=== PATIENT | male | born 1960 | race Two or more races ===

== ENCOUNTER 2021-09-20 07:10 | Outpatient (REF) | payer MEDICAID, SELFPAY ==
[2021-09-20 08:46] LABS: Anion Gap 13 (12-20); Blood Urea Nitrogen 21 mg/dL (9-16); Calcium 9.3 mg/dL (8.4-10.2); Carbon Dioxide 31 mmol/L (22-29); Chloride 101 mmol/L (96-108); Estimated Glomerular Filt Rate > 60; Glucose Random 104 mg/dL (60-115); Potassium 4.2 mmol/L (3.3-5.1); Sodium 141 mmol/L (135-145)
== END 2021-09-20 07:11 | disposition home or self-care (01) ==
LOC: HO.LAB 07:10
PROVIDERS: PCP Nurse Practitioner Family; Visit Provider Internal Medicine Cardiovascular Disease
DX: R60.0 Localized edema (principal)
CPT/HCPCS: 36415; 80048

== ENCOUNTER 2021-11-29 14:34 | Outpatient (REF) | payer MEDICAID, SELFPAY ==
[2021-11-29 15:52] LABS: B Type Natriuretic Peptide 239 pg/mL (<100)
== END 2021-11-29 14:35 | disposition home or self-care (01) ==
LOC: HO.LAB 14:34
PROVIDERS: Visit Provider Internal Medicine Cardiovascular Disease
DX: R60.0 Localized edema (principal)
CPT/HCPCS: 36415; 83880

== ENCOUNTER 2021-12-11 09:11 | Emergency (ER) | payer MEDICAID, SELFPAY ==
--- NOTE | ~2021-12-11 | XR_ITS ---
EXAMINATION: XR CHEST CLINICAL INFORMATION: Chest pain COMPARISON: CXR from 08/01/[address] from 08/01/2011 TECHNIQUE: Frontal view of the chest was obtained. FINDINGS: Cardiac silhouette is chronically mildly enlarged. Again noted is the aneurysmal appearance of the thoracic aorta. The finding of peribronchial cuffing is suspicious for edema of the axial interstitium. No focal consolidation. No overt pleural effusion or pneumothorax. Linear opacities of mild atelectasis at the level of the lingula. Sternotomy wires are intact. No acute skeletal findings. XR/XR chest 1V IMPRESSION: * Mild cardiomegaly and peribronchial cuffing, which is suspicious for mild interstitial edema. * Again noted is the aneurysmal appearance of the thoracic aorta.
--- NOTE | 2021-12-11 09:20 | ECG_ITS ---
Test Reason : chest pain Blood Pressure : / mmHG Vent. Rate : 059 BPM Atrial Rate : 059 BPM P-R Int : 184 ms QRS Dur : 118 ms QT Int : 470 ms P-R-T Axes : -10 -45 074 degrees QTc Int : 465 ms Sinus bradycardia Left anterior fascicular block Left ventricular hypertrophy with QRS widening ( R in aVL , Mathieu product ) Inferior infarct , age undetermined Abnormal ECG When compared to the previous EKG of No significant changes seen Referred By: Leighton Lamb Electronically Signed By:Wilber Nugent
[2021-12-11 09:21] VITALS: BP 151/85; BP 186/90; PULSE 62; PULSE 68; RESP 18; TEMP 37; O2SAT 94; O2SAT 96; BMI 35.5
--- NOTE | 2021-12-11 09:21 | ED.GENADULT ---
HPI - General Adult General Chief complaint: General Medical Stated complaint: Hypertension Time Seen by Provider: 12/11/21 09:19 Source: EMS Mode of arrival: EMS History of Present Illness HPI narrative: This is 61 years old male from a alf with history of hypertension, hyperlipidemia, TBI, OCD, sent here for evaluation by the alf because the elevated blood pressure. Patient denies any chest pain shortness of breath Onset (ago): hour(s) (6) Radiation: non-radiation Severity: mild Exacerbating factors: none Related Data Allergies Allergy/AdvReac Type Severity Reaction Status Date / Time No Known Allergies Allergy Unknown Unverified 02/19/20 16:34 Review of Systems Review of Systems: Yes all other systems are reviewed and are negative Cardiovascular: Cardiovascular: Reports no additional cardiovascular complaints and Denies chest pain Respiratory: Respiratory: Reports no additional respiratory complaints Gastrointestinal: Gastrointestinal: Denies abdominal pain [facility] Past Medical History [facility] Narrative: Hypertension, hyperlipidemia, TBI, BPH, OCD, aortic valve replacement Social History Social History Advance Directives: Yes Advance Directives Information Provided: No Advance Directives on File: No Physical Exam ED Vital Signs: Vital Signs - 24 hr 12/11/21 09:21 12/11/21 11:03 12/11/21 11:04 Temperature 98.6 F Pulse Rate 62 59 59 Respiratory Rate 18 16 20 Blood Pressure 151/85 H 144/82 H 149/82 H Pulse Oximetry 94 94 96 Oxygen Delivery Method Nasal Cannula Nasal Cannula Nasal Cannula Oxygen Flow Rate 2 2 BMI result Body Mass Index 35.5 Const General: cooperative and no acute distress Nutritional Appearance: average body habitus Orientation/consciousness: patient oriented x3 HENMT Head: Yes normal to inspection General nose exam: Normal external nose present Face and sinus: Yes normal facial exam Mouth: Normal oral and palatal mucosa present Throat: Yes posterior oropharynx normal Neck Neck: Yes normal visual inspection and Yes full ROM Chest Chest palpation & inspection: normal inspection of the chest Resp Effort & Inspection: normal respiratory effort Auscultation: clear to auscultation bilaterally Cardio Jugular venous distension: no JVD Rate: regular rate Rhythm: regular rhythm GI Inspection: Yes normal to inspection Palpation (GI): Soft to palpation, not firm, nontender and no guarding General: Yes no CVA tenderness Back/Spine/Pelvis Back: no CVA tenderness Skin General skin exam: no rashes or lesions noted Rashes: no rashes Neuro General: patient oriented x3 Course Reevaluation(s) Reevaluation #1: The patient remained asymptomatic since arrival, BP is controlled, last BP is 149/82 without any intervention by us. The patient can be discharged back to the alf. Medical Decision Making Lab Data Lab results reviewed: Yes I reviewed the patient's lab results. Result diagrams: 12/11/21 09:51 12/11/21 09:51 Labs: Lab Results 12/11/21 12/11/21 12/11/21 Range/Units 09:51 09:51 09:51 WBC 5.1 (4.8-10.8) X10*3/uL RBC 4.23 L (4.60-5.80) X10*6/uL Hgb 12.8 L (14.0-18.0) g/dl Hct 40.6 L (42.0-52.0) % MCV 96.0 (80.0-98.0) fL MCH 30.3 (27.0-33.0) pg MCHC 31.5 (31.0-36.0) g/dl RDW 12.2 (11.0-16.0) % Plt Count 167 (160-400) X10*3/uL MPV 10.5 (9.4-12.4) fL Immature Gran % (Auto) 0.2 (0.0-0.4) % Neut % (Auto) 75.3 H (45-73) % Lymph % (Auto) 11.0 L (20-40) % Randolph % (Auto) 6.1 (2-11) % Eos % (Auto) 7.2 H (0-4) % Baso % (Auto) 0.2 (0-2) % Lymph # (Auto) 0.6 L (1.2-4.9) X10*3/uL Randolph # (Auto) 0.3 (0.1-1.2) X10*3/uL Eos # (Auto) 0.4 (0.0-0.4) X10*3/uL Baso # (Auto) 0.0 (0.0-0.2) X10*3/uL Abs Immat Gran (auto) 0.01 (0.00-0.03) X10*3/uL Absolute Neuts (auto) 3.9 (2.0-8.3) x10*3/uL Absolute Nucleated RBC 0.000 (0.0-0.012) X10*3/uL Nucleated RBC % (auto) 0.0 (0.0-0.2) /100WBC PT 15.1 H (10.0-13.1) SEC INR 1.3 H (0.9-1.1) Sodium 143 (135-145) mmol/L Potassium 3.7 (3.3-5.1) mmol/L Chloride 97 (96-108) mmol/L Carbon Dioxide 41 H* D (22-29) mmol/L Anion Gap 9 L (12-20) BUN 16 (9-16) mg/dL Creatinine 0.87 (0.5-1.4) mg/dL Estim Creat Clear Calc 99.8 Estimated GFR > 60 Random Glucose 115 (60-115) mg/dL Calcium 9.0 (8.4-10.2) mg/dL Total Bilirubin 0.8 (0.0-1.0) mg/dL AST 16 (5-37) U/L ALT 16 (0-40) U/L Alkaline Phosphatase 93 (39-117) U/L Troponin I High Sens (<3.5-35.0) ng/L Total Protein 6.8 (6.5-8.0) g/dL Albumin 3.8 (3.5-5.0) g/dL 12/11/21 Range/Units 09:51 WBC (4.8-10.8) X10*3/uL RBC (4.60-5.80) X10*6/uL Hgb (14.0-18.0) g/dl Hct (42.0-52.0) % MCV (80.0-98.0) fL MCH (27.0-33.0) pg MCHC (31.0-36.0) g/dl RDW (11.0-16.0) % Plt Count (160-400) X10*3/uL MPV (9.4-12.4) fL Immature Gran % (Auto) (0.0-0.4) % Neut % (Auto) (45-73) % Lymph % (Auto) (20-40) % Randolph % (Auto) (2-11) % Eos % (Auto) (0-4) % Baso % (Auto) (0-2) % Lymph # (Auto) (1.2-4.9) X10*3/uL Randolph # (Auto) (0.1-1.2) X10*3/uL Eos # (Auto) (0.0-0.4) X10*3/uL Baso # (Auto) (0.0-0.2) X10*3/uL Abs Immat Gran (auto) (0.00-0.03) X10*3/uL Absolute Neuts (auto) (2.0-8.3) x10*3/uL Absolute Nucleated RBC (0.0-0.012) X10*3/uL Nucleated RBC % (auto) (0.0-0.2) /100WBC PT (10.0-13.1) SEC INR (0.9-1.1) Sodium (135-145) mmol/L Potassium (3.3-5.1) mmol/L Chloride (96-108) mmol/L Carbon Dioxide (22-29) mmol/L Anion Gap (12-20) BUN (9-16) mg/dL Creatinine (0.5-1.4) mg/dL Estim Creat Clear Calc Estimated GFR Random Glucose (60-115) mg/dL Calcium (8.4-10.2) mg/dL Total Bilirubin (0.0-1.0) mg/dL AST (5-37) U/L ALT (0-40) U/L Alkaline Phosphatase (39-117) U/L Troponin I High Sens 10.2 (<3.5-35.0) ng/L Total Protein (6.5-8.0) g/dL Albumin (3.5-5.0) g/dL ECG Data Attestation: I personally reviewed and interpreted this ECG as follows: Prior ECG tracings: available for review Pacemaker model: Normal sinus rhythm rate [address]-T changes Discharge Plan Discharge Clinical Impression: Hypertension Patient Disposition: Home, Self-Care Instructions: Hypertension in the Older Adult (ED) Additional Instructions: Follow-up with your primary care physician, return if you worse , chest pain ,short of breath Referrals: Maddison Vazquez NP [Primary Care Provider] - 2 days
[2021-12-11 09:56] LABS: MANUAL DIFF FLAG NO
[2021-12-11 10:19] LABS: Basophils Percent Auto 0.2 % (0-2); Eosinophils Absolute Auto 0.4 X10*3/uL (0.0-0.4); Eosinophils Percent Auto 7.2 % (0-4); Hematocrit 40.6 % (42.0-52.0); Hemoglobin 12.8 g/dl (14.0-18.0); Imm Gran Abs Auto 0.01 X10*3/uL (0.00-0.03); Imm Gran Pct Auto 0.2 % (0.0-0.4); Lymphocytes Absolute Auto 0.6 X10*3/uL (1.2-4.9); Mean Corpuscular HGB Conc 31.5 g/dl (31.0-36.0); Mean Corpuscular Hemoglobin 30.3 pg (27.0-33.0); Mean Platelet Volume 10.5 fL (9.4-12.4); Monocytes Absolute Auto 0.3 X10*3/uL (0.1-1.2); Monocytes Percent Auto 6.1 % (2-11); Neutrophils Absolute Auto 3.9 x10*3/uL (2.0-8.3); Neutrophils Percent Auto 75.3 % (45-73); Platelet Count 167 X10*3/uL (160-400); Red Blood Count 4.23 X10*6/uL (4.60-5.80); Red Cell Distribution Width 12.2 % (11.0-16.0); White Blood Count 5.1 X10*3/uL (4.8-10.8)
[2021-12-11 10:25] LABS: INTERNATIONAL NORM RATIO 1.3 (0.9-1.1); Prothrombin Time 15.1 SEC (10.0-13.1)
[2021-12-11 10:44] LABS: Troponin-I High Sensitivity 10.2 ng/L (<3.5-35.0)
[2021-12-11 10:49] LABS: Alanine Aminotransferase 16 U/L (0-40); Albumin Level 3.8 g/dL (3.5-5.0); Alkaline Phosphatase 93 U/L (39-117); Anion Gap 9 (12-20); Aspartate Amino Transferase 16 U/L (5-37); Bilirubin Total 0.8 mg/dL (0.0-1.0); Blood Urea Nitrogen 16 mg/dL (9-16); Carbon Dioxide 41 mmol/L (22-29); Chloride 97 mmol/L (96-108); Creatinine Clr Calc Pharmacy 99.8; Estimated Glomerular Filt Rate > 60; Glucose Random 115 mg/dL (60-115); Potassium 3.7 mmol/L (3.3-5.1); Sodium 143 mmol/L (135-145); Total Protein 6.8 g/dL (6.5-8.0)
[2021-12-11 11:03] VITALS: BP 144/82; PULSE 59; RESP 16; O2SAT 94
[2021-12-11 11:04] VITALS: BP 149/82; PULSE 59; RESP 20; O2SAT 96
[2021-12-11 13:25] VITALS: BP 152/79; PULSE 58; RESP 16; O2SAT 97
== END 2021-12-11 13:59 | disposition home or self-care (01) ==
PROVIDERS: Emergency Provider Emergency Medicine; PCP Nurse Practitioner Family
DX: I10 Essential (primary) hypertension (principal); E78.5 Hyperlipidemia, unspecified; Z87.820 Personal history of traumatic brain injury; Z95.2 Presence of prosthetic heart valve
CPT/HCPCS: 36415; 71045; 80053; 84484; 85025; 85610; 93005; 99283; 99284

== ENCOUNTER 2022-07-10 08:31 | Inpatient (IN) | payer MEDICAID, SELFPAY ==
[2022-07-10] VITALS (16 sets, daily range): BP systolic 117–154; BP diastolic 57–90; PULSE 64–87; RESP 10–22; TEMP 36.7–37.2; O2SAT 88–99; BMI 35.4; BMI 34.7
--- NOTE | ~2022-07-10 | XR_ITS ---
EXAMINATION: XR CHEST CLINICAL INFORMATION: Shortness of breath. Hypoxia. COMPARISON: December 11, 2021. TECHNIQUE: Portable AP view of the chest was obtained. XR/XR chest 1V FINDINGS/IMPRESSION: The study is limited by portable technique, low lung volumes, rotation, and overlying leads. No gross focal infiltrate, effusion, pneumothorax is seen. The cardiac silhouette is suboptimally evaluated. Dilated, uncoiled aorta was better appreciated on prior CT scan, associated with known aortic dissection. The patient is status post median sternotomy.
--- NOTE | ~2022-07-10 | XR_ITS ---
EXAMINATION: XR CHEST CLINICAL INFORMATION: Cough COMPARISON: 07/10/2022 TECHNIQUE: Frontal view of the chest was obtained. FINDINGS: Median sternotomy wires appear intact. Cardiac leads overlie the chest. The lungs are well expanded. Diffuse bronchial wall thickening. No consolidation, edema, or effusion. No pneumothorax. The cardiomediastinal silhouette is enlarged, unchanged. XR/XR chest 1V IMPRESSION: No consolidation. Bronchial wall thickening can be seen with a small airways process such as asthma or atypical/viral infection.
--- NOTE | ~2022-07-10 | US_ITS ---
EXAMINATION: US VENOUS ULTRASOUND WITH DOPPLER LOWER EXTREMITY, BILATERAL CLINICAL INFORMATION: Leg swelling, worse on the left. COMPARISON: None TECHNIQUE: Ultrasound of the deep veins is performed from the hip to the calf with compression sonography and color and pulse Doppler assessment. Spectral analysis with color-flow imaging is performed. FINDINGS: RIGHT: The right profunda femoral vein is suboptimally evaluated. There is normal venous compression and respiratory variation and augmented flow. The visualized common femoral vein, superficial femoral vein, popliteal vein, and the trifurcation region shows no evidence of deep venous thrombosis. There is no significant popliteal fossa cyst. LEFT: There is normal venous compression and respiratory variation and augmented flow. The visualized common femoral vein, superficial femoral vein, profunda femoral vein, popliteal vein, and the trifurcation region shows no evidence of deep venous thrombosis. There is no significant popliteal fossa cyst. US/US venous duplex LE BI IMPRESSION: Limited evaluation of the right profunda femoral vein. Cannot confirm or exclude right profunda femoral venous thrombosis. Otherwise, no DVT demonstrated in the lower extremities, bilaterally.
--- NOTE | 2022-07-10 09:13 | ECG_ITS ---
Test Reason : sob Blood Pressure : / mmHG Vent. Rate : 081 BPM Atrial Rate : 081 BPM P-R Int : 184 ms QRS Dur : 108 ms QT Int : 380 ms P-R-T Axes : 034 -42 100 degrees QTc Int : 441 ms Normal sinus rhythm Left axis deviation ST & T wave abnormality, consider lateral ischemia Abnormal ECG When compared with ECG of 11-DEC-2021 09:39, No significant change was found Referred By: Loretta Marlow Electronically Signed By:EL GRAMAJO MD
[2022-07-10] MEDS: Furosemide 40 MG/4 ML VIAL IVPUSH (09:47)
--- NOTE | 2022-07-10 09:50 | PC.NURSE ---
Addendum entered by Mireya López 07/10/22 09:56: [id number] on arrival 69 Original Note: Pt is alert/oriented. States SOB x 1 week, B/L LE edema noted, worse on left. Breathing effort normal. Skin pwd. Placed on Bipap settings 15/5/35%, goal to keep 02 sat 88-92%. 02 dependent at fpc on 1 lpm. 18g placed to left ac. Medicated as charted with lasix. NSR on monitor. LS dim
[2022-07-10 09:51] LABS: Venous Blood Gas Refer to POC result
[2022-07-10 09:54] LABS: VBG Base Excess 14.5 mmol/L; VBG HCO3 44 mmol/L (22-26); VBG pCO2 83 mmHg; VBG pH 7.33 (7.32-7.43); VBG pO2 74 mmHg
[2022-07-10 09:56] LABS: Basophils Percent Auto 0.2 % (0-2); Eosinophils Percent Auto 0.5 % (0-4); Hematocrit 36.2 % (42.0-52.0); Imm Gran Abs Auto 0.01 X10*3/uL (0.00-0.03); Imm Gran Pct Auto 0.2 % (0.0-0.4); Lymphocytes Absolute Auto 0.5 X10*3/uL (1.2-4.9); Lymphocytes Percent Auto 7.9 % (20-40); MANUAL DIFF FLAG NO; Mean Corpuscular HGB Conc 30.4 g/dl (31.0-36.0); Mean Corpuscular Hemoglobin 28.9 pg (27.0-33.0); Mean Corpuscular Volume 95.3 fL (80.0-98.0); Mean Platelet Volume 10.4 fL (9.4-12.4); Monocytes Absolute Auto 0.4 X10*3/uL (0.1-1.2); Monocytes Percent Auto 7.1 % (2-11); Neutrophils Percent Auto 84.1 % (45-73); Platelet Count 161 X10*3/uL (160-400); Red Cell Distribution Width 12.8 % (11.0-16.0)
[2022-07-10 10:05] LABS: INTERNATIONAL NORM RATIO 1.4 (0.9-1.1); Prothrombin Time 15.8 SEC (10.0-13.1)
[2022-07-10 10:15] LABS: Alanine Aminotransferase 17 U/L (0-40); Albumin Level 3.4 g/dL (3.5-5.0); Alkaline Phosphatase 119 U/L (39-117); Anion Gap 11 (12-20); Bilirubin Total 0.6 mg/dL (0.0-1.0); Blood Urea Nitrogen 22 mg/dL (9-16); C Reactive Protein 3.37 mg/dL (< or = 0.50); Calcium 8.8 mg/dL (8.4-10.2); Carbon Dioxide 37 mmol/L (22-29); Chloride 103 mmol/L (96-108); Glucose Random 112 mg/dL (60-115); Magnesium 2.3 mg/dL (1.6-2.6); Potassium 3.6 mmol/L (3.3-5.1); Sodium 147 mmol/L (135-145); Total Protein 6.2 g/dL (6.5-8.0)
[2022-07-10 10:16] LABS: B Type Natriuretic Peptide 989 pg/mL (<100)
[2022-07-10 10:24] LABS: Ammonia 43 umol/L (13-55)
[2022-07-10 10:29] LABS: Aspartate Amino Transferase 15 U/L (5-37); Creatinine Clr Calc Pharmacy 54.9; Estimated Glomerular Filt Rate 45
[2022-07-10 10:35] LABS: Troponin-I High Sensitivity 19.2 ng/L (<3.5-35.0)
[2022-07-10 10:46] LABS: Lactic Acid 0.6 mmol/L (0.5-2.0)
--- NOTE | 2022-07-10 10:52 | ED.SOB ---
HPI - SOB/Dyspnea General Chief Complaint: Dyspnea Stated Complaint: diff breathing Time Seen by Provider: 07/10/22 09:12 Source: patient, EMS and RN notes reviewed Mode of arrival: EMS Limitations: no limitations History of Present Illness HPI Narrative: 62yoM c PMHx of HTN, HLD, CHF with an EF of 45% on Lasix 20 mg daily, TBI, CESAR on CPAP at night and chronic hypoxemia on 1L NC oxygen chronically who is currently residing at [facility] presenting with increasing shortness of breath with hypoxia in the 70's that they notice this morning. Apparently the patient has not been wearing his CPAP at night we are unsure how many days. He also reports that he has had a cough with sputum production yellow color sputum for over a week. Reports increasing leg swelling worse on the left than the right for over a week as well. He reports over the past week he has had some intermittent nausea vomiting and diarrhea. He denies any fevers, chills, headaches, neck pain/stiffness, chest pain, chest tightness, black or bloody emesis, abdominal pain, back pain, flank pain, dysuria, hematuria, abnormal penile discharge, rashes, recent falls or trauma, recent travel or sick contacts that he is aware of, calf tenderness, black or bloody stools, constipation or any other symptoms complaints or concerns at this time. MD elicited complaint: shortness of breath and cough Pertinent past history: congestive heart failure and other (CESAR on CPAP at bedtime and chronically on 1L NC oxygen ) Onset (ago): week(s) (1) Timing: constant and progressively worsening Severity: severe Known history of: congestive heart failure (and CESAR) Associated symptoms: cough, sputum production, nausea/vomiting and chest congestion Treatment prior to arrival: oxygen Related Data Home oxygen amount: 1 liter Allergies Allergy/AdvReac Type Severity Reaction Status Date / Time No Known Allergies Allergy Unknown Verified 07/10/22 09:14 Review of Systems Review of Systems: Constitutional : No Weight loss, No Fever, No Chills, No Night Sweats, No Fatigue, No Malaise ENT/Mouth : No Hearing loss, No Ear Pain, No Nasal Congestion, No Sinus Pain, No Hoarseness, No sore throat, No Rhinorrhea, No Swallowing Difficulty Eyes: No Eye Pain, No Swelling, No Redness, No Foreign Body, No Discharge, No Vision Changes Cardiovascular : No Chest Pain, + SOB, + Dyspnea on Exertion, + Orthopnea, No Edema, No Palpitations Respiratory : + Cough, + Sputum, No Wheezing, No Smoke Exposure, + Dyspnea Gastrointestinal : + Nausea, + Vomiting, + Diarrhea, No Constipation, No abdominal Pain, No Hematochezia, No Melena Genitourinary : no irregular bleeding, No Dysuria, No Urinary Frequency, No Hematuria, No Urinary Incontinence, No Urgency, No Flank Pain, No Urinary Flow Changes, No Hesitancy Musculoskeletal : No joint pain, No Myalgias, No Joint Swelling Skin : No Skin Lesions, No rash Neuro : No Weakness, No Numbness, No Paresthesias, No Loss of Consciousness, No Dizziness, No Headache Psych : No Anxiety/Panic, No Depression, No SI/HI/AH/VH, No Social Issues, Heme/Lymph: No Bruising, No Bleeding,No Lymphadenopathy Endocrine : No Polyuria, No Polydipsia, No Temperature Intolerance Yes all other systems are reviewed and are negative [facility]LY [facility] Past Medical History Attestation statement: The following information was validated with the patient. Source: old records reviewed and nursing notes reviewed Social History Social History Smoked in Last 30 Days: No Use of substances other than those prescribed or required for medical reasons: No Advance Directives: No Advance Directives Information Provided: Yes Physical Exam Vital Signs: Vital Signs: Last Vital Signs Temp 99.0 F 07/10/22 09:09 Pulse 75 07/10/22 13:38 Resp 16 07/10/22 13:49 BP 139/84 07/10/22 13:38 Pulse Ox 89 L 07/10/22 13:38 O2 Del Method 07/10/22 13:38 O2 Flow Rate 2 07/10/22 13:38 FiO2 35 07/10/22 11:17 Oxygen Flow Rate 6 07/10/22 09:09 BMI result Body Mass Index 35.4 vital signs have been reviewed as normal and appeared to be correct. Blood pressure normal. Heart rate normal. Respiration rate normal. Temperature normal. Oxygen saturation hypoxic at 88% on RA. Appearance: Alert. Oriented X3. In acute respiratory distress otherwise no other distress. Head: Normal external exam. Normocephalic. Atraumatic. Eyes: PERRLA. EOMI. Conjunctiva and sclera normal. Eyelids normal. ENT: EAC normal. TM's Normal. Pharynx normal. Uvula midline. Moist mucous membranes. No lesions/ulcerations or masses noted on the tongue. Normal voice. No trismus noted. No drooling noted. No muffled voice noted. Neck: Normal inspection. Neck supple. FROM. No adenopathy. Thyroid Normal. No tracheal deviation noted. No crepitus is noted. No meningeal signs. No neck mass noted. No signs of trauma noted. CVS: Normal heart rate and rhythm. Heart sound normal. Pulses normal throughout. No murmurs/rales/gallops. Respiratory: In acute respiratory distress with decreased breath sounds questioning rales. No wheezes/rhonchi noted. Chest is nontender. No crepitus is noted. Patient noted to have accessory muscle usage noted and tracheal tugging and abdominal retractions. Abdomen: Soft and nontender. Nondistended. No guarding. No rigidity. Bowel sounds normal in all 4 quadrants. No distention noted. No organomegaly noted. No visible injury noted. No rebound tenderness. Negative Rovsing sign. Negative obturator's sign. Negative psoas sign. Negative Maharaj sign. Back: No CVA tenderness. Full range of motion noted. Nontender. No signs of trauma. Patient neuro intact bilaterally and distally on all 4 extremities. Patient's reflexes intact bilaterally and distally on all 4 extremities. No rashes/lesion/induration/fluctuance or signs of infection noted. Skin: Skin warm and dry. Normal skin color. Normal skin turgor. No rashes/lesions/lacerations noted. Extremities: +2 lower extremity edema. No calf tenderness is noted. Extremities exhibit normal range of motion and nontender. Neuro: Oriented X 3. No motor deficit. No sensory deficit. Reflexes normal. Normal steady gait. No focal neuro deficits noted. CN's II-XII intact bilaterally? Vascular: + radial pulses/+ 2 distal pedal pulses/+2 dorsalis pedis b/l. Normal cap refill. No cyanosis noted to upper extremity nails and lower extremity toes nails. Course Course Course Narrative: 915am - 62yoM c PMHx of HTN, HLD, CHF with an EF of 45% on Lasix 20 mg daily, TBI, CESAR on CPAP at night and chronic hypoxemia on 1L NC oxygen chronically who is currently residing at [facility] presenting with increasing shortness of breath with hypoxia in the 70's that they notice this morning. Apparently the patient has not been wearing his CPAP at night we are unsure how many days. He also reports that he has had a cough with sputum production yellow color sputum for over a week. Reports increasing leg swelling worse on the left than the right for over a week as well. He reports over the past week he has had some intermittent nausea vomiting and diarrhea. On exam patient presented hypoxic at 88% on room air therefore he was quickly placed on a BiPAP with FiO2 at 35%. Otherwise all other vitals are within normal limits. He had decreased lung sounds with rales noted diffusely. With tracheal tugging abdominal retractions. No obvious wheezes or rhonchi noted. CV RRR. Abdomen is soft and nontender. There is +2 lower extremity pitting edema. No calf tenderness is noted. This patient presents with dyspnea, most likely secondary to CHF exacerbation and obstructive sleep apnea not using his CPAP. Differential diagnosis includes viral syndrome such as influenza or COVID versus pneumonia although less likely due to afebrile. Presentation not consistent with acute cardiac etiologies to include ACS, pericardial effusion / tamponade . Presentation not consistent with acute respiratory etiologies to include acute PE , pneumothorax , asthma, COPD exacerbation, allergic etiologies, or infectious etiologies. Presentation also not consistent with non-cardiopulmonary causes to include toxidromes, metabolic etiologies such as acidemia or electrolyte derangements, sepsis, neurologic causes (i.e. demyelinating diseases). Plan: Will obtain labs, BC, lactic acid, VBG, COVID/RSV/flu swab, chest x-ray, venous duplex ultrasound of bilateral lower extremity. Patient was started on BiPAP. Will also give 40 mg of Lasix and re-evaluate. Reevaluation(s) Reevaluation #1: Labs reviewed - mild anemia with an H&H of 11.0/36.6 which is similar compared to prior. - esr 37 - VBG PH 4.33, HC03 at 44 otherwise the rest of the VBG is normal - sodium 147 - carbon dioxide 37 - anion gap 11 - BUN 11 - Cr 1.56 - alkaline phosphate 119 - CRP 3.37 - BNP 989 - total protein 6.2 - albumin 3.4 - troponin 19.2 will repeat in 3 hours Otherwise all other labs are within normal limits Imaging CXR FINDINGS/IMPRESSION: ? The study is limited by portable technique, low lung volumes, rotation, and overlying leads. ? No gross focal infiltrate, effusion, pneumothorax is seen. ? The cardiac silhouette is suboptimally evaluated. Dilated, uncoiled aorta was better appreciated on prior CT scan, associated with known aortic dissection. The patient is status post median sternotomy. Venous duplex ultrasound of bilateral lower extremity FINDINGS: RIGHT: The right profunda femoral vein is suboptimally evaluated. There is normal venous compression and respiratory variation and augmented flow. The visualized common femoral vein, superficial femoral vein, popliteal vein, and the trifurcation region shows no evidence of deep venous thrombosis. ? There is no significant popliteal fossa cyst. LEFT: There is normal venous compression and respiratory variation and augmented flow. The visualized common femoral vein, superficial femoral vein, profunda femoral vein, popliteal vein, and the trifurcation region shows no evidence of deep venous thrombosis. ? There is no significant popliteal fossa cyst. US/US venous duplex LE BI IMPRESSION: ? Limited evaluation of the right profunda femoral vein. Cannot confirm or exclude right profunda femoral venous thrombosis. ? Otherwise, no DVT demonstrated in the lower extremities, bilaterally. Plan: Therefore at this time I attempted to remove the patient off the BiPAP and he still appears very sleepy and his oxygen will drop to 88% and CO2 60 on his 1L NC oxygen. Will repeat an ABG. From the patient's imaging there is no source of infection this is not sepsis or septic shock. No antibiotics indicated at this time. This is CHF exacerbation with hypoxia. Will re-evaluate. Time: 11:00 Reevaluation #2: Patient's ABG pH is 7.33. PCO2 86. PO2 64. HC 0345. Patient is in metabolic alkalosis with respiratory acidosis. Plan: Therefore at this time I discussed this case with Dr. Tello to admit the patient because the patient is requiring BiPAP he will be placed back on the BiPAP at this time. Patient understands agrees with this plan. Time: 13:30 Reevaluation #3: Patient will be admitted to the ICU Dr. Tello he recommended starting Lasix drip 5/Hr and give 60 mEq of IV potassium over a few hours therefore order placed along with Govea catheter. He will be admitted to the ICU at this time. Time: 14:42 Medications Administered Discontinued Medications Generic Name Dose Route Start Last Admin Trade Name Alexander PRN Reason Stop Dose Admin Furosemide 40 mg 07/10/22 09:26 07/10/22 09:47 Furosemide 40 Mg/4 Ml Vial IVPUSH 07/10/22 09:27 40 mg STAT STA Administration Protocol Furosemide 20 mg 07/10/22 13:28 07/10/22 13:37 Furosemide 20 Mg/2 Ml Vial IVPUSH 07/10/22 13:29 20 mg ONCE ONE Administration Protocol Medical Decision Making Lab Data [facility] Lab Attestation statement: I reviewed the patient's lab results. 07/10/22 09:44 07/10/22 09:45 Labs: Lab Results 07/10/22 07/10/22 07/10/22 Range/Units 09:44 09:44 09:44 WBC 6.0 (4.8-10.8) X10*3/uL RBC 3.80 L (4.60-5.80) X10*6/uL Hgb 11.0 L (14.0-18.0) g/dl Hct 36.2 L (42.0-52.0) % MCV 95.3 (80.0-98.0) fL MCH 28.9 (27.0-33.0) pg MCHC 30.4 L (31.0-36.0) g/dl RDW 12.8 (11.0-16.0) % Plt Count 161 (160-400) X10*3/uL MPV 10.4 (9.4-12.4) fL Immature Gran % (Auto) 0.2 (0.0-0.4) % Neut % (Auto) 84.1 H (45-73) % Lymph % (Auto) 7.9 L (20-40) % Hamblen % (Auto) 7.1 (2-11) % Eos % (Auto) 0.5 (0-4) % Baso % (Auto) 0.2 (0-2) % Lymph # (Auto) 0.5 L (1.2-4.9) X10*3/uL Hamblen # (Auto) 0.4 (0.1-1.2) X10*3/uL Eos # (Auto) 0.0 (0.0-0.4) X10*3/uL Baso # (Auto) 0.0 (0.0-0.2) X10*3/uL Abs Immat Gran (auto) 0.01 (0.00-0.03) X10*3/uL Absolute Neuts (auto) 5.0 (2.0-8.3) x10*3/uL Absolute Nucleated RBC 0.000 (0.0-0.012) X10*3/uL Nucleated RBC % (auto) 0.0 (0.0-0.2) /100WBC ESR 37 H (0-15) MM/HR PT (10.0-13.1) SEC INR (0.9-1.1) O2 Saturation % ABG pH at Pt Temp (7.35-7.45) ABG pCO2 at Pt Temp (32-45) mmHg ABG pO2 at Pt Temp (83-108) mmHg ABG HCO3 (22-26) mmol/L ABG Base Excess (Actual) mmol/L VBG pH (7.32-7.43) VBG pCO2 mmHg VBG pO2 mmHg VBG HCO3 (22-26) mmol/L VBG O2 Saturation % VBG Base Excess mmol/L Sodium (135-145) mmol/L Potassium (3.3-5.1) mmol/L Chloride (96-108) mmol/L Carbon Dioxide (22-29) mmol/L Anion Gap (12-20) BUN (9-16) mg/dL Creatinine (0.5-1.4) mg/dL Estim Creat Clear Calc Estimated GFR Random Glucose (60-115) mg/dL Lactic Acid (0.5-2.0) mmol/L Calcium (8.4-10.2) mg/dL Magnesium (1.6-2.6) mg/dL Total Bilirubin (0.0-1.0) mg/dL AST (5-37) U/L ALT (0-40) U/L Alkaline Phosphatase (39-117) U/L Ammonia (13-55) umol/L Troponin I High Sens (<3.5-35.0) ng/L C-Reactive Protein (< or = 0.50) mg/dL B-Natriuretic Peptide 989 H (<100) pg/mL Total Protein (6.5-8.0) g/dL Albumin (3.5-5.0) g/dL Influenza Type A (PCR) (Negative) Influenza Type B (PCR) (Negative) RSV RNA Qual (PCR) (Negative) SARS-CoV-2 RNA (RT-PCR) (Negative) 07/10/22 07/10/22 07/10/22 Range/Units 09:45 09:45 09:47 WBC (4.8-10.8) X10*3/uL RBC (4.60-5.80) X10*6/uL Hgb (14.0-18.0) g/dl Hct (42.0-52.0) % MCV (80.0-98.0) fL MCH (27.0-33.0) pg MCHC (31.0-36.0) g/dl RDW (11.0-16.0) % Plt Count (160-400) X10*3/uL MPV (9.4-12.4) fL Immature Gran % (Auto) (0.0-0.4) % Neut % (Auto) (45-73) % Lymph % (Auto) (20-40) % Hamblen % (Auto) (2-11) % Eos % (Auto) (0-4) % Baso % (Auto) (0-2) % Lymph # (Auto) (1.2-4.9) X10*3/uL Hamblen # (Auto) (0.1-1.2) X10*3/uL Eos # (Auto) (0.0-0.4) X10*3/uL Baso # (Auto) (0.0-0.2) X10*3/uL Abs Immat Gran (auto) (0.00-0.03) X10*3/uL Absolute Neuts (auto) (2.0-8.3) x10*3/uL Absolute Nucleated RBC (0.0-0.012) X10*3/uL Nucleated RBC % (auto) (0.0-0.2) /100WBC ESR (0-15) MM/HR PT 15.8 H (10.0-13.1) SEC INR 1.4 H (0.9-1.1) O2 Saturation % ABG pH at Pt Temp (7.35-7.45) ABG pCO2 at Pt Temp (32-45) mmHg ABG pO2 at Pt Temp (83-108) mmHg ABG HCO3 (22-26) mmol/L ABG Base Excess (Actual) mmol/L VBG pH 7.33 (7.32-7.43) VBG pCO2 83 mmHg VBG pO2 74 mmHg VBG HCO3 44 H (22-26) mmol/L VBG O2 Saturation 93.0 % VBG Base Excess 14.5 mmol/L Sodium 147 H (135-145) mmol/L Potassium 3.6 (3.3-5.1) mmol/L Chloride 103 (96-108) mmol/L Carbon Dioxide 37 H (22-29) mmol/L Anion Gap 11 L (12-20) BUN 22 H (9-16) mg/dL Creatinine 1.56 H (0.5-1.4) mg/dL Estim Creat Clear Calc 54.9 Estimated GFR 45 Random Glucose 112 (60-115) mg/dL Lactic Acid (0.5-2.0) mmol/L Calcium 8.8 (8.4-10.2) mg/dL Magnesium 2.3 (1.6-2.6) mg/dL Total Bilirubin 0.6 (0.0-1.0) mg/dL AST 15 (5-37) U/L ALT 17 (0-40) U/L Alkaline Phosphatase 119 H (39-117) U/L Ammonia (13-55) umol/L Troponin I High Sens (<3.5-35.0) ng/L C-Reactive Protein 3.37 H (< or = 0.50) mg/dL B-Natriuretic Peptide (<100) pg/mL Total Protein 6.2 L (6.5-8.0) g/dL Albumin 3.4 L (3.5-5.0) g/dL Influenza Type A (PCR) (Negative) Influenza Type B (PCR) (Negative) RSV RNA Qual (PCR) (Negative) SARS-CoV-2 RNA (RT-PCR) (Negative) 07/10/22 07/10/22 07/10/22 Range/Units 09:57 09:57 09:57 WBC (4.8-10.8) X10*3/uL RBC (4.60-5.80) X10*6/uL Hgb (14.0-18.0) g/dl Hct (42.0-52.0) % MCV (80.0-98.0) fL MCH (27.0-33.0) pg MCHC (31.0-36.0) g/dl RDW (11.0-16.0) % Plt Count (160-400) X10*3/uL MPV (9.4-12.4) fL Immature Gran % (Auto) (0.0-0.4) % Neut % (Auto) (45-73) % Lymph % (Auto) (20-40) % Hamblen % (Auto) (2-11) % Eos % (Auto) (0-4) % Baso % (Auto) (0-2) % Lymph # (Auto) (1.2-4.9) X10*3/uL Hamblen # (Auto) (0.1-1.2) X10*3/uL Eos # (Auto) (0.0-0.4) X10*3/uL Baso # (Auto) (0.0-0.2) X10*3/uL Abs Immat Gran (auto) (0.00-0.03) X10*3/uL Absolute Neuts (auto) (2.0-8.3) x10*3/uL Absolute Nucleated RBC (0.0-0.012) X10*3/uL Nucleated RBC % (auto) (0.0-0.2) /100WBC ESR (0-15) MM/HR PT (10.0-13.1) SEC INR (0.9-1.1) O2 Saturation % ABG pH at Pt Temp (7.35-7.45) ABG pCO2 at Pt Temp (32-45) mmHg ABG pO2 at Pt Temp (83-108) mmHg ABG HCO3 (22-26) mmol/L ABG Base Excess (Actual) mmol/L VBG pH (7.32-7.43) VBG pCO2 mmHg VBG pO2 mmHg VBG HCO3 (22-26) mmol/L VBG O2 Saturation % VBG Base Excess mmol/L Sodium (135-145) mmol/L Potassium (3.3-5.1) mmol/L Chloride (96-108) mmol/L Carbon Dioxide (22-29) mmol/L Anion Gap (12-20) BUN (9-16) mg/dL Creatinine (0.5-1.4) mg/dL Estim Creat Clear Calc Estimated GFR Random Glucose (60-115) mg/dL Lactic Acid 0.6 (0.5-2.0) mmol/L Calcium (8.4-10.2) mg/dL Magnesium (1.6-2.6) mg/dL Total Bilirubin (0.0-1.0) mg/dL AST (5-37) U/L ALT (0-40) U/L Alkaline Phosphatase (39-117) U/L Ammonia (13-55) umol/L Troponin I High Sens 19.2 (<3.5-35.0) ng/L C-Reactive Protein (< or = 0.50) mg/dL B-Natriuretic Peptide (<100) pg/mL Total Protein (6.5-8.0) g/dL Albumin (3.5-5.0) g/dL Influenza Type A (PCR) NEGATIVE (Negative) Influenza Type B (PCR) NEGATIVE (Negative) RSV RNA Qual (PCR) NEGATIVE (Negative) SARS-CoV-2 RNA (RT-PCR) NEGATIVE (Negative) 07/10/22 07/10/22 07/10/22 Range/Units 10:01 13:03 13:10 WBC (4.8-10.8) X10*3/uL RBC (4.60-5.80) X10*6/uL Hgb (14.0-18.0) g/dl Hct (42.0-52.0) % MCV (80.0-98.0) fL MCH (27.0-33.0) pg MCHC (31.0-36.0) g/dl RDW (11.0-16.0) % Plt Count (160-400) X10*3/uL MPV (9.4-12.4) fL Immature Gran % (Auto) (0.0-0.4) % Neut % (Auto) (45-73) % Lymph % (Auto) (20-40) % Hamblen % (Auto) (2-11) % Eos % (Auto) (0-4) % Baso % (Auto) (0-2) % Lymph # (Auto) (1.2-4.9) X10*3/uL Hamblen # (Auto) (0.1-1.2) X10*3/uL Eos # (Auto) (0.0-0.4) X10*3/uL Baso # (Auto) (0.0-0.2) X10*3/uL Abs Immat Gran (auto) (0.00-0.03) X10*3/uL Absolute Neuts (auto) (2.0-8.3) x10*3/uL Absolute Nucleated RBC (0.0-0.012) X10*3/uL Nucleated RBC % (auto) (0.0-0.2) /100WBC ESR (0-15) MM/HR PT (10.0-13.1) SEC INR (0.9-1.1) O2 Saturation 88.0 % ABG pH at Pt Temp 7.33 L (7.35-7.45) ABG pCO2 at Pt Temp 86 H* (32-45) mmHg ABG pO2 at Pt Temp 64 L (83-108) mmHg ABG HCO3 45 H (22-26) mmol/L ABG Base Excess (Actual) 16.1 mmol/L VBG pH (7.32-7.43) VBG pCO2 mmHg VBG pO2 mmHg VBG HCO3 (22-26) mmol/L VBG O2 Saturation % VBG Base Excess mmol/L Sodium (135-145) mmol/L Potassium (3.3-5.1) mmol/L Chloride (96-108) mmol/L Carbon Dioxide (22-29) mmol/L Anion Gap (12-20) BUN (9-16) mg/dL Creatinine (0.5-1.4) mg/dL Estim Creat Clear Calc Estimated GFR Random Glucose (60-115) mg/dL Lactic Acid (0.5-2.0) mmol/L Calcium (8.4-10.2) mg/dL Magnesium (1.6-2.6) mg/dL Total Bilirubin (0.0-1.0) mg/dL AST (5-37) U/L ALT (0-40) U/L Alkaline Phosphatase (39-117) U/L Ammonia 43 (13-55) umol/L Troponin I High Sens 21.0 (<3.5-35.0) ng/L C-Reactive Protein (< or = 0.50) mg/dL B-Natriuretic Peptide (<100) pg/mL Total Protein (6.5-8.0) g/dL Albumin (3.5-5.0) g/dL Influenza Type A (PCR) (Negative) Influenza Type B (PCR) (Negative) RSV RNA Qual (PCR) (Negative) SARS-CoV-2 RNA (RT-PCR) (Negative) Independent Interpretation I performed an independent interpretation of an: EKG, Plain X-Ray and Ultrasound Interpretation: EXAMINATION: XR CHEST CLINICAL INFORMATION: Shortness of breath. Hypoxia. COMPARISON: December 11, 2021. TECHNIQUE: Portable AP view of the chest was obtained. XR/XR chest 1V FINDINGS/IMPRESSION: ? The study is limited by portable technique, low lung volumes, rotation, and overlying leads. ? No gross focal infiltrate, effusion, pneumothorax is seen. ? The cardiac silhouette is suboptimally evaluated. Dilated, uncoiled aorta was better appreciated on prior CT scan, associated with known aortic dissection. The patient is status post median sternotomy. FINDINGS: RIGHT: The right profunda femoral vein is suboptimally evaluated. There is normal venous compression and respiratory variation and augmented flow. The visualized common femoral vein, superficial femoral vein, popliteal vein, and the trifurcation region shows no evidence of deep venous thrombosis. ? There is no significant popliteal fossa cyst. LEFT: There is normal venous compression and respiratory variation and augmented flow. The visualized common femoral vein, superficial femoral vein, profunda femoral vein, popliteal vein, and the trifurcation region shows no evidence of deep venous thrombosis. ? There is no significant popliteal fossa cyst. US/US venous duplex LE BI IMPRESSION: ? Limited evaluation of the right profunda femoral vein. Cannot confirm or exclude right profunda femoral venous thrombosis. ? Otherwise, no DVT demonstrated in the lower extremities, bilaterally. Radiology Impression Discussion of test interpretation with radiology: I have reviewed the radiologist's reading. External Record Review External record reviewed: Inpatient record, Office record, Outpatient record, Prior outpatient labs, Prior outpatient radiology, Primary care record and Outside ED record Chronic Conditions Patient?s care impacted by: Other (See HPI) Critical Care Time Critical Care Time Critical Care Time: Yes Total Critical Care Time: 60 Attestation: I personally attest to this time spent taking care of the patient Discharge Plan Discharge Clinical Impression: Acute exacerbation of CHF (congestive heart failure), Hypoxia, CICI (acute kidney injury), Metabolic alkalosis with respiratory acidosis Patient Disposition: Admitted As Inpatient
[2022-07-10 10:53] LABS: Erythrocyte Sedimentation Rate 37 MM/HR (0-15)
[2022-07-10 11:04] LABS: Influenza A PCR NEGATIVE (Negative); Influenza B PCR NEGATIVE (Negative); Resp Syncy Virus RNA Qual PCR NEGATIVE (Negative); SARS COV2 PCR INHOUSE NEGATIVE (Negative)
--- NOTE | 2022-07-10 11:19 | PC.NURSE ---
Bedside LE u/trasound at this time. Pt remains on Bipap, awakes to verbal stiumli.
[2022-07-10 13:21] LABS: ABG Base Excess 16.1 mmol/L; ABG HCO3 45 mmol/L (22-26); ABG pCO2 86 mmHg (32-45); ABG pH 7.33 (7.35-7.45); ABG pO2 64 mmHg (83-108)
[2022-07-10 13:22] LABS: ABG Refer to POC result
[2022-07-10] MEDS: Furosemide 20 MG/2 ML VIAL IVPUSH (13:37)
--- NOTE | 2022-07-10 13:44 | PC.NURSE ---
Addendum entered by Mireya López 07/10/22 14:14: Bipap removed by Loretta GARG, pt remains sleepy, repeat vbgs worse. BiPap placed back on pt Original Note: Pt remains sleepy, awakes to verbal stimuli. ETc02 60s. dditional IV Lasix given as charted in AUG. 700ml emptied, however bed change earlier for urine incontinence.
--- NOTE | 2022-07-10 15:02 | PM.CCHP ---
History of Present Illness Date of Service: 07/10/22 Chief Complaint: Shortness of breath 62-year-old gentleman with underlying history of systolic congestive heart failure with prior ejection fraction of 45%, CESAR on CPAP, chronic hypoxic respiratory failure on 1 L of supplemental oxygen, TBI, skilled nursing resident admitted on 07/10/2022 with progressive dyspnea and hypoxia. Of note, per skilled nursing report patient has not been using his CPAP recently. On ER evaluation patient in exacerbation of underlying congestive heart failure with acute hypoxic hypercapnia requiring BiPAP support. Started on diuresis and admitted to the intensive care unit. Review of Systems Constitutional: Constitutional: Reports daytime sleepiness, Denies excessive sweating, Reports fatigue, Denies fever(s), Reports lethargy, Reports malaise, Denies night sweats, Denies snoring and Denies weight loss Eyes: Eyes: Denies blurry vision and Denies itchy eyes ENT: Denies nasal congestion, Denies post nasal drip, Denies sinus pain, Denies sinus pressure and Denies other ( Thrush) Cardiovascular: Cardiovascular: Denies chest pain, Reports pedal edema, Reports dyspnea, Reports orthopnea and Denies paroxysmal nocturnal dyspnea Respiratory: Respiratory: Denies cough, Denies hemoptysis, Denies excessive phlegm production, Reports dyspnea, Denies snoring and Denies wheezing Gastrointestinal: Gastrointestinal: Denies abdominal pain and Denies heartburn Musculoskeletal: Musculoskeletal: Denies myalgias, Denies arthralgias and Denies joint swelling Integumentary/Breasts: Skin/Breast: Denies rash Neurologic: Denies seizure-like activity Psychiatric: Psychiatric: Reports abnormal sleep pattern Endocrine: Endocrine: Denies excessive sweating, Reports fatigue and Denies heat intolerance Hematologic/Lymphatic: Hematologic/Lymphatic: Denies easy bruising Allergic/Immunologic: Allergic/Immunologic: Denies itchy eyes, Denies seasonal rhinorrhea and Denies wheezing PMFSH Social History Social History Smoked in Last 30 Days: No Use of substances other than those prescribed or required for medical reasons: No Advance Directives: No Advance Directives Information Provided: Yes Meds Allergies Allergy/AdvReac Type Severity Reaction Status Date / Time No Known Allergies Allergy Unknown Verified 07/10/22 09:14 Active Medications: Current Medications Acetazolamide (Acetazolamide Sodium 500 Mg Vial) 375 mg IVPUSH BID LIV Stop: 07/12/22 21:01 Heparin Sodium (Porcine) (Heparin Sodium,Porcine 5,000 Unit/Ml Vial) 5,000 unit SUBCUT Q8H LIV Furosemide 200 mg/ Sodium (Chloride) 100 mls @ 2.5 mls/hr IVCONT .Q24H LIV Potassium Chloride (Potassium Chloride/H20) 10 meq in 100 mls @ 100 mls/hr IV Q1H LIV Stop: 07/10/22 17:59 Potassium Chloride (Potassium Chloride/H20) 10 meq in 100 mls @ 100 mls/hr IV Q1H LIV Stop: 07/10/22 15:59 Pharmacy Consult (Consult Rx Perform Med Rec) 1 each MISCELLANE ONCE PRN PRN Reason: Consult order Physical Exam Vital Signs: Vital Signs: Last Vital Signs Temp 99.0 F 07/10/22 09:09 Pulse 75 07/10/22 13:38 Resp 16 07/10/22 13:49 BP 139/84 07/10/22 13:38 Pulse Ox 89 L 07/10/22 13:38 O2 Del Method 07/10/22 13:38 O2 Flow Rate 2 07/10/22 13:38 FiO2 35 07/10/22 11:17 Oxygen Flow Rate 6 07/10/22 09:09 BMI result Body Mass Index 35.4 Const: General: no acute distress and alert Nutritional Appearance: obese and Edematous HEENT: Head: Yes atraumatic Mouth: no other ( thrush) Throat: No postnasal drainage Eyes: General: appearance normal, both eyes and all related structures Sclerae: sclerae normal EOM: EOMs intact bilaterally Neck: Neck: Yes supple Lymphatic: no lymphadenopathy noted Resp: Effort & Inspection: normal respiratory effort and no use of accessory muscles Auscultation: crackles (Diffuse bilateral) Cardio: Rate: regular rate Rhythm: regular rhythm Heart sounds: no gallops, no murmurs and no rubs GI: Palpation (GI): Soft to palpation and Other GI palpation findings present ( nontender) Skin: General skin exam: other ( warm) Rashes: no rashes Extrem: General: No clubbing, No cyanosis and Yes edema (2+ bilateral) Results Labs 07/10/22 09:44 07/10/22 09:45 Labs: Laboratory Results - last 24 hr 07/10/22 07/10/22 07/10/22 09:44 09:44 09:44 MCV 95.3 MCH 28.9 MCHC 30.4 L RDW 12.8 Plt Count 161 MPV 10.4 Immature Gran % (Auto) 0.2 Neut % (Auto) 84.1 H Lymph % (Auto) 7.9 L [place] % (Auto) 7.1 Eos % (Auto) 0.5 Baso % (Auto) 0.2 Lymph # (Auto) 0.5 L [place] # (Auto) 0.4 Eos # (Auto) 0.0 Baso # (Auto) 0.0 Abs Immat Gran (auto) 0.01 Absolute Neuts (auto) 5.0 Absolute Nucleated RBC 0.000 Nucleated RBC % (auto) 0.0 ESR 37 H PT INR O2 Saturation ABG pH at Pt Temp ABG pCO2 at Pt Temp ABG pO2 at Pt Temp ABG HCO3 ABG Base Excess (Actual) VBG pH VBG pCO2 VBG pO2 VBG HCO3 VBG O2 Saturation VBG Base Excess Anion Gap Estim Creat Clear Calc Estimated GFR Random Glucose Lactic Acid Calcium Magnesium Total Bilirubin AST ALT Alkaline Phosphatase Ammonia Troponin I High Sens C-Reactive Protein B-Natriuretic Peptide 989 H Total Protein Albumin Influenza Type A (PCR) Influenza Type B (PCR) RSV RNA Qual (PCR) SARS-CoV-2 RNA (RT-PCR) 07/10/22 07/10/22 07/10/22 09:45 09:45 09:47 MCV MCH MCHC RDW Plt Count MPV Immature Gran % (Auto) Neut % (Auto) Lymph % (Auto) [place] % (Auto) Eos % (Auto) Baso % (Auto) Lymph # (Auto) [place] # (Auto) Eos # (Auto) Baso # (Auto) Abs Immat Gran (auto) Absolute Neuts (auto) Absolute Nucleated RBC Nucleated RBC % (auto) ESR PT 15.8 H INR 1.4 H O2 Saturation ABG pH at Pt Temp ABG pCO2 at Pt Temp ABG pO2 at Pt Temp ABG HCO3 ABG Base Excess (Actual) VBG pH 7.33 VBG pCO2 83 VBG pO2 74 VBG HCO3 44 H VBG O2 Saturation 93.0 VBG Base Excess 14.5 Anion Gap 11 L Estim Creat Clear Calc 54.9 Estimated GFR 45 Random Glucose 112 Lactic Acid Calcium 8.8 Magnesium 2.3 Total Bilirubin 0.6 AST 15 ALT 17 Alkaline Phosphatase 119 H Ammonia Troponin I High Sens C-Reactive Protein 3.37 H B-Natriuretic Peptide Total Protein 6.2 L Albumin 3.4 L Influenza Type A (PCR) Influenza Type B (PCR) RSV RNA Qual (PCR) SARS-CoV-2 RNA (RT-PCR) 07/10/22 07/10/22 07/10/22 09:57 09:57 09:57 MCV MCH MCHC RDW Plt Count MPV Immature Gran % (Auto) Neut % (Auto) Lymph % (Auto) [place] % (Auto) Eos % (Auto) Baso % (Auto) Lymph # (Auto) [place] # (Auto) Eos # (Auto) Baso # (Auto) Abs Immat Gran (auto) Absolute Neuts (auto) Absolute Nucleated RBC Nucleated RBC % (auto) ESR PT INR O2 Saturation ABG pH at Pt Temp ABG pCO2 at Pt Temp ABG pO2 at Pt Temp ABG HCO3 ABG Base Excess (Actual) VBG pH VBG pCO2 VBG pO2 VBG HCO3 VBG O2 Saturation VBG Base Excess Anion Gap Estim Creat Clear Calc Estimated GFR Random Glucose Lactic Acid 0.6 Calcium Magnesium Total Bilirubin AST ALT Alkaline Phosphatase Ammonia Troponin I High Sens 19.2 C-Reactive Protein B-Natriuretic Peptide Total Protein Albumin Influenza Type A (PCR) NEGATIVE Influenza Type B (PCR) NEGATIVE RSV RNA Qual (PCR) NEGATIVE SARS-CoV-2 RNA (RT-PCR) NEGATIVE 07/10/22 07/10/22 07/10/22 10:01 13:03 13:10 MCV MCH MCHC RDW Plt Count MPV Immature Gran % (Auto) Neut % (Auto) Lymph % (Auto) [place] % (Auto) Eos % (Auto) Baso % (Auto) Lymph # (Auto) [place] # (Auto) Eos # (Auto) Baso # (Auto) Abs Immat Gran (auto) Absolute Neuts (auto) Absolute Nucleated RBC Nucleated RBC % (auto) ESR PT INR O2 Saturation 88.0 ABG pH at Pt Temp 7.33 L ABG pCO2 at Pt Temp 86 H* ABG pO2 at Pt Temp 64 L ABG HCO3 45 H ABG Base Excess (Actual) 16.1 VBG pH VBG pCO2 VBG pO2 VBG HCO3 VBG O2 Saturation VBG Base Excess Anion Gap Estim Creat Clear Calc Estimated GFR Random Glucose Lactic Acid Calcium Magnesium Total Bilirubin AST ALT Alkaline Phosphatase Ammonia 43 Troponin I High Sens 21.0 C-Reactive Protein B-Natriuretic Peptide Total Protein Albumin Influenza Type A (PCR) Influenza Type B (PCR) RSV RNA Qual (PCR) SARS-CoV-2 RNA (RT-PCR) Imaging Radiologist's Impressions: Impressions Chest X-Ray 07/10/22 10:20 FINDINGS/IMPRESSION: The study is limited by portable technique, low lung volumes, rotation, and overlying leads. No gross focal infiltrate, effusion, pneumothorax is seen. The cardiac silhouette is suboptimally evaluated. Dilated, uncoiled aorta was better appreciated on prior CT scan, associated with known aortic dissection. The patient is status post median sternotomy. Venous Duplex 07/10/22 11:39 IMPRESSION: Limited evaluation of the right profunda femoral vein. Cannot confirm or exclude right profunda femoral venous thrombosis. Otherwise, no DVT demonstrated in the lower extremities, bilaterally. Assessment and Plan (1) Acute exacerbation of CHF (congestive heart failure): Status: Acute (2) Hypoxia: Status: Acute (3) CICI (acute kidney injury): Status: Acute (4) CESAR (obstructive sleep apnea): Status: Acute Plan Assessment: 62-year-old gentleman with underlying chronic systolic congestive heart failure admitted with acute exacerbation underlying chronic heart failure resulting in acute hypoxic and hypercapnic respiratory failure requiring BiPAP support. Plan: Neuro: No acute issues. Cardiac: Acute exacerbation of underlying chronic systolic congestive heart failure. 2D echo is pending. Continue with diuresis. Pulmonary: Acute hypoxic and hypercapnic respiratory failure secondary to exacerbation of underlying congestive heart failure. Underlying chronic hypoxic respiratory failure supplemental oxygen 1 L dependent. Underlying CESAR. Continue to titrate off BiPAP support as tolerated. Renal: Acute kidney injury secondary to exacerbation of underlying congestive heart failure. Non oliguric. Continue with diuresis. Continue to monitor renal indices and urine output. Endo: No acute issues. GI: No acute issues. ID: No acute issues Heme/Onc: No acute issues. Psych: No acute issues. Miscellaneous: No acute issues. Prophylaxis: Heparin Diet: Nothing by mouth Critical care time spent: 45 minutes Time Spent With Patient Time: Total time managing care of this patient today ____ minutes.
--- NOTE | 2022-07-10 15:05 | PC.NURSE ---
RN-RN report called into ICU.
--- NOTE | 2022-07-10 15:05 | PC.NURSE ---
assumed care of pt at 1500, 16F temp sensing shore placed - pt tolerated well, 20G IV placed right AC.
[2022-07-10] MEDS: Furosemide 200 MG in 0.9 % Sodium Chloride 80 ML IVCONT (15:12)
[2022-07-10] MEDS: Potassium Chloride/H20 10 MEQ/100 ML PIGGYBACK 100 MEQ IV ×6 (15:16→20:25)
[2022-07-10] MEDS: acetaZOLAMIDE sodium 500 MG VIAL 375 MG IVPUSH ×2 (15:25→20:25)
[2022-07-10] MEDS: Heparin Sodium,Porcine 5,000 UNIT/ML VIAL 5000 UNIT SUBCUT (16:06)
--- NOTE | 2022-07-10 16:12 | PHA.MEDREC ---
MED REC COMPLETE, NO ISSUES Pharmacy Consult ? Medication Reconciliation Pharmacy has completed the medication reconciliation.
[2022-07-10 16:34] LABS: Appearance Urine Clear; Color Urine Yellow; Glucose Urine UA Negative (Negative); Leukocyte Esterase Urine Negative (Negative); Nitrite Urine Negative (Negative); PH 5.5 (5.0-9.0); UMIC TRIGGER UACC YES; Urine Blood Trace (Negative); Urine Ketones Negative (Negative); Urine Protein 300 (3+) mg/dL (Neg-Trace)
[2022-07-10 16:36] LABS: Bacteria Urine None Seen (None Seen); Hyaline Casts Urine 0-2 /LPF (0-2); RBC Urine 0-2 /HPF (0-2); Squamous Epithelial Cell Urine 0-2 /HPF (0-2); WBC Urine 0-5 /HPF (0-5)
--- NOTE | 2022-07-10 17:02 | PC.NURSE ---
SPOKE WITH [facility]P NURSE MERCEDES [phone] (PERSONAL CELL) AND STATES THAT PATIENT: USES A WALKER IS INDEPENDENT WITH ADLS TAKES PILLS WHOLE NO SPECIAL DIET/RESTRICTIONS/OR CONSISTENCY FOR FOOD OCCASIONALLY CONFUSED (HX OF DEMENTIA AND TBI) IS NON-COMPLIANT WITH 1L NC DURING THE DAY AND CPAP 1L AT NIGHT PATIENT ARRIVED VIA STRETCHER ON BIPAP RATE 12 15/5 ON 35%, VERY LETHARGIC AND UNABLE TO ANSWER QUESTIONS
[2022-07-10 18:30] LABS: Anion Gap 12 (12-20); Blood Urea Nitrogen 21 mg/dL (9-16); Calcium 7.8 mg/dL (8.4-10.2); Carbon Dioxide 34 mmol/L (22-29); Chloride 103 mmol/L (96-108); Creatinine Clr Calc Pharmacy 56.1; Estimated Glomerular Filt Rate 47; Glucose Random 97 mg/dL (60-115); Potassium 3.7 mmol/L (3.3-5.1); Sodium 145 mmol/L (135-145)
[2022-07-11] VITALS (21 sets, daily range): BP systolic 131–171; BP diastolic 55–92; PULSE 62–89; RESP 13–22; TEMP 36.9–37.4; O2SAT 88–95; BMI 33.8
[2022-07-11] MEDS: Heparin Sodium,Porcine 5,000 UNIT/ML VIAL 5000 UNIT SUBCUT ×4 (00:04→23:44)
[2022-07-11 05:26] LABS: VBG HCO3 43 mmol/L (22-26); VBG pCO2 73 mmHg; VBG pH 7.37 (7.32-7.43); VBG pO2 67 mmHg
[2022-07-11 05:31] LABS: MANUAL DIFF FLAG NO
[2022-07-11 05:36] LABS: Basophils Percent Auto 0.3 % (0-2); Eosinophils Absolute Auto 0.2 X10*3/uL (0.0-0.4); Eosinophils Percent Auto 2.7 % (0-4); Hematocrit 37.8 % (42.0-52.0); Hemoglobin 11.4 g/dl (14.0-18.0); Imm Gran Abs Auto 0.02 X10*3/uL (0.00-0.03); Imm Gran Pct Auto 0.3 % (0.0-0.4); Lymphocytes Absolute Auto 0.5 X10*3/uL (1.2-4.9); Mean Corpuscular HGB Conc 30.2 g/dl (31.0-36.0); Mean Corpuscular Volume 96.2 fL (80.0-98.0); Mean Platelet Volume 10.6 fL (9.4-12.4); Monocytes Absolute Auto 0.5 X10*3/uL (0.1-1.2); Monocytes Percent Auto 8.7 % (2-11); Neutrophils Absolute Auto 4.7 x10*3/uL (2.0-8.3); Platelet Count 160 X10*3/uL (160-400); Red Blood Count 3.93 X10*6/uL (4.60-5.80); Red Cell Distribution Width 12.7 % (11.0-16.0); White Blood Count 5.8 X10*3/uL (4.8-10.8)
[2022-07-11 06:06] LABS: Albumin Level 3.4 g/dL (3.5-5.0); Anion Gap 17 (12-20); Blood Urea Nitrogen 22 mg/dL (9-16); Carbon Dioxide 33 mmol/L (22-29); Chloride 101 mmol/L (96-108); Creatinine Clr Calc Pharmacy 51.6; Estimated Glomerular Filt Rate 44; Glucose Random 101 mg/dL (60-115); Magnesium 2.1 mg/dL (1.6-2.6); Phosphorus 3.8 mg/dL (2.7-4.5); Potassium 3.2 mmol/L (3.3-5.1); Sodium 148 mmol/L (135-145)
--- NOTE | 2022-07-11 07:00 | CA_ITS ---
Transthoracic Echocardiogram Patient (Last, First, Middle): Bladimir Moody R Gender: Male Date of : 1960 Age: 62 Procedure Date: 07/11/2022 Procedure Type: Transthoracic Echocardiogram Location: ICU Height: 167.64 cm Weight: 99.34 kg BSA: 2.08 m2 Heart Rate: bpm BP: 149 / 82 mmHg Blunger Machine Operator: Referring MD: Paul Tello MD Electrotype Servicer: Chavo Roland MD Symptoms: CHF Study Quality: Good ECG Rhythm: Sinus Conclusions: - 1. Normal LV systolic function with moderate LVH with grade 2 diastolic dysfunction 2. Severely dilated left atrium 3. Mild aortic and mitral regurgitation 4. Moderately elevated right ventricular systolic pressure mildly elevated right atrial pressures 5. No gross pericardial effusion Findings Left Ventricle Normal left ventricular size and systolic function. There is moderately increased left ventricular wall thickness. The visually estimated ejection fraction is between 60-65%. Spectral Doppler is indicative of a pseudonormal filling pattern. E/E prime ratio is >15, consistent with elevated filling pressures. Evidence suggests grade II (moderate) diastolic dysfunction. Wall Motion Rest Echo Findings The basal inferior segment is hypokinetic. All other scored wall segments showed normal motion. Right Ventricle Normal right ventricular cavity size and systolic function. Atria The left atrium is severely dilated. There is no evidence of interatrial shunt. The right atrium is likely dilated. Aortic Valve There is mild thickening of the aortic valve. There is no aortic valve stenosis. There is mild aortic valve regurgitation. Mitral Valve There is mild anterior and posterior mitral leaflet thickening. There is mild mitral valve regurgitation. There is no mitral valve stenosis. Pulmonic Valve The pulmonic valve was not well visualized. Tricuspid Valve Likely normal tricuspid valve structure and function. There is mild tricuspid valve regurgitation. Mildly elevated right atrial pressure. Moderate pulmonary hypertension is present. Great Vessels All visible segments of the aorta are normal in size. The pulmonary artery was not well visualized. Venous The inferior vena cava is moderately dilated and collapses less than 50% with inspiration. Pericardium/Pleural There is no evidence of pericardial effusion. Prior Study Comparison No prior study available for comparison. Measurements 2D Linear Measurements IVSd: 1.43 0.6-0.9/0.6-1.0 cm LVIDd: 5.31 3.9-5.3/4.2-5.9 cm LVIDd Index: 2.55 2.4-3.2/2.2-3.1 cm/m2 LVIDs: 3.70 2.0-3.6 cm LVPWd: 1.42 0.7-1.1 cm Ao Root: 3.60 2.1-3.5 cm LA Diam: 3.80 2.7-3.8/3.0-4.0 cm LAIDs Index: 1.83 1.5-2.3 cm/m2 LV Mass: 409.36 67-162/88-224 g LV Mass Index: 196.81 43-95/49-115 g/m2 LVOT Diam: 2.40 3.0+(-)1.3 cm Mitral Valve MV Pk E: 1.17 MV PK A: 0.86 MV Decel Time: 123.00 E/A: 1.40 E'Lateral: 7.83 E'Medial: 4.57 E/E' Med: 25.60 E/E' Lat: 14.90 PHT: 36.00 MVA PHT: 6.11 Decel [place]: 9.52 Aortic Valve AoV Pk Milind: 1.69 AoV Mn Milind: 1.21 AoV VTI: 0.37 AoV Pk Grad: 11.00 Aov Mn Grad: 6.00 BRAYAN Cont.VTI: 3.12 LVOT LVOT Pk Milind: 1.14 LVOT Mn Milind: 0.78 LVOT VTI: 0.25 LVOT Pk Grad: 5.00 LVOT Mn Grad: 3.00 LVOT Diam: 2.40 LVOT Area: 4.52 Diastolic Function MV Pk E: 1.17 MV Pk A: 0.86 E/A: 1.40 E'Medial: 4.57 E/E' Med: 25.60 E' Laterial: 7.83 E/E' Lat: 14.90 Right Ventricle TAPSE (mm): 28.00 TVS' Milind: 9.00 Tricuspid Valve TR Pk Milind: 3.19 TR Pk Grad: 41.00 RA Press: 8.00 RVSP: 49.00 Great Vessels Aorta Ao Root-2D: 3.60 2.0-3.7 cm Ao Asc: 3.40 2.1-3.4 cm Pulmonary Valve PV Pk Milind: 1.28 Peak PV Grad: 7.00 Updated in Other Vendor System with Status of Final Chavo Roland MD electronically signed on 07/11/2022 4:46:27 PM with status of Final
[2022-07-11] MEDS: acetaZOLAMIDE sodium 500 MG VIAL 375 MG IVPUSH ×2 (07:39→20:52)
[2022-07-11] MEDS: Potassium Chloride Packet 20 MEQ PACKET 60 MEQ PO (09:02)
[2022-07-11 09:07] LABS: Venous Blood Gas Refer to POC result
--- NOTE | 2022-07-11 09:54 | MHC.CDI.CONC ---
CDI Concurrent Query Documentation Clarification: PHYSICIAN'S DOCUMENTATION REQUEST Date of Query: 07/11/22 0954 Patient Name: Bladimir Scott Admit Date: 07/10/22 Dear Doctor, A review of the medical record indicates additional documentation may be needed. Please review below and update the documentation accordingly. Clinical Indicators: Is there a diagnosis that correlates with these lab findings: Risk Factors/Clinical Indicators/Treatments LABS: Sodium 147 H 148 H Based on the above, could you clarify in the Progress Notes the appropriate diagnosis, if significant, that supports the above abnormalities and additional evaluation, monitoring, and/or treatment rendered: Hypernatremia or other etiology of lab findings Labs indicate a diagnosis of (please specify) Other (please specify) Unable to determine Use of terms such as suspected, likely, concern for, or probable (associated with a specific diagnosis that is being evaluated, monitored, or treated as if it exists) are acceptable and can be coded in the inpatient setting, when documented at the time of discharge. Thank you, Makenna Davis [facility], [facility] Extension: [phone] Please use your independent medical judgment in providing your response. THIS QUERY IS PART OF THE PERMANENT MEDICAL RECORD Provider Response: Other (Hypernatremia secondary to diuresis) Other Diagnosis: Hypernatremia secondary to diuresis
--- NOTE | 2022-07-11 11:11 | PM.CCPN ---
Subjective Subjective Date of Service: 07/11/22 Interval History: 62-year-old gentleman with underlying history of systolic congestive heart failure with prior ejection fraction of 45%, status post left-sided nephrectomy for ?renal carcinoma, CESAR on CPAP, chronic hypoxic respiratory failure on 1 L of supplemental oxygen, TBI, [facility] resident admitted on 07/10/2022 with progressive dyspnea and hypoxia. Of note, per [facility] report patient has not been using his CPAP recently. On ER evaluation patient in exacerbation of underlying congestive heart failure with acute hypoxic hypercapnia requiring BiPAP support. Started on diuresis and admitted to the intensive care unit. Overnight 5 L negative, titrated off BiPAP. Critical Care Time (minutes): 0 Physical Exam Vital Signs: Vital Signs: Last Vital Signs Temp 99.0 F 07/11/22 10:00 Pulse 82 07/11/22 10:00 Resp 17 07/11/22 10:00 BP 144/81 H 07/11/22 10:00 Pulse Ox 89 L 07/11/22 10:00 O2 Del Method 07/11/22 10:00 O2 Flow Rate 3 07/11/22 10:00 FiO2 30 07/11/22 09:00 Oxygen Flow Rate 6 07/10/22 09:09 BMI result Body Mass Index 33.8 Const: General: no acute distress, alert and awake Eyes: Sclerae: sclerae normal EOM: EOMs intact bilaterally Neck: Neck: Yes no lymphadenopathy, Yes trachea midline and Yes supple Resp: Effort & Inspection: normal respiratory effort and no respiratory distress Auscultation: crackles (Bibasilar) Cardio: Rate: regular rate Rhythm: regular rhythm Heart sounds: no gallops, no murmurs and no rubs GI: Palpation (GI): Soft to palpation and Other GI palpation findings present ( Nontender) Auscultation: normal bowel sounds Extrem: General: No clubbing, No cyanosis and Yes edema (1+ bilateral) Objective Data Labs 07/11/22 05:15 07/11/22 05:15 Labs: Laboratory Results - last 24 hr 07/10/22 07/10/22 07/10/22 13:03 13:10 16:00 WBC RBC Hgb Hct MCV MCH MCHC RDW Plt Count MPV Immature Gran % (Auto) Neut % (Auto) Lymph % (Auto) [place] % (Auto) Eos % (Auto) Baso % (Auto) Lymph # (Auto) [place] # (Auto) Eos # (Auto) Baso # (Auto) Abs Immat Gran (auto) Absolute Neuts (auto) Absolute Nucleated RBC Nucleated RBC % (auto) O2 Saturation 88.0 ABG pH at Pt Temp 7.33 L ABG pCO2 at Pt Temp 86 H* ABG pO2 at Pt Temp 64 L ABG HCO3 45 H ABG Base Excess (Actual) 16.1 VBG pH VBG pCO2 VBG pO2 VBG HCO3 VBG O2 Saturation VBG Base Excess Sodium Potassium Chloride Carbon Dioxide Anion Gap BUN Creatinine Estim Creat Clear Calc Estimated GFR Random Glucose Calcium Phosphorus Magnesium Troponin I High Sens 21.0 Albumin Urine Color Yellow Urine Appearance Clear Urine pH 5.5 Ur Specific [place] 1.010 Urine Protein 300 (3+) H Urine Glucose (UA) Negative Urine Ketones Negative Urine Blood Trace H Urine Nitrite Negative Ur Leukocyte Esterase Negative Urine RBC 0-2 Urine WBC 0-5 Ur Squamous Epith Cells 0-2 Urine Bacteria None Seen Hyaline Casts 0-2 07/10/22 07/11/22 07/11/22 17:56 05:15 05:15 WBC 5.8 RBC 3.93 L Hgb 11.4 L Hct 37.8 L MCV 96.2 MCH 29.0 MCHC 30.2 L RDW 12.7 Plt Count 160 MPV 10.6 Immature Gran % (Auto) 0.3 Neut % (Auto) 80.0 H Lymph % (Auto) 8.0 L [place] % (Auto) 8.7 Eos % (Auto) 2.7 Baso % (Auto) 0.3 Lymph # (Auto) 0.5 L [place] # (Auto) 0.5 Eos # (Auto) 0.2 Baso # (Auto) 0.0 Abs Immat Gran (auto) 0.02 Absolute Neuts (auto) 4.7 Absolute Nucleated RBC 0.000 Nucleated RBC % (auto) 0.0 O2 Saturation ABG pH at Pt Temp ABG pCO2 at Pt Temp ABG pO2 at Pt Temp ABG HCO3 ABG Base Excess (Actual) VBG pH VBG pCO2 VBG pO2 VBG HCO3 VBG O2 Saturation VBG Base Excess Sodium 145 148 H Potassium 3.7 3.2 L Chloride 103 101 Carbon Dioxide 34 H 33 H Anion Gap 12 17 BUN 21 H 22 H Creatinine 1.51 H 1.62 H Estim Creat Clear Calc 56.1 51.6 Estimated GFR 47 44 Random Glucose 97 101 Calcium 7.8 L D 8.0 L Phosphorus 3.8 Magnesium 2.1 Troponin I High Sens Albumin 3.4 L Urine Color Urine Appearance Urine pH Ur Specific [place] Urine Protein Urine Glucose (UA) Urine Ketones Urine Blood Urine Nitrite Ur Leukocyte Esterase Urine RBC Urine WBC Ur Squamous Epith Cells Urine Bacteria Hyaline Casts 07/11/22 05:20 WBC RBC Hgb Hct MCV MCH MCHC RDW Plt Count MPV Immature Gran % (Auto) Neut % (Auto) Lymph % (Auto) [place] % (Auto) Eos % (Auto) Baso % (Auto) Lymph # (Auto) [place] # (Auto) Eos # (Auto) Baso # (Auto) Abs Immat Gran (auto) Absolute Neuts (auto) Absolute Nucleated RBC Nucleated RBC % (auto) O2 Saturation ABG pH at Pt Temp ABG pCO2 at Pt Temp ABG pO2 at Pt Temp ABG HCO3 ABG Base Excess (Actual) VBG pH 7.37 VBG pCO2 73 VBG pO2 67 VBG HCO3 43 H VBG O2 Saturation 92.0 VBG Base Excess 15.0 Sodium Potassium Chloride Carbon Dioxide Anion Gap BUN Creatinine Estim Creat Clear Calc Estimated GFR Random Glucose Calcium Phosphorus Magnesium Troponin I High Sens Albumin Urine Color Urine Appearance Urine pH Ur Specific [place] Urine Protein Urine Glucose (UA) Urine Ketones Urine Blood Urine Nitrite Ur Leukocyte Esterase Urine RBC Urine WBC Ur Squamous Epith Cells Urine Bacteria Hyaline Casts Progress Note: A&P Assessment and plan (1) Acute exacerbation of CHF (congestive heart failure): Status: Acute (2) CICI (acute kidney injury): Status: Acute (3) CESAR (obstructive sleep apnea): Status: Acute (4) CESAR on CPAP: Status: Acute (5) Hypertension: Status: Acute Plan Assessment: 62-year-old gentleman with underlying chronic systolic congestive heart failure admitted with acute exacerbation underlying chronic heart failure resulting in acute hypoxic and hypercapnic respiratory failure requiring BiPAP support. Plan: Neuro: No acute issues. Cardiac: Acute exacerbation of underlying chronic systolic congestive heart failure. 2D echo is pending. Continue with diuresis. Pulmonary: Acute hypoxic and hypercapnic respiratory failure secondary to exacerbation of underlying congestive heart failure. Underlying chronic hypoxic respiratory failure supplemental oxygen 1 L dependent. Underlying CESAR. Renal: Acute kidney injury secondary to exacerbation of underlying congestive heart failure, improving. Non oliguric. Continue with diuresis. Continue to monitor renal indices and urine output. Underlying history of left nephrectomy. Endo: No acute issues. GI: No acute issues. ID: No acute issues Heme/Onc: No acute issues. Psych: No acute issues. Miscellaneous: No acute issues. Prophylaxis: Heparin Diet: Regular Patient is stable to be transferred to telemetry barakat at this time. Quality Stroke Does the patient have a stroke diagnosis?: No VTE Prior VTE?: No VTE Risk Level:: Medical - moderate - high VTE Device Contraindication: Treatment Not Indicated VTE Drug Contraindication: N/A - Med Ordered
[2022-07-11] MEDS: Furosemide 40 MG/4 ML VIAL IVPUSH ×2 (11:39→19:58)
--- NOTE | 2022-07-11 11:46 | P.EN_ITS ---
Event Note Date of Service: 07/11/22 Event Note: ICU transfer. Discussed with diesel mechanic apprentice, Dr. Tello. Patient admitted to ICU with acute congestive heart failure. Initially on IV Lasix drip, since discontinued now on IV push. Echocardiogram pending, cardiology following.-5 L so far. Acute on chronic congestive heart failure TBI CICI on CKD Time Spent With Patient Time: Total time managing care of this patient today ____ minutes.
--- NOTE | 2022-07-11 16:58 | MHC.SL.SWA ---
Speech Pathologist Impression: Risk of Aspiration Due to: Medically Fragile Reduced Cognition Dysphasia Diet Status: Mild oral phase dysphagia and aspiration risk due to high level of impulsivity when eating Liquid Consistency and Strategies for Safe Swallow: Liquid Intake Recommendation: Thin Liquid Intake Strategies: Small Sips Solid Food Consistency: Dietary Recommendations: Regular Additional Modifications to Solid Foods: Patient will need direct supervision during meals due to noted impulsivity, with cuing to take small sips and bites. Assure that food is cut into smaller bites, patient swallows food before adding more food to mouth. Recommend NO STRAWS due to impulsivity. Oral Medication Intake: Whole with Puree Please contact the pharmacy regarding appropriate crushable or liquid drug formulations that are available whenever modified delivery is recommended. Compensatory Strategies and Precautions to be Taken for Safe Swallow: Sitting Upright (90 deg) No Straw Small Bites and Sips Alternate Liquids/Solids Rate of Ingestion Change Oral Check Supervision While Eating and Drinking for Safe Swallow: Total Supervision (1:1) Foods to Avoid: Large pieces of tough to chew food. Swallowing Recommended Treatments: Compens. Strategy Educat. Recommendation for Speech: Inpatient Speech Therapy Comment: Patient presents with a mild oral phase dysphagia and aspiration risk due to high level of impulsivity when eating. Patient will require supervision during meals due to noted impulsivity, may try to cram mouth with food before swallowing and gulp liquids. During today's assessment, patient was notably responsive to cuing, took individual sips when cued and swallowed before adding more food when cued. Recommend continue on Regular diet with thin liquids (reportedly patient's baseline at [facility]) pills whole in puree or liquid. ICU MD, Nurse notified of recommendations in person. CYTOLOGIST will f/u 1-2X for toleration of diet. Frequency/Duration: 1-2 f/u for toleration of diet. Date Range for Service Req: Timeline to reassess: Vice President Quality Improvement Clinican/Clinical Fellow: No Supervisory Statement: I have reviewed and agree with the student/clinical fellow's documentation: N/A Speech Language Pathologist: Kaycee Spencer M.A., [facility]-CYTOLOGIST
[2022-07-12] VITALS (10 sets, daily range): BP systolic 132–170; BP diastolic 66–93; PULSE 62–91; RESP 15–20; TEMP 36.7–37.4; O2SAT 92–95
[2022-07-12 06:24] LABS: MANUAL DIFF FLAG NO
[2022-07-12 06:32] LABS: VBG Base Excess 11.1 mmol/L; VBG HCO3 37 mmol/L (22-26); VBG pCO2 55 mmHg; VBG pH 7.43 (7.32-7.43); VBG pO2 92 mmHg
[2022-07-12 06:34] LABS: Venous Blood Gas Refer to POC result
[2022-07-12 06:48] LABS: Basophils Percent Auto 0.2 % (0-2); Eosinophils Absolute Auto 0.2 X10*3/uL (0.0-0.4); Eosinophils Percent Auto 4.6 % (0-4); Imm Gran Abs Auto 0.01 X10*3/uL (0.00-0.03); Imm Gran Pct Auto 0.2 % (0.0-0.4); Lymphocytes Absolute Auto 0.7 X10*3/uL (1.2-4.9); Lymphocytes Percent Auto 16.2 % (20-40); Mean Corpuscular HGB Conc 30.8 g/dl (31.0-36.0); Mean Corpuscular Hemoglobin 29.1 pg (27.0-33.0); Mean Corpuscular Volume 94.7 fL (80.0-98.0); Mean Platelet Volume 10.7 fL (9.4-12.4); Monocytes Absolute Auto 0.5 X10*3/uL (0.1-1.2); Monocytes Percent Auto 11.6 % (2-11); Neutrophils Absolute Auto 3.1 x10*3/uL (2.0-8.3); Neutrophils Percent Auto 67.2 % (45-73); Platelet Count 190 X10*3/uL (160-400); Red Blood Count 4.12 X10*6/uL (4.60-5.80); Red Cell Distribution Width 12.5 % (11.0-16.0); White Blood Count 4.6 X10*3/uL (4.8-10.8)
[2022-07-12 07:20] LABS: Albumin Level 3.3 g/dL (3.5-5.0); Anion Gap 16 (12-20); Blood Urea Nitrogen 21 mg/dL (9-16); Calcium 8.5 mg/dL (8.4-10.2); Carbon Dioxide 29 mmol/L (22-29); Chloride 101 mmol/L (96-108); Creatinine Clr Calc Pharmacy 51.3; Estimated Glomerular Filt Rate 43; Glucose Random 112 mg/dL (60-115); Magnesium 2.3 mg/dL (1.6-2.6); Phosphorus 3.6 mg/dL (2.7-4.5); Potassium 3.7 mmol/L (3.3-5.1); Sodium 142 mmol/L (135-145)
[2022-07-12] MEDS: Furosemide 40 MG/4 ML VIAL IVPUSH ×2 (07:55→17:50)
[2022-07-12] MEDS: acetaZOLAMIDE sodium 500 MG VIAL 375 MG IVPUSH ×2 (07:55→20:20)
[2022-07-12] MEDS: Heparin Sodium,Porcine 5,000 UNIT/ML VIAL 5000 UNIT SUBCUT ×3 (07:55→23:13)
--- NOTE | 2022-07-12 12:20 | P.PNIM_ITS ---
Subjective Subjective Date of Service: 07/12/22 Review of Systems Follow up ICU transfer Doing well today denied sob, chest pain Physical Exam Vital Signs: Vital Signs: Last Vital Signs Temp 98.6 F 07/12/22 11:03 Pulse 79 07/12/22 11:03 Resp 20 07/12/22 11:03 BP 140/80 H 07/12/22 11:03 Pulse Ox 95 07/12/22 11:03 O2 Del Method 07/12/22 11:03 O2 Flow Rate 2 07/12/22 11:03 FiO2 30 07/11/22 09:00 Oxygen Flow Rate 6 07/10/22 09:09 BMI result Body Mass Index 33.8 Appearing in no acute distress lung sounds are clear to auscultation heart regular rate rhythm, clear S1, S2 positive bowel sounds, abdomen is soft, nontender neuro patient is alert x3, no focal deficits Objective Data Active Medications Acetazolamide (Acetazolamide Sodium 500 Mg Vial) 375 mg IVPUSH BID [facility] Stop: 07/12/22 21:01 Last Admin: 07/12/22 07:55 Dose: 375 mg Documented By: JALEEL Furosemide (Furosemide 40 Mg/4 Ml Vial) 40 mg IVPUSH BID@0900,1800 [facility]; Protocol Last Admin: 07/12/22 07:55 Dose: 40 mg Documented By: JALEEL Heparin Sodium (Porcine) (Heparin Sodium,Porcine 5,000 Unit/Ml Vial) 5,000 unit SUBCUT Q8H [facility] Last Admin: 07/12/22 07:55 Dose: 5,000 unit Documented By: JALEEL Pharmacy Consult (Consult Rx Perform Med Rec) 1 each MISCELLANE ONCE PRN PRN Reason: Consult order Labs 07/12/22 06:16 07/12/22 06:16 Labs: Laboratory Results - last 24 hr 07/12/22 07/12/22 07/12/22 06:16 06:16 06:22 MCV 94.7 MCH 29.1 MCHC 30.8 L RDW 12.5 Plt Count 190 MPV 10.7 Immature Gran % (Auto) 0.2 Neut % (Auto) 67.2 Lymph % (Auto) 16.2 L [place] % (Auto) 11.6 H Eos % (Auto) 4.6 H Baso % (Auto) 0.2 Lymph # (Auto) 0.7 L [place] # (Auto) 0.5 Eos # (Auto) 0.2 Baso # (Auto) 0.0 Abs Immat Gran (auto) 0.01 Absolute Neuts (auto) 3.1 Absolute Nucleated RBC 0.000 Nucleated RBC % (auto) 0.0 VBG pH 7.43 VBG pCO2 55 VBG pO2 92 VBG HCO3 37 H VBG O2 Saturation 99.0 VBG Base Excess 11.1 Anion Gap 16 Estim Creat Clear Calc 51.3 Estimated GFR 43 Random Glucose 112 Calcium 8.5 D Phosphorus 3.6 Magnesium 2.3 Albumin 3.3 L Microbiology Microbiology Results: Microbiology 07/10/22 09:57 Blood Culture - Preliminary Blood - Venous No growth after 48 hours. 07/10/22 09:44 Blood Culture - Preliminary Blood - Venous No growth after 48 hours. Assessment and Plan (1) Acute exacerbation of CHF (congestive heart failure): Status: Acute Plan 62 year old man from a retirement admitted to the ICU with hypercapnea and hypoxia and placed on Bipap with IV lasix drip. Transferred to medical floor on 07/11/22 Acute hypoxic and hypercapneaic respiratory failure secondary to HFpEF exacerbation, acute on chronic required bipap in the ICU initially echo with EF of 55-60% with severely dilated left atrium s/p IV lasix drip, now on scheduled Monitor on telemetry Strict intake and output Daily weight -8.2L today cardio consult multiple PAT, restarted BB CICI 1.63 today likely from volume overload continue diuresing Metabolic alkalosis continue diamox HTN hydralazine Hold norvasc to avoid further edema, restart as BP allows Mental health continue home medications TBI lives in retirement CESAR CPAP DVT prophylaxis with Attending Dr. Hastings full code continued hospitalization for IV diuresis Time Spent With Patient Time: Total time managing care of this patient today ____ minutes. Quality Stroke Does the patient have a stroke diagnosis?: No VTE Prior VTE?: No VTE Risk Level:: Medical - moderate - high VTE Device Contraindication: Treatment Not Indicated VTE Drug Contraindication: N/A - Med Ordered
[2022-07-12] MEDS: carvediloL 25 MG TABLET PO ×2 (14:30→20:21)
[2022-07-12] MEDS: cloNIDine HCL 0.2 MG TABLET PO ×2 (14:30→20:21)
[2022-07-12] MEDS: Gabapentin 400 MG CAPSULE PO ×2 (14:30→20:21)
--- NOTE | 2022-07-12 14:49 | MHC.CM.PN ---
spoke with pt is [facility] cha haines [phone] is [facility] director pt needs an amb home spoke with program nurse bernardo [phone] who explins that pt uses a walker and is basically independent he is oseas hart x4
--- NOTE | 2022-07-12 16:01 | MHC.SLORD ---
Addendum entered and electronically signed by Lin Hurst MA, CCC-REFRIGERATOR ASSEMBLER 07/12/22 18:11: D.S. Original Note: Speech Language Pathology Order Status: Per RN, pt tolerating current diet of regular solids and thin liquids. Pt previously recommended 1-2 f/u visits. REFRIGERATOR ASSEMBLER to continue to follow.
[2022-07-12] MEDS: Mirtazapine 30 MG TABLET PO (20:21)
[2022-07-12] MEDS: Atorvastatin Calcium 10 MG TABLET PO (20:21)
[2022-07-12] MEDS: Melatonin 3 MG TABLET 6 MG PO (20:21)
[2022-07-12] MEDS: Doxazosin Mesylate 2 MG TABLET 6 MG PO (20:21)
[2022-07-12] MEDS: hydrALAZINE HCl 25 MG TABLET PO (20:21)
[2022-07-13] VITALS (7 sets, daily range): BP systolic 95–129; BP diastolic 53–72; PULSE 68–82; RESP 15–20; TEMP 36.3–36.8; O2SAT 90–98
[2022-07-13 07:06] LABS: B Type Natriuretic Peptide 185 pg/mL (<100)
[2022-07-13 07:24] LABS: Anion Gap 13 (12-20); Blood Urea Nitrogen 32 mg/dL (9-16); Calcium 8.9 mg/dL (8.4-10.2); Carbon Dioxide 33 mmol/L (22-29); Chloride 105 mmol/L (96-108); Creatinine Clr Calc Pharmacy 41.8; Estimated Glomerular Filt Rate 34; Glucose Random 100 mg/dL (60-115); Potassium 3.5 mmol/L (3.3-5.1); Sodium 147 mmol/L (135-145)
[2022-07-13] MEDS: carvediloL 25 MG TABLET PO (08:39)
[2022-07-13] MEDS: Heparin Sodium,Porcine 5,000 UNIT/ML VIAL 5000 UNIT SUBCUT ×3 (08:39→21:59)
[2022-07-13] MEDS: Furosemide 40 MG/4 ML VIAL IVPUSH (08:39)
[2022-07-13] MEDS: cloNIDine HCL 0.2 MG TABLET PO ×2 (08:39→15:09)
[2022-07-13] MEDS: Sertraline HCL 25 MG TABLET PO (08:39)
[2022-07-13] MEDS: Aspirin Enteric Coated 81 MG TABLET.DR PO (08:40)
[2022-07-13] MEDS: Cholecalciferol (Vitamin D3) 25 MCG TABLET PO (08:40)
[2022-07-13] MEDS: Gabapentin 400 MG CAPSULE PO ×3 (08:40→20:59)
[2022-07-13] MEDS: hydrALAZINE HCl 25 MG TABLET PO (08:40)
--- NOTE | 2022-07-13 11:01 | PM.CNCAR ---
History of Present Illness History of Present Illness Date of Service: 07/13/22 Requesting physician: Jessica Scott Consult reason: congestive heart failure Chief complaint: congestive heart failure Narrative: I was consulted to see Bladimir in cardiology consultation today only for management of heart failure. Patient is a poor historian and history obtained from the chart. Patient admitted on 07/10/2022 with acute respiratory failure both hypoxic and hypercapnic and noted to be in acute heart failure. Known prior history of heart failure as per the patient said he was admitted last year. Reported on admission echo EF of 45%. However repeat echo here shows LVEF of 55-60% with severe left atrial enlargement, finding consistent with heart failure preserved ejection fraction. Patient history of hypertension. On admission was put on BiPAP and subsequently aggressively diuresed. His creatinine is increased from 1.5-2 and his BNP is reduced from 900 range to 140 range. He is currently denying any shortness of breath. No chest pain. Not able to give me accurate account of his chronic functional status but appears to be reduced. He is on chronic oxygen therapy at home on 1 L. Has morbid obesity. Has obstructive sleep apnea. Blood pressure today appears to be well controlled. Review of Systems Review of Systems: Yes Unobtainable due to mental status PMFSH Past Medical History Medical History CHF (congestive heart failure) COPD (chronic obstructive pulmonary disease) Dementia Ejection fraction < 50% High cholesterol Hypertension Neuropathy CESAR on CPAP TBI (traumatic brain injury) Surgical History Surgical History H/O left nephrectomy Social History Social History Household Members: Unknown / Unable to assess Housing: Other Housing Other:: JAIL Unable to assess alcohol history related to: Unknown Patient Tobacco Use Status: Never used Tobacco service: No Meds Allergies Allergy/AdvReac Type Severity Reaction Status Date / Time No Known Allergies Allergy Unknown Verified 07/10/22 09:14 Active Medications: Current Medications Acetaminophen (Acetaminophen 325 Mg Tablet) 650 mg PO Q6H PRN PRN Reason: Fever Aspirin (Aspirin Enteric Coated 81 Mg Tablet.) 81 mg PO DAILY [facility]IV Last Admin: 07/13/22 08:40 Dose: 81 mg Atorvastatin Calcium (Atorvastatin Calcium 10 Mg Tablet) 10 mg PO BEDTIME [facility] Last Admin: 07/12/22 20:21 Dose: 10 mg Carvedilol (Carvedilol 25 Mg Tablet) 25 mg PO BID [facility]; Protocol Last Admin: 07/13/22 08:39 Dose: 25 mg Clonidine HCl (Clonidine Hcl 0.2 Mg Tablet) 0.2 mg PO TID [facility]; Protocol Last Admin: 07/13/22 08:39 Dose: 0.2 mg Doxazosin Mesylate (Doxazosin Mesylate 2 Mg Tablet) 6 mg PO BEDTIME [facility] Last Admin: 07/12/22 20:21 Dose: 6 mg Furosemide (Furosemide 40 Mg/4 Ml Vial) 40 mg IVPUSH BID@0900,1800 [facility]; Protocol Last Admin: 07/13/22 08:39 Dose: 40 mg Gabapentin (Gabapentin 400 Mg Capsule) 400 mg PO TID [facility] Last Admin: 07/13/22 08:40 Dose: 400 mg Guaifenesin (Guaifenesin 100 Mg/5 Ml Liquid) 10 ml PO Q4H PRN PRN Reason: Cough Heparin Sodium (Porcine) (Heparin Sodium,Porcine 5,000 Unit/Ml Vial) 5,000 unit SUBCUT Q8H [facility] Last Admin: 07/13/22 08:39 Dose: 5,000 unit Hydralazine HCl (Hydralazine Hcl 25 Mg Tablet) 25 mg PO BID [facility]; Protocol Last Admin: 07/13/22 08:40 Dose: 25 mg Melatonin (Melatonin 3 Mg Tablet) 6 mg PO BEDTIME [facility] Last Admin: 07/12/22 20:21 Dose: 6 mg Mirtazapine (Mirtazapine 30 Mg Tablet) 30 mg PO BEDTIME [facility] Last Admin: 07/12/22 20:21 Dose: 30 mg Ondansetron HCl (Ondansetron Hcl 4 Mg/2 Ml Vial) 4 mg IVPUSH Q6H PRN PRN Reason: Nausea Pharmacy Consult (Consult Rx Perform Med Rec) 1 each MISCELLANE ONCE PRN PRN Reason: Consult order Sertraline HCl (Sertraline Hcl 25 Mg Tablet) 25 mg PO DAILY [facility] Last Admin: 07/13/22 08:39 Dose: 25 mg Vitamin D (Cholecalciferol (Vitamin D3) 25 Mcg Tablet) 25 mcg PO DAILY [facility] Last Admin: 07/13/22 08:40 Dose: 25 mcg Home Medications Medication Instructions Recorded Confirmed Last Taken Type acetaminophen 650 mg 650 mg PO Q6H PRN HEADACHE/FEVER > 07/10/22 07/10/22 Unknown History tablet,extended release 101/BODY ACHE amlodipine 10 mg tablet 10 mg PO DAILY 07/10/22 07/10/22 Unknown History ammonium lactate 12 % topical cream 1 appl topical DAILY 07/10/22 07/10/22 Unknown History amoxicillin 500 mg capsule 2,000 mg PO ONCE 07/10/22 07/10/22 Unknown History aspirin 81 mg tablet,delayed 81 mg PO DAILY 07/10/22 07/10/22 Unknown History release carvedilol 25 mg tablet 25 mg PO BID 07/10/22 07/10/22 Unknown History cholecalciferol (vitamin D3) 25 25 mcg PO DAILY 07/10/22 07/10/22 Unknown History mcg (1,000 unit) capsule (Vitamin D3) clonidine HCl 0.2 mg tablet 0.2 mg PO TID 07/10/22 07/10/22 Unknown History furosemide 20 mg tablet (Lasix) 20 mg PO DAILY 07/10/22 07/10/22 Unknown History gabapentin 400 mg capsule 400 mg PO TID 07/10/22 07/10/22 Unknown History (Neurontin) guaifenesin 100 mg/5 mL oral 200 mg PO Q4H PRN Cough 07/10/22 07/10/22 Unknown History liquid (Mucus-Chest Congestion) hydralazine 25 mg tablet 25 mg PO BID 07/10/22 07/10/22 Unknown History loperamide 2 mg tablet 2 mg PO Q6H PRN Diarrhea 07/10/22 07/10/22 Unknown History melatonin 5 mg tablet 5 mg PO BEDTIME 07/10/22 07/10/22 Unknown History metronidazole 0.75 % topical gel 1 appl topical BID 07/10/22 07/10/22 Unknown History mirtazapine 30 mg tablet (Remeron) 30 mg PO BEDTIME 07/10/22 07/10/22 Unknown History selenium sulfide 1 % shampoo 10 ml topical SA@2100 07/10/22 07/10/22 Unknown History (Selsun Blue) sertraline 25 mg tablet (Zoloft) 25 mg PO DAILY 07/10/22 07/10/22 Unknown History simvastatin 10 mg tablet (Zocor) 10 mg PO BEDTIME 07/10/22 07/10/22 Unknown History terazosin 2 mg capsule 6 mg PO BEDTIME 07/10/22 07/10/22 Unknown History Physical Exam Vital Signs: Vital Signs: Last Vital Signs Temp 97.8 F 07/13/22 07:31 Pulse 70 07/13/22 07:31 Resp 20 07/13/22 07:31 BP 116/68 07/13/22 07:31 Pulse Ox 92 07/13/22 07:31 O2 Del Method 07/13/22 07:31 O2 Flow Rate 2 07/12/22 15:19 FiO2 30 07/13/22 00:00 Oxygen Flow Rate 6 07/10/22 09:09 BMI result Body Mass Index 33.8 Const: General: cooperative, comfortable, alert, awake and tired appearing Nutritional Appearance: obese morbidly obese HEENT: Head: Yes normocephalic and Yes atraumatic Neck: Neck: Yes trachea midline, Yes supple and Yes other (Difficult to assess JVD) Resp: Effort & Inspection: decreased respiratory effort Auscultation: clear to auscultation bilaterally and diminished lung sounds Cardio: Rate: regular rate Rhythm: regular rhythm Heart sounds: S1 normal heart sound present, S2 normal heart sound present, no click, no gallops and no murmurs GI: Inspection: Yes obesity Auscultation: normal bowel sounds Skin: General skin exam: no rashes or lesions noted Neuro: General: no focal motor deficits Extrem: General: Yes no clubbing, cyanosis or edema Objective Labs and Meds 07/12/22 06:16 07/13/22 06:00 Lab results: Laboratory Results - last 24 hr 07/13/22 07/13/22 06:00 06:00 Sodium 147 H Potassium 3.5 Chloride 105 Carbon Dioxide 33 H Anion Gap 13 BUN 32 H Creatinine 2.00 H Estim Creat Clear Calc 41.8 Estimated GFR 34 Random Glucose 100 Calcium 8.9 B-Natriuretic Peptide 185 H Assessment and Plan (1) Acute exacerbation of CHF (congestive heart failure): Status: Acute Patient admitted with acute respiratory failure with hypoxemia and hypercapnia which appears could be related to acute heart failure, heart failure preserved ejection fraction. However has been diuresed aggressively and now is negative balance 10 L and creatinine is bumped appear volume status difficult to assess but this appears to be probably related to poor perfusion due to over-diuresis. I would at this point time hold off on diuretic therapy. Continue strict intake and output chart management. Overall heart failure management with difficult in this gentleman with multiple comorbidities and overall poor functional status. Once creatinine down trends can resume oral diuretics and most likely consider an alternative diuretic such as Bumex 1 mg daily. Heart failure education to be provided to patient and the long term. He is on multiple blood pressure medications which appears to be difficult to control in the past although some of the choices such as doxazosin and clonidine are not ideal for blood pressure management. Consider Aldactone once creatinine improves. Also consider Jardiance for heart failure management. Continue CPAP/BiPAP treatment. Overall prognosis guarded. Continue chronic oxygen supplementation for his chronic respiratory failure. 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 Thank you for allowing us to partake in his care Time Spent With Patient Time: Total time managing care of this patient today ____ minutes. Procedures Date of Service Date of Service: 07/13/22
--- NOTE | 2022-07-13 13:01 | HO.PM.IMPN ---
Subjective Subjective Date of Service: 07/13/22 Interval History: seen and examined this morning follow up for respiratory failure, CHF; downgraded from the ICU 07/11 wearing cpap upon entering room denies shortness of breath Review of Systems Review of Systems: Yes all other systems are reviewed and are negative Constitutional Constitutional: Denies chills and Denies fever(s) Cardiovascular Cardiovascular: Denies chest pain, Denies palpitations and Denies dyspnea Respiratory Respiratory: Denies cough and Denies dyspnea Gastrointestinal Gastrointestinal: Denies abdominal pain Endocrine Endocrine: Denies palpitations Physical Exam Vital Signs: Vital Signs: Last Vital Signs Temp 97.6 F 07/13/22 12:00 Pulse 71 07/13/22 12:00 Resp 20 07/13/22 12:00 BP 117/65 07/13/22 12:00 Pulse Ox 94 07/13/22 12:00 O2 Del Method 07/13/22 12:00 O2 Flow Rate 2 07/13/22 12:00 FiO2 30 07/13/22 00:00 Oxygen Flow Rate 6 07/10/22 09:09 BMI result Body Mass Index 33.8 Const: General: cooperative, comfortable, no acute distress, alert and awake Nutritional Appearance: overweight Orientation/consciousness: patient oriented x3 Resp: Other: scattered expiratory wheeze Effort & Inspection: normal respiratory effort Cardio: Rate: regular rate Heart sounds: S1 normal heart sound present and S2 normal heart sound present GI: Inspection: No distended Palpation (GI): Soft to palpation and nontender Neuro: General: patient oriented x3 and CN's II-XI intact bilaterally Extrem: General: Yes no pedal edema Objective Data Active Medications Acetaminophen (Acetaminophen 325 Mg Tablet) 650 mg PO Q6H PRN PRN Reason: Fever Aspirin (Aspirin Enteric Coated 81 Mg Tablet.) 81 mg PO DAILY [facility] Last Admin: 07/13/22 08:40 Dose: 81 mg Documented By: JALEEL Atorvastatin Calcium (Atorvastatin Calcium 10 Mg Tablet) 10 mg PO BEDTIME [facility] Last Admin: 07/12/22 20:21 Dose: 10 mg Documented By: NELI Carvedilol (Carvedilol 25 Mg Tablet) 25 mg PO BID [facility]; Protocol Last Admin: 07/13/22 08:39 Dose: 25 mg Documented By: JALEEL Clonidine HCl (Clonidine Hcl 0.2 Mg Tablet) 0.2 mg PO TID [facility]; Protocol Last Admin: 07/13/22 08:39 Dose: 0.2 mg Documented By: JALEEL Doxazosin Mesylate (Doxazosin Mesylate 2 Mg Tablet) 6 mg PO BEDTIME [facility] Last Admin: 07/12/22 20:21 Dose: 6 mg Documented By: NELI Gabapentin (Gabapentin 400 Mg Capsule) 400 mg PO TID [facility] Last Admin: 07/13/22 08:40 Dose: 400 mg Documented By: JALEEL Guaifenesin (Guaifenesin 100 Mg/5 Ml Liquid) 10 ml PO Q4H PRN PRN Reason: Cough Heparin Sodium (Porcine) (Heparin Sodium,Porcine 5,000 Unit/Ml Vial) 5,000 unit SUBCUT Q8H [facility] Last Admin: 07/13/22 08:39 Dose: 5,000 unit Documented By: JALEEL Hydralazine HCl (Hydralazine Hcl 25 Mg Tablet) 25 mg PO BID [facility]; Protocol Last Admin: 07/13/22 08:40 Dose: 25 mg Documented By: JALEEL Melatonin (Melatonin 3 Mg Tablet) 6 mg PO BEDTIME [facility] Last Admin: 07/12/22 20:21 Dose: 6 mg Documented By: NELI Mirtazapine (Mirtazapine 30 Mg Tablet) 30 mg PO BEDTIME [facility] Last Admin: 07/12/22 20:21 Dose: 30 mg Documented By: NELI Ondansetron HCl (Ondansetron Hcl 4 Mg/2 Ml Vial) 4 mg IVPUSH Q6H PRN PRN Reason: Nausea Pharmacy Consult (Consult Rx Perform Med Rec) 1 each MISCELLANE ONCE PRN PRN Reason: Consult order Sertraline HCl (Sertraline Hcl 25 Mg Tablet) 25 mg PO DAILY [facility] Last Admin: 07/13/22 08:39 Dose: 25 mg Documented By: JALEEL Vitamin D (Cholecalciferol (Vitamin D3) 25 Mcg Tablet) 25 mcg PO DAILY [facility] Last Admin: 07/13/22 08:40 Dose: 25 mcg Documented By: JALEEL Labs 07/12/22 06:16 07/13/22 06:00 Labs: Laboratory Results - last 24 hr 07/13/22 07/13/22 06:00 06:00 Anion Gap 13 Estim Creat Clear Calc 41.8 Estimated GFR 34 Random Glucose 100 Calcium 8.9 B-Natriuretic Peptide 185 H Microbiology Microbiology Results: Microbiology 07/10/22 09:57 Blood Culture - Preliminary Blood - Venous No growth after 48 hours. 07/10/22 09:44 Blood Culture - Preliminary Blood - Venous No growth after 48 hours. Assessment and Plan (1) Acute exacerbation of CHF (congestive heart failure): Status: Acute (2) CESAR on CPAP: Status: Acute Plan 62 year old man from a correction admitted to the ICU with hypercapnea and hypoxia and placed on Bipap with IV lasix drip. Transferred to medical floor on 07/11/22 Acute hypoxic and hypercapneaic respiratory failure secondary to acute on chronic HFpEF required bipap in the ICU initially echo with EF of 55-60% with severely dilated left atrium s/p IV lasix drip, transitioned to IV push 2/7 - 10L to date. BNP down to <200 now with increasing renal function. appears euvolemic, will d/c IV lasix will resume po lasix when renal function improves. multiple PAT, restarted BB seen by cardiology - recommend to hold off diuresis at this time - resume home diuretics vs 1mg bumex- outpatient follow up with primary sign language interpreter wean oxygen as tolerated CICI creatinine up to 2.0 likely from diuretics hold lasix follow BMP Metabolic alkalosis diamox completed HTN hydralazine Hold norvasc to avoid further edema, restart as BP allows Mental health continue home medications TBI lives in correction CESAR continue CPAP DVT prophylaxis with Attending Dr. Hastings full code continued hospitalization for monitoring of renal function. back to correction, possibly tomorrow Time Spent With Patient Time: Total time managing care of this patient today ____ minutes. Quality Stroke Does the patient have a stroke diagnosis?: No VTE Prior VTE?: No VTE Risk Level:: Medical - moderate - high VTE Device Contraindication: Treatment Not Indicated VTE Drug Contraindication: N/A - Med Ordered
--- NOTE | 2022-07-13 15:01 | MHC.SL.SWA ---
Speech Pathologist Impression: Risk of Aspiration Due to: Medically Fragile Reduced Cognition Dysphasia Diet Status: Mild oral phase dysphagia and aspiration risk due to high level of impulsivity when eating. Recommend patient continue on REGULAR diet with THIN liquids, pills whole with liquid or puree. HOWEVER, patient continues to need supervision due to observed impulsiveness, clumsiness with food items, eating, and, as observed today poor insight and eating while reclined. Behaviors put patient at risk for aspiration. Liquid Consistency and Strategies for Safe Swallow: Liquid Intake Recommendation: Thin Liquid Intake Strategies: Small Sips Solid Food Consistency: Dietary Recommendations: Regular Additional Modifications to Solid Foods: Supervision to assure that patient is eating small amounts, cut to appropriate size. Oral Medication Intake: Whole with Puree Please contact the pharmacy regarding appropriate crushable or liquid drug formulations that are available whenever modified delivery is recommended. Compensatory Strategies and Precautions to be Taken for Safe Swallow: Sitting Upright (90 deg) No Straw Liquids from Cup Small Bites and Sips Alternate Liquids/Solids Rate of Ingestion Change Supervision While Eating and Drinking for Safe Swallow: Total Supervision (1:1) Foods to Avoid: Large pieces of tough to chew food. Swallowing Recommended Treatments: Compens. Strategy Educat. Recommendation for Speech: Inpatient Speech Therapy Comment: Patient seen at lunch for toleration of diet, conformity to recommended strategies. Patient was alone in room, was reclined in bed, had lunch tray in front of him having consumed some of his lunch, with some food on his clothing evident. Patient was repositioned with head of bed at 90 degrees, and juices opened and put into a cup for ease of drinking. Patient took cup, slowly and slightly clumsily raised cup to mouth then took a series of small sips each followed by a timely swallow. No clinical signs of aspiration noted. Patient reported that he had eaten enough of his lunch and did not want any more as po trials. Recommend patient continue on REGULAR diet with THIN liquids, pills whole with liquid or puree. HOWEVER, patient continues to need supervision due to observed impulsiveness, clumsiness with food items, eating, and, as observed today poor insight and eating while reclined. Behaviors put patient at risk for aspiration. Discussed with RN. Frequency/Duration: 1-2 f/u for toleration of diet. Date Range for Service Req: Timeline to reassess: Machine Shop Specialist Clinican/Clinical Fellow: No Supervisory Statement: I have reviewed and agree with the student/clinical fellow's documentation: N/A Speech Language Pathologist: Kaycee Spencer M.A., CCC-TRANSFORMATION ANALYST
[2022-07-13] MEDS: Mirtazapine 30 MG TABLET PO (20:59)
[2022-07-13] MEDS: Doxazosin Mesylate 2 MG TABLET 6 MG PO (20:59)
[2022-07-13] MEDS: Melatonin 3 MG TABLET 6 MG PO (20:59)
[2022-07-13] MEDS: Atorvastatin Calcium 10 MG TABLET PO (20:59)
[2022-07-14] VITALS (13 sets, daily range): BP systolic 108–154; BP diastolic 57–73; PULSE 62–84; RESP 16–21; TEMP 36.3–37.2; O2SAT 88–97; BMI 32.2
--- NOTE | 2022-07-14 00:34 | PC.RT ---
pt refusing CPAP at this time x 2
[2022-07-14] MEDS: Heparin Sodium,Porcine 5,000 UNIT/ML VIAL 5000 UNIT SUBCUT ×3 (06:06→22:31)
[2022-07-14 06:37] LABS: Anion Gap 14 (12-20); Blood Urea Nitrogen 38 mg/dL (9-16); Calcium 8.7 mg/dL (8.4-10.2); Carbon Dioxide 31 mmol/L (22-29); Chloride 102 mmol/L (96-108); Estimated Glomerular Filt Rate 32; Glucose Random 137 mg/dL (60-115); Potassium 3.6 mmol/L (3.3-5.1); Sodium 143 mmol/L (135-145)
[2022-07-14] MEDS: Albuterol/Iprat 2.5/0.5MG 3 ML AMPUL.NEB INHALE ×3 (08:34→19:44)
[2022-07-14 08:53] LABS: ABG Base Excess 8.6 mmol/L; ABG HCO3 39 mmol/L (22-26); ABG pCO2 92 mmHg (32-45); ABG pH 7.23 (7.35-7.45); ABG pO2 74 mmHg (83-108)
[2022-07-14] MEDS: guaiFENesin 100 MG/5 ML LIQUID 10 ML PO (09:43)
[2022-07-14] MEDS: cloNIDine HCL 0.2 MG TABLET PO ×3 (09:43→20:16)
[2022-07-14] MEDS: hydrALAZINE HCl 25 MG TABLET PO ×2 (09:43→20:16)
[2022-07-14] MEDS: Aspirin Enteric Coated 81 MG TABLET.DR PO (09:43)
[2022-07-14] MEDS: carvediloL 25 MG TABLET PO ×2 (09:44→20:15)
[2022-07-14] MEDS: Sertraline HCL 25 MG TABLET PO (09:44)
[2022-07-14] MEDS: Cholecalciferol (Vitamin D3) 25 MCG TABLET PO (09:46)
[2022-07-14 10:27] LABS: ABG Base Excess 7.8 mmol/L; ABG HCO3 36 mmol/L (22-26); ABG pCO2 70 mmHg (32-45); ABG pH 7.31 (7.35-7.45); ABG pO2 57 mmHg (83-108)
--- NOTE | 2022-07-14 11:17 | PC.RT ---
pt ripped off mask Biap masks. Pt said he doesnt wanna go back on. He was alert and awake. His Sats were 77% on room air. Placed pt on 2 liters and Sats up to 84%. Increase to 3 liters and Sats up to 92%. RN aware.
--- NOTE | 2022-07-14 11:59 | MHC.SL.SWA ---
Speech Pathologist Impression: Risk of Aspiration Due to: Medically Fragile Reduced Cognition Dysphasia Diet Status: Recommend DOWNGRADE of diet to CHOPPED/ADVANCED (NDD3) for ease of access to precut/prepared food. Recommend continued 1-1 supervision at all meals due to patients aspiration risk due to high level of impulsivity (gulping liquids, packing mouth with food, eating and drinking while reclined). Recommendations communicated in person to RN, by secure text to P.A. Liquid Consistency and Strategies for Safe Swallow: Liquid Intake Recommendation: Thin Liquid Intake Strategies: Small Sips Solid Food Consistency: Dietary Recommendations: Chopped/Advanced (NDD3) Additional Modifications to Solid Foods: Supervision to assure that patient is eating and drinking in small amounts, cut to appropriate size. Oral Medication Intake: Whole with Puree Please contact the pharmacy regarding appropriate crushable or liquid drug formulations that are available whenever modified delivery is recommended. Compensatory Strategies and Precautions to be Taken for Safe Swallow: Sitting Upright (90 deg) No Straw Liquids from Cup Small Bites and Sips Alternate Liquids/Solids Rate of Ingestion Change Supervision While Eating and Drinking for Safe Swallow: Total Supervision (1:1) Foods to Avoid: Large pieces of tough to chew food. Swallowing Recommended Treatments: Compens. Strategy Educat. Recommendation for Speech: Inpatient Speech Therapy Comment: Patient seen seen this a.m. for repeat assessment. Received repeat order for assessment this a.m. from Hospitalist, sent text to SENIOR RISK ANALYST reviewing initial eval and swallow recs. Patient was sitting upright in bed watching a [employer] movie, accepted some orange juice and sam crackers as trials. Patient took timely cup sip of orange juice producing timely oral phase and swallow with no clinical signs of aspiration. When TRIM CARPENTER turned back on patient to discard a wrapper, patient chugged the rest of the cup of OJ. Patient not in distress, but reminded to take individual sips only. When asked if he is told this in his [facility], patient acknowledged yes. On cracker, patient produced a slow rotary chew, timely swallow, no clinical signs of aspiration. TRIM CARPENTER had earlier reviewed recommendations that patient have 1-1 supervision during meals due to his impulsivity with today's RN, and adjusted white board in room to reflect this recommendation. Given noted behaviors, and observed clumsiness of patient yesterday when eating, recommend DOWNGRADE of diet to CHOPPED/ADVANCED (NDD3) for ease of access to precut/prepared food. Recommend continued 1-1 supervision at all meals due to patients aspiration risk due to high level of impulsivity (gulping liquids, packing mouth with food, eating and drinking while reclined). Recommendations communicated in person to RN, by secure text to P.A. TRIM CARPENTER changed diet in orders. Frequency/Duration: 1-2 f/u for toleration of diet. Date Range for Service Req: Timeline to reassess: Registered Dental Hygienist Clinican/Clinical Fellow: No Supervisory Statement: I have reviewed and agree with the student/clinical fellow's documentation: N/A Speech Language Pathologist: Kaycee Spencer M.A., CCC-TRIM CARPENTER
--- NOTE | 2022-07-14 12:12 | HO.PM.IMPN ---
Subjective Subjective Date of Service: 07/14/22 Interval History: seen and examined this morning follow up for CHF, respiratory failure, CICI noted to be very sleepy today - ABG obtained pt retaining co2 and was placed back on bipap after discussion with ICU attending unable to obtain full ROS Physical Exam Vital Signs: Vital Signs: Last Vital Signs Temp 97.3 F 07/14/22 11:34 Pulse 72 07/14/22 11:34 Resp 20 07/14/22 11:34 BP 112/63 07/14/22 11:34 Pulse Ox 97 07/14/22 11:34 O2 Del Method 07/14/22 11:34 O2 Flow Rate 1 07/14/22 11:34 FiO2 30 07/13/22 00:00 Oxygen Flow Rate 6 07/10/22 09:09 BMI result Body Mass Index 32.2 Const: Other: lethargic General: cooperative, comfortable, no acute distress, alert and awake Nutritional Appearance: overweight Orientation/consciousness: patient oriented x3 Resp: Other: scattered expiratory wheeze Effort & Inspection: decreased respiratory effort Auscultation: diminished lung sounds Cardio: Rate: regular rate Heart sounds: S1 normal heart sound present and S2 normal heart sound present GI: Inspection: No distended Palpation (GI): Soft to palpation and nontender : Other: shore in place Neuro: General: patient oriented x3 and CN's II-XI intact bilaterally Extrem: General: Yes no pedal edema Objective Data Active Medications Acetaminophen (Acetaminophen 325 Mg Tablet) 650 mg PO Q6H PRN PRN Reason: Fever Albuterol/Ipratropium (Albuterol/Iprat 2.5/0.5mg 3 Ml Ampul.Neb) 3 ml INHALE RQ6H WHILE AWAKE [facility] Aspirin (Aspirin Enteric Coated 81 Mg Tablet.) 81 mg PO DAILY [facility] Last Admin: 07/14/22 09:43 Dose: 81 mg Documented By: ZEV Atorvastatin Calcium (Atorvastatin Calcium 10 Mg Tablet) 10 mg PO BEDTIME [facility] Last Admin: 07/13/22 20:59 Dose: 10 mg Documented By: MYESHA Carvedilol (Carvedilol 25 Mg Tablet) 25 mg PO BID [facility]; Protocol Last Admin: 07/14/22 09:44 Dose: 25 mg Documented By: ZEV Clonidine HCl (Clonidine Hcl 0.2 Mg Tablet) 0.2 mg PO TID [facility]; Protocol Last Admin: 07/14/22 09:43 Dose: 0.2 mg Documented By: ZEV Doxazosin Mesylate (Doxazosin Mesylate 2 Mg Tablet) 6 mg PO BEDTIME [facility] Last Admin: 07/13/22 20:59 Dose: 6 mg Documented By: MYESHA Gabapentin (Gabapentin 400 Mg Capsule) 400 mg PO TID [facility] Last Admin: 07/13/22 20:59 Dose: 400 mg Documented By: MYESHA Guaifenesin (Guaifenesin 100 Mg/5 Ml Liquid) 10 ml PO Q4H PRN PRN Reason: Cough Last Admin: 07/14/22 09:43 Dose: 10 ml Documented By: ZEV Heparin Sodium (Porcine) (Heparin Sodium,Porcine 5,000 Unit/Ml Vial) 5,000 unit SUBCUT Q8H [facility] Last Admin: 07/14/22 06:06 Dose: 5,000 unit Documented By: MYESHA Hydralazine HCl (Hydralazine Hcl 25 Mg Tablet) 25 mg PO BID [facility]; Protocol Last Admin: 07/14/22 09:43 Dose: 25 mg Documented By: ZEV Lactated Ringer's (Lr) 1,000 mls @ 50 mls/hr IVCONT .Q20H [facility] Stop: 07/15/22 07:59 Melatonin (Melatonin 3 Mg Tablet) 6 mg PO BEDTIME [facility] Last Admin: 07/13/22 20:59 Dose: 6 mg Documented By: MYESHA Mirtazapine (Mirtazapine 30 Mg Tablet) 30 mg PO BEDTIME [facility] Last Admin: 07/13/22 20:59 Dose: 30 mg Documented By: MYESHA Ondansetron HCl (Ondansetron Hcl 4 Mg/2 Ml Vial) 4 mg IVPUSH Q6H PRN PRN Reason: Nausea Pharmacy Consult (Consult Rx Perform Med Rec) 1 each MISCELLANE ONCE PRN PRN Reason: Consult order Sertraline HCl (Sertraline Hcl 25 Mg Tablet) 25 mg PO DAILY [facility] Last Admin: 07/14/22 09:44 Dose: 25 mg Documented By: ZEV Vitamin D (Cholecalciferol (Vitamin D3) 25 Mcg Tablet) 25 mcg PO DAILY [facility] Last Admin: 07/14/22 09:46 Dose: 25 mcg Documented By: ZEV Labs 07/12/22 06:16 07/14/22 05:49 Labs: Laboratory Results - last 24 hr 07/14/22 07/14/22 07/14/22 05:49 08:45 10:19 O2 Saturation 92.0 85.0 ABG pH at Pt Temp 7.23 L 7.31 L ABG pCO2 at Pt Temp 92 H* 70 H* ABG pO2 at Pt Temp 74 L 57 L ABG HCO3 39 H 36 H ABG Base Excess (Actual) 8.6 7.8 Anion Gap 14 Estim Creat Clear Calc 40.0 Estimated GFR 32 Random Glucose 137 H Calcium 8.7 Assessment and Plan (1) CESAR on CPAP: Status: Acute (2) Acute exacerbation of CHF (congestive heart failure): Status: Acute (3) Hypoxia: Status: Acute (4) CICI (acute kidney injury): Status: Acute Plan 62 year old man from a [place]way admitted to the ICU with hypercapnea and hypoxia and placed on Bipap with IV lasix drip. Transferred to medical floor on 07/11/22 Acute hypoxic and hypercapneaic respiratory failure secondary to HFpEF required bipap in the ICU sleepy this am, ABG with elevated CO2, placed back on bipap - repeat ABG improving, patient awake and alert goal o2 88-92% acute on chronic HFpEF echo with EF of 55-60% with severely dilated left atrium s/p IV lasix drip, transitioned to IV push /7 - >10L to date. BNP down to <200 now with increasing renal function. appears euvolemic, will d/c IV lasix will resume po lasix when renal function improves. multiple PAT, restarted BB seen by cardiology - recommend to hold off diuresis at this time - resume home diuretics vs 1mg bumex- outpatient follow up with primary horticulture/floriculture teacher CICI creatinine up to 2.09 likely from diuretics hold lasix will give gentle fluid x 1L follow BMP Metabolic alkalosis diamox completed HTN hydralazine Hold norvasc to avoid further edema, restart as BP allows Mental health continue home medications TBI lives in half-way CESAR continue CPAP DVT prophylaxis with Attending Dr. Hastings full code continued hospitalization for monitoring of renal function, respiratory failure Time Spent With Patient Time: Total time managing care of this patient today ____ minutes. Quality Stroke Does the patient have a stroke diagnosis?: No VTE Prior VTE?: No VTE Risk Level:: Medical - moderate - high VTE Device Contraindication: Treatment Not Indicated VTE Drug Contraindication: N/A - Med Ordered
[2022-07-14] MEDS: Lactated Ringers 1,000 ML 50 ML IVCONT (12:46)
--- NOTE | 2022-07-14 15:19 | MHC.CM.PN ---
per rounds pt not stable jb be transferred to icu
[2022-07-14] MEDS: Doxazosin Mesylate 2 MG TABLET 6 MG PO (20:13)
[2022-07-14] MEDS: Atorvastatin Calcium 10 MG TABLET PO (20:13)
[2022-07-14] MEDS: Mirtazapine 30 MG TABLET PO (20:16)
[2022-07-14] MEDS: Melatonin 3 MG TABLET 6 MG PO (20:16)
[2022-07-15] VITALS (10 sets, daily range): BP systolic 128–174; BP diastolic 71–88; PULSE 61–90; RESP 18–20; TEMP 36.3–37; O2SAT 91–94; BMI 33.5
--- NOTE | 2022-07-15 03:13 | PC.NURSE ---
Pt voided 3-4x during the night on adequate amount, assited tot he commode with walker, tolerated po and meds, RT came to place CPAP, pt refused at first, reapproached and complied but removed mask few times and said he feels like choking with the mask, RT offered and placed nasal mask but pt still unable to tolerate and removed it refusing to wear, RT and MD aware, O2 at 1L/min via NC tolerated.
--- NOTE | 2022-07-15 04:35 | PC.RT ---
pt placed on CPAP for NOC supprt, shortly after pt stated the full face mask was causing him discomfort. Pt placed on nasal mask to help with pt comfort. unfortanetly shortly after that RN notified Rt that pt had same complaint and took mask off. unable to find an interface that the pt is willing to tolerate. RN aware. Pt placed back on Nasal cannula by RN. Pt spent approximately 1-1.5 hours on CPAP tonight.
[2022-07-15] MEDS: Heparin Sodium,Porcine 5,000 UNIT/ML VIAL 5000 UNIT SUBCUT ×2 (05:59→14:27)
[2022-07-15 07:05] LABS: Anion Gap 15 (12-20); Blood Urea Nitrogen 34 mg/dL (9-16); Calcium 8.6 mg/dL (8.4-10.2); Carbon Dioxide 31 mmol/L (22-29); Chloride 101 mmol/L (96-108); Creatinine Clr Calc Pharmacy 48.7; Estimated Glomerular Filt Rate 41; Glucose Random 109 mg/dL (60-115); Potassium 3.9 mmol/L (3.3-5.1); Sodium 143 mmol/L (135-145)
[2022-07-15] MEDS: hydrALAZINE HCl 25 MG TABLET PO ×2 (07:50→20:35)
[2022-07-15] MEDS: Aspirin Enteric Coated 81 MG TABLET.DR PO (07:50)
[2022-07-15] MEDS: Sertraline HCL 25 MG TABLET PO (07:51)
[2022-07-15] MEDS: Cholecalciferol (Vitamin D3) 25 MCG TABLET PO (07:51)
[2022-07-15] MEDS: carvediloL 25 MG TABLET PO ×2 (07:51→20:33)
[2022-07-15] MEDS: cloNIDine HCL 0.2 MG TABLET PO ×3 (07:51→20:35)
[2022-07-15] MEDS: Albuterol/Iprat 2.5/0.5MG 3 ML AMPUL.NEB INHALE ×3 (07:57→20:00)
--- NOTE | 2022-07-15 13:58 | HO.PM.IMPN ---
Subjective Subjective Date of Service: 07/15/22 Interval History: seen and examined this morning follow up for respiratory failure, cici refused cpap overnight awake and alert this morning, no specific complaints - wants to go home tomorrow Review of Systems Review of Systems: Yes all other systems are reviewed and are negative Constitutional Constitutional: Denies chills and Denies fever(s) Cardiovascular Cardiovascular: Denies chest pain and Denies dyspnea Respiratory Respiratory: Denies dyspnea Gastrointestinal Gastrointestinal: Denies abdominal pain Physical Exam Vital Signs: Vital Signs: Last Vital Signs Temp 98.6 F 07/15/22 11:22 Pulse 71 07/15/22 11:22 Resp 20 07/15/22 11:22 BP 156/88 H 07/15/22 11:22 Pulse Ox 93 07/15/22 11:22 O2 Del Method 07/15/22 11:22 O2 Flow Rate 1 07/15/22 11:22 FiO2 30 07/13/22 00:00 Oxygen Flow Rate 6 07/10/22 09:09 BMI result Body Mass Index 33.5 Const: General: cooperative, comfortable, no acute distress, alert and awake Nutritional Appearance: overweight Orientation/consciousness: patient oriented x3 Resp: Other: scattered expiratory wheeze Effort & Inspection: normal respiratory effort and decreased respiratory effort Auscultation: diminished lung sounds Cardio: Rate: regular rate Heart sounds: S1 normal heart sound present and S2 normal heart sound present GI: Inspection: No distended Palpation (GI): Soft to palpation and nontender Neuro: General: patient oriented x3 and CN's II-XI intact bilaterally Objective Data Active Medications Acetaminophen (Acetaminophen 325 Mg Tablet) 650 mg PO Q6H PRN PRN Reason: Fever Albuterol/Ipratropium (Albuterol/Iprat 2.5/0.5mg 3 Ml Ampul.Neb) 3 ml INHALE RQ6H WHILE AWAKE [facility] Last Admin: 07/15/22 07:57 Dose: 3 ml Documented By: BENNIE Aspirin (Aspirin Enteric Coated 81 Mg Tablet.) 81 mg PO DAILY [facility] Last Admin: 07/15/22 07:50 Dose: 81 mg Documented By: MARKOS Atorvastatin Calcium (Atorvastatin Calcium 10 Mg Tablet) 10 mg PO BEDTIME [facility] Last Admin: 07/14/22 20:13 Dose: 10 mg Documented By: PARUL Carvedilol (Carvedilol 25 Mg Tablet) 25 mg PO BID [facility]; Protocol Last Admin: 07/15/22 07:51 Dose: 25 mg Documented By: MARKOS Clonidine HCl (Clonidine Hcl 0.2 Mg Tablet) 0.2 mg PO TID [facility]; Protocol Last Admin: 07/15/22 07:51 Dose: 0.2 mg Documented By: MARKOS Doxazosin Mesylate (Doxazosin Mesylate 2 Mg Tablet) 6 mg PO BEDTIME [facility] Last Admin: 07/14/22 20:13 Dose: 6 mg Documented By: PARUL Comments: CV=198/69 H 62 Gabapentin (Gabapentin 400 Mg Capsule) 400 mg PO TID [facility] Last Admin: 07/13/22 20:59 Dose: 400 mg Documented By: MYESHA Guaifenesin (Guaifenesin 100 Mg/5 Ml Liquid) 10 ml PO Q4H PRN PRN Reason: Cough Last Admin: 07/14/22 09:43 Dose: 10 ml Documented By: ZEV Heparin Sodium (Porcine) (Heparin Sodium,Porcine 5,000 Unit/Ml Vial) 5,000 unit SUBCUT Q8H [facility] Last Admin: 07/15/22 05:59 Dose: 5,000 unit Documented By: PARUL Hydralazine HCl (Hydralazine Hcl 25 Mg Tablet) 25 mg PO BID [facility]; Protocol Last Admin: 07/15/22 07:50 Dose: 25 mg Documented By: MARKOS Melatonin (Melatonin 3 Mg Tablet) 6 mg PO BEDTIME [facility] Last Admin: 07/14/22 20:16 Dose: 6 mg Documented By: PARUL Mirtazapine (Mirtazapine 30 Mg Tablet) 30 mg PO BEDTIME [facility] Last Admin: 07/14/22 20:16 Dose: 30 mg Documented By: PARUL Ondansetron HCl (Ondansetron Hcl 4 Mg/2 Ml Vial) 4 mg IVPUSH Q6H PRN PRN Reason: Nausea Pharmacy Consult (Consult Rx Perform Med Rec) 1 each MISCELLANE ONCE PRN PRN Reason: Consult order Sertraline HCl (Sertraline Hcl 25 Mg Tablet) 25 mg PO DAILY [facility] Last Admin: 07/15/22 07:51 Dose: 25 mg Documented By: MARKOS Vitamin D (Cholecalciferol (Vitamin D3) 25 Mcg Tablet) 25 mcg PO DAILY [facility] Last Admin: 07/15/22 07:51 Dose: 25 mcg Documented By: MARKOS Labs 07/12/22 06:16 07/15/22 05:57 Labs: Laboratory Results - last 24 hr 07/15/22 05:57 Anion Gap 15 Estim Creat Clear Calc 48.7 Estimated GFR 41 Random Glucose 109 Calcium 8.6 Microbiology Microbiology Results: Microbiology 07/10/22 09:57 Blood Culture - Final Blood - Venous No growth after 5 days. 07/10/22 09:44 Blood Culture - Final Blood - Venous No growth after 5 days. Assessment and Plan (1) CESAR on CPAP: Status: Acute (2) Acute exacerbation of CHF (congestive heart failure): Status: Acute (3) Hypoxia: Status: Acute (4) CICI (acute kidney injury): Status: Acute Plan 62 year old man from a skilled nursing admitted to the ICU with hypercapnea and hypoxia and placed on Bipap with IV lasix drip. Transferred to medical floor on 07/11/22 Acute hypoxic and hypercapneaic respiratory failure secondary to HFpEF required bipap in the ICU sleepy 07/14, ABG with elevated CO2, placed back on bipap - repeat ABG improving, patient awake and alert goal o2 88-92% acute on chronic HFpEF echo with EF of 55-60% with severely dilated left atrium s/p IV lasix drip, transitioned to IV push 07/11 - >10L to date. BNP down to <200 now with increasing renal function. appears euvolemic, will d/c IV lasix will resume po lasix when renal function improves. 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 Montaño full code continued hospitalization for monitoring of renal function, respiratory failure Time Spent With Patient Time: Total time managing care of this patient today ____ minutes. Quality Stroke Does the patient have a stroke diagnosis?: No VTE Prior VTE?: No VTE Risk Level:: Medical - moderate - high VTE Device Contraindication: Treatment Not Indicated VTE Drug Contraindication: N/A - Med Ordered
[2022-07-15] MEDS: Melatonin 3 MG TABLET 6 MG PO (20:34)
[2022-07-15] MEDS: Mirtazapine 30 MG TABLET PO (20:35)
[2022-07-15] MEDS: Doxazosin Mesylate 2 MG TABLET 6 MG PO (20:37)
[2022-07-15] MEDS: Atorvastatin Calcium 10 MG TABLET PO (20:38)
[2022-07-16] VITALS (9 sets, daily range): BP systolic 140–178; BP diastolic 62–97; PULSE 61–92; RESP 18–20; TEMP 36.3–36.9; O2SAT 90–95
--- NOTE | 2022-07-16 01:24 | PC.RT ---
pt refusing to wear CPAP tonight for NOC support. this will be pt's 2nd night without CPAP.
[2022-07-16 07:24] LABS: Anion Gap 12 (12-20); Blood Urea Nitrogen 25 mg/dL (9-16); Calcium 8.6 mg/dL (8.4-10.2); Carbon Dioxide 33 mmol/L (22-29); Chloride 101 mmol/L (96-108); Creatinine Clr Calc Pharmacy 58.7; Estimated Glomerular Filt Rate 51; Glucose Random 115 mg/dL (60-115); Potassium 4.2 mmol/L (3.3-5.1); Sodium 142 mmol/L (135-145)
[2022-07-16] MEDS: Albuterol/Iprat 2.5/0.5MG 3 ML AMPUL.NEB INHALE ×3 (07:39→18:39)
[2022-07-16] MEDS: Aspirin Enteric Coated 81 MG TABLET.DR PO (09:46)
[2022-07-16] MEDS: Cholecalciferol (Vitamin D3) 25 MCG TABLET PO (09:46)
[2022-07-16] MEDS: carvediloL 25 MG TABLET PO ×2 (09:46→19:46)
[2022-07-16] MEDS: Heparin Sodium,Porcine 5,000 UNIT/ML VIAL 5000 UNIT SUBCUT ×3 (09:47→23:17)
[2022-07-16] MEDS: cloNIDine HCL 0.2 MG TABLET PO ×3 (09:47→19:47)
[2022-07-16] MEDS: hydrALAZINE HCl 25 MG TABLET PO ×2 (09:47→19:48)
[2022-07-16] MEDS: Sertraline HCL 25 MG TABLET PO (09:47)
[2022-07-16 10:30] LABS: ABG Refer to POC result
[2022-07-16 10:30] LABS: ABG Refer to POC result
--- NOTE | 2022-07-16 10:42 | P.PNIM_ITS ---
Subjective Subjective Date of Service: 07/16/22 Interval History: seen and examined this morning follow up for respiratory failure, chf awake and alert this morning, sitting up in bed non- compliant with cpap again overnight denies sob, feeling well Review of Systems Review of Systems: Yes all other systems are reviewed and are negative Constitutional Constitutional: Denies chills and Denies fever(s) Cardiovascular Cardiovascular: Denies chest pain, Denies palpitations and Denies dyspnea Respiratory Respiratory: Denies dyspnea Gastrointestinal Gastrointestinal: Denies abdominal pain Endocrine Endocrine: Denies palpitations Physical Exam Vital Signs: Vital Signs: Last Vital Signs Temp 97.3 F 07/16/22 07:24 Pulse 91 07/16/22 07:40 Resp 18 07/16/22 07:40 BP 140/62 H 07/16/22 07:24 Pulse Ox 90 L 07/16/22 07:24 O2 Del Method 07/16/22 07:24 O2 Flow Rate 1 07/16/22 07:24 FiO2 30 07/13/22 00:00 Oxygen Flow Rate 6 07/10/22 09:09 BMI result Body Mass Index 33.5 Const: General: cooperative, comfortable, no acute distress, alert and awake Nutritional Appearance: overweight Orientation/consciousness: patient oriented x3 Resp: Effort & Inspection: normal respiratory effort Auscultation: diminished lung sounds Cardio: Rate: regular rate Heart sounds: S1 normal heart sound present and S2 normal heart sound present GI: Inspection: No distended Palpation (GI): Soft to palpation and nont lucrecia Neuro: General: patient oriented x3 and CN's II-XI intact bilaterally Extrem: Other: trace leg edema Objective Data Active Medications Acetaminophen (Acetaminophen 325 Mg Tablet) 650 mg PO Q6H PRN PRN Reason: Fever Albuterol/Ipratropium (Albuterol/Iprat 2.5/0.5mg 3 Ml Ampul.Neb) 3 ml INHALE RQ6H WHILE AWAKE [facility] Last Admin: 07/16/22 07:39 Dose: 3 ml Documented By: BENNIE Aspirin (Aspirin Enteric Coated 81 Mg Tablet.) 81 mg PO DAILY [facility] Last Admin: 07/16/22 09:46 Dose: 81 mg Documented By: MARKOS Atorvastatin Calcium (Atorvastatin Calcium 10 Mg Tablet) 10 mg PO BEDTIME [facility] Last Admin: 07/15/22 20:38 Dose: 10 mg Documented By: DENNY Bumetanide (Bumetanide 1 Mg Tablet) 1 mg PO DAILY [facility]; Protocol Carvedilol (Carvedilol 25 Mg Tablet) 25 mg PO BID [facility]; Protocol Last Admin: 07/16/22 09:46 Dose: 25 mg Documented By: MARKOS Clonidine HCl (Clonidine Hcl 0.2 Mg Tablet) 0.2 mg PO TID [facility]; Protocol Last Admin: 07/16/22 09:47 Dose: 0.2 mg Documented By: MARKOS Doxazosin Mesylate (Doxazosin Mesylate 2 Mg Tablet) 6 mg PO BEDTIME [facility] Last Admin: 07/15/22 20:37 Dose: 6 mg Documented By: DENNY Comments: Gabapentin (Gabapentin 400 Mg Capsule) 400 mg PO TID [facility] Last Admin: 07/13/22 20:59 Dose: 400 mg Documented By: MYESHA Guaifenesin (Guaifenesin 100 Mg/5 Ml Liquid) 10 ml PO Q4H PRN PRN Reason: Cough Last Admin: 07/14/22 09:43 Dose: 10 ml Documented By: ZEV Heparin Sodium (Porcine) (Heparin Sodium,Porcine 5,000 Unit/Ml Vial) 5,000 unit SUBCUT Q8H [facility] Last Admin: 07/16/22 09:47 Dose: 5,000 unit Documented By: MARKOS Hydralazine HCl (Hydralazine Hcl 25 Mg Tablet) 25 mg PO BID [facility]; Protocol Last Admin: 07/16/22 09:47 Dose: 25 mg Documented By: MARKOS Melatonin (Melatonin 3 Mg Tablet) 6 mg PO BEDTIME [facility] Last Admin: 07/15/22 20:34 Dose: 6 mg Documented By: DENNY Mirtazapine (Mirtazapine 30 Mg Tablet) 30 mg PO BEDTIME [facility] Last Admin: 07/15/22 20:35 Dose: 30 mg Documented By: DENNY Ondansetron HCl (Ondansetron Hcl 4 Mg/2 Ml Vial) 4 mg IVPUSH Q6H PRN PRN Reason: Nausea Pharmacy Consult (Consult Rx Perform Med Rec) 1 each MISCELLANE ONCE PRN PRN Reason: Consult order Sertraline HCl (Sertraline Hcl 25 Mg Tablet) 25 mg PO DAILY [facility] Last Admin: 07/16/22 09:47 Dose: 25 mg Documented By: MARKOS Vitamin D (Cholecalciferol (Vitamin D3) 25 Mcg Tablet) 25 mcg PO DAILY [facility] Last Admin: 07/16/22 09:46 Dose: 25 mcg Documented By: MARKOS Labs 07/12/22 06:16 07/16/22 06:18 Labs: Laboratory Results - last 24 hr 07/16/22 06:18 Anion Gap 12 Estim Creat Clear Calc 58.7 Estimated GFR 51 Random Glucose 115 Calcium 8.6 Microbiology Microbiology Results: Microbiology 07/10/22 09:57 Blood Culture - Final Blood - Venous No growth after 5 days. 07/10/22 09:44 Blood Culture - Final Blood - Venous No growth after 5 days. Assessment and Plan (1) CESAR on CPAP: Status: Acute (2) Acute exacerbation of CHF (congestive heart failure): Status: Acute (3) Acute hypercapnic respiratory failure: Status: Acute Plan 62 year old man from a halfway admitted to the ICU with hypercapnea and hypoxia and placed on Bipap with IV lasix drip. Transferred to medical floor on 07/11/22 Acute hypoxic and hypercapneaic respiratory failure secondary to HFpEF required bipap in the ICU sleepy 07/14, ABG with elevated CO2, placed back on bipap - repeat ABG improving, patient awake and alert goal o2 88-92% acute on chronic HFpEF echo with EF of 55-60% with severely dilated left atrium s/p IV lasix drip, transitioned to IV push 07/11, creatinine then trended up and lasix placed on hold 07/13 - >11L to date. BNP down to <200 renal function improving, will resume diuretics - cardiology rec bumex 1 mg daily jardiance added consider aldactone if bumex tolerated multiple PAT, restarted BB outpatient follow up with primary director of accounting recommended CICI creatinine improving after diuretic vacation/gentle fluid gabapentin decreased per renal function Metabolic alkalosis diamox completed HTN hydralazine Hold norvasc to avoid further edema, restart as BP allows Mental health continue home medications TBI lives in halfway CESAR continue CPAP as tolerated DVT prophylaxis with heparin Attending Dr. Montaño full code continued hospitalization for monitoring of renal function, respiratory failure dispo - return to halfway, unable to return today, likely tomorrow if kidney function/respiratory status remains stable Time Spent With Patient Time: Total time managing care of this patient today ____ minutes. Quality Stroke Does the patient have a stroke diagnosis?: No VTE Prior VTE?: No VTE Risk Level:: Medical - moderate - high VTE Device Contraindication: Treatment Not Indicated VTE Drug Contraindication: N/A - Med Ordered
[2022-07-16] MEDS: Bumetanide 1 MG TABLET PO (11:48)
[2022-07-16] MEDS: Gabapentin 300 MG CAPSULE PO ×2 (15:47→19:49)
[2022-07-16] MEDS: Melatonin 3 MG TABLET 6 MG PO (19:47)
[2022-07-16] MEDS: Doxazosin Mesylate 2 MG TABLET 6 MG PO (19:48)
[2022-07-16] MEDS: Atorvastatin Calcium 10 MG TABLET PO (19:48)
[2022-07-16] MEDS: Mirtazapine 30 MG TABLET PO (19:49)
[2022-07-17] VITALS (9 sets, daily range): BP systolic 132–170; BP diastolic 72–90; PULSE 62–82; RESP 15–20; TEMP 36.1–37.1; O2SAT 89–96; BMI 32.5
--- NOTE | 2022-07-17 00:13 | PC.RT ---
Pt refused to keep mask on. Pt placed on 2L NC.
[2022-07-17] MEDS: Albuterol/Iprat 2.5/0.5MG 3 ML AMPUL.NEB INHALE ×2 (07:19→15:30)
[2022-07-17] MEDS: cloNIDine HCL 0.2 MG TABLET PO ×3 (07:42→20:04)
[2022-07-17] MEDS: hydrALAZINE HCl 25 MG TABLET PO ×2 (07:42→20:03)
[2022-07-17] MEDS: carvediloL 25 MG TABLET PO ×2 (07:42→20:05)
[2022-07-17] MEDS: Gabapentin 300 MG CAPSULE PO ×3 (07:42→20:04)
[2022-07-17] MEDS: Sertraline HCL 25 MG TABLET PO (07:42)
[2022-07-17] MEDS: Aspirin Enteric Coated 81 MG TABLET.DR PO (07:42)
[2022-07-17] MEDS: Bumetanide 1 MG TABLET PO (07:42)
[2022-07-17] MEDS: Empagliflozin 10 MG TABLET PO (07:42)
[2022-07-17] MEDS: Cholecalciferol (Vitamin D3) 25 MCG TABLET PO (07:43)
[2022-07-17] MEDS: Heparin Sodium,Porcine 5,000 UNIT/ML VIAL 5000 UNIT SUBCUT ×3 (07:43→23:48)
--- NOTE | 2022-07-17 11:32 | P.DS_ITS ---
DS: Providers Provider Date of Service: 07/17/22 Date of admission: 07/10/22 14:22 Primary care physician: Maddison Vazquez NP Consults: 07/12/22 13:40 Consult to Cardiology Routine Consulting Provider: Chavo Roland Reason for consultation: CHF, PAT Attending physician on discharge: Juan Hastings Discharging clinician: Jessica Scott DS: Diagnosis Discharge Diagnosis (1) CESAR on CPAP: Status: Acute (2) Acute exacerbation of CHF (congestive heart failure): Status: Acute (3) Acute hypercapnic respiratory failure: Status: Acute DS: Summary Hospital Course Hospital Course: HP as per admitting provider 62-year-old gentleman with underlying history of systolic congestive heart failure with prior ejection fraction of 45%, CESAR on CPAP, chronic hypoxic respiratory failure on 1 L of supplemental oxygen, TBI, [facility] resident admitted on 07/10/2022 with progressive dyspnea and hypoxia.? Of note, per [facility] report patient has not been using his CPAP recently.? On ER evaluation patient in exacerbation of underlying congestive heart failure with acute hypoxic hypercapnia requiring BiPAP support.? Started on diuresis and admitted to the intensive care unit . Acute hypoxic and hypercapneaic respiratory failure. Resolved secondary to HFpEF required bipap in the ICU sleepy 07/14, ABG with elevated CO2, placed back on bipap - repeat ABG improving, patient awake and alert goal o2 88-92% acute on chronic HFpEF? echo with EF of 55-60% with severely dilated left atrium s/p IV lasix drip, transitioned to IV push 07/11, creatinine then trended up and lasix placed on hold 07/13 - >11L to date. BNP down to <200 renal function improving, will resume diuretics - cardiology rec bumex 1 mg daily? jardiance added multiple PAT, restarted BB outpatient follow up with primary [employer] infrastructure consultant recommended? CICI. Improved creatinine improved after diuretic vacation/gentle fluid gabapentin decreased per renal function Metabolic alkalosis diamox completed HTN hydralazine Hold norvasc to avoid further edema, restart as BP allows Mental health continue home medications TBI lives in [facility] CESAR continue CPAP as tolerated Time Spent with Patient Time attestation: Total time managing care of this patient today ____ minutes. Discharge coordination time: Greater than 30 minutes Quality: Safe Use of Opioids Does Pt have an Active Cancer Diagnosis on the Problem List?: No Quality: Stroke Does the patient have a stroke diagnosis?: No Physical Exam Vital Signs: Vital Signs: Last Vital Signs Temp 98.3 F 07/17/22 07:21 Pulse 71 07/17/22 07:24 Resp 17 07/17/22 07:24 BP 132/76 07/17/22 10:08 Pulse Ox 96 07/17/22 07:21 O2 Del Method 07/17/22 07:21 O2 Flow Rate 1 07/17/22 07:21 FiO2 30 07/13/22 00:00 Oxygen Flow Rate 6 07/10/22 09:09 BMI result Body Mass Index 32.5 Appearing in no acute distress head is normocephalic atraumatic eyes pupils are PERRLA sclera is anicteric mouth throat mucous membranes are intact and moist neck is supple no lymphadenopathy, no JVD noted lung sounds are clear to auscultation heart regular rate rhythm, clear S1, S2 positive bowel sounds, abdomen is soft, nontender neuro patient is alert x3, no focal deficits Discharge Plan Discharge Anticipated Discharge Date/Time: 07/17/22 11:01 Patient Disposition: Xfer Other Discharge Diagnosis: Acute hypoxic and hypercapnic respiratory failure Acute on chronic heart failure with preserved ejection fraction CICI Metabolic alkalosis Hypertension Referrals: [facility] [Other] - 1 Week Maddison Vazquez NP [Primary Care Provider] - 1 Week Discharge Medications: New bumetanide 1 mg Tablet 1 mg PO DAILY Qty: 30 0RF Protocol: Hold for SBP< HOLD for SBP < : 90 Jardiance 10 mg Tablet 10 mg PO DAILY Qty: 30 0RF Continued mirtazapine [Remeron] 30 mg Tablet 30 mg PO BEDTIME sertraline [Zoloft] 25 mg Tablet 25 mg PO DAILY ammonium lactate 12 % Cream 1 appl TOPICAL DAILY aspirin 81 mg Tablet,Delayed Release (Dr/Ec) 81 mg PO DAILY loperamide 2 mg Tablet 2 mg PO Q6H PRN (Reason: Diarrhea) melatonin 5 mg Tablet 5 mg PO BEDTIME metronidazole 0.75 % Gel 1 appl TOPICAL BID Rx Instructions: APPLY TO RED FLAKY AREAS ON FACE guaifenesin [Mucus-Chest Congestion] 100 mg/5 mL Liquid 200 mg PO Q4H PRN (Reason: Cough) gabapentin [Neurontin] 400 mg Capsule 400 mg PO TID [place] Blue 1 % Shampoo 10 ml TOPICAL SA@2100 Rx Instructions: lather into wet hair; leave in place for approximately 3 mins ; rinse acetaminophen 650 mg Tablet Extended Release 650 mg PO Q6H PRN (Reason: HEADACHE/FEVER > 101/BODY ACHE) cholecalciferol (vitamin D3) [Vitamin D3] 25 mcg (1,000 unit) Capsule 25 mcg PO DAILY simvastatin [Zocor] 10 mg Tablet 10 mg PO BEDTIME clonidine HCl 0.2 mg Tablet 0.2 mg PO TID carvedilol 25 mg Tablet 25 mg PO BID Rx Instructions: must administer with a meal/food hydralazine 25 mg Tablet 25 mg PO BID amlodipine 10 mg Tablet 10 mg PO DAILY terazosin 2 mg Capsule 6 mg PO BEDTIME Discontinued amoxicillin 500 mg Capsule 2,000 mg PO ONCE Rx Instructions: ADMIN 1 HOUR PRIOR TO DENTAL APPOINTMENT, PRE DENTAL PROCEDURE furosemide [Lasix] 20 mg Tablet 20 mg PO DAILY Discharge Orders: Discharge Order (Routine); Ordered 07/17/22 Ordered By: Jessica Scott Diet: Advance to usual diet Activity on Discharge: As tolerated Stand Alone Forms: Patient Portal Discharge page Care Plan Goals: Complete resolution of symptoms Health Concerns: Acute hypoxic and hypercapnic respiratory failure Acute on chronic heart failure with preserved ejection fraction CICI Metabolic alkalosis Hypertension Plan of Treatment: Follow-up with primary care provider as needed Assessment: See discharge summary
--- NOTE | 2022-07-17 14:08 | MHC.SL.SWA ---
Speech Pathologist Impression: Risk of Aspiration Due to: Medically Fragile Reduced Cognition Dysphasia Diet Status: Recommend continue CHOPPED/ADVANCED (NDD3) for ease of access to precut/prepared food. Recommend continued 1-1 supervision at all meals due to patients aspiration risk due to high level of impulsivity (gulping liquids, packing mouth with food, eating and drinking while reclined). Liquid Consistency and Strategies for Safe Swallow: Liquid Intake Recommendation: Thin Liquid Intake Strategies: Small Sips Solid Food Consistency: Dietary Recommendations: Chopped/Advanced (NDD3) Additional Modifications to Solid Foods: Supervision to assure that patient is eating and drinking in small amounts, cut to appropriate size. Oral Medication Intake: Whole with Puree Please contact the pharmacy regarding appropriate crushable or liquid drug formulations that are available whenever modified delivery is recommended. Compensatory Strategies and Precautions to be Taken for Safe Swallow: Sitting Upright (90 deg) No Straw Liquids from Cup Small Bites and Sips Alternate Liquids/Solids Rate of Ingestion Change Supervision While Eating and Drinking for Safe Swallow: Total Supervision (1:1) Foods to Avoid: Large pieces of tough to chew food. Swallowing Recommended Treatments: Compens. Strategy Educat. Recommendation for Speech: Inpatient Speech Therapy Comment: PPatient seen seen seen at lunch for toleration of current diet. Patient was reclined in bed, eating and watching TV at onset, no supervision in the room. Reminded patient that he should eat while seated upright, adjusted head of bed to 90 degrees, patient was cooperative with all. Patient then ate most pudding that was on tray, taking reasonable bites, evidencing no difficulty. Patient opened soday, inserted straw and drank, again taking reasonable sips, with no difficulty noted. Patient stated that he was done and did not want more of meal. Patient is on chopped/advanced diet, mostly for ease of accessing pre-cut food, due to patient's impulsiveness and poor management of regular diet. However noted that chopped looked more like ground, with ground chicken on the tray and pureed vegetables. Diet receipt indicated chopped diet. Recommend continue on current diet of Chopped/Advanced with Thin liquids, pills whole with puree. M[employer] SPECIALIST will check in with dietary about chopped/v./ground. Frequency/Duration: 1-2 f/u for toleration of diet. Date Range for Service Req: Timeline to reassess: Gravity Prospector Clinican/Clinical Fellow: No Supervisory Statement: I have reviewed and agree with the student/clinical fellow's documentation: N/A Speech Language Pathologist: Kaycee Spencer M.A., [facility]-[employer] SPECIALIST
--- NOTE | 2022-07-17 15:00 | PC.NURSE ---
Assumed care of patient at this time.
--- NOTE | 2022-07-17 15:27 | MHC.CM.PN ---
pt is ready for dc today rn form correction asking for a new physical therapy eval eval completed tried to call back correction [facility] [phone] mailbox ix full called program caty blandon [phone] no answer called correction [phone] no answer, left message michela galvan aware
--- NOTE | 2022-07-17 15:34 | HO.PM.IMPN ---
Subjective Subjective Date of Service: 07/17/22 Interval History: seen and examined this morning follow up for respiratory failure, chf awake and alert this morning, sitting up in bed non- compliant with cpap again overnight denies sob, feeling well Review of Systems Review of Systems: Yes all other systems are reviewed and are negative Constitutional Constitutional: Denies chills and Denies fever(s) Cardiovascular Cardiovascular: Denies chest pain, Denies palpitations and Denies dyspnea Respiratory Respiratory: Denies dyspnea Gastrointestinal Gastrointestinal: Denies abdominal pain Endocrine Endocrine: Denies palpitations Physical Exam Vital Signs: Vital Signs: Last Vital Signs Temp 98.3 F 07/17/22 07:21 Pulse 82 07/17/22 15:33 Resp 17 07/17/22 15:33 BP 132/76 07/17/22 10:08 Pulse Ox 89 L 07/17/22 14:07 O2 Del Method 07/17/22 07:21 O2 Flow Rate 1 07/17/22 07:21 FiO2 30 07/13/22 00:00 Oxygen Flow Rate 6 07/10/22 09:09 BMI result Body Mass Index 32.5 Appearing in no acute distress lung sounds are clear to auscultation heart regular rate rhythm, clear S1, S2 positive bowel sounds, abdomen is soft, nontender neuro patient is alert x3, no focal deficits Objective Data Active Medications Acetaminophen (Acetaminophen 325 Mg Tablet) 650 mg PO Q6H PRN PRN Reason: Fever Albuterol/Ipratropium (Albuterol/Iprat 2.5/0.5mg 3 Ml Ampul.Neb) 3 ml INHALE RQ6H WHILE AWAKE FORMERLY [facility], 1928–1983 Last Admin: 07/17/22 15:30 Dose: 3 ml Documented By: YANELIS Aspirin (Aspirin Enteric Coated 81 Mg Tablet.) 81 mg PO DAILY [facility]LY [facility], [facility]1983 Last Admin: 07/17/22 07:42 Dose: 81 mg Documented By: MARKOS Atorvastatin Calcium (Atorvastatin Calcium 10 Mg Tablet) 10 mg PO BEDTIME [facility], [facility]1983 Last Admin: 07/16/22 19:48 Dose: 10 mg Documented By: DENNY Bumetanide (Bumetanide 1 Mg Tablet) 1 mg PO DAILY [facility], [facility]; Protocol Last Admin: 07/17/22 07:42 Dose: 1 mg Documented By: MARKOS Carvedilol (Carvedilol 25 Mg Tablet) 25 mg PO BID [facility], [facility]1983; Protocol Last Admin: 07/17/22 07:42 Dose: 25 mg Documented By: MARKOS Clonidine HCl (Clonidine Hcl 0.2 Mg Tablet) 0.2 mg PO TID [facility], [facility]; Protocol Last Admin: 07/17/22 07:42 Dose: 0.2 mg Documented By: MARKOS Doxazosin Mesylate (Doxazosin Mesylate 2 Mg Tablet) 6 mg PO BEDTIME [facility], [facility]1983 Last Admin: 07/16/22 19:48 Dose: 6 mg Documented By: DENNY Empagliflozin (Empagliflozin 10 Mg Tablet) 10 mg PO DAILY [facility] Last Admin: 07/17/22 07:42 Dose: 10 mg Documented By: MARKOS Gabapentin (Gabapentin 300 Mg Capsule) 300 mg PO TID [facility] Last Admin: 07/17/22 07:42 Dose: 300 mg Documented By: MARKOS Guaifenesin (Guaifenesin 100 Mg/5 Ml Liquid) 10 ml PO Q4H PRN PRN Reason: Cough Last Admin: 07/14/22 09:43 Dose: 10 ml Documented By: ZEV Heparin Sodium (Porcine) (Heparin Sodium,Porcine 5,000 Unit/Ml Vial) 5,000 unit SUBCUT Q8H [facility], [facility] Last Admin: 07/17/22 07:43 Dose: 5,000 unit Documented By: MARKOS Hydralazine HCl (Hydralazine Hcl 25 Mg Tablet) 25 mg PO BID [facility], [facility]; Protocol Last Admin: 07/17/22 07:42 Dose: 25 mg Documented By: MARKOS Melatonin (Melatonin 3 Mg Tablet) 6 mg PO BEDTIME [facility], [facility] Last Admin: 07/16/22 19:47 Dose: 6 mg Documented By: DENNY Mirtazapine (Mirtazapine 30 Mg Tablet) 30 mg PO BEDTIME [facility] Last Admin: 07/16/22 19:49 Dose: 30 mg Documented By: DENNY Ondansetron HCl (Ondansetron Hcl 4 Mg/2 Ml Vial) 4 mg IVPUSH Q6H PRN PRN Reason: Nausea Pharmacy Consult (Consult Rx Perform Med Rec) 1 each MISCELLANE ONCE PRN PRN Reason: Consult order Sertraline HCl (Sertraline Hcl 25 Mg Tablet) 25 mg PO DAILY [facility] Last Admin: 07/17/22 07:42 Dose: 25 mg Documented By: MARKOS Vitamin D (Cholecalciferol (Vitamin D3) 25 Mcg Tablet) 25 mcg PO DAILY LIV Last Admin: 07/17/22 07:43 Dose: 25 mcg Documented By: MARKOS Labs 07/12/22 06:16 07/16/22 06:18 Assessment and Plan (1) CESAR on CPAP: Status: Acute (2) Acute exacerbation of CHF (congestive heart failure): Status: Acute (3) Acute hypercapnic respiratory failure: Status: Acute Plan 62 year old man from a residential admitted to the ICU with hypercapnea and hypoxia and placed on Bipap with IV lasix drip. Transferred to medical floor on 07/11/22 Acute hypoxic and hypercapneaic respiratory failure secondary to HFpEF required bipap in the ICU sleepy 07/14, ABG with elevated CO2, placed back on bipap - repeat ABG improving, patient awake and alert goal o2 88-92% acute on chronic HFpEF echo with EF of 55-60% with severely dilated left atrium s/p IV lasix drip, transitioned to IV push 07/11, creatinine then trended up and lasix placed on hold 07/13 - >11L to date. BNP down to <200 renal function improving, will resume diuretics - cardiology rec bumex 1 mg daily jardiance added consider aldactone if bumex tolerated multiple PAT, restarted BB outpatient follow up with primary water quality specialist recommended CICI creatinine improving after diuretic vacation/gentle fluid gabapentin decreased per renal function Metabolic alkalosis diamox completed HTN hydralazine Hold norvasc to avoid further edema, restart as BP allows Mental health continue home medications TBI lives in residential CESAR continue CPAP as tolerated DVT prophylaxis with heparin Attending Dr. Hastings full code continued hospitalization for monitoring of renal function, respiratory failure dispo - return to residential but CM unable to get ahold of anyone from [place] Time Spent With Patient Time: Total time managing care of this patient today ____ minutes. Quality Stroke Does the patient have a stroke diagnosis?: No VTE Prior VTE?: No VTE Risk Level:: Medical - moderate - high VTE Device Contraindication: Treatment Not Indicated VTE Drug Contraindication: N/A - Med Ordered
[2022-07-17] MEDS: Doxazosin Mesylate 2 MG TABLET 6 MG PO (20:04)
[2022-07-17] MEDS: Mirtazapine 30 MG TABLET PO (20:04)
[2022-07-17] MEDS: Melatonin 3 MG TABLET 6 MG PO (20:04)
[2022-07-17] MEDS: Atorvastatin Calcium 10 MG TABLET PO (20:04)
[2022-07-18] VITALS: BP 153/83; PULSE 68; RESP 20; TEMP 36.6; O2SAT 93
[2022-07-18 03:40] VITALS: BP 146/77; PULSE 62; RESP 20; TEMP 36.4; O2SAT 93
[2022-07-18 05:31] VITALS: BMI 33.4
--- NOTE | 2022-07-18 06:08 | PC.NURSE ---
Patient a&o x2-3, offers no complaints. denies pain. looking forward to discharge today. oob to bathroom with wheeled walker, standby assist. 1L O2. Safety maintained.
[2022-07-18 07:32] VITALS: PULSE 68; RESP 18; O2SAT 91
[2022-07-18] MEDS: Albuterol/Iprat 2.5/0.5MG 3 ML AMPUL.NEB INHALE (07:32)
[2022-07-18 07:33] VITALS: BP 148/72; PULSE 64; RESP 18; TEMP 36.7; O2SAT 94
--- NOTE | 2022-07-18 07:36 | PC.RT ---
pt has been refusing cpap at night. last time pt wore it was on 07/14/22. pt remains on 1 liters nasal cannula with sats 91%. no resp distress noted
[2022-07-18] MEDS: Heparin Sodium,Porcine 5,000 UNIT/ML VIAL 5000 UNIT SUBCUT (08:01)
[2022-07-18] MEDS: Aspirin Enteric Coated 81 MG TABLET.DR PO (08:02)
[2022-07-18] MEDS: Bumetanide 1 MG TABLET PO (08:02)
[2022-07-18] MEDS: Gabapentin 300 MG CAPSULE PO (08:02)
[2022-07-18] MEDS: Sertraline HCL 25 MG TABLET PO (08:02)
[2022-07-18] MEDS: hydrALAZINE HCl 25 MG TABLET PO (08:02)
[2022-07-18] MEDS: Cholecalciferol (Vitamin D3) 25 MCG TABLET PO (08:02)
[2022-07-18] MEDS: cloNIDine HCL 0.2 MG TABLET PO (08:02)
[2022-07-18] MEDS: carvediloL 25 MG TABLET PO (08:02)
[2022-07-18] MEDS: Empagliflozin 10 MG TABLET PO (08:02)
--- NOTE | 2022-07-18 09:19 | MHC.CM.PN ---
pt to be dcd today at 12 back to halfway spoke with bernardo the rn for [employer]liyah booked for 12 bernardo to fax paperwork that needs completion to cm office
== END 2022-07-18 12:10 | disposition other institution (70) | DRG 194 ==
LOC: HO.ED 12:59 → HO.EDOVER 14:33 → HO.ICU 14:42 → HO.IMC 07-11 14:17
PROVIDERS: Physician Assistant Medical; Admitting Provider Internal Medicine Pulmonary Disease; Emergency Provider Emergency Medicine; PCP Nurse Practitioner Family; Visit Provider Nurse Practitioner Acute Care
DX: I11.0 Hypertensive heart disease with heart failure (principal); J96.21 Acute and chronic respiratory failure with hypoxia; E87.4 Mixed disorder of acid-base balance; I50.23 Acute on chronic systolic (congestive) heart failure; N17.9 Acute kidney failure, unspecified; F03.90 Unspecified dementia, unspecified severity, without behavioral disturbance, psychotic disturbance, mood disturbance, and anxiety; Z99.81 Dependence on supplemental oxygen; J96.22 Acute and chronic respiratory failure with hypercapnia; E87.1 Hypo-osmolality and hyponatremia; G47.33 Obstructive sleep apnea (adult) (pediatric); Z20.822 Contact with and (suspected) exposure to COVID-19; Z90.5 Acquired absence of kidney; Z85.528 Personal history of other malignant neoplasm of kidney; Z91.199 Patient's noncompliance with other medical treatment and regimen due to unspecified reason; Z87.820 Personal history of traumatic brain injury; Z79.82 Long term (current) use of aspirin; Z79.899 Other long term (current) drug therapy
CPT/HCPCS: 0241U; 36415; 36600; 71045; 80048; 80053; 81001; 82040; 82140; 82803; 83605; 83735; 83880; 84100; 84484; 85025; 85610; 85652; 86140; 87040; 92526; 92610; 93005; 93306; 93970; 94660; 96374; 96376; 97162; 97530; 99285; C1758; J1643; J1940

== ENCOUNTER 2022-07-20 00:11 | Inpatient (IN) | payer MEDICAID, SELFPAY ==
[2022-07-20] VITALS (16 sets, daily range): BP systolic 109–178; BP diastolic 64–95; PULSE 61–80; RESP 14–21; TEMP 36.1–36.8; O2SAT 91–97; BMI 37.1; BMI 35.5
--- NOTE | ~2022-07-20 | XR_ITS ---
EXAMINATION: XR CHEST CLINICAL INFORMATION: Decreased breath sounds of the left lung COMPARISON: 07/14/2022 TECHNIQUE: Frontal view of the chest was obtained. FINDINGS: Median sternotomy wires appear intact. Cardiac leads overlie the chest. Low lung volumes. Bronchial wall thickening bilaterally. Hazy opacity in the retrocardiac region. No pleural effusion or pneumothorax. The cardiomediastinal silhouette remains enlarged. XR/XR chest 1V IMPRESSION: Bronchial wall thickening can be seen with a small airways process such as asthma or atypical/viral infection. Hazy retrocardiac opacity may represent superimposed atelectasis or pneumonia.
--- NOTE | 2022-07-20 00:31 | PC.NURSE ---
med rec complete.
--- NOTE | 2022-07-20 00:34 | MHC.EDTECH ---
PT changed over into hospital gown/ Personal belongings placed in belongings bag bedside. Pt given warm blanket and call coleman in reach
--- NOTE | 2022-07-20 00:42 | ECG_ITS ---
Test Reason : dyspnea Blood Pressure : / mmHG Vent. Rate : 062 BPM Atrial Rate : 062 BPM P-R Int : 176 ms QRS Dur : 122 ms QT Int : 440 ms P-R-T Axes : 012 -40 050 degrees QTc Int : 446 ms Normal sinus rhythm with sinus arrhythmia Left axis deviation Left ventricular hypertrophy with QRS widening ( R in aVL , Mathieu product ) Abnormal ECG When compared with ECG of 10-JUL-2022 09:18, Nonspecific T wave abnormality now evident in Inferior leads Referred By: Ange Gomez Electronically Signed By:iWlber Nugent
--- NOTE | 2022-07-20 00:51 | ED.SOB ---
HPI - SOB/Dyspnea General Chief Complaint: Dyspnea Stated Complaint: low o2 Time Seen by Provider: 07/20/22 00:41 Source: patient and EMS Mode of arrival: EMS Limitations: other (TBI) History of Present Illness HPI Narrative: Patient comes to the emergency room via ambulance from his [place] [facility]. Patient was recently discharged, 3 days ago from this hospital for a COPD exacerbation and CHF exacerbation. The [place] [facility] staff was concerned that the patient's oxygen saturation was 70% on his usual home dose 1 L, while patient was in a recliner. When EMS arrived, patient's oxygen saturation was 97 % on 4 L. Patient states that he feels a bit short of breath but it is minimal. EMS reports that the [place] [facility] staff tried keeping the patient on CPAP which he is supposed to use at bedtime. However, patient refuses to use it. Related Data Home Medications Medication Instructions Recorded Confirmed acetaminophen 650 mg 650 mg PO Q6H PRN HEADACHE/FEVER > 07/10/22 07/20/22 tablet,extended release 101/BODY ACHE ammonium lactate 12 % topical cream 1 appl topical DAILY 07/10/22 07/20/22 aspirin 81 mg tablet,delayed 81 mg PO DAILY 07/10/22 07/20/22 release carvedilol 25 mg tablet 25 mg PO BID 07/10/22 07/20/22 cholecalciferol (vitamin D3) 25 25 mcg PO DAILY 07/10/22 07/20/22 mcg (1,000 unit) capsule (Vitamin D3) clonidine HCl 0.2 mg tablet 0.2 mg PO TID 07/10/22 07/20/22 gabapentin 400 mg capsule 400 mg PO TID 07/10/22 07/20/22 (Neurontin) guaifenesin 100 mg/5 mL oral 200 mg PO Q4H PRN Cough 07/10/22 07/20/22 liquid (Mucus-Chest Congestion) hydralazine 25 mg tablet 25 mg PO BID 07/10/22 07/20/22 loperamide 2 mg tablet 2 mg PO Q6H PRN Diarrhea 07/10/22 07/20/22 melatonin 5 mg tablet 5 mg PO BEDTIME 07/10/22 07/20/22 metronidazole 0.75 % topical gel 1 appl topical BID 07/10/22 07/20/22 mirtazapine 30 mg tablet (Remeron) 30 mg PO BEDTIME 07/10/22 07/20/22 selenium sulfide 1 % shampoo 10 ml topical SA@2100 07/10/22 07/20/22 (Selsun Blue) sertraline 25 mg tablet (Zoloft) 25 mg PO DAILY 07/10/22 07/20/22 simvastatin 10 mg tablet (Zocor) 10 mg PO BEDTIME 07/10/22 07/20/22 terazosin 2 mg capsule 6 mg PO BEDTIME 07/10/22 07/20/22 Previous Rx's Medication Instructions Recorded bumetanide 1 mg tablet 1 mg PO DAILY #30 tabs 07/17/22 empagliflozin 10 mg tablet 10 mg PO DAILY #30 tabs 07/17/22 (Jardiance) Allergies Allergy/AdvReac Type Severity Reaction Status Date / Time No Known Allergies Allergy Unknown Verified 07/20/22 00:27 Review of Systems Review of Systems: Constitutional : No Weight loss, No Fever, No Chills, No Night Sweats, No Fatigue, No Malaise ENT/Mouth : No Hearing loss, No Ear Pain, No Nasal Congestion, No Sinus Pain, No Hoarseness, No sore throat, No Rhinorrhea, No Swallowing Difficulty Eyes: No Eye Pain, No Swelling, No Redness, No Foreign Body, No Discharge, No Vision Changes Cardiovascular : No Chest Pain, no palpitation Respiratory : Denies cough, complaining of chest tightness, no pain Gastrointestinal : No Nausea, No Vomiting, No Diarrhea, No Constipation, No abdominal Pain, No Hematochezia, No Melena Genitourinary : no irregular bleeding, No Dysuria, No Urinary Frequency, No Hematuria, No Urinary Incontinence, No Urgency, No Flank Pain, No Urinary Flow Changes, No Hesitancy Musculoskeletal : No joint pain, No Myalgias, No Joint Swelling Skin : No Skin Lesions, No rash Neuro : No Weakness, No Numbness, No Paresthesias, No Loss of Consciousness, No Dizziness, No Headache Psych : No Anxiety/Panic, No Depression, No SI/HI/AH/VH, No Social Issues, Heme/Lymph: No Bruising, No Bleeding,No Lymphadenopathy Endocrine : No Polyuria, No Polydipsia, No Temperature Intolerance PMFSH Past Medical History Medical History CHF (congestive heart failure) COPD (chronic obstructive pulmonary disease) Dementia Ejection fraction < 50% High cholesterol Hypertension Neuropathy CESAR on CPAP TBI (traumatic brain injury) Surgical History H/O left nephrectomy Social History Social History Household Members: Unknown / Unable to assess Housing: Other Housing Other:: [facility] Unable to assess alcohol history related to: Unknown Patient Tobacco Use Status: Never used Tobacco service: No Physical Exam Vital Signs: Vital Signs: Last Vital Signs Pulse 62 07/20/22 02:00 Resp 21 H 07/20/22 02:00 BP 109/64 07/20/22 02:00 Pulse Ox 97 07/20/22 02:00 O2 Del Method 07/20/22 02:00 O2 Flow Rate 4 07/20/22 02:00 Oxygen Flow Rate 1 07/20/22 00:22 BMI result Body Mass Index 37.1 Const: Other: Appearance: Alert. No acute distress. Eyes: Pinpoint pupils, Pupils equal, round and reactive to light. ENT: Pharynx normal. Neck: Normal inspection. Neck supple. No lymph nodes noted. No crepitus CVS: Normal heart rate and rhythm. Pulses normal. Normal S1 and S2 Respiratory: No respiratory distress. Decreased breath sounds more noticeably on the left side Abdomen: Soft and nontender. No rigidity. No distention. Skin: Skin warm and dry. Normal skin color. Normal skin turgor. Extremities: No lower extremity edema. No Lacerations. No Rash Neuro: Oriented X 3. No motor deficit. No sensory deficit. Moving all extremities. No slurred speech. CN 2 through 12 grossly intact Psych: calm, cooperative, normal affect Course Course Course Narrative: -on physical exam, patient sounds very tight, decreased breath sounds on the left side. -patient being given IV Solu-Medrol, magnesium, hour long breathing treatment. -we will attempt CPAP or BiPAP. However, we received report from the staff at the [place] [facility] the patient usually refuses to wear it Medications Administered Discontinued Medications Generic Name Dose Route Start Last Admin Trade Name Freq PRN Reason Stop Dose Admin Albuterol Sulfate 10 mg 07/20/22 00:41 07/20/22 01:00 Albuterol Sulfate (0.083%) 2.5 Mg/3 Ml Vial.Neb INHALE 07/20/22 00:42 10 mg ONCE ONE Administration Magnesium Sulfate 2 gm in 50 mls @ 25 mls/hr 07/20/22 00:41 07/20/22 02:19 Magnesium Sulfate/H2o IV 07/20/22 02:40 Infused ONCE ONE Infusion Ceftriaxone Sodium 1 gm/ 50 mls @ 100 mls/hr 07/20/22 02:26 07/20/22 02:52 Sodium Chloride IV 07/20/22 02:55 100 mls/hr ONCE ONE Administration Methylprednisolone Sodium Succinate 125 mg 07/20/22 00:41 07/20/22 01:25 Methylprednisolone Sod Succ 125 Mg/2 Ml Vial IVPUSH 07/20/22 00:42 125 mg ONCE ONE Administration Medical Decision Making Medical Decision Making [facility] Narrative: -02:27, chest x-ray shows possible pneumonia. Patient's white blood cell count is within normal limits. Patient's blood pressure stable, no fever, not tachycardic. Patient's lactic acid within normal limits. This time, this is likely atelectasis rather than pneumonia. Patient has already been covered empirically with azithromycin and ceftriaxone. No episodes of hypotension, sepsis is not suspected. IV fluids are not indicated at this time. Pneumonia is barely suspected, but given patient's past medical history, we will go ahead and treat him with antibiotics -patient seems to be tolerating BiPAP intermittently. This is not rescue, patient is supposed to be on it at bedtime. -I discussed the patient with Dr. Liriano, patient being admitted -at this time of admission, blood pressure 109/64, pulse 62, respirations 21, 97% on BiPAP Differential Diagnosis Differential Diagnoses: The differential diagnosis associated with the presentation includes (COPD, pneumonia, asthma, CHF) Admission/Observation Consideration of admission/observation: Escalation of care including admission/observation considered Consult Healthcare Provider Management of the patient was discussed with: Hospitalist Lab Data [facility] Lab Attestation statement: I reviewed the patient's lab results. 07/20/22 01:15 07/20/22 01:15 Labs: Lab Results 07/20/22 07/20/22 07/20/22 Range/Units 01:00 01:13 01:15 WBC 7.8 (4.8-10.8) X10*3/uL RBC 3.49 L (4.60-5.80) X10*6/uL Hgb 10.1 L (14.0-18.0) g/dl Hct 32.9 L (42.0-52.0) % MCV 94.3 (80.0-98.0) fL MCH 28.9 (27.0-33.0) pg MCHC 30.7 L (31.0-36.0) g/dl RDW 12.8 (11.0-16.0) % Plt Count 206 (160-400) X10*3/uL MPV 10.0 (9.4-12.4) fL Immature Gran % (Auto) 0.1 (0.0-0.4) % Neut % (Auto) 61.3 (45-73) % Lymph % (Auto) 14.6 L (20-40) % [place] % (Auto) 8.2 (2-11) % Eos % (Auto) 15.7 H (0-4) % Baso % (Auto) 0.1 (0-2) % Lymph # (Auto) 1.1 L (1.2-4.9) X10*3/uL [place] # (Auto) 0.6 (0.1-1.2) X10*3/uL Eos # (Auto) 1.2 H (0.0-0.4) X10*3/uL Baso # (Auto) 0.0 (0.0-0.2) X10*3/uL Abs Immat Gran (auto) 0.01 (0.00-0.03) X10*3/uL Absolute Neuts (auto) 4.8 (2.0-8.3) x10*3/uL Absolute Nucleated RBC 0.000 (0.0-0.012) X10*3/uL Nucleated RBC % (auto) 0.0 (0.0-0.2) /100WBC PT (10.0-13.1) SEC INR (0.9-1.1) VBG pH (7.32-7.43) VBG pCO2 mmHg VBG pO2 mmHg VBG HCO3 (22-26) mmol/L VBG O2 Saturation % VBG Base Excess mmol/L Sodium (135-145) mmol/L Potassium (3.3-5.1) mmol/L Chloride (96-108) mmol/L Carbon Dioxide (22-29) mmol/L Anion Gap (12-20) BUN (9-16) mg/dL Creatinine (0.5-1.4) mg/dL Estim Creat Clear Calc Estimated GFR Random Glucose (60-115) mg/dL Lactic Acid 0.5 (0.5-2.0) mmol/L Calcium (8.4-10.2) mg/dL Total Bilirubin (0.0-1.0) mg/dL Direct Bilirubin (0.0-0.5) mg/dL AST (5-37) U/L ALT (0-40) U/L Alkaline Phosphatase (39-117) U/L Troponin I High Sens (<3.5-35.0) ng/L B-Natriuretic Peptide (<100) pg/mL Total Protein (6.5-8.0) g/dL Albumin (3.5-5.0) g/dL Urine Color Urine Appearance Urine pH (5.0-9.0) Ur Specific [place] (1.005-1.025) Urine Protein (Neg-Trace) mg/dL Urine Glucose (UA) (Negative) mg/dL Urine Ketones (Negative) mg/dL Urine Blood (Negative) Urine Nitrite (Negative) Ur Leukocyte Esterase (Negative) Urine RBC (0-2) /HPF Urine WBC (0-5) /HPF Ur Squamous Epith Cells (0-2) /HPF Urine Bacteria (None Seen) Hyaline Casts (0-2) /LPF Urine Opiates Screen (Not Detect) Urine Fentanyl Screen (Not Detect) Ur Barbiturates Screen (Not Detect) Ur Phencyclidine Scrn (Not Detect) Ur Amphetamines Screen (Not Detect) U Benzodiazepines Scrn (Not Detect) Urine Cocaine Screen (Not Detect) U Marijuana (THC) Screen (Not Detect) COVID-19 (JACQUELINE) Negative (Negative) COVID-19 Clin Com See Note 07/20/22 07/20/22 07/20/22 Range/Units 01:15 01:15 01:15 WBC (4.8-10.8) X10*3/uL RBC (4.60-5.80) X10*6/uL Hgb (14.0-18.0) g/dl Hct (42.0-52.0) % MCV (80.0-98.0) fL MCH (27.0-33.0) pg MCHC (31.0-36.0) g/dl RDW (11.0-16.0) % Plt Count (160-400) X10*3/uL MPV (9.4-12.4) fL Immature Gran % (Auto) (0.0-0.4) % Neut % (Auto) (45-73) % Lymph % (Auto) (20-40) % [place] % (Auto) (2-11) % Eos % (Auto) (0-4) % Baso % (Auto) (0-2) % Lymph # (Auto) (1.2-4.9) X10*3/uL [place] # (Auto) (0.1-1.2) X10*3/uL Eos # (Auto) (0.0-0.4) X10*3/uL Baso # (Auto) (0.0-0.2) X10*3/uL Abs Immat Gran (auto) (0.00-0.03) X10*3/uL Absolute Neuts (auto) (2.0-8.3) x10*3/uL Absolute Nucleated RBC (0.0-0.012) X10*3/uL Nucleated RBC % (auto) (0.0-0.2) /100WBC PT 15.3 H (10.0-13.1) SEC INR 1.3 H (0.9-1.1) VBG pH (7.32-7.43) VBG pCO2 mmHg VBG pO2 mmHg VBG HCO3 (22-26) mmol/L VBG O2 Saturation % VBG Base Excess mmol/L Sodium 144 (135-145) mmol/L Potassium 3.8 (3.3-5.1) mmol/L Chloride 104 (96-108) mmol/L Carbon Dioxide 34 H (22-29) mmol/L Anion Gap 10 L (12-20) BUN 28 H (9-16) mg/dL Creatinine 1.49 H (0.5-1.4) mg/dL Estim Creat Clear Calc 58.9 Estimated GFR 48 Random Glucose 86 (60-115) mg/dL Lactic Acid (0.5-2.0) mmol/L Calcium 8.6 (8.4-10.2) mg/dL Total Bilirubin 0.4 (0.0-1.0) mg/dL Direct Bilirubin < 0.2 (0.0-0.5) mg/dL AST 15 (5-37) U/L ALT 17 (0-40) U/L Alkaline Phosphatase 99 (39-117) U/L Troponin I High Sens 17.5 (<3.5-35.0) ng/L B-Natriuretic Peptide (<100) pg/mL Total Protein 5.7 L (6.5-8.0) g/dL Albumin 3.1 L (3.5-5.0) g/dL Urine Color Urine Appearance Urine pH (5.0-9.0) Ur Specific [place] (1.005-1.025) Urine Protein (Neg-Trace) mg/dL Urine Glucose (UA) (Negative) mg/dL Urine Ketones (Negative) mg/dL Urine Blood (Negative) Urine Nitrite (Negative) Ur Leukocyte Esterase (Negative) Urine RBC (0-2) /HPF Urine WBC (0-5) /HPF Ur Squamous Epith Cells (0-2) /HPF Urine Bacteria (None Seen) Hyaline Casts (0-2) /LPF Urine Opiates Screen (Not Detect) Urine Fentanyl Screen (Not Detect) Ur Barbiturates Screen (Not Detect) Ur Phencyclidine Scrn (Not Detect) Ur Amphetamines Screen (Not Detect) U Benzodiazepines Scrn (Not Detect) Urine Cocaine Screen (Not Detect) U Marijuana (THC) Screen (Not Detect) COVID-19 (JACQUELINE) (Negative) COVID-19 Clin Com 07/20/22 07/20/22 07/20/22 Range/Units 01:15 01:20 02:15 WBC (4.8-10.8) X10*3/uL RBC (4.60-5.80) X10*6/uL Hgb (14.0-18.0) g/dl Hct (42.0-52.0) % MCV (80.0-98.0) fL MCH (27.0-33.0) pg MCHC (31.0-36.0) g/dl RDW (11.0-16.0) % Plt Count (160-400) X10*3/uL MPV (9.4-12.4) fL Immature Gran % (Auto) (0.0-0.4) % Neut % (Auto) (45-73) % Lymph % (Auto) (20-40) % [place] % (Auto) (2-11) % Eos % (Auto) (0-4) % Baso % (Auto) (0-2) % Lymph # (Auto) (1.2-4.9) X10*3/uL [place] # (Auto) (0.1-1.2) X10*3/uL Eos # (Auto) (0.0-0.4) X10*3/uL Baso # (Auto) (0.0-0.2) X10*3/uL Abs Immat Gran (auto) (0.00-0.03) X10*3/uL Absolute Neuts (auto) (2.0-8.3) x10*3/uL Absolute Nucleated RBC (0.0-0.012) X10*3/uL Nucleated RBC % (auto) (0.0-0.2) /100WBC PT (10.0-13.1) SEC INR (0.9-1.1) VBG pH 7.33 (7.32-7.43) VBG pCO2 78 mmHg VBG pO2 103 mmHg VBG HCO3 42 H (22-26) mmol/L VBG O2 Saturation 99.0 % VBG Base Excess 13.4 mmol/L Sodium (135-145) mmol/L Potassium (3.3-5.1) mmol/L Chloride (96-108) mmol/L Carbon Dioxide (22-29) mmol/L Anion Gap (12-20) BUN (9-16) mg/dL Creatinine (0.5-1.4) mg/dL Estim Creat Clear Calc Estimated GFR Random Glucose (60-115) mg/dL Lactic Acid (0.5-2.0) mmol/L Calcium (8.4-10.2) mg/dL Total Bilirubin (0.0-1.0) mg/dL Direct Bilirubin (0.0-0.5) mg/dL AST (5-37) U/L ALT (0-40) U/L Alkaline Phosphatase (39-117) U/L Troponin I High Sens (<3.5-35.0) ng/L B-Natriuretic Peptide 316 H (<100) pg/mL Total Protein (6.5-8.0) g/dL Albumin (3.5-5.0) g/dL Urine Color Yellow Urine Appearance Clear Urine pH 5.5 (5.0-9.0) Ur Specific [place] 1.020 (1.005-1.025) Urine Protein 300 (3+) H (Neg-Trace) mg/dL Urine Glucose (UA) 500 H (Negative) mg/dL Urine Ketones Negative (Negative) mg/dL Urine Blood Negative (Negative) Urine Nitrite Negative (Negative) Ur Leukocyte Esterase Trace H (Negative) Urine RBC 0-2 (0-2) /HPF Urine WBC 6-10 (0-5) /HPF Ur Squamous Epith Cells 3-5 (0-2) /HPF Urine Bacteria None Seen (None Seen) Hyaline Casts 0-2 (0-2) /LPF Urine Opiates Screen (Not Detect) Urine Fentanyl Screen (Not Detect) Ur Barbiturates Screen (Not Detect) Ur Phencyclidine Scrn (Not Detect) Ur Amphetamines Screen (Not Detect) U Benzodiazepines Scrn (Not Detect) Urine Cocaine Screen (Not Detect) U Marijuana (THC) Screen (Not Detect) COVID-19 (JACQUELINE) (Negative) COVID-19 Clin Com 07/20/22 Range/Units 02:15 WBC (4.8-10.8) X10*3/uL RBC (4.60-5.80) X10*6/uL Hgb (14.0-18.0) g/dl Hct (42.0-52.0) % MCV (80.0-98.0) fL MCH (27.0-33.0) pg MCHC (31.0-36.0) g/dl RDW (11.0-16.0) % Plt Count (160-400) X10*3/uL MPV (9.4-12.4) fL Immature Gran % (Auto) (0.0-0.4) % Neut % (Auto) (45-73) % Lymph % (Auto) (20-40) % [place] % (Auto) (2-11) % Eos % (Auto) (0-4) % Baso % (Auto) (0-2) % Lymph # (Auto) (1.2-4.9) X10*3/uL [place] # (Auto) (0.1-1.2) X10*3/uL Eos # (Auto) (0.0-0.4) X10*3/uL Baso # (Auto) (0.0-0.2) X10*3/uL Abs Immat Gran (auto) (0.00-0.03) X10*3/uL Absolute Neuts (auto) (2.0-8.3) x10*3/uL Absolute Nucleated RBC (0.0-0.012) X10*3/uL Nucleated RBC % (auto) (0.0-0.2) /100WBC PT (10.0-13.1) SEC INR (0.9-1.1) VBG pH (7.32-7.43) VBG pCO2 mmHg VBG pO2 mmHg VBG HCO3 (22-26) mmol/L VBG O2 Saturation % VBG Base Excess mmol/L Sodium (135-145) mmol/L Potassium (3.3-5.1) mmol/L Chloride (96-108) mmol/L Carbon Dioxide (22-29) mmol/L Anion Gap (12-20) BUN (9-16) mg/dL Creatinine (0.5-1.4) mg/dL Estim Creat Clear Calc Estimated GFR Random Glucose (60-115) mg/dL Lactic Acid (0.5-2.0) mmol/L Calcium (8.4-10.2) mg/dL Total Bilirubin (0.0-1.0) mg/dL Direct Bilirubin (0.0-0.5) mg/dL AST (5-37) U/L ALT (0-40) U/L Alkaline Phosphatase (39-117) U/L Troponin I High Sens (<3.5-35.0) ng/L B-Natriuretic Peptide (<100) pg/mL Total Protein (6.5-8.0) g/dL Albumin (3.5-5.0) g/dL Urine Color Urine Appearance Urine pH (5.0-9.0) Ur Specific [place] (1.005-1.025) Urine Protein (Neg-Trace) mg/dL Urine Glucose (UA) (Negative) mg/dL Urine Ketones (Negative) mg/dL Urine Blood (Negative) Urine Nitrite (Negative) Ur Leukocyte Esterase (Negative) Urine RBC (0-2) /HPF Urine WBC (0-5) /HPF Ur Squamous Epith Cells (0-2) /HPF Urine Bacteria (None Seen) Hyaline Casts (0-2) /LPF Urine Opiates Screen Not Detected (Not Detect) Urine Fentanyl Screen Not Detected (Not Detect) Ur Barbiturates Screen Not Detected (Not Detect) Ur Phencyclidine Scrn Not Detected (Not Detect) Ur Amphetamines Screen Not Detected (Not Detect) U Benzodiazepines Scrn Not Detected (Not Detect) Urine Cocaine Screen Not Detected (Not Detect) U Marijuana (THC) Screen Not Detected (Not Detect) COVID-19 (JACQUELINE) (Negative) COVID-19 Clin Com Independent Interpretation I performed an independent interpretation of an: Plain X-Ray (My interpretation of chest x-ray: Worsening opacity over the left lower lobe) Radiology Impression Discussion of test interpretation with radiology: I have reviewed the radiologist's reading. Radiologist Impression: FINDINGS: Median sternotomy wires appear intact. Cardiac leads overlie the chest. Low lung volumes. Bronchial wall thickening bilaterally. Hazy opacity in the retrocardiac region. No pleural effusion or pneumothorax. The cardiomediastinal silhouette remains enlarged. XR/XR chest 1V IMPRESSION: Bronchial wall thickening can be seen with a small airways process such as asthma or atypical/viral infection. Hazy retrocardiac opacity may represent superimposed atelectasis or pneumonia. ? Critical Care Time Critical Care Time Critical Care Time: Yes Total Critical Care Time: 60 Attestation: I have personally provided critical care time. Time includes review of lab data, radiology results, discussion with consultants, and monitoring for potential decompensation. Intervention performed as documented. Discharge Plan Discharge Clinical Impression: Acute exacerbation of chronic obstructive pulmonary disease Patient Disposition: Admitted As Inpatient Prescriptions: No Action mirtazapine [Remeron] 30 mg Tablet 30 mg PO BEDTIME sertraline [Zoloft] 25 mg Tablet 25 mg PO DAILY ammonium lactate 12 % Cream 1 appl TOPICAL DAILY aspirin 81 mg Tablet,Delayed Release (Dr/Ec) 81 mg PO DAILY loperamide 2 mg Tablet 2 mg PO Q6H PRN (Reason: Diarrhea) melatonin 5 mg Tablet 5 mg PO BEDTIME metronidazole 0.75 % Gel 1 appl TOPICAL BID Rx Instructions: APPLY TO RED FLAKY AREAS ON FACE guaifenesin [Mucus-Chest Congestion] 100 mg/5 mL Liquid 200 mg PO Q4H PRN (Reason: Cough) gabapentin [Neurontin] 400 mg Capsule 400 mg PO TID Selsun Blue 1 % Shampoo 10 ml TOPICAL SA@2100 Rx Instructions: lather into wet hair; leave in place for approximately 3 mins ; rinse acetaminophen 650 mg Tablet Extended Release 650 mg PO Q6H PRN (Reason: HEADACHE/FEVER > 101/BODY ACHE) cholecalciferol (vitamin D3) [Vitamin D3] 25 mcg (1,000 unit) Capsule 25 mcg PO DAILY simvastatin [Zocor] 10 mg Tablet 10 mg PO BEDTIME clonidine HCl 0.2 mg Tablet 0.2 mg PO TID carvedilol 25 mg Tablet 25 mg PO BID Rx Instructions: must administer with a meal/food hydralazine 25 mg Tablet 25 mg PO BID terazosin 2 mg Capsule 6 mg PO BEDTIME bumetanide 1 mg Tablet 1 mg PO DAILY Qty: 30 0RF Protocol: Hold for SBP< HOLD for SBP < : 90 Jardiance 10 mg Tablet 10 mg PO DAILY Qty: 30 0RF
[2022-07-20] MEDS: Albuterol Sulfate (0.083%) 2.5 MG/3 ML VIAL.NEB 10 MG INHALE (01:00)
[2022-07-20 01:22] LABS: MANUAL DIFF FLAG NO
[2022-07-20 01:23] LABS: Basophils Percent Auto 0.1 % (0-2); Eosinophils Absolute Auto 1.2 X10*3/uL (0.0-0.4); Eosinophils Percent Auto 15.7 % (0-4); Hematocrit 32.9 % (42.0-52.0); Hemoglobin 10.1 g/dl (14.0-18.0); Imm Gran Abs Auto 0.01 X10*3/uL (0.00-0.03); Imm Gran Pct Auto 0.1 % (0.0-0.4); Lymphocytes Absolute Auto 1.1 X10*3/uL (1.2-4.9); Lymphocytes Percent Auto 14.6 % (20-40); Mean Corpuscular HGB Conc 30.7 g/dl (31.0-36.0); Mean Corpuscular Hemoglobin 28.9 pg (27.0-33.0); Mean Corpuscular Volume 94.3 fL (80.0-98.0); Monocytes Absolute Auto 0.6 X10*3/uL (0.1-1.2); Monocytes Percent Auto 8.2 % (2-11); Neutrophils Absolute Auto 4.8 x10*3/uL (2.0-8.3); Neutrophils Percent Auto 61.3 % (45-73); Platelet Count 206 X10*3/uL (160-400); Red Blood Count 3.49 X10*6/uL (4.60-5.80); Red Cell Distribution Width 12.8 % (11.0-16.0); White Blood Count 7.8 X10*3/uL (4.8-10.8)
[2022-07-20] MEDS: Magnesium Sulfate/H2O 2 GM/50 ML PIGGYBACK IV (01:25)
[2022-07-20] MEDS: methylPREDNISolone Sod Succ 125 MG/2 ML VIAL IVPUSH (01:25)
[2022-07-20 01:26] LABS: Venous Blood Gas Refer to POC result
[2022-07-20 01:27] LABS: VBG Base Excess 13.4 mmol/L; VBG HCO3 42 mmol/L (22-26); VBG pCO2 78 mmHg; VBG pH 7.33 (7.32-7.43); VBG pO2 103 mmHg
[2022-07-20 01:29] LABS: INTERNATIONAL NORM RATIO 1.3 (0.9-1.1); Prothrombin Time 15.3 SEC (10.0-13.1)
--- NOTE | 2022-07-20 01:29 | PC.NURSE ---
pt drowsy but answering simple questions appropriately with single word responses, pt placed on CPAP, vss, 20G IV placed right wrist, medicated per provider order. labs drawn by tech.
[2022-07-20 01:35] LABS: COVID-19 Test Negative (Negative); IDNOW Serial# 6674DD1D
[2022-07-20 01:37] LABS: Lactic Acid 0.5 mmol/L (0.5-2.0)
[2022-07-20 01:42] LABS: Alanine Aminotransferase 17 U/L (0-40); Albumin Level 3.1 g/dL (3.5-5.0); Alkaline Phosphatase 99 U/L (39-117); Anion Gap 10 (12-20); Aspartate Amino Transferase 15 U/L (5-37); Bilirubin Direct < 0.2 mg/dL (0.0-0.5); Bilirubin Total 0.4 mg/dL (0.0-1.0); Blood Urea Nitrogen 28 mg/dL (9-16); Calcium 8.6 mg/dL (8.4-10.2); Carbon Dioxide 34 mmol/L (22-29); Chloride 104 mmol/L (96-108); Creatinine Clr Calc Pharmacy 58.9; Estimated Glomerular Filt Rate 48; Glucose Random 86 mg/dL (60-115); Potassium 3.8 mmol/L (3.3-5.1); Sodium 144 mmol/L (135-145); Total Protein 5.7 g/dL (6.5-8.0)
[2022-07-20 01:45] LABS: B Type Natriuretic Peptide 316 pg/mL (<100); Troponin-I High Sensitivity 17.5 ng/L (<3.5-35.0)
--- NOTE | 2022-07-20 02:20 | PC.NURSE ---
pt straight cath'd urine sample obtained, pt resting quietly, vss, pending resp for bipap.
[2022-07-20 02:24] LABS: Appearance Urine Clear; Color Urine Yellow; Glucose Urine UA 500 mg/dL (Negative); Leukocyte Esterase Urine Trace (Negative); Nitrite Urine Negative (Negative); PH 5.5 (5.0-9.0); UMIC TRIGGER UACC YES; Urine Blood Negative (Negative); Urine Ketones Negative (Negative); Urine Protein 300 (3+) mg/dL (Neg-Trace)
[2022-07-20 02:36] LABS: Amphetamine Screen Urine Not Detected (Not Detect); Bacteria Urine None Seen (None Seen); Barbiturates, Urine Not Detected (Not Detect); Benzodiazepines Screen Urine Not Detected (Not Detect); Cannabinoid Screen Urine Not Detected (Not Detect); Cocaine Screen Urine Not Detected (Not Detect); Fentanyl, urine Not Detected (Not Detect); Hyaline Casts Urine 0-2 /LPF (0-2); Opiate Screen Urine Not Detected (Not Detect); Phencyclidine Screen Urine Not Detected (Not Detect); RBC Urine 0-2 /HPF (0-2); UACC Culture Trigger YES
[2022-07-20] MEDS: cefTRIAXone sodium 1 GM in 0.9 % Sodium Chloride 50 ML IV (02:52)
[2022-07-20] MEDS: Azithromycin 500 MG in 0.9 % Sodium Chloride 250 ML 125 MG IV (03:25)
--- NOTE | 2022-07-20 03:26 | MHC.EDTECH ---
PT given pericare. Pt placed on [place]. Pt given warm blanket/ call coleman in reach
--- NOTE | 2022-07-20 03:29 | PC.NURSE ---
Assumed care of this patient from Lizett ABRAHAM. Pt sleeping in bed @ this time, wakes easily, requesting water. Pt remains on BiPAP @ this time @ 15/12 and 30%. Pt denies pain. VSS. Pt medicated per MAR with ABX. Continue to monitor.
--- NOTE | 2022-07-20 03:43 | PC.NURSE ---
BCX source noted to be documented as arterial. This RN discussing with EDT who obtained them. EDT reports error, states BCX were obtained with venous blood. Unable to adjust in AUG.
--- NOTE | 2022-07-20 03:57 | P.HPHOSP_ITS ---
History of Present Illness Date of Service: 07/20/22 Chief Complaint: Hypoxia This is a 62-year-old male with pertinent history of chronic hypoxemic hypercapnic respiratory failure due to COPD/CESAR/OHS, baseline 1 L supplemental oxygen, congestive heart failure with preserved ejection fraction, chronic kidney disease, essential hypertension, mood disorder, TBI who was sent from long-term for evaluation of hypoxemia. Patient was recently admitted and discharged 3 days ago with COPD and CHF exacerbation. Patient has been noncompliant with bedtime NIV as per long-term staff. Patient was hypoxemic as per long-term staff on his baseline 1 L supplemental oxygen. He was also drowsy. History obtained from chart review and ER provider. Unable to obtain history from the patient at this time. Unable to obtain review of systems. In the emergency department, initially patient was placed on 4 L supplemental oxygen and then switched to NIV Review of Systems Review of Systems: Yes Unobtainable due to mental condition [facility] Medical History CHF (congestive heart failure) COPD (chronic obstructive pulmonary disease) Dementia Ejection fraction < 50% High cholesterol Hypertension Neuropathy CESAR on CPAP TBI (traumatic brain injury) Pertinent family history: not significant Surgical History H/O left nephrectomy Social History Household Members: Unknown / Unable to assess Housing: Other Housing Other:: RESIDENTIAL Unable to assess alcohol history related to: Unknown Patient Tobacco Use Status: Never used Tobacco Advance Directives: No Advance Directives Information Provided: Yes service: No Meds Allergies Allergy/AdvReac Type Severity Reaction Status Date / Time No Known Allergies Allergy Unknown Verified 07/20/22 00:27 Active Medications: Current Medications Azithromycin 500 mg/ Sodium (Chloride) 250 mls @ 125 mls/hr IV ONCE ONE Stop: 07/20/22 04:25 Last Admin: 07/20/22 03:25 Dose: 125 mls/hr Home Medications Medication Instructions Recorded Confirmed Last Taken Type acetaminophen 650 mg 650 mg PO Q6H PRN HEADACHE/FEVER > 07/10/22 07/20/22 Unknown History tablet,extended release 101/BODY ACHE ammonium lactate 12 % topical cream 1 appl topical DAILY 07/10/22 07/20/22 Unknown History aspirin 81 mg tablet,delayed 81 mg PO DAILY 07/10/22 07/20/22 Unknown History release carvedilol 25 mg tablet 25 mg PO BID 07/10/22 07/20/22 Unknown History cholecalciferol (vitamin D3) 25 25 mcg PO DAILY 07/10/22 07/20/22 Unknown History mcg (1,000 unit) capsule (Vitamin D3) clonidine HCl 0.2 mg tablet 0.2 mg PO TID 07/10/22 07/20/22 Unknown History gabapentin 400 mg capsule 400 mg PO TID 07/10/22 07/20/22 Unknown History (Neurontin) guaifenesin 100 mg/5 mL oral 200 mg PO Q4H PRN Cough 07/10/22 07/20/22 Unknown History liquid (Mucus-Chest Congestion) hydralazine 25 mg tablet 25 mg PO BID 07/10/22 07/20/22 Unknown History loperamide 2 mg tablet 2 mg PO Q6H PRN Diarrhea 07/10/22 07/20/22 Unknown History melatonin 5 mg tablet 5 mg PO BEDTIME 07/10/22 07/20/22 Unknown History metronidazole 0.75 % topical gel 1 appl topical BID 07/10/22 07/20/22 Unknown History mirtazapine 30 mg tablet (Remeron) 30 mg PO BEDTIME 07/10/22 07/20/22 Unknown History selenium sulfide 1 % shampoo 10 ml topical SA@2100 07/10/22 07/20/22 Unknown History (Selsun Blue) sertraline 25 mg tablet (Zoloft) 25 mg PO DAILY 07/10/22 07/20/22 Unknown History simvastatin 10 mg tablet (Zocor) 10 mg PO BEDTIME 07/10/22 07/20/22 Unknown History terazosin 2 mg capsule 6 mg PO BEDTIME 07/10/22 07/20/22 Unknown History Physical Exam Vital Signs and Narrative: Vital Signs: Last Vital Signs Pulse 62 07/20/22 02:00 Resp 20 07/20/22 03:10 BP 109/64 07/20/22 02:00 Pulse Ox 97 07/20/22 02:00 O2 Del Method 07/20/22 02:00 O2 Flow Rate 4 07/20/22 02:00 Oxygen Flow Rate 1 07/20/22 00:22 BMI result Body Mass Index 37.1 Middle-aged male lying in bed on NIV Neck supple Regular rate and rhythm, S1-S2 heard bilateral expiratory wheezing Abdomen soft nontender, no guarding, no rigidity Patient is drowsy and non conversational ; alerts to verbal stimulus b/l pedal edema Results Labs 07/20/22 01:15 07/20/22 01:15 Labs: Laboratory Results - last 24 hr 07/20/22 07/20/22 07/20/22 01:00 01:13 01:15 MCV 94.3 MCH 28.9 MCHC 30.7 L RDW 12.8 Plt Count 206 MPV 10.0 Immature Gran % (Auto) 0.1 Neut % (Auto) 61.3 Lymph % (Auto) 14.6 L Dickens % (Auto) 8.2 Eos % (Auto) 15.7 H Baso % (Auto) 0.1 Lymph # (Auto) 1.1 L Dickens # (Auto) 0.6 Eos # (Auto) 1.2 H Baso # (Auto) 0.0 Abs Immat Gran (auto) 0.01 Absolute Neuts (auto) 4.8 Absolute Nucleated RBC 0.000 Nucleated RBC % (auto) 0.0 PT INR VBG pH VBG pCO2 VBG pO2 VBG HCO3 VBG O2 Saturation VBG Base Excess Anion Gap Estim Creat Clear Calc Estimated GFR Random Glucose Lactic Acid 0.5 Calcium Total Bilirubin Direct Bilirubin AST ALT Alkaline Phosphatase Troponin I High Sens B-Natriuretic Peptide Total Protein Albumin Urine Color Urine Appearance Urine pH Ur Specific Hiltons Urine Protein Urine Glucose (UA) Urine Ketones Urine Blood Urine Nitrite Ur Leukocyte Esterase Urine RBC Urine WBC Ur Squamous Epith Cells Urine Bacteria Hyaline Casts Urine Opiates Screen Urine Fentanyl Screen Ur Barbiturates Screen Ur Phencyclidine Scrn Ur Amphetamines Screen U Benzodiazepines Scrn Urine Cocaine Screen U Marijuana (THC) Screen COVID-19 (JACQUELINE) Negative COVID-19 Clin Com See Note 07/20/22 07/20/22 07/20/22 01:15 01:15 01:15 MCV MCH MCHC RDW Plt Count MPV Immature Gran % (Auto) Neut % (Auto) Lymph % (Auto) Dickens % (Auto) Eos % (Auto) Baso % (Auto) Lymph # (Auto) Dickens # (Auto) Eos # (Auto) Baso # (Auto) Abs Immat Gran (auto) Absolute Neuts (auto) Absolute Nucleated RBC Nucleated RBC % (auto) PT 15.3 H INR 1.3 H VBG pH VBG pCO2 VBG pO2 VBG HCO3 VBG O2 Saturation VBG Base Excess Anion Gap 10 L Estim Creat Clear Calc 58.9 Estimated GFR 48 Random Glucose 86 Lactic Acid Calcium 8.6 Total Bilirubin 0.4 Direct Bilirubin < 0.2 AST 15 ALT 17 Alkaline Phosphatase 99 Troponin I High Sens 17.5 B-Natriuretic Peptide Total Protein 5.7 L Albumin 3.1 L Urine Color Urine Appearance Urine pH Ur Specific [place]ons Urine Protein Urine Glucose (UA) Urine Ketones Urine Blood Urine Nitrite Ur Leukocyte Esterase Urine RBC Urine WBC Ur Squamous Epith Cells Urine Bacteria Hyaline Casts Urine Opiates Screen Urine Fentanyl Screen Ur Barbiturates Screen Ur Phencyclidine Scrn Ur Amphetamines Screen U Benzodiazepines Scrn Urine Cocaine Screen U Marijuana (THC) Screen COVID-19 (JACQUELINE) COVID-19 Page[employer]zer 07/20/22 07/20/22 07/20/22 01:15 01:20 02:15 MCV MCH MCHC RDW Plt Count MPV Immature Gran % (Auto) Neut % (Auto) Lymph % (Auto) Dickens % (Auto) Eos % (Auto) Baso % (Auto) Lymph # (Auto) Dickens # (Auto) Eos # (Auto) Baso # (Auto) Abs Immat Gran (auto) Absolute Neuts (auto) Absolute Nucleated RBC Nucleated RBC % (auto) PT INR VBG pH 7.33 VBG pCO2 78 VBG pO2 103 VBG HCO3 42 H VBG O2 Saturation 99.0 VBG Base Excess 13.4 Anion Gap Estim Creat Clear Calc Estimated GFR Random Glucose Lactic Acid Calcium Total Bilirubin Direct Bilirubin AST ALT Alkaline Phosphatase Troponin I High Sens B-Natriuretic Peptide 316 H Total Protein Albumin Urine Color Yellow Urine Appearance Clear Urine pH 5.5 Ur Specific Hiltons 1.020 Urine Protein 300 (3+) H Urine Glucose (UA) 500 H Urine Ketones Negative Urine Blood Negative Urine Nitrite Negative Ur Leukocyte Esterase Trace H Urine RBC 0-2 Urine WBC 6-10 Ur Squamous Epith Cells 3-5 Urine Bacteria None Seen Hyaline Casts 0-2 Urine Opiates Screen Urine Fentanyl Screen Ur Barbiturates Screen Ur Phencyclidine Scrn Ur Amphetamines Screen U Benzodiazepines Scrn Urine Cocaine Screen U Marijuana (THC) Screen COVID-19 (JACQUELINE) COVID-19 [employer] Com 07/20/22 02:15 MCV MCH MCHC RDW Plt Count MPV Immature Gran % (Auto) Neut % (Auto) Lymph % (Auto) Dickens % (Auto) Eos % (Auto) Baso % (Auto) Lymph # (Auto) Dickens # (Auto) Eos # (Auto) Baso # (Auto) Abs Immat Gran (auto) Absolute Neuts (auto) Absolute Nucleated RBC Nucleated RBC % (auto) PT INR VBG pH VBG pCO2 VBG pO2 VBG HCO3 VBG O2 Saturation VBG Base Excess Anion Gap Estim Creat Clear Calc Estimated GFR Random Glucose Lactic Acid Calcium Total Bilirubin Direct Bilirubin AST ALT Alkaline Phosphatase Troponin I High Sens B-Natriuretic Peptide Total Protein Albumin Urine Color Urine Appearance Urine pH Ur Specific H[place] Urine Protein Urine Glucose (UA) Urine Ketones Urine Blood Urine Nitrite Ur Leukocyte Esterase Urine RBC Urine WBC Ur Squamous Epith Cells Urine Bacteria Hyaline Casts Urine Opiates Screen Not Detected Urine Fentanyl Screen Not Detected Ur Barbiturates Screen Not Detected Ur Phencyclidine Scrn Not Detected Ur Amphetamines Screen Not Detected U Benzodiazepines Scrn Not Detected Urine Cocaine Screen Not Detected U Marijuana (THC) Screen Not Detected COVID-19 (JACQUELINE) COVID-19 Clin Com Imaging Radiologist's Impressions: Impressions Chest X-Ray 07/20/22 01:23 IMPRESSION: Bronchial wall thickening can be seen with a small airways process such as asthma or atypical/viral infection. Hazy retrocardiac opacity may represent superimposed atelectasis or pneumonia. Assessment and Plan (1) Acute exacerbation of chronic obstructive pulmonary disease: Status: Acute (2) Acute hypercapnic respiratory failure: Status: Acute Plan This is a 62-year-old male with pertinent history of chronic hypoxemic hypercapnic respiratory failure due to COPD/CESAR/OHS (baseline 1 L supplemental oxygen), congestive heart failure with preserved ejection fraction, chronic kidney disease, essential hypertension, mood disorder who was sent from long-term for evaluation of hypoxemia. #. Acute on chronic hypoxic and hypercapneic respiratory failure: due to COPD exacerbation. Continue supplemental oxygen and wean as tolerated. Maintain oxygen saturation greater than 88%. Patient is on home 1 L oxygen at baseline Continue NIV at bedtime. Initiating scheduled and p.r.n. DuoNebs. Initiating systemic steroids. No concern for bacterial superinfection (no fever, leukocytosis or cough), initiating azithromycin for pleiotrophic effect #. Chronic HFpEF: Continue Bumex, beta-elizabeth and Jardiance #. Chronic kidney disease: Creatinine appears to be at baseline. Monitor and avoid nephrotoxins #. HTN: Continue home antihypertensives #. Mood disorder: Continue home mood stabilizers #. TBI: lives in long-term #. Chronic normocytic anemia: Hb above transfusion threshold Med rec pending DVT prophylaxis : Lovenox 40 mg daily Full code Admit as inpatient and will require two night minimum hospital stay for supplemental oxygen Time Spent With Patient Time: Total time managing care of this patient today ____ minutes. Quality Stroke Does the patient have a stroke diagnosis?: No VTE Prior VTE?: No VTE Risk Level:: Medical - moderate - high VTE Device Contraindication: Treatment Not Indicated VTE Drug Contraindication: N/A - Med Ordered
[2022-07-20 04:11] LABS: ABG Base Excess 13.2 mmol/L; ABG HCO3 42 mmol/L (22-26); ABG pCO2 79 mmHg (32-45); ABG pH 7.33 (7.35-7.45); ABG pO2 79 mmHg (83-108)
[2022-07-20 04:47] LABS: ABG Refer to POC result
--- OUTSIDE RECORDS SUMMARY | 2022-07-20 05:27 | XMS_ITS | Continuity of Care Document ---
:1960 Author Organization [facility] Address [address] [place] [id number] Care Team Providers Name Role Phone Jax Adorno [id number] Date(s): 10/12/21 - 11/11/[address] [id number] Attending Physician: Not on Staff, Attending MD Admitting Physician: Not on Staff, Admitting MD Referring Physician: Not on Staff, Referring MD Allergies, Adverse Reactions, Alerts No Known Allergies Immunizations Given and Recorded Vaccine Date Status Refusal Reason SARS-CoV-2 (COVID-19) mRNA BNT-162b2 vac 06/01/21 Recorde d SARS-CoV-2 (COVID-19) mRNA BNT-162b2 vac 07/17/20 Recorde d SARS-CoV-2 (COVID-19) mRNA BNT-162b2 vac 06/26/20 Recorde d influenza virus vaccine, inactivated 05/25/21 Recorded influenza virus vaccine, inactivated 05/22/11 Given pneumococcal 23-valent vaccine 08/05/11 Given Medications Amoxicillin 2,000 mg, By Mouth, Maintenance, Admin 1hr prior to dental appointment, 10/09/21 5:26:00 EDT Start Date: 10/09/21 Status: Orderedaspirin 81 mg oral delayed release tablet 81 mg, 1, tablet, By Mouth, Daily, Maintenance, 10/09/21 9:43:00 EDT, Partial fill upon patient request if the prescription is for a schedule II opioid drug. Start Date: 10/09/21 Status: OrderedBetadine 10% solution See Instructions, Apply to left hand hematoma 3 times daily for 5-7 days until improvement, # 2 each, 0 Refills, Maintenance, 10/13/21 8:56:00 EDT, [place] [phone], Partial fill uponpatient request if the prescription is for a sche... Start Date: 10/13/21 Status: Orderedcarvedilol 25 mg oral tablet 1 tablet = 25 mg, By Mouth, 2 times a day, AT 8AM AND 8PM. HOLD IF SBP<100 AND HR<60, # 60 tablet, 0 Refills, Maintenance, 10/01/14 11:24:09, Tablet, 1 tablet By Mouth 2 times a day,x30 days Start Date: 10/01/14 Stop Date: 10/31/14 Status: Orderedcholecalciferol 1000 intl units oral capsule 1 capsule = 25 mcg, By Mouth, Daily in AM, Maintenance, 10/09/21 9:48:00 EDT, Capsule, Partial fill upon patient request if the prescription is for a schedule II opioid drug. Start Date: 10/09/21 Status: OrderedcloNIDine 0.2 mg oral tablet 0.2 mg, 1, tablet, By Mouth, 3 times a day, Refills 0, Maintenance, 10/09/21 6:30:00 EDT, Partial fill upon patient request if the prescription is for a schedule II opioid drug. Start Date: 10/09/21 Status: OrderedHytrin Capsule 6 mg, By Mouth, Daily at bedtime, Refills 0, Maintenance, 10/09/21 6:32:00 EDT, Partial fill upon patient request if the prescription is for a schedule II opioid drug. Start Date: 10/09/21 Status: OrderedImodium A-D 2 mg oral tablet 2 mg, 1, tablet, By Mouth, 4 times a day, PRN, Refills 0, Maintenance, for loose stool, 10/09/21 5:31:00 EDT, Partial fill upon patient request if the prescription is for a schedule II opioid drug. Start Date: 10/09/21 Status: Orderedisosorbide mononitrate 30 mg oral tablet, extended release 30 mg, 1, tablet, By Mouth, Daily in AM, Refills 0, Maintenance, 10/09/21 6:33:00 EDT, Partial fill upon patient request if the prescription is for a schedule II opioid drug. Start Date: 10/09/21 Status: OrderedLasix 80 mg oral tablet 80 mg, 1, tablet, By Mouth, Daily in AM, Refills 0, Maintenance, 10/09/21 6:34:00 EDT, Partial fill upon patient request if the prescription is for a schedule II opioid drug. Start Date: 10/09/21 Status: OrderedMelatonin 5 mg oral tablet 1 tablet = 5 mg, By Mouth, Daily at bedtime, 0 Refills, Maintenance, 10/09/21 5:32:00 EDT, Tablet, Partial fill upon patient request if the prescription is for a schedule II opioid drug. Start Date: 10/09/21 Status: OrderedMetrogel See Instructions, 0.75 % Topically apply a thin film twice daily to affected area after washing, 0 Refills, Maintenance, 10/09/21 5:33:00 EDT, Partial fill upon patient request if the prescription is for a schedule II opioid drug. Start Date: 10/09/21 Status: OrderedNeurontin 400 mg oral capsule 400 mg, 1, capsule, By Mouth, 3 times a day, Refills 0, Maintenance, 10/09/21 5:34:00 EDT, Partial fill upon patient request if the prescription is for a schedule II opioid drug. Start Date: 10/09/21 Status: OrderedPlease check basic metabolic panel for bicarbonate and potassium Please check basic metabolic panel for bicarbonate and potassium, See Instructions, # 1 each, Refills 0, Tot. Refills 0, Maintenance, Please check basic metabolic panel for bicarbonate and potassium, 10/13/21 16:10:00 EDT, Supply Start Date: 10/13/21 Status: OrderedPlease repeat basic metabolic panel with your PCP in 5-7 days Please repeat basic metabolic panel with your PCP in 5-7 days, See Instructions, # 1 each, Refills 0, Tot. Refills 0, Maintenance, Please repeat basic metabolic panel with your PCP in 5-7 days, 10/13/21 9:34:00 EDT, Supply Start Date: 10/13/21 Status: OrderedRemeron 30 mg oral tablet 1 tablet = 30 mg, By Mouth, Daily at bedtime, 0 Refills, Maintenance, 10/09/21 5:23:00 EDT, Partial fill upon patient request if the prescription is for a schedule II opioid drug. Start Date: 10/09/21 Status: OrderedRobitussin 100 mg/5 mL syrup = 200 mg, By Mouth, Every 4 hours, PRN Cough, 0 Refills, Maintenance, 10/09/21 5:30:00 EDT, Partial fill upon patient request if the prescription is for a schedule II opioid drug. Start Date: 10/09/21 Status: Orderedsimvastatin 10 mg oral tablet 1 tablet = 10 mg, By Mouth, Daily at bedtime, AT 8PM, # 30 tablet, 3 Refills, Maintenance, 09/21/14 12:48:44, Tablet, 1 tablet By Mouth Daily at bedtime,x30 days Start Date: 09/21/14 Stop Date: 01/19/15 Status: OrderedTylenol 325 mg oral tablet 2 tablet = 650 mg, By Mouth, Every 6 hours, PRN as needed for fever/pain, 0 Refills, Maintenance, 08/07/11 16:39:03 EST, Tablet Start Date: 08/07/11 Status: OrderedZoloft 25 mg oral tablet 1 tablet = 25 mg, By Mouth, Daily, every morning, 0 Refills, Maintenance, 10/09/21 5:24:00 EDT, Partial fill upon patient request if the prescription is for a schedule II opioid drug. Start Date: 10/09/21 Status: Ordered Problem List Condition Effective Dates Status Health Status Informant Aortic dissection(Confirmed) Active Obese class II(Confirmed) Active Social History Social History Type Response Smoking Status Never (less than 100 in life time) entered on: 10/09/21 Sex
--- OUTSIDE RECORDS SUMMARY | 2022-07-20 05:27 | XMS_ITS | Continuity of Care Document ---
:1960 Author Organization [facility] Address [address] [place] [address]- Care Team Providers Name Role Phone Jax Adorno Primary Care Physician Encounter [facility] Date(s): 05/08/22 - 06/07/22 [facility] [address], [place] [address] Referring Physician: Cat Frazier Allergies, Adverse Reactions, Alerts No Known Allergies Immunizations Given and Recorded Vaccine Date Status Refusal Reason SARS-CoV-2 (COVID-19) mRNA BNT-162b2 vac 06/01/21 Recorde d SARS-CoV-2 (COVID-19) mRNA BNT-162b2 vac 07/17/20 Recorde d SARS-CoV-2 (COVID-19) mRNA BNT-162b2 vac 06/26/20 Recorde d influenza virus vaccine, inactivated 05/25/21 Recorded influenza virus vaccine, inactivated 05/22/11 Given pneumococcal 23-valent vaccine 08/05/11 Given Medications Ammonium Lactate 12% Topical 1 application, Topically, Daily in AM, 0 Refills, Maintenance, Cream Start Date: 04/24/22 Status: OrderedAmoxicillin 2,000 mg, By Mouth, Maintenance, Admin 1hr prior to dental appointment, 10/09/21 5:26:00 EDT Start Date: 10/09/21 Status: Orderedaspirin 81 mg oral delayed release tablet 81 mg, 1, tablet, By Mouth, Daily, # 30 tablet, Refills 0, Tot. Refills 0, Maintenance, 05/23/22 14:43:00 EST, Route to Pharmacy Electronically, [facility]-[id number], Partial fill upon patient request if the prescription is for a schedul... Start Date: 05/23/22 Status: OrderedBetadine 10% solution See Instructions, Apply to left hand hematoma 3 times daily for 5-7 days until improvement, # 2 each, 0 Refills, Maintenance, 10/13/21 8:56:00 EDT, [facility]-[id number], Partial fill uponpatient request if the prescription is for a sche... Start Date: 10/13/21 Status: Orderedcarvedilol 25 mg oral tablet 25 mg, 1, tablet, By Mouth, 2 times a day, AT 8AM AND 8PM. HOLD IF SBP<100 AND HR<60, # 60 tablet, Refills 0, Tot. Refills 0, Maintenance, 05/23/22 14:43:00 EST, Route to Pharmacy Electronically,[facility]-[id number], 167, cm, 05/06/22 1... Start Date: 05/23/22 Stop Date: 06/22/22 Status: Orderedcholecalciferol 1000 intl units oral capsule 1 capsule = 25 mcg, By Mouth, Daily in AM, Maintenance, 10/09/21 9:48:00 EDT, Capsule, Partial fill upon patient request if the prescription is for a schedule II opioid drug. Start Date: 10/09/21 Status: OrderedcloNIDine 0.2 mg oral tablet 0.2 mg, 1, tablet, By Mouth, 3 times a day, # 90 tablet, Refills 0, Tot. Refills 0, Maintenance, 05/23/22 14:41:00 EST, Route to Pharmacy Electronically, [facility]-[id number], Partial fill upon patient request if the prescription is for... Start Date: 05/23/22 Status: OrderedHytrin Capsule 6 mg, By Mouth, [...] capsule, By Mouth, 3 times a day, # 90 capsule, Refills 0, Tot. Refills 0, Maintenance, 05/23/22 14:41:00 EST, Route to Pharmacy Electronically, [facility]-[id number], Partial fill upon patient request if the prescription is fo... Start Date: 05/23/22 Status: OrderedNorvasc 5 mg oral tablet 10 mg, 2, tablet, By Mouth, Daily, # 60 tablet, Refills 0, Tot. Refills 0, Maintenance, 05/23/22 14:42:00 EST, [facility] [id number], Partial fill upon patient request if the prescription is for a schedul... Start Date: 05/23/22 Status: OrderedOxygen 1 liter, nasal cannula continuos, 0 Refills, Maintenance, 04/24/22 9:54:00 EST, Partial fill upon patient request if the prescription is for a schedule II opioid drug. Start Date: 04/24/22 Status: OrderedPlease check basic metabolic panel for [...] 30 mg, By Mouth, Daily at bedtime, # 30 tablet, 0 Refills, Maintenance, 05/23/22 14:43:00EST, Tablet, [facility]-[id number], Partial fill upon patient request if the prescription is for a schedule II opioid drug., 167, cm, ... Start Date: 05/23/22 Status: OrderedRobitussin 100 mg/5 mL syrup = 200 mg, By Mouth, Every 4 hours, PRN Cough, 0 Refills, Maintenance, 10/09/21 5:30:00 EDT, Partial fill upon patient request if the prescription is for a schedule II opioid drug. Start Date: 10/09/21 Status: OrderedTylenol 325 mg oral tablet 2 tablet = 650 mg, By Mouth, Every 6 hours, PRN as needed for fever/pain, 0 Refills, Maintenance, 08/07/11 16:39:03 EST, Tablet Start Date: 08/07/11 Status: OrderedZoloft 25 mg oral tablet 1 tablet = 25 mg, By Mouth, Daily, every morning, # 30 tablet, 0 Refills, Maintenance, 05/23/22 14:43:00 EST, Tablet, [facility]-02279, Partial fill upon patient request if the prescription is for a schedule II opioid drug., 167, cm,... Start Date: 05/23/22 Status: Ordered Problem List Condition Confirmation Course Effective Dates Status Health Stat us Informant Renal cell Confirmed Active carcinoma of left kidney Aortic dissection Confirmed Active Heart failure with Confirmed Active preserved ejection fraction HLD Confirmed Active (hyperlipidemia) HTN (hypertension) Confirmed Active Obese class II Confirmed Active CESAR treated with Confirmed Active BiPAP TBI (traumatic Confirmed Active brain injury) Social History Social History Type Response Smoking Status Never (less than 100 in life time) entered on: 10/09/21 Sex Patient Care team information Care Team PersonnelName: Desirae Perez RN Position: S RN Member Role: Primary Care Nurse Name: Sonya Patel RN Position: S RN Member Role: Primary Care Nurse Name: Jesika Arechiga Position: S RN Member Role: Primary Care Nurse Name: Mariposa Holland Position: S RN Member Role: Primary Care Nurse Name: Beverly Hernandez RN Position: [facility] RN Member Role: Primary Care Nurse Name: Cierra Aburto RN Position: [facility] RN Member Role: Primary Care Nurse Name: Jax Adorno Position: [facility] Outreach Member Role: PCP Address: Address: [address] [place] [id number]- Name: Rolf Archer RN Position: [facility] RN Member Role: Primary Care Nurse Name: Yany Thomas RN Position: [facility] SN RN Member Role: Primary Care Nurse Name: Jax Patrick MD Position: [facility] Renal MD Member Role: [employer] Consulting Physician Address: Address: [address] [place] [address] [facility] [place] [address]- Name: Sherri Luevano RN Position: [facility] RN Member Role: Primary Care Nurse Name: Audra Samson RN Position: [facility] Onco RN Member Role: Primary Care Nurse Name: Darrion Coleman RN Position: S RN Member Role: Primary Care Nurse Care Team Related PersonsName: CECI DUMONT Address: home [address], [place] Name: JAQUELIN SHI Address: home [address] Name: DORA SPARKS Address: home [employer] [place], [place] Name: CECI ROMANO Address: home [address], [place]
--- OUTSIDE RECORDS SUMMARY | 2022-07-20 05:27 | XMS_ITS | Continuity of Care Document ---
:1960 Author Organization [facility] Address [address] [place] [id number]- Care Team Providers Name Role Phone Jax Adorno Primary Care Physician Encounter [facility] Date(s): 10/09/21 - 10/13/[address] [id number] Encounter Diagnosis Headache (Final) - 10/08/21 Discharge Disposition: A-D/C Home Attending Physician: Jorge Ruff MD Admitting Physician: Reji Ferrer MD Referring Physician: Not on Staff, Referring [...] each, 0 Refills, Maintenance, 10/13/21 8:56:00 EDT, [facility]-[id number], Partial fill uponpatient request if the prescription [...] Start Date: 10/01/14 Stop Date: 10/31/14 Status: Orderedcarvedilol 25 mg oral tablet 25 mg, Tablet, By Mouth, 10/13/21 9:00:00 EDT Start Date: 10/13/21 Stop Date: 10/13/21 Status: Completedcholecalciferol 1000 intl units oral capsule 1 capsule [...] OrderedNeurontin 400 mg oral capsule 400 mg, Capsule, By Mouth, 10/13/21 9:00:00 EDT Start Date: 10/13/21 Stop Date: 10/13/21 Status: CompletedNeurontin 400 mg oral capsule 400 mg, Capsule, By Mouth, 10/13/21 15:00:00 EDT Start Date: 10/13/21 Stop Date: 10/13/21 Status: CompletedPlease check basic metabolic panel for bicarbonate and [...] 16:39:03 EST, Tablet Start Date: 08/07/11 Status: OrderedZestril 20 mg oral tablet 40 mg, Tablet, By Mouth, 10/13/21 9:00:00 EDT Start Date: 10/13/21 Stop Date: 10/13/21 Status: CompletedZoloft 25 mg oral tablet 1 tablet = 25 mg, By Mouth, Daily, every morning, 0 Refills, Maintenance, 10/09/21 5:24:00 EDT, Partial fill upon patient request if the prescription is for a schedule II opioid drug. Start Date: 10/09/21 Status: Ordered Problem List Condition Effective Dates Status Health Status Informant Aortic dissection(Confirmed) Active Obese class II(Confirmed) Active Results Radiology Reports Exam Date Time Procedure Performing Provider Status 10/12/21 10:29 AM Chest Portable Deandre Francia Chandra ([facility] ed) Notes:(Chest Portable) Reason For Exam: Shortness of BreathRESULT: Chest Portable Chest Portable INDICATION: Dyspnea. COMPARISON: Multiple priors, the most recent 10/09/2021. FINDINGS: LINES AND TUBES: None. LUNGS AND PLEURA: Resolution of bilateral lower lung opacities. Normal pulmonary vascularity. No pleural effusion. No pneumothorax. HEART, MEDIASTINUM AND BEV: Heart is normal in size. Unchanged widened mediastinum. BONES AND SOFT TISSUES: No acute abnormality. IMPRESSION: Almost complete resolution of mild pulmonary edema. No other new abnormality identified. I have personally reviewed the images and I agree with this report. WSN: [id number] Ordering Physician: Rodney Izaguirre Dictated By: Cheng[Radiology] Arie GRAY Dictated Date/Time: 10/12/21 11:11 a Reviewed By: Oj Dupree MD Signed By: Oj Dupree MD Signed Date/Time: 10/12/21 11:16 am Transcribed By: ANTOLIN Transcribed Date/Time: 10/12/21 11:05 am Exam Date Time Procedure Performing Provider Status 10/09/21 12:22 AM Chest 2 Views Frontal and Lat Marlin Whitt (Verified) Notes:(Chest 2 Views Frontal and Lat) Reason For Exam: Shortness of Breath RESULT: Chest 2 Views Frontal and Lat AP and lateral chest x-ray dated October 09, 2021. Comparison films are from September 25, 2014. HISTORY: Shortness of breath. FINDINGS: The cardiac silhouette is increased in size and has increased from the prior study. The aorta is enlarged and stable. The patient is status post median sternotomy. Mild interstitial thickening is demonstrated. Minimal bilateral pleural effusions are noted. Degenerative changes are noted in the spine. IMPRESSION: Mild interstitial edema. Increasing cardiomegaly. Stable aortic enlargement. Examination [id number]. Thank you for allowing me to participate in the care of this patient. WSN: [id number] Ordering Physician: Mukul Forde Dictated By: Orlando Ferris MD Dictated Date/Time: 10/09/21 8:30 am Reviewed By: Orlando Ferris MD Signed By: Orlando Ferris MD Signed Date/Time: 10/09/21 8:30 am Transcribed By: ANTOLIN Transcribed Date/Time: 10/09/21 8:30 am Exam Date Time Procedure Performing Provider Status 10/08/21 7:31 PM Elbow Min 3 Views Right Lidia George Corazon (Verified) Notes:(Elbow Min 3 Views Right) Reason For Exam: with Pain;TraumaRESULT: Elbow Min 3 Views Right Elbow Min 3 Views Right, 3 views Hx of Present Illness: htn and headache.; Reason: Trauma; with Pain; Clinical Question(s): Fracture COMPARISON: None. FINDINGS: No fracture or dislocation. No arthritic changes. No joint effusion. Some soft tissue swelling about the posterior elbow. IMPRESSION: No fracture. No fat pad sign to suggest joint effusion. If high clinical suspicion for fracture consider CT. WSN: [id number] Ordering Physician: Mukul Forde Dictated By: Oj Fong MD Dictated Date/Time: 10/08/21 8:06 pm Reviewed By: Oj Fong MD Signed By: Oj Fong MD Signed Date/Time: 10/08/21 8:06 pm Transcribed By: ANTOLIN Transcribed Date/Time: 10/08/21 8:03 pm Exam Date Time Procedure Performing Provider Status 10/08/21 7:31 PM Hand Min 3 Views Left Doris Jennifer; Corazon (V erified) Notes:(Hand Min 3 Views Left) Reason For Exam: with Pain;TraumaRESULT: Hand Min 3 Views Left Hand Min 3 Views Left, 3 views Hx of Present Illness: htn and headache.; Reason: Trauma; with Pain; Clinical Question(s): Fracture COMPARISON: None. FINDINGS: No fractures or bone lesions. No arthritic changes. Normal soft tissues. IMPRESSION: Normal. WSN: [id number] Ordering Physician: Mukul Forde Dictated By: Rahat Lang MD Dictated Date/Time: 10/08/21 7:43 pm Reviewed By: Rahat Lang MD Signed By: Rahat Lang MD Signed Date/Time: 10/08/21 7:43 pm Transcribed By: ANTOLIN Transcribed Date/Time: 10/08/21 7:42 pm Vital Signs Most recent to oldest 1 2 3 [Reference Range]: Height 167 cm 167 cm 167 cm (10/13/21 7:31 AM) (10/12/21 2:33 AM) (10/11/21 11: 50 PM) Weight 93.6 kg 92.8 kg 100 kg (10/12/21 2:39 AM) (10/11/21 3:08 AM) (10/09/21 3:17 PM) Oxygen Saturation [94-100 %] 95 % 98 % 94 % (10/13/21 11:00 AM) (10/13/21 7:31 AM) (10/13/21 3: 00 AM) Pulse Rate [55-90 bpm] 66 bpm 76 bpm 76 bpm (10/13/21 11:00 AM) (10/13/21 8:53 AM) (10/13/21 7: 31 AM) Body Mass Index [18.5-24.99] 35.86 *>HHI* (10/09/21 3:17 PM) Blood Pressure [90-138/55-84 103/56 mm Hg 169/86 mm Hg 169 /86 mm Hg mm Hg] (10/13/21 11:00 AM) *H* *H* (10/13/21 8:53 AM) (10/13/21 8:53 AM) Respiratory Rate [16-30 18 br/min 18 br/min 18 br/mi n br/min] (10/13/21 3:58 PM) (10/13/21 11:00 AM) (10/13/21 8: 53 AM) Temperature [96.8-100.4 98.4 DegF 98.1 DegF 97.7 Deg F DegF] (10/13/21 11:00 AM) (10/13/21 7:31 AM) (10/13/21 3: 00 AM) Liters per Minute 2 L/min 2 L/min 2 L/min (10/13/21 3:00 AM) (10/12/21 11:00 PM) (10/12/21 7: 00 PM) Mode of Delivery (Oxygen) Room air Room air Nasal cannula (10/13/21 11:00 AM) (10/13/21 7:31 AM) (10/13/21 3: 00 AM) Blood pressure sites Arm, right Arm, right Arm, right (10/13/21 11:00 AM) (10/13/21 7:31 AM) (10/13/21 3: 00 AM) Temperature Route Oral Oral Oral (10/13/21 11:00 AM) (10/13/21 7:31 AM) (10/13/21 3: 00 AM) Dry Weight 100 kg (10/09/21 3:17 PM) Social History Social History Type Response Smoking Status Never (less than 100 in life time) entered on: 10/09/21 Sex
--- OUTSIDE RECORDS SUMMARY | 2022-07-20 05:27 | XMS_ITS | Continuity of Care Document ---
:1960 Author Organization [facility] Address [address] [place] [id number] Care Team Providers Name Role Phone Jax Adorno Primary Care Physician Encounter [facility] Date(s): 05/12/22 - 05/23/[address] [id number] Encounter Diagnosis Carbon dioxide narcosis (Final) - 05/12/22 Hypercarbia (Final) - 05/12/22 CESAR on CPAP (Final) - 05/12/22 Renal cell cancer (Final) - 05/12/22 Acute hypoxic & hypercarbic respiratory failure (Final) - 05/12/22 Discharge Disposition: A-D/C Home Attending Physician: Curtis Barbosa MD, Zoltan Parry Admitting Physician: Kendra Soriano MD Referring Physician: Not on Staff, Referring [...] 05/23/22 14:43:00 EST, Route to Pharmacy Electronically, [id number], Partial fill upon patient request if the prescription is for a schedul... Start Date: 05/23/22 Status: OrderedBetadine 10% solution See Instructions, Apply to left hand hematoma 3 times daily for 5-7 days until improvement, # 2 each, 0 Refills, Maintenance, 10/13/21 8:56:00 EDT[facility], Partial fill uponpatient request if the prescription is for a sche... Start Date: 10/13/21 Status: Orderedcarvedilol 25 mg oral tablet 25 mg, 1, tablet, By Mouth, 2 times a day, AT 8AM AND 8PM. HOLD IF SBP<100 AND HR<60, # 60 tablet, Refills 0, Tot. Refills 0, Maintenance, 05/23/22 14:43:00 EST, [id number], 167, cm, 05/06/22 1... Start Date: 05/23/22 Stop Date: 06/22/22 Status: Orderedcarvedilol 25 mg oral tablet 25 mg, Tablet, By Mouth, 05/23/22 9:00:00 EST Start Date: 05/23/22 Stop Date: 05/23/22 Status: Completedcholecalciferol 1000 intl units oral capsule [...] 05/23/22 14:41:00 EST, Route to Pharmacy Electronically, [place] [id number], Partial fill upon patient request if the prescription is for... Start Date: 05/23/22 Status: OrderedCozaar 100 mg oral tablet 1 tablet = 100 mg, By Mouth, Daily, # 30 tablet, 0 Refills, Maintenance, 05/23/22 14:43:00 EST, [id number], Partial fill upon patient request if the prescription is for a schedule II opioid drug., 167, cm, 05/06/22 15:2... Start Date: 05/23/22 Status: OrderedhydrALAZINE 25 mg oral tablet 25 mg, 1, tablet, By Mouth, 2 times a day, # 60 tablet, Refills 0, Tot. Refills 0, Maintenance, 05/23/22 14:42:00 EST, [facility], Partial fillupon patient request if the prescription is for a... Start Date: 05/23/22 Status: OrderedHytrin Capsule 6 [...] 1, tablet, By Mouth, Daily in AM, # 30 tablet, Refills 0, Tot. Refills 0, Maintenance, 05/23/22 14:42:00 EST, [id number], Partial fill upon patient request if the prescription is for a s... Start Date: 05/23/22 Status: OrderedLasix 40 mg oral tablet 40 mg, 1, tablet, By Mouth, Daily in AM, # 30 tablet, Refills 0, Tot. Refills 0, Maintenance, 05/23/22 14:43:00 EST, Route to Pharmacy Electronically, [id number], Partial fill upon patient request if the prescription is for a s... Start Date: 05/23/22 Status: Orderedlosartan 50 mg oral tablet 100 mg, Tablet, By Mouth, 05/23/22 9:00:00 EST Start Date: 05/23/22 Stop Date: 05/23/22 Status: CompletedMelatonin 5 mg oral tablet 1 tablet = [...] 05/23/22 14:41:00 EST, Route to Pharmacy Electronically, [facility], Partial fill upon patient request if the prescription is fo... Start Date: 05/23/22 Status: OrderedNorvasc 10 mg oral tablet 10 mg, Tablet, By Mouth, 05/23/22 9:00:00 EST Start Date: 05/23/22 Stop Date: 05/23/22 Status: CompletedNorvasc 5 mg oral tablet 10 mg, 2, tablet, By Mouth, Daily, # 60 tablet, Refills 0, Tot. Refills 0, Maintenance, 05/23/22 14:42:00 EST, [facility], Partial fill upon patient request if the [...] 9:34:00 EDT, Supply Start Date: 10/13/21 Status: Orderedpotassium chloride 8 mEq (600 mg) oral capsule, extended release 1 capsule = 8 mEq, By Mouth, Daily, 0 Refills, Maintenance, 04/24/22 9:56:00 EST, Partial fill upon patient request if the prescription is for a schedule II opioid drug. Start Date: 04/24/22 Status: OrderedRemeron 30 mg oral tablet 1 tablet = 30 mg, By Mouth, Daily at bedtime, # 30 tablet, 0 Refills, Maintenance, 05/23/22 14:43:00EST, [id number] Partial fill upon patient request if the [...] 0 Refills, Maintenance, 05/23/22 14:43:00 EST, Tablet, [id number] Partial fill upon patient request if the [...] BiPAP TBI (traumatic Confirmed Active brain injury) Results Radiology Reports Exam Date Time Procedure Performing Provider Status 05/13/22 4:09 PM Chest Portable Chilo Tejada ([facility] ed) Notes:(Chest Portable) Reason For Exam: Ng tube;Tube PlacementRESULT: Chest Portable AP portable chest, INDICATION: Reason: Tube Placement; Ng tube; Clinical Question(s): Follow-Up Abnormal Exam COMPARISON: yesterday CXR FINDINGS: LINES AND TUBES: NG tube ends in the stomach. LUNGS AND PLEURA AND MEDIASTINUM: There is no pneumothorax. There is trace left pleural effusion. Heart size is enlarged. Prominent mediastinum is unchanged. There is mild left basilar atelectasis. IMPRESSION: Stable exam. WSN: [id number] Ordering Physician: Audra Solano Dictated By: Elizabeth Sandoval MD Dictated Date/Time: 05/13/22 4:22 pm Reviewed By: Elizabeth Sandoval MD Signed By: Elizabeth Sandoval MD Signed Date/Time: 05/13/22 4:22 pm Transcribed By: ANTOLIN Transcribed Date/Time: 05/13/22 4:20 pm Exam Date Time Procedure Performing Provider Status 05/12/22 11:39 PM Chest Portable Brennan Hastings (Verified) Notes:(Chest Portable) Reason For Exam: Line PlacementRESULT: Chest Portable Chest Portable Reason: Line Placement; Clinical Question(s): Tube Placement COMPARISON: X-ray from earlier the same day at 5:21 PM FINDINGS: LINES AND TUBES: Endotracheal tube is slightly low lying with the tip 1.5 cm above the mela. Enterogastric tube courses to the left of midline below left hemidiaphragm off the [id number]. LUNGS AND PLEURA: Low lung volumes and bibasilar atelectasis not significantly changed. No definite pleural effusion, assessment limited by semiupright positioning. No pneumothorax. HEART, MEDIASTINUM AND BEV: Status post median sternotomy. Moderate prominence of the cardiac silhouette. Normal mediastinal and hilar contour. BONES AND SOFT TISSUES: No acute abnormality. IMPRESSION: End of enterogastric tube is off the field of view. Recommend a follow-up AP view of the abdomen to confirm positioning of enterogastric tube in stomach. Endotracheal tube is slightly low lying 1.5 cm above the mela. WSN: [id number] Ordering Physician: Dago Varghese Dictated By: Oj Holland MD Dictated Date/Time: 05/12/22 11:55 p Reviewed By: Oj Holland MD Signed By: Oj Holland MD Signed Date/Time: 05/12/22 11:55 pm Transcribed By: ANTOLIN Transcribed Date/Time: 05/12/22 11:52 pm Exam Date Time Procedure Performing Provider Status 05/12/22 7:[address] Head/Brain W/O Contrast Cori Jack ; Corazon (Verified) Notes:(CT Head/Brain W/O Contrast) Reason For Exam: Headache(s)RESULT: CT Head/Brain W/O Contrast CT Head/Brain W/O Contrast INDICATION: Headache. TECHNIQUE: Noncontrast head CT using axial technique and reconstructed in axial and coronal planes. Iterative reconstruction techniques are used to optimize dose and image quality. CTDIvol Head: 45.64 mGy, DLP Head: 1643 mGy*cm. COMPARISON: 10/08/2021. FINDINGS: Mild motion artifact. Purchasing Associate view findings, lines and tubes: Endotracheal tube and enteric tube in place. BRAIN AND EXTRA-AXIAL SPACES: No parenchymal hemorrhage, midline shift, or mass effect. Pitt-white matter differentiation is well preserved. Mild encephalomalacia in the right frontal lobe, seen on prior. No acute infarct. Negativeinsular ribbon sign. Atherosclerotic vascular calcification of the carotid arteries but negative hype rdense vessel sign. Mild prominence of the ventricles and sulci consistent with parenchymal volume loss. Mild low-density white matter changes. No subarachnoid hemorrhage. No subdural or epidural collection. CALVARIUM, SKULL BASE, AND SOFT TISSUES: No fractures or suspicious bony lesions. The paranasal sinuses and mastoid air cells are clear. Visualized orbits and globes are intact. The extracranial soft tissues are unremarkable. IMPRESSION: No acute intracranial pathology. I have personally reviewed the images and I agree with this report. WSN: [id number] Ordering Physician: Kelli Bartlett Dictated By: Jer Freeman MD Dictated Date/Time: 05/12/22 7:56 pm Reviewed By: Aris Abarca MD Signed By: Aris Abarca MD Signed Date/Time: 05/12/22 8:01 pm Transcribed By: ANTOLIN Transcribed Date/Time: 05/12/22 7:53 pm Exam Date Time Procedure Performing Provider Status 05/12/22 5:47 PM Chest Portable Jennifer Zarate; Auth (Verified) Notes:(Chest Portable) Reason For Exam: Shortness of BreathRESULT: Chest Portable Chest Portable Reason: Shortness of Breath; Clinical Question(s): Tube Placement COMPARISON: 05/12/2022 at 4:47 PM FINDINGS: Endotracheal tube midthoracic trachea, otherwise no significant change in appearance of the chest. Pulmonary edema and left greater than right pleural effusions are again noted. IMPRESSION: Endotracheal tube midthoracic trachea, otherwise no significant change. WSN: [id number] Ordering Physician: Jimbo Tejeda Dictated By: Sergio Hermosillo MD Dictated Date/Time: 05/12/22 5:54 pm Reviewed By: Sergio Hermosillo MD Signed By: Sergio Hermosillo MD Signed Date/Time: 05/12/22 5:54 pm Transcribed By: ANTOLIN Transcribed Date/Time: 05/12/22 5:53 pm Exam Date Time Procedure Performing Provider Status 05/12/22 5:06 PM Chest Portable Jennifer Zarate; Auth (Verified) Notes:(Chest Portable) Reason For Exam: Shortness of BreathRESULT: Chest Portable Chest Portable Hx of Present Illness: LLQ pain, Nausea, Vomiting; Reason: Shortness of Breath; Clinical Question(s): CHF COMPARISON: 04/26/2022 FINDINGS: LINES AND TUBES: Number LUNGS AND PLEURA: Low lung volumes. Increased pulmonary vascularity. Moderate bilateral pulmonary edema. Dense left basilar opacification likely due to rotation, pleural effusion, and atelectasis. Likely small posteriorlayering right effusion HEART, MEDIASTINUM AND BEV: Moderate prominence of the cardiac silhouette, unchanged. Normal mediastinal and hilar contour. BONES AND SOFT TISSUES: No acute abnormality. Status post median sternotomy. IMPRESSION: Moderate pulmonary edema. Bilateral pleural effusions left greater than right. Dense left basilar opacification likely combination of pleural effusion, atelectasis and artifact from leftward rotation WSN: [id number] Ordering Physician: Kelli Bartlett Dictated By: Sergio Hermosillo MD Dictated Date/Time: 05/12/22 5:11 pm Reviewed By: Sergio Hermosillo MD Signed By: Sergio Hermosillo MD Signed Date/Time: 05/12/22 5:11 pm Transcribed By: ANTOLIN Transcribed Date/Time: 05/12/22 5:09 pm Exam Date Time Procedure Performing Provider Status 05/12/22 3:[address] Abd/Pelvis W/ Oral Cori Jack (Verified) Contrast Only Notes:(CT Abd/Pelvis W/ Oral Contrast Only) Reason For Exam: Abd pain, unspecified;Other:RESULT: CT Abd/Pelvis W/ Oral Contrast Only CT Abd/Pelvis W/ Oral Contrast Only INDICATION: Left lower quadrant pain with nausea and vomiting. TECHNIQUE: Spiral CT through the abdomen and pelvis without IV contrast formatted in 3 planes. This study was performed with oral contrast. Weight-based protocol using automatic tube modulation was used to optimize exposure parameters. CTDIvol Body: 19.95 mGy, DLP Body: 1098 mGy*cm. COMPARISON: Chest CT and CT angiogram 05/06/2022. FINDINGS: Purchasing Associate View Findings, Lines and Tubes: None. Visualized Chest: Small left pleural effusion. Mild thickening of the major fissure, which may indicate a small loculated effusion. Severe left basilar atelectasis and mild right basilar atelectasis. Stable cardiomegaly. No pericardial effusion. Diaphragm: Normal. Liver: A few small calcifications throughout the liver, likely small granulomas, present on prior. Diffuse low-attenuation throughout the liver parenchyma consistent with hepatic steatosis. No evidenceof mass. Gallbladder: Cholelithiasis with no evidence of acute cholecystitis, similar to prior. Bile ducts: No biliary ductal dilation. Spleen: Normal. Pancreas: Normal. Adrenal glands: Normal. Kidneys and ureters: Surgically absent left kidney. Moderate stranding and small amount of fluid seen in the surgical bed, similar to prior. Mildly atrophic appearing right kidney. No hydronephrosis, stones, or noncontrast evidence of suspicious masses. Bladder: Normal. Reproductive organs: Mildly enlarged prostate with coarse calcifications, similar to prior. Stomach, small bowel, and large bowel: Stomach is normal. Small bowel is normal in course and caliber. Large bowel appears normal. Appendix: No CT evidence of appendicitis. Peritoneum and retroperitoneum: No ascites or pneumoperitoneum. No omental or mesenteric lesions. Lymph nodes: No enlarged lymph nodes. Blood vessels: Mild vascular calcifications. Partially visualized type A thoracic aortic dissection status post graft repair of the ascending aorta and residual dissection better seen on CT angiogram of chest 05/06/2022, with descending aorta measuring up to 5 cm (image 81 series 601). Infrarenal abdomi nal aortic aneurysm measuring up to 4.8 cm (image 78 series 602) with known dissection, also better assessed on CT angiogram. Abdominal and pelvic wall: Slightly improved left abdominal wall edema. Bones: No acute abnormality. IMPRESSION: No identifiable source of patient's symptoms. Small left pleural effusion with associated atelectasis. Mild thickening of the left major fissure which may indicate an additional small loculated effusion. Unchanged small foci of hematomas in the left nephrectomy surgical bed with no evidence of local active extravasation. Cholelithiasis with no evidence of acute cholecystitis. 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 I have personally reviewed the images and I agree with this report. WSN: [id number] Ordering Physician: Kelli Bartlett Dictated By: Jer Freeman MD Dictated Date/Time: 05/12/22 5:16 pm Reviewed By: Aris Abarca MD Signed By: Aris Abarca MD Signed Date/Time: 05/12/22 5:21 pm Transcribed By: ANTOLIN Transcribed Date/Time: 05/12/22 4:29 pm Vital Signs Most recent to oldest 1 2 3 4 5 [Reference Range]: Weight 96.9 kg 101.6 kg (05/14/22 6:55 AM) (05/12/22 9:39 PM) Oxygen Saturation 93 % 90 % 92 % [94-100 %] *L* *L* *L* (05/23/22 10:28 AM) (05/23/22 8:57 AM) (05/23/22 4:08 AM) Pulse Rate [55-90 77 bpm 93 bpm 93 bpm bpm] (05/23/22 10:28 AM) *H* *H* (05/23/22 8:57 AM) (05/23/22 8:50 AM) Blood Pressure 131/79 mm Hg 128/61 mm Hg 128/65 mm Hg 128/65 mm Hg 12 8/65 mm Hg [90-138/55-84 mm Hg] (05/23/22 10:28 AM) (05/23/22 8:57 AM) ( 8:50 AM) (05/23/22 8:50 AM) (05/23/22 8:50 AM) Respiratory Rate 19 br/min 18 br/min 18 br/min [16-30 br/min] (05/23/22 10:28 AM) (05/23/22 8:57 AM) (05/23/22 4:08 AM) Temperature 98.0 DegF 98.0 DegF 97.9 DegF [96.8-100.4 DegF] (05/23/22 10:28 AM) (05/23/22 8:57 AM) (05/23/22 4: 08 AM) Liters per Minute 2 L/min 2 L/min 2 L/min (05/19/22 7:19 AM) (05/18/22 4:15 AM) (05/17/22 7:26 PM) Mode of Delivery Room air Room air Room air (Oxygen) (05/23/22 10:28 AM) (05/23/22 8:57 AM) (05/23/22 4:08 AM) Blood pressure sites Arm, right Arm, right Arm, left (05/23/22 10:28 AM) (05/23/22 8:57 AM) (05/23/22 4:08 AM) Temperature Route Oral Oral Oral (05/23/22 10:28 AM) (05/23/22 8:57 AM) (05/23/22 4:08 AM) Weight Obtained Via Bed scale (05/12/22 9:39 PM) Social History Social History Type Response Smoking Status Never (less than 100 in life time) entered on: 10/09/21 Sex Admission evaluation note Halima GRAY, Dago Johnson: MODIFY, MODIFY, MODIFY, MODIFY, PERFORM, MODIFY, MODIFY, MODIFY, MODIFY, MODIFY, MODIFY, MODIFY, MODIFY, MODIFY, MODIFY, MODIFY, MODIFY, MODIFY, MODIFY Event Display: Admission Note Authored Date: Patient: ??SAL WATTS ? Age:??62 Years?Sex:??Male?:??1960?? Chief Complaint/Reason for Consultation Nausea, Vomiting, LLQ pain In ED, developed altered mental status and worsening respiratory status. History of Present Illness 62-year-old male PMH significant for HFpEF, HTN, HLD,?? type a aortic dissection (s/p repair 2010),CESAR (noncompliant CPAP) renal cell carcinoma diagnosed??11/23??(s/p radical nephrectomy 04/25) and history of TBI who [facility] procedure. ?? Patient did present on May 06 with abdominal pain and flank pain, sharp character and onset on the left side.?? He had imaging done including CT abdomen/pelvis that showed postoperative changes, lower ascending aorta with suspicion for dissection and infrarenal abdominal aortic aneurysm unchangedfrom prior imaging.?? Evaluated by vascular surgery and urology with no interventions indicated and [facility].?? An outpatient vascular surgery follow-up was arranged.? He presents again today With left-sided abdominal pain, nausea, and diarrhea vomiting since last night. Patient underwent a CT scan in the ED.?? Small left pleural effusion with associated atelectasismild thickening of the left major fissure which may indicate small loculated effusion.?? Unchanged small foci of hematomas in the left nephrectomy surgical bed.?? Aneurysm dissection of the descending thoracic and abdominal aorta similar to prior surgeries.?? In summary, no acute findings to explain his symptoms. ?? Patient returned from the CAT scan and was noted to be obtunded in the ED.?? A simple facemask was put on, patient minimally responsive opening eyes to verbal stimuli occasionally, no withdrawal to pain.?? Concern for CO2 retention, stat ABG showed pH 7.22/PCO2 130.?? Trial BiPAP with no improvement and decision made to intubate patient. ?? Intubated with etomidate 15 mg, rocuronium 100 mg. ?? Post intubation x-ray with bilateral pleural effusions (L>R) left moderate, significant pulmonary vascular congestion.?? Cannot exclude left lower lobe atelectasis/pneumonia. ABG pH 7.10/PCO2 148/PO2 164/bicarb 44. Initial lab work reviewed.?? CBC with no evidence of leukocytosis, stable H&H (9.8/33.3) microcytic anemia and normal platelets.?? Electrolyte abnormalities including hypernatremia NA 146, bicarb 41 (baseline 30) creatinine 1.5 (discharged on 1.4) baseline 0.8 last month.?? LFTs unremarkable.?? High- sensitivity troponin negative.?? Respiratory panel negative. ?? Vitals.?? Afebrile, BP 126???163/98.?? Normal heart rate and maintaining oxygen sats on 4 L before he became obtunded Review of Systems cannot be completed after arrival to the MICU. intubated and sedated Objective ? Vital Signs?? Temperature: 98.3 DegF (05/12/22 12:11:00) Temperature Route: Oral (05/12/22 12:11:00) Pulse Rate: 80 bpm (05/12/22 17:51:00) Respiratory Rate: 30 br/min (05/12/22 17:51:00) Vented: Yes (05/12/22 17:51:00) Systolic Blood Pressure:??148 mm Hg??High (05/12/22 17:51:00) Diastolic Blood Pressure:??92 mm Hg??High (05/12/22 17:51:00) Pulse Pressure: 56 mm Hg (05/12/22 17:51:00) Oxygen Saturation: 96 % (05/12/22 12:11:00) Liters per Minute: 4 L/min (05/12/22 12:11:00) Mode of Delivery (Oxygen): Ventilator (05/12/22 17:51:00) FiO2: 100 % (05/12/22 17:05:00) Early Warning Score: 8 (05/12/22 17:51:51) ? Physical Exam Constitutional: intubated and sedated Head: Normocephalic. Eyes: Pupils are equal, round and reactive to light. Extraocular muscles intact. Ear, Nose and Throat: Oropharynx clear, mucous membranes moist. Ears and nose without masses, lesions or deformities. Trachea midline. Neck: Supple, Full range of motion. Respiratory: Clear to auscultation. No wheezing, rales or rhonchi. Cardiovascular: S1 S2 regular. No murmurs, rubs or gallops. Gastrointestinal: Abdomen distended, on sedation no pain elicited. soft on palpation. scars from recent laparotomy healing well. Normal bowel sounds. Skin: No rashes or lesions. No petechiae or purpura.?? Musculoskeletal: No obvious deformity Assessment/Plan 62-year-old male PMH significant for HFpEF, HTN, HLD,?? type a aortic dissection (s/p repair 2010), CESAR (noncompliant CPAP) renal cell carcinoma diagnosed??11/23??(s/p radical nephrectomy 04/25) and history of TBI who [facility] after surgical procedure who was brought to [facility] for N/V and abdominal pain, ED course complicated with acute hypercarbic respiratory failure requiring emergent intubation following his CT scan and then transferred to ICU for further management. ?? Neuro Encephalopathy CO2 narcosis History of depression Previous traumatic brain injury Intubated and sedated Patient??came in with complaints of nausea vomiting and abdominal pain however??he developed??encephalopathy in setting of CO2 narcosis??in the ED??after his CAT scan??requiring emergent intubation. ?? Plan ?On propofol gtt. with RASS goal -2 ? ??On fentanyl gtt. with CPOT< 2 ???Sedation vacation tomorrow morning ???Continue sertraline??and mirtazapine as home regimen ?? Cardiovascular Type aortic dissection s/p repair 2010 Known chronic type B aortic dissection Heart failure with preserved ejection fraction H/O Uncontrolled hypertension HLD Patient??has underwent CT abdomen/pelvis with IV contrast twice??on ED admissions??with chronic??aortic dissections??which have been??evaluated by vascular surgery in the past??with recommendations for outpatient follow-up.?? Stable imaging He does have uncontrolled hypertension at baseline however while on sedation, normotensive on monitor. CXR shows significant evidence of effusions left greater than right,??significant fluid in the fissures. Home medications amlodipine??10 mg, aspirin 81 mg, Coreg 25 mg twice daily, clonidine 1.2 mg 3 times daily, furosemide 80 mg in a.m., hydralazine 25 twice daily, Imdur 30 in a.m., losartan 100 mg daily ?? Plan ?Would continue monitoring hemodynamics and vitals, resume??home medication as indicated.?? Concern for rebound hypertension since patient is also on clonidine scheduled at home ?Would consider IV diuretics. ??Patient already diuresing at this point. ?? Pulmonary Acute??hypoxic hypercarbic respiratory failure Obstructive sleep apnea??(sleep study done, no equipment arranged yet) Chronic respiratory failure (3L home O2) Left??moderate pleural effusion Incidental lung pulmonary nodule 4mm Significant history for??obstructive sleep apnea. ??Of note, as per [facility] he did undergo recent sleep study.?? He does not have a noninvasive ventilator/BiPAP??at home.?? Concern given his body habitus, laying flat??would have worsened his work of breathing??with his distended abdomen.?? His PCO2 >148??on ABG prior to??intubation. ??Bicarb 44??(chronically elevated low 30s) Developed??respiratory acidosis??with metabolic compensation. Unclear reason for home oxygen.?? It seems like there is a pulm rehab note from November??when he was discharged on oxygen. There is evidence of??pleural effusion and patient would benefit from diuretic therapy. ?? Plan ??? Vent support. ?Obtain VBG. ??? Sedation medication tomorrow and trial of extubation if patient doing well. ?He should get NIV before discharge from this hospital stay ?? Renal Acute kidney injury Renal cell carcinoma status post left radical nephrectomy 04/25 Patient's baseline creatinine a month ago was 0.8.?? He did develop an acute kidney injury in the postoperative period??and was discharged with a creatinine of 1.4.?? There has not been a documentation of improvement of creatinine to baseline. In setting of nausea, vomiting and dehydration significant prerenal etiology. ?? Plan ?Monitor urine output ??? Monitor electrolytes and??renal function ?Would continue holding home losartan.?? Avoid KOLE/ARB's/NSAIDs ?? GI?? abdominal pain Nausea/vomiting/diarrhea No episode witnessed since hospitalization.?? No acute pathology on CT imaging.?? Unclear etiology at this point. On exam, belly distended??however soft on palpation. ??Gut sounds good quality Plan to monitor for??any signs of ileus,??bowel movements ?? Hematology Leukocytosis???likely reactive Chronic anemia, macrocytic Most likely in the setting of nutritional deficiency.?? We will add on vitamin B-12 levels ?? Quality Metrics Code Status:??Full code DVT prophylaxis:??Heparin subcu Diet:??N.p.o. Family updated/HCP Jaquelin Menendez [phone]/ [phone] on chart. 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 Social work consult placed ?? The patient case was discussed with attending physician, Dr. Gannon ?? Dago Varghese Internal Medicine Resident PGY3 ?? This note was dictated??by [employer] voice detection software,??for any errors??or clarifications, please do not hesitate to connect with the scribe.?? Histories Allergies Allergies ?(Active and Proposed Allergies Only) NKA? (Severity: Unknown severity, Onset: Unknown) ? Past Medical History/Problem List Active Problems??(8) Aortic dissection Heart failure with preserved ejection fraction HLD (hyperlipidemia) HTN (hypertension) Obese class II CESAR treated with BiPAP Renal cell carcinoma of left kidney TBI (traumatic brain injury) ? Past Surgical History Left radical Nephrectomy. ?? Social History Alcohol Details:??Use: Past. ??Other: 20 years ago. Substance Abuse Details:??Use: Never. Tobacco Details:??Use: Never (less than 100 in lifetime). Details:??Never smoker ? Family History No family history recorded. ? Medications Home Medications Acetaminophen (Tylenol 325 mg oral tablet)?2?tab(s)?650?Milligram?By Mouth?Every 6 hours?as needed?as needed for fever/pain Amlodipine (Norvasc 5 mg oral tablet)?5?Milligram?1?tablet?By Mouth?Daily Ammonium Lactate 12% (Ammonium Lactate 12% Topical)?1?marybeth?Topically?Daily in AM Amoxicillin?2,000?Milligram?By Mouth?Admin 1hr prior to dental appointment Aspirin (aspirin 81 mg oral delayed release tablet)?81?Milligram?1?tablet?By Mouth?Daily Carvedilol (carvedilol 25 mg oral tablet)?1?tab(s)?25?Milligram?By Mouth?2 times a day?for 30?Days?AT 8AM AND 8PM. HOLD IF SBP<100 AND HR<60 Cholecalciferol (cholecalciferol 1000 intl units oral capsule)?1?capsule?25?Microgram?By Mouth?Daily in AM Clonidine (cloNIDine 0.2 mg oral tablet)?0.2?Milligram?1?tablet?By Mouth?3 times a day Durable Medical Equipment (Please repeat basic metabolic panel with your PCP in 5-7 days)?See Instructions?Please repeat basic metabolic panel with your PCP in 5-7 days Durable Medical Equipment (Please check basic metabolic panel for bicarbonate and potassium)?SeeInstructions?Please check basic metabolic panel for bicarbonate and potassium Furosemide (Lasix 80 mg oral tablet)?80?Milligram?1?tablet?By Mouth?Daily in AM Gabapentin (Neurontin 400 mg oral capsule)?400?Milligram?1?capsule?By Mouth?3 times a day Guaifenesin (Robitussin 100 mg/5 mL syrup)?200?Milligram?By Mouth?Every 4 hours?as needed?Cough hydrALAZINE (hydrALAZINE 25 mg oral tablet)?25?Milligram?1?tablet?By Mouth?2 times a day Isosorbide Mononitrate (isosorbide mononitrate 30 mg oral tablet, extended release)?30?Milligram?1?tablet?By Mouth?Daily in AM Loperamide (Imodium A-D 2 mg oral tablet)?2?Milligram?1?tablet?By Mouth?4 times aday?as needed?for loose stool Losartan (Cozaar 100 mg oral tablet)?1?tab(s)?100?Milligram?By Mouth?Daily Melatonin (Melatonin 5 mg oral tablet)?1?tab(s)?5?Milligram?By Mouth?Daily at bedtime Metronidazole Topical (Metrogel)?See Instructions?0.75 % Topicallyapply a thin film twice daily to affected area after washing Mirtazapine (Remeron 30 mg oral tablet)?1?tab(s)?30?Milligram?By Mouth?Daily at bedtime Oxygen?2 liter?nasal cannula continuos Potassium Chloride (potassium chloride 8 mEq (600 mg) oral capsule, extended release)?1?capsule?8?Milliequivalent?By Mouth?Daily Povidone Iodine Topical (Betadine 10% solution)?See Instructions?Apply to left hand hematoma 3 times daily for 5-7 days until improvement Sertraline (Zoloft 25 mg oral tablet)?1?tab(s)?25?Milligram?By Mouth?Daily?every morning Simvastatin (simvastatin 10 mg oral tablet)?1?tab(s)?10?Milligram?By Mouth?Daily at bedtime?for 30?Days?AT 8PM Terazosin (Hytrin Capsule)?6?Milligram?By Mouth?Daily at bedtime ? Results Recent Labs BLOOD COUNT & DIFF WBC 7.4 k/mm3 ()?? 05/12/2022 12:09 RBC 3.19 m/mm3 (Low)?? 05/12/2022 12:09 Hgb 9.8 Gm/dL (Low)?? 05/12/2022 12:09 Hct 33.3 % (Low)?? 05/12/2022 12:09 MCV 104.4 femtoliters (High)?? 05/12/2022 12:09 MCH 30.7 pg ()?? 05/12/2022 12:09 MCHC 29.4 g/dL (Low)?? 05/12/2022 12:09 Platelet Count 258 k/mm3 ()?? 05/12/2022 12:09 RDW-SD 49.3 femtoliters (High)?? 05/12/2022 12:09 MPV 10.0 femtoliters ()?? 05/12/2022 12:09 Nucleated RBC (Automated) 0.0 #/100 WBC'S ()?? 05/12/2022 12:09 Abs. NRBC 0.0 k/mm3 ()?? 05/12/2022 12:09 Abs. Neut 5.4 k/mm3 ()?? 05/12/2022 12:09 Abs. Lymph 0.6 k/mm3 (Low)?? 05/12/2022 12:09 Abs. [place] 0.5 k/mm3 ()?? 05/12/2022 12:09 Abs. Eo 0.8 k/mm3 (High)?? 05/12/2022 12:09 Abs. Baso 0.0 k/mm3 ()?? 05/12/2022 12:09 Neut % 73.8 % ()?? 05/12/2022 12:09 Lymph % 8.3 % (Low)?? 05/12/2022 12:09 [place] % 7.2 % ()?? 05/12/2022 12:09 Eos % 10.2 % (High)?? 05/12/2022 12:09 Baso % 0.1 % ()?? 05/12/2022 12:09 Hemoglobin (POC) POC Cartridge 11.6 Gm/dL (Low)?? 05/12/2022 16:40 Hematocrit (POC) POC Cartridge 34 % (Low)?? 05/12/2022 16:40 Imm Gran 0.4 % ()?? 05/12/2022 12:09 Abs. Imm Gran 0.0 k/mm3 ()?? 05/12/2022 12:09 ?? BLOOD GAS pH (POC) POC Cartridge 7.11 (Critical)?? 05/12/2022 16:40 pCO2 (POC) POC Cartridge >130.0 mm Hg (Critical)?? 05/12/2022 16:40 pO2 (POC) POC Cartridge 151 mm Hg (High)?? 05/12/2022 16:40 FIO2 (POC) POC Cartridge 100 % ()?? 05/12/2022 16:40 pH Venous (POC) POC Cartridge 7.16 (Low)?? 05/12/2022 16:28 pCO2 Venous (POC) POC Cartridge 129.3 mm Hg (High)?? 05/12/2022 16:28 pO2 Venous (POC) POC Cartridge 71 mm Hg (High)?? 05/12/2022 16:28 Est Bicarbonate (POC) POC Cartridge 45.8 mmol/L (High)?? 05/12/2022 16:28 % O2 Sat Venous (POC) POC Cartridge 86 ()?? 05/12/2022 16:28 Base Excess (POC) POC Cartridge 17 ()?? 05/12/2022 16:28 pH 7.10 (Critical)?? 05/12/2022 16:40 pCO2 148 mm Hg (Critical)?? 05/12/2022 16:40 pO2 164 mm Hg (High)?? 05/12/2022 16:40 Bicarbonate, Estimated 44 mmol/L (High)?? 05/12/2022 16:40 Specimen Type - Blood Gas ARTERIAL ()?? 05/12/2022 16:40 Percent O2 (FIO2) 100 ()?? 05/12/2022 16:40 ?? CARDIAC High Sensitivity Troponin (HSTnT) 11 ng/L ()?? 05/12/2022 17:11 ?? CHEM GENERAL Sodium 146 mmol/L (High)?? 05/12/2022 12:09 Potassium 4.1 mmol/L ()?? 05/12/2022 12:09 Chloride 99 mmol/L ()?? 05/12/2022 12:09 Bicarbonate Level 41 mmol/L (Critical)?? 05/12/2022 12:09 Anion Gap 6 ()?? 05/12/2022 12:09 Sodium (POC) POC Cartridge 142 mmol/L ()?? 05/12/2022 16:40 Potassium (POC) POC Cartridge 3.6 mmol/L ()?? 05/12/2022 16:40 Glucose Level 124 mg/dL (High)?? 05/12/2022 12:09 Glucose (POC) POC Cartridge 204 (High)?? 05/12/2022 16:40 Glucose, POC 177 mg/dL (High)?? 05/12/2022 16:17 BUN 16 mg/dL ()?? 05/12/2022 12:09 Creatinine-Blood 1.5 mg/dL (High)?? 05/12/2022 12:09 Estimated GFR Creatinine 51 ML/MIN/1.73 M2 ()?? 05/12/2022 12:09 Calcium 8.7 mg/dL ()?? 05/12/2022 12:09 Ionized Calcium (POC) POC Cartridge 1.21 mmol/L ()?? 05/12/2022 16:40 Protein, Total 6.3 Gm/dL ()?? 05/12/2022 12:09 Albumin 3.8 Gm/dL ()?? 05/12/2022 12:09 AG Ratio 1.5 ()?? 05/12/2022 12:09 Alkaline Phosphatase 108 units/L ()?? 05/12/2022 12:09 Lipase 30 units/L ()?? 05/12/2022 12:09 AST (SGOT) 17 units/L ()?? 05/12/2022 12:09 ALT (SGPT) 20 units/L ()?? 05/12/2022 12:09 Bilirubin, Total 0.4 mg/dL ()?? 05/12/2022 12:09 ?? HEME OTHER Hold Blue Top SPECIMEN DISCARDED AFTER 4 HOURS. ()?? 05/12/2022 12:09 ?? MISC. CHEMISTRY Hold Green Top SPECIMEN DISCARDED AFTER 1 WEEK ()?? 05/12/2022 12:09 ?? VIROLOGY Influenza A PCR NEGATIVE ()?? 05/12/2022 12:19 Influenza B PCR NEGATIVE ()?? 05/12/2022 12:19 RSV PCR NEGATIVE ()?? 05/12/2022 12:19 COVID-19 PCR Specimen Source NASAL ()?? 05/12/2022 12:19 COVID-19 PCR Result NEGATIVE ()?? 05/12/2022 12:19 ? Abnormal Labs ?? BLOOD COUNT & DIFF ??Abs. Lymph ??0.6 k/mm3 (Low) ??05/12/2022 12:09 ??Abs. Eo ??0.8 k/mm3 (High) ??05/12/2022 12:09 ??Abs. NRBC ??0.0 k/mm3 () ??05/12/2022 12:09 ??Abs. Imm Gran ??0.0 k/mm3 () ??05/12/2022 12:09 ??Eos % ??10.2 % (High) ??05/12/2022 12:09 ??Hct ??33.3 % (Low) ??05/12/2022 12:09 ??Hematocrit (POC) POC Cartridge ??34 % (Low) ??05/12/2022 16:40 ??Hemoglobin (POC) POC Cartridge ??11.6 Gm/dL (Low) ??05/12/2022 16:40 ??Hgb ??9.8 Gm/dL (Low) ??05/12/2022 12:09 ??Imm Gran ??0.4 % () ??05/12/2022 12:09 ??Lymph % ??8.3 % (Low) ??05/12/2022 12:09 ??MCHC ??29.4 g/dL (Low) ??05/12/2022 12:09 ??MCV ??104.4 femtoliters (High) ??05/12/2022 12:09 ??Nucleated RBC (Automated) ??0.0 #/100 WBC'S () ??05/12/2022 12:09 ??RBC ??3.19 m/mm3 (Low) ??05/12/2022 12:09 ??RDW-SD ??49.3 femtoliters (High) ??05/12/2022 12:09 ? BLOOD GAS ??% O2 Sat Venous (POC) POC Cartridge ??86 () ??05/12/2022 16:28 ??Base Excess (POC) POC Cartridge ??17 () ??05/12/2022 16:28 ??Bicarbonate, Estimated ??44 mmol/L (High) ??05/12/2022 16:40 ??Est Bicarbonate (POC) POC Cartridge ??45.8 mmol/L (High) ??05/12/2022 16:28 ??FIO2 (POC) POC Cartridge ??100 % () ??05/12/2022 16:40 ??Percent O2 (FIO2) ??100 () ??05/12/2022 16:40 ??Specimen Type - Blood Gas ??ARTERIAL () ??05/12/2022 16:40 ??pCO2 ??148 mm Hg (Critical) ??05/12/2022 16:40 ??pCO2 (POC) POC Cartridge ??>130.0 mm Hg (Critical) ??05/12/2022 16:40 ??pCO2 Venous (POC) POC Cartridge ??129.3 mm Hg (High) ??05/12/2022 16:28 ??pH ??7.10 (Critical) ??05/12/2022 16:40 ??pH (POC) POC Cartridge ??7.11 (Critical) ??05/12/2022 16:40 ??pH Venous (POC) POC Cartridge ??7.16 (Low) ??05/12/2022 16:28 ??pO2 ??164 mm Hg (High) ??05/12/2022 16:40 ??pO2 (POC) POC Cartridge ??151 mm Hg (High) ??05/12/2022 16:40 ??pO2 Venous (POC) POC Cartridge ??71 mm Hg (High) ??05/12/2022 16:28 ? CARDIAC ??High Sensitivity Troponin (HSTnT) ??11 ng/L () ??05/12/2022 17:11 ? CHEM GENERAL ??AG Ratio ??1.5 () ??05/12/2022 12:09 ??Bicarbonate Level ??41 mmol/L (Critical) ??05/12/2022 12:09 ??Creatinine-Blood ??1.5 mg/dL (High) ??05/12/2022 12:09 ??Estimated GFR Creatinine ??51 ML/MIN/1.73 M2 () ??05/12/2022 12:09 ??Glucose Level ??124 mg/dL (High) ??05/12/2022 12:09 ??Glucose, POC ??177 mg/dL (High) ??05/12/2022 16:17 ??Glucose (POC) POC Cartridge ??204 (High) ??05/12/2022 16:40 ??Sodium ??146 mmol/L (High) ??05/12/2022 12:09 ? HEME OTHER ??Hold Blue Top ??SPECIMEN DISCARDED AFTER 4 HOURS. () ??05/12/2022 12:09 ? MISC. CHEMISTRY ??Hold Green Top ??SPECIMEN DISCARDED AFTER 1 WEEK () ??05/12/2022 12:09 ? VIROLOGY ??COVID-19 PCR Specimen Source ??NASAL () ??05/12/2022 12:19 ??COVID-19 PCR Result ??NEGATIVE () ??05/12/2022 12:19 ??Influenza A PCR ??NEGATIVE () ??05/12/2022 12:19 ??Influenza B PCR ??NEGATIVE () ??05/12/2022 12:19 ??RSV PCR ??NEGATIVE () ??05/12/2022 12:19 ? Note: Critical results are displayed in red. ? Jagdeep GRAY, Sherri Phillips: PERFORM Event Display: Admission Note Authored Date: [id number] Patient seen and examined multiple times with medical ICU house staff on date of service 05-12-2022.?? In brief, 62-year-old male PMH significant for HFpEF, HTN, HLD,?? type a aortic dissection (s/p repair 2010), CESAR (noncompliant CPAP) renal cell carcinoma diagnosed??11/23??(s/p radical nephrectomy 04/25) and history of TBI who [facility] after surgical procedure subsequently??transferred to [facility]??for N/V and abdominal pain.?? During the course of his work-up in the emergency department, patient became obtunded in CT scanner requiring emergent intubation for??acute hypercarbic respiratory failure??with pCO2 > 140 mmHg.?? Patient continues to require medical ICU level of care for management of hypercarbic respiratory failure and mechanical ventilation. PROBLEM LIST includes: Encephalopathy CO2 narcosis - intubated and requiring mechanical ventilation; obtain follow-up ABG History of depression Previous traumatic brain injury Type aortic dissection s/p repair 2010 - stable per abdominal CT imaging Known chronic type B aortic dissection - appreciate surgery input for this and review of abdominal CT imaging Heart failure with preserved ejection fraction H/O Uncontrolled hypertension HLD Acute??hypoxic hypercarbic respiratory failure - intubated and requiring mechanical ventilation; obtian ABG Obstructive sleep apnea??(sleep study done, no equipment arranged yet) - needs pulmonary sleep follow-up consultation; extubate to BiPAP Chronic respiratory failure (3L home O2) Left??moderate pleural effusion Incidental lung pulmonary nodule 4mm - needs Pulmonary outpatient follow-up Acute kidney injury - monitor BUN/Cr; urine output goal 30 cc/hr; IVF Renal cell carcinoma status post left radical nephrectomy 04/25 Leukocytosis???likely reactive; will trend Chronic anemia, macrocytic We have reviewed the available clinical data and discussed the plan of care summarized by Dr. Gallegos, MICU resident. Critical care time 75 minutes. ? EKG study Event Display: EKG Authored Date: Event Display: EKG Authored Date: Event Display: ECG 12-Lead Authored Date: Please click on pdf link to open report Event Display: ECG 12-Lead Authored Date: Ventricular Rate: 70 BPM Atrial Rate: 70 BPM P-R Interval: 154 ms QRS Duration: 118 ms Q-T Interval: 474 ms QTC Calculation(Bazett): 511 ms P Dayton: 28 degrees R Dayton: -36 degrees T Dayton: 45 degrees Critical Test Result: Long QTc Normal sinus rhythm Left axis deviation Non-specific intra-ventricular conduction delay Prolonged QT Abnormal ECG Confirmed by YEMI CARTER MD ([id number]) on 05/13/2022 1:10:18 PM Vashon: YEMI CARTER MD Event Display: ECG 12-Lead Authored Date: Please click on pdf link to open report Event Display: ECG 12-Lead Authored Date: Ventricular Rate: 73 BPM Atrial Rate: 73 BPM P-R Interval: 172 ms QRS Duration: 132 ms Q-T Interval: 460 ms QTC Calculation(Bazett): 506 ms P Dayton: 49 degrees R Dayton: -40 degrees T Dayton: 117 degrees Critical Test Result: Long QTc Sinus rhythm with frequent Premature ventricular complexes in a pattern of bigeminy Left axis deviation Non-specific intra-ventricular conduction block T wave abnormality, consider lateral ischemia Abnormal ECG Confirmed by YEMI CARTER MD ([id number]) on 05/13/2022 1:10:01 PM Vashon: YEMI CARTER MD Note Mikayla Jett RN: PERFORM Event Display: Discharge/Transfer Note Hospital Authored Date: [id number] Nursing Discharge Note Entered On: 05/23/2022 15:15 EST Performed On: 05/23/2022 15:14 EST by Mikayla Jett RN Nursing Discharge Note 2 Discharge Time : 05/23/2022 15:14 EST Discharge Level of Care at Discharge : Home/Detention/Foster Care Patient Left Unit Via : Chair Van Patient Accompanied Off Unit with : Ambulance/Chair Van Personnel Handover Given to Transport Personnel : Yes DC Instructions Provided & Signed by Pt : Yes Patient Understands D/C Instructions : Yes Patient Instructions Discharge Signed : Yes Did Pt have Specialty Bed or Wound Vac : No Mikayla Jett RN - 05/23/2022 15:14 Mandi Barbosa MD, Zoltan Parry: PERFORM, MODIFY Event Display: Discharge/Transfer Note Hospital Authored Date: [id number] Patient: ??SAL WATTS ? Age:??62 Years?Sex:??Male?:??1960?? Patient Information Discharge Location: Primary Care Physician: Jax Adorno Admit Date/Time: 05/12/22 21:39 Discharge Disposition Discharge Disposition: Home: No Services Discharge Diagnosis Acute hypoxic & hypercarbic respiratory failure (J96.01) CKD (chronic kidney disease), stage III (N18.30) Carbon dioxide narcosis (R06.89) Dementia with behavioral problem (F03.91) Diastolic CHF (I50.30) H.o. anoxic brain injury (02/2011) (G93.1) H/O left nephrectomy (Z90.5) Hx of repair of dissecting thoracic aortic aneurysm, Griffin type A (Z98.890) Hx of traumatic brain injury (Z87.820) Hypercarbia (R06.89) Hyperlipidemia (E78.5) Hypertension (I10) Hypokalemia (E87.6) LLQ pain (R10.32) Metabolic encephalopathy (G93.41) Nausea vomiting and diarrhea (R11.2) CESAR on CPAP (G47.33) Obesity hypoventilation syndrome (E66.2) PVD (peripheral vascular disease) (I73.9) Renal cell cancer (C64.9) ?? _ Discharge Medications Acetaminophen (Tylenol 325 mg oral tablet)?2?tab(s)?650?Milligram?By Mouth?Every 6hours?as needed?as needed for fever/pain Amlodipine (Norvasc 5 mg oral tablet)?10?Milligram?2?tablet?By Mouth?Daily Ammonium Lactate 12% (Ammonium Lactate 12% Topical)?1?marybeth?Topically?Daily in AM Amoxicillin?2,000?Milligram?By Mouth?Admin 1hr prior to dental appointment Aspirin (aspirin 81 mg oral delayed release tablet)?81?Milligram?1?tablet?By Mouth?Daily Carvedilol (carvedilol 25 mg oral tablet)?1?tab(s)?25?Milligram?By Mouth?2 times aday?for 30?Days?AT 8AM AND 8PM. HOLD IF SBP<100 AND HR<60 Cholecalciferol (cholecalciferol 1000 intl units oral capsule)?1?capsule?25?Microgram?By Mouth?Daily in AM Clonidine (cloNIDine 0.2 mg oral tablet)?0.2?Milligram?1?tablet?By Mouth?3 times aday Durable Medical Equipment (Please repeat basic metabolic panel with your PCP in 5-7 days)?See Instructions?Please repeat basic metabolic panel with your PCP in 5-7 days Durable Medical Equipment (Please check basic metabolic panel for bicarbonate and potassium)?See Instructions?Please check basic metabolic panel for bicarbonate and potassium Furosemide (Lasix 40 mg oral tablet)?40?Milligram?1?tablet?By Mouth?Daily Gabapentin (Neurontin 400 mg oral capsule)?400?Milligram?1?capsule?By Mouth?3 times a day Guaifenesin (Robitussin 100 mg/5 mL syrup)?200?Milligram?By Mouth?Every 4 hours?as needed?Cough hydrALAZINE (hydrALAZINE 25 mg oral tablet)?25?Milligram?1?tablet?By Mouth?2 timesa day Isosorbide Mononitrate (isosorbide mononitrate 30 mg oral tablet, extended release)?30?Milligram?1?tablet?By Mouth?Daily in AM Loperamide (Imodium A-D 2 mg oral tablet)?2?Milligram?1?tablet?By Mouth?4 times a day?as needed?for loose stool Losartan (Cozaar 100 mg oral tablet)?1?tab(s)?100?Milligram?By Mouth?Daily Melatonin (Melatonin 5 mg oral tablet)?1?tab(s)?5?Milligram?By Mouth?Daily at bedtime Metronidazole Topical (Metrogel)?See Instructions?0.75 % Topicallyapply a thin film twice daily to affected area after washing Mirtazapine (Remeron 30 mg oral tablet)?1?tab(s)?30?Milligram?By Mouth?Daily at bedtime Oxygen?2 liter?nasal cannula continuos Potassium Chloride (potassium chloride 8 mEq (600 mg) oral capsule, extended release)?1?capsule?8?Milliequivalent?By Mouth?Daily Povidone Iodine Topical (Betadine 10% solution)?See Instructions?Apply to left hand hematoma 3times daily for 5-7 days until improvement Sertraline (Zoloft 25 mg oral tablet)?1?tab(s)?25?Milligram?By Mouth?Daily?every morning Simvastatin (simvastatin 10 mg oral tablet)?1?tab(s)?10?Milligram?By Mouth?Daily at bedtime?for 30?Days?AT 8PM Terazosin (Hytrin Capsule)?6?Milligram?By Mouth?Daily at bedtime ? Doses Changed Lasix decreased to 40 mg daily Future Appointments Sunday 1:00 PM EST ?? With: Erika GRAY, Ivon Sheets Where: [facility] [address] [place] [address]- 2022 2:40 PM EST ?? With: Musa GRAY, Lucita Gallagher Where: [facility] [address] [place] [address]- Objective Assessment and Plan Assessment:? 62-year-old male patient with PMH significant for HFpEF, HTN, HLD, type a aortic dissection (s/p repair 2010), central CESAR (noncompliant CPAP), renal cell carcinoma diagnosed 11/23, s/p recent radical nephrectomy 04/25 and history of TBI who [facility] surgical procedure who was brought to [facility] for N/V and abdominal pain, ED course complicated with acute hypercarbic respiratory failure requiring emergent intubation following his CT scan and then transferred to ICU for further management. During the day patient transition to PSV with minimal pressure support well-tolerated, patient noted to have central apneic events consistent with sleep apnea, confirmed with patient's sister patient has been diagnosed with sleep apnea but does not wear CPAP. Patient extubatedand transferred to medical unit. Underwent inpatient sleep study-recommending iVAPS. [facility] and patient is getting discharged today. ? Acute hypoxic & hypercarbic respiratory failure secondary to CESAR/Hypoventilation syndrome: ?patient had sleep study on 05/16 which showed severe CESAR/Hypoventilation and it was recommended for iVAPS. ?No respiratory distress at the moment. Metabolic encephalopathy resolved. ?Initial CXR with no acute findings. ?Resp failure thought to be from CESAR/hypoventilation and patient not being on NIV. ? plan: ?Discharge today ?iVAPS with EPAP 13, rate 20, PSmin 6 PSmax 16, target VA 7.8 with 1 L O2 with a heated humidifier. ?continue with oxygen nasal canula. Pulmonary rehab recommending 1L continuous O2 ??Pulmonary f/u as outpatient ? Nausea vomiting and diarrhea resolved, no abdominal pain. CT scan abdomen-pelvis was unrevealing; possible gastroenteritis ? Renal cell cancer/CKD stage 3: renal function stable; creatinine 1.6 today; ??probably baseline renal function ? Hypertension/HLD: plan: continue with losartan 100 mg daily, and Coreg 25 mg BID continue with ASA, simvastatin ? Chronic Diastolic CHF: euvolemic. Continue with ASA, Coreg, amlodipine; lasix; dose changed from 80 mg to 40 mg ? Anoxic brain injury: no agitation. hx of traumatic brain injury, [facility] been a [facility]. ??His clinical picture is of early dementia / sequelae of anoxic brain injury & TBI. ??plan: continue with mirtazapine + sertraline ? VTE Prophylaxis: SC heparin ? Vital Signs?? Temperature: 98 DegF (05/23/22 10:28:00) Temperature Route: Oral (05/23/22 10:28:00) Pulse Rate: 77 bpm (05/23/22 10:28:00) Respiratory Rate: 19 br/min (05/23/22 10:28:00) Systolic Blood Pressure: 131 mm Hg (05/23/22 10:28:00) Diastolic Blood Pressure: 79 mm Hg (05/23/22 10:28:00) Blood pressure sites: Arm, right (05/23/22 10:28:00) Mean Arterial Pressure: 96 mm Hg (05/23/22 10:28:00) Pulse Pressure: 52 mm Hg (05/23/22 10:28:00) Oxygen Saturation:??93 %??Low (05/23/22 10:28:00) Mode of Delivery (Oxygen): Room air (05/23/22 10:28:00) Early Warning Score: 2 (05/23/22 10:29:43) ? . Physical Exam Mental Status: Oriented to person, place and time. Head: Normocephalic. Respiratory: Clear to auscultation. No wheezing, rales or rhonchi. Cardiovascular: S1 S2 regular. No murmurs, rubs or gallops. Gastrointestinal: Abdomen soft, non-tender, non-distended. Normal bowel sounds. No pulsatile mass. No hepatosplenomegaly. Genitourinary: No costovertebral angle tenderness. Neurologic: No focal neurological deficits. Flexor plantar response. Moves all extremities spontaneously. Sensation intact bilaterally. Skin: No rashes or lesions. No petechiae or purpura.?? Musculoskeletal: No cyanosis or clubbing. No gross deformities. Normal range of motion. Consultants ICU Pending Results Add On Lab Order ordered on 05/14/2022 COVID-19 (2019 Novel Coronavirus) PCR ordered on 05/22/2022 Patient Education Titles Heart Failure: Being Active?? Heart Failure: Dealing with Sleep Problems?? Coping with Heart Failure?? What Are Snoring and Obstructive Sleep Apnea??? Obstructive??Sleep Apnea?? Follow-Up Appointments Added Follow Up ?Time Frame ?Comments Jax Adorno Post Discharge Care Diet: Regular Diet Condition: stable Prognosis: Good Discharge ?05/23/22 9:35:00 EST Home Health Face to Face ^HomeHealthFTF Results Discharge Labs BLOOD COUNT & DIFF WBC 8.7 k/mm3 ()?? 05/23/2022 00:31 RBC 4.16 m/mm3 (Low)?? 05/23/2022 00:31 Hgb 12.3 Gm/dL (Low)?? 05/23/2022 00:31 Hct 40.8 % ()?? 05/23/2022 00:31 MCV 98.1 femtoliters (High)?? 05/23/2022 00:31 MCH 29.6 pg ()?? 05/23/2022 00:31 MCHC 30.1 g/dL (Low)?? 05/23/2022 00:31 Platelet Count 307 k/mm3 ()?? 05/23/2022 00:31 RDW-SD 45.7 femtoliters ()?? 05/23/2022 00:31 MPV 10.3 femtoliters ()?? 05/23/2022 00:31 Nucleated RBC (Automated) 0.0 #/100 WBC'S ()?? 05/23/2022 00:31 Abs. NRBC 0.0 k/mm3 ()?? 05/23/2022 00:31 Abs. Neut 11.4 k/mm3 (High)?? 05/12/2022 17:11 Abs. Lymph 0.9 k/mm3 ()?? 05/12/2022 17:11 Abs. [place] 0.5 k/mm3 ()?? 05/12/2022 17:11 Abs. Eo 0.6 k/mm3 (High)?? 05/12/2022 17:11 Abs. Baso 0.0 k/mm3 ()?? 05/12/2022 17:11 Neut % 83.9 % (High)?? 05/12/2022 17:11 Lymph % 6.9 % (Low)?? 05/12/2022 17:11 [place] % 4.0 % (Low)?? 05/12/2022 17:11 Eos % 4.1 % ()?? 05/12/2022 17:11 Baso % 0.2 % ()?? 05/12/2022 17:11 Hemoglobin (POC) POC Cartridge 11.6 Gm/dL (Low)?? 05/12/2022 16:40 Hematocrit (POC) POC Cartridge 34 % (Low)?? 05/12/2022 16:40 Imm Gran 0.9 % ()?? 05/12/2022 17:11 Abs. Imm Gran 0.1 k/mm3 ()?? 05/12/2022 17:11 ?? BLOOD GAS pH (POC) POC Cartridge 7.11 (Critical)?? 05/12/2022 16:40 pCO2 (POC) POC Cartridge >130.0 mm Hg (Critical)?? 05/12/2022 16:40 pO2 (POC) POC Cartridge 151 mm Hg (High)?? 05/12/2022 16:40 FIO2 (POC) POC Cartridge 100 % ()?? 05/12/2022 16:40 pH Venous (POC) POC Cartridge 7.16 (Low)?? 05/12/2022 16:28 pCO2 Venous (POC) POC Cartridge 129.3 mm Hg (High)?? 05/12/2022 16:28 pO2 Venous (POC) POC Cartridge 71 mm Hg (High)?? 05/12/2022 16:28 Est Bicarbonate (POC) POC Cartridge 45.8 mmol/L (High)?? 05/12/2022 16:28 % O2 Sat Venous (POC) POC Cartridge 86 ()?? 05/12/2022 16:28 Base Excess (POC) POC Cartridge 17 ()?? 05/12/2022 16:28 pH 7.38 ()?? 05/15/2022 08:53 pCO2 68 mm Hg (High)?? 05/15/2022 08:53 pO2 76 mm Hg (Low)?? 05/15/2022 08:53 Bicarbonate, Estimated 39 mmol/L (High)?? 05/15/2022 08:53 Specimen Type - Blood Gas ARTERIAL ()?? 05/15/2022 08:53 pH, Venous 7.56 (High)?? 05/13/2022 00:24 pCO2, Venous 41 mm Hg ()?? 05/13/2022 00:24 pO2, Venous 47 mm Hg (High)?? 05/13/2022 00:24 Bicarbonate, Estimated(Venous) 37 mmol/L (High)?? 05/13/2022 00:24 Percent O2 (FIO2) 32 ()?? 05/15/2022 08:53 ?? CARDIAC Nt-Probnp 2655 pg/mL (High)?? 05/15/2022 01:13 High Sensitivity Troponin (HSTnT) 11 ng/L ()?? 05/12/2022 17:11 ?? CHEM GENERAL Sodium 142 mmol/L ()?? 05/23/2022 00:31 Potassium 4.3 mmol/L ()?? 05/23/2022 00:31 Chloride 102 mmol/L ()?? 05/23/2022 00:31 Bicarbonate Level 33 mmol/L (High)?? 05/23/2022 00:31 Anion Gap 7 ()?? 05/23/2022 00:31 Sodium (POC) POC Cartridge 142 mmol/L ()?? 05/12/2022 16:40 Potassium (POC) POC Cartridge 3.6 mmol/L ()?? 05/12/2022 16:40 Glucose Level 99 mg/dL ()?? 05/23/2022 00:31 Glucose (POC) POC Cartridge 204 (High)?? 05/12/2022 16:40 Glucose, POC 139 mg/dL (High)?? 05/13/2022 22:34 BUN 25 mg/dL (High)?? 05/23/2022 00:31 Creatinine-Blood 1.5 mg/dL (High)?? 05/23/2022 00:31 Estimated GFR Creatinine 51 ML/MIN/1.73 M2 ()?? 05/23/2022 00:31 Calcium 9.3 mg/dL ()?? 05/23/2022 00:31 Ionized Calcium (POC) POC Cartridge 1.21 mmol/L ()?? 05/12/2022 16:40 Phosphorus 2.6 mg/dL ()?? 05/15/2022 01:13 Magnesium 2.4 mg/dL (High)?? 05/15/2022 01:13 Protein, Total 6.6 Gm/dL ()?? 05/12/2022 17:11 Albumin 4.0 Gm/dL ()?? 05/12/2022 17:11 AG Ratio 1.5 ()?? 05/12/2022 17:11 Alkaline Phosphatase 125 units/L ()?? 05/12/2022 17:11 Lipase 30 units/L ()?? 05/12/2022 12:09 AST (SGOT) 41 units/L (High)?? 05/12/2022 17:11 ALT (SGPT) 34 units/L ()?? 05/12/2022 17:11 Bilirubin, Total 0.4 mg/dL ()?? 05/12/2022 17:11 Vitamin B12 Level 413 pg/mL ()?? 05/13/2022 21:36 Lactate 1.2 mmol/L ()?? 05/13/2022 21:42 ? ENDOCRINE/TUMOR MARKER TSH 0.91 uIU/mL ()?? 05/12/2022 17:11 ? HEME OTHER Hold Lavender Top SPECIMEN DISCARDED AFTER 24 HOURS. ()?? 05/18/2022 01:49 Hold Blue Top SPECIMEN DISCARDED AFTER 4 HOURS. ()?? 05/12/2022 12:09 ?? MISC. CHEMISTRY Hold Green Top SPECIMEN DISCARDED AFTER 1 WEEK ()?? 05/12/2022 12:09 Hold Gel Top SPECIMEN DISCARDED AFTER 1 WEEK ()?? 05/13/2022 00:16 ?? UA/URINALYSIS Appear/Color, Urine COLORLESS ()?? 05/12/2022 17:36 Specific Flora, Urine 1.009 ()?? 05/12/2022 17:36 pH, Urine 5.5 ()?? 05/12/2022 17:36 Albumin, Urine 1+ (Abnormal)?? 05/12/2022 17:36 Glucose, Urine NEGATIVE ()?? 05/12/2022 17:36 Ketones, Urine NEGATIVE ()?? 05/12/2022 17:36 Bilirubin, Urine NEGATIVE ()?? 05/12/2022 17:36 Hemoglobin, Urine NEGATIVE ()?? 05/12/2022 17:36 Nitrite, Urine NEGATIVE ()?? 05/12/2022 17:36 Leukocyte, Urine NEGATIVE ()?? 05/12/2022 17:36 Urobilinogen NORMAL mg/dL ()?? 05/12/2022 17:36 WBC's, Urine 1 /HPF ()?? 05/12/2022 17:36 RBC's, Urine NONE SEEN /HPF ()?? 05/12/2022 17:36 Squamous Epith <1 /HPF ()?? 05/12/2022 17:36 Mucus SLIGHT /LPF ()?? 05/12/2022 17:36 Hold Urine Culture Testing available 48 hours from time of collection. ()?? 05/12/2022 17:36 ?? VIROLOGY Influenza A PCR NEGATIVE ()?? 05/12/2022 12:19 Influenza B PCR NEGATIVE ()?? 05/12/2022 12:19 RSV PCR NEGATIVE ()?? 05/12/2022 12:19 COVID-19 by RT-PCR NEGATIVE ()?? 05/16/2022 16:35 COVID-19 PCR Specimen Source NASAL ()?? 05/22/2022 13:36 COVID-19 PCR Result NEGATIVE ()?? 05/22/2022 13:36 ? Microbiology ?? COVID-19 (2018 Novel Coronavirus) PCR?? Completed?? Source: Nasal Body Site: Nose Collected Dt/Tm: 05/22/2022 13:35 Last Updated Dt/Tm: 05/23/2022 01:11 COVID-19 (2018 Novel Coronavirus) PCR?? Completed?? Source: Nasal Body Site: Nose Collected Dt/Tm: 05/18/2022 05:43 Last Updated Dt/Tm: 05/19/2022 02:17 COVID-19 (2018 Novel Coronavirus) PCR?? Completed?? Source: Nasal Body Site: Nose Collected Dt/Tm: 05/22/2022 05:12 Last Updated Dt/Tm: 05/22/2022 18:08 ? 35??minutes spent on discharge Mikayla Jett RN: PERFORM Event Display: Patient Education/Instruction Authored Date: [id number] Inpatient Adult Discharge Instructions [place] [id number] Name: SAL DUMONT : 1960 Visit: 05/12/2022 21:39:00 Current Date: 05/23/2022 14:45 Account: [id number] Inpatient Adult Discharge Instructions We would like to thank you for allowing us to assist you with your healthcare needs. The following includes patient education materials and information regarding your injury/illness. Our entire staff strives to provide an excellent experience for our patients and their families. PLEASE ENSURE YOU FOLLOW-UP PER THE INSTRUCTIONS BELOW! ?? YOUR OPINION IS IMPORTANT TO US! Please complete the survey you may receive by mail or email. Your feedback will be used to make improvements to the healthcare experiences of our patients and their families. Surveys are administered by [employer] ?? If further treatment with your primary care physician or another doctor is recommended, it is important for you to keep the appointment. Call your primary care physician or return to the Emergency Department immediately if your condition worsens, fails to improve, or new symptoms develop. If you need to find a doctor, you can call [facility] for a referral at [phone] or toll free at [phone] or log in to [email or web address].. ?? You can view and manage your care through the patient portal or by using a health care marybeth of your choosing. [employer] is a website that allows you to securely view your medical information including your hospital discharge summary, office visit summaries, medications and follow-up visits. You can also request appointments, renew medications, and request access to your medical information using a health care marybeth of your choosing, or just ask a question. You can enroll at [email or web address] or register during your next office visit. You have been discharged from [facility], Patient Care Unit: S3. If you have any questions regarding these instructions after you leave, please call us and we will be happy to assist you. [facility] Your Care Team Attending Physician Curtis Barbosa MD, Zoltan Parry Consulting Providers Michaela HERNANDEZ, Unique Hermosillo MD, Teresa Serna MD, Shoshana Discharging Providers Curtis Barbosa MD, Zoltan Parry Reason for Admission Nausea, Vomiting, LLQ pain Your Diagnosis Acute hypoxemic respiratory failure Carbon dioxide narcosis Hypercarbia CESAR on CPAP Renal cell cancer Obesity hypoventilation syndrome Metabolic encephalopathy Nausea vomiting and diarrhea LLQ pain H/O left nephrectomy CKD (chronic kidney disease), stage III Hypokalemia Hypertension Hyperlipidemia Diastolic CHF PVD (peripheral vascular disease) Hx of repair of dissecting thoracic aortic aneurysm, [place]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 You may have had other tests and procedures not included in this list. Please discuss all test results with your provider. ABG ABG POC CARTRIDGE BASE EXCESS POC CARTRIDGE Basic Metabolic Panel BUN CALCIUM IONIZED POC CART Calcium Level CBC CBC w/ Differential Comprehensive Metabolic Panel COVID-19 (NOVEL CORONAVIRUS), PCR COVID-19, RSV, and Flu A/B, Rapid PCR Creatinine Electrolytes Glucose Level GLUCOSE POC GLUCOSE POC CARTRIDGE HEMATOCRIT POC CARTRIDGE HEMOGLOBIN POC CARTRIDGE High??Sensitivity??Troponin T HOLD BLUE TUBE HOLD GEL TUBE HOLD GREEN TUBE HOLD LAVENDER TUBE Lactate Level Lipase Lytes Magnesium Level O2 PERCENT (POINT OF CARE) Phosphorus Level POTASSIUM POC CARTRIDGE ProBNP SODIUM POC CARTRIDGE TSH with T4 Reflex (Adults Only) Urinalysis w/hold for Urine Culture VBG VBG POC CARTRIDGE VITAMIN B12 CT Abd/Pelvis W/ Oral Contrast Only CT Head/Brain W/O Contrast CXR Portable PCXR XR Chest Portable Primary Care Provider Jax Adorno Advance Directive Health Care Proxy on File Yes - Health Care Proxy No qualifying data available. Discharge Vitals Temperature: 98 DegF Weight: 96.9 kg Pulse Rate: 77 bpm ?? Respiratory Rate: 19 br/min ?? Systolic Blood Pressure: 131 mm Hg ?? Diastolic Blood Pressure: 79 mm Hg ?? Oxygen Saturation:??93 %??Low ?? Studies Pending All tests and labs ordered during this hospital stay have been completed unless listed below. Pleasediscuss all pending results with your provider listed above in these instructions. ?? Add On Lab Order COVID-19 (2019 Novel Coronavirus) PCR What to do next Instructions From Your Doctor Discharge Orders Diet:??Regular Diet Condition:??stable Prognosis:??Good Scheduled Follow-Up Appointments Sunday 1:00 PM EST ?? With: Erika GRAY, Ivon Sheets Where: [facility] [address] [place] [address]- 2022 2:40 PM EST ?? With: Lucita Vigil MD Where: [facility] [address] [place] [address]- You Need to Schedule the Following Appointments Follow Up with??Jax Adorno When?? Where: [address] [place] [phone]- Discharge Medications SAL WATTS :1960 Visit Date:05/12/2022 Medications: Please continue your medications until treatment is completed or stopped by your provider. Medications not listed below should be discontinued. Discuss any questions related to medications with your provider. What How Much When Instructions Next Dose Changed Clonidine (cloNIDine 0.2 mg oral tablet) 1 tab(s) Oral 3 times a day Pickup at [place] [address] 05/23 PM Changed Furosemide (Lasix 40 mg oral tablet) 1 tab(s) Oral Daily in the morning Pickup at [place] [address] 05/24 AM Changed Isosorbide Mononitrate (isosorbide mononitrate 30 mg oral tablet, extended release) 1 tab(s) Oral Daily in the morning Pickup at [place] [address] 05/24 AM Changed Losartan (Cozaar 100 mg oral tablet) 1 tab(s) Oral Daily Pickup at [place] [address] 05/24 AM Changed Mirtazapine (Remeron 30 mg oral tablet) 1 tab(s) Oral Daily at Bedtime Pickup at [place] [address] 05/23 PM Changed Sertraline (Zoloft 25 mg oral tablet) 1 tab(s) Oral Daily every morning ?? Pickup at [place] [address] 05/24 AM Unchanged Acetaminophen (Tylenol 325 mg oral tablet) 2 tab(s) Oral Every 6 hours as needed for as needed for fever/pain as needed Unchanged Amlodipine (Norvasc 5 mg oral tablet) 2 tab(s) Oral Daily Pickup at [place] [address] 05/24 Unchanged Ammonium Lactate 12% (Ammonium Lactate 12% Topical) 1 marybeth Topically Daily in the morning 05/24 AM Unchanged Amoxicillin 2,000 Milligram Oral Admin 1hr prior to dental appointment ?? prior to Dental appt Unchanged Aspirin (aspirin 81 mg oral delayed release tablet) 1 tab(s) Oral Daily Pickup at [place] [address] 05/24 Unchanged Carvedilol (carvedilol 25 mg oral tablet) 1 tab(s) Oral Twice a day Duration: 30 Days AT 8AM AND 8PM. HOLD IF SBP<100 AND HR<60 ?? Pickup at [place] [address] 05/23 PM Unchanged Cholecalciferol (cholecalciferol 1000 intl units oral capsule) 1 capsule Oral Daily in the morning 05/24 AM Unchanged Gabapentin (Neurontin 400 mg oral capsule) 1 capsule Oral 3 times a day Pickup at [place] [id number] 05/23 PM Unchanged Guaifenesin (Robitussin 100 mg/ 5 mL syrup) 200 Milligram Oral Every 4 hours as needed for Cough as needed Unchanged hydrALAZINE (hydrALAZINE 25 mg oral tablet) 1 tab(s) Oral Twice a day Pickup at [facility] 05/23 PM Unchanged Loperamide (Imodium A-D 2 mg oral tablet) 1 tab(s) Oral 4 times a day as needed for for loose stool as needed Unchanged Melatonin (Melatonin 5 mg oral tablet) 1 tab(s) Oral Daily at Bedtime 05/23 bedtime Unchanged Metronidazole Topical (Metrogel) See instructions 0.75 % Topically apply a thin film twice daily to affected area after washing ?? 05/23 PM Unchanged Potassium Chloride (potassium chloride 8 mEq (600 mg) oral capsule, extended release) 1 capsule Oral Daily 05/24 AM Unchanged Terazosin (Hytrin Capsule) 6 Milligram Oral Daily at Bedtime 05/23 bedtime Pharmacy Information [place] [address]: [address] [id number] [phone] ?? What How Much When Comments Stop Taking Simvastatin (simvastatin 10 mg oral tablet) 1 tab(s) Oral Daily at Bedtime Duration: 30 Days AT 8PM ?? Test Results Below is a partial list of the most recent Laboratory test results done prior to this discharge. You may have had other tests and procedures not included in this list. Please discuss all test results with your provider. ABG (05/15/2022) ???pH - 7.38???pCO2 - 68 mm Hg???pO2 - 76 mm Hg???Bicarbonate, Estimated - 39 mmol/L???Specimen Type- Blood Gas - ARTERIAL???Percent O2 (FIO2) - 32 ABG POC CARTRIDGE (05/12/2022) ? ?pH (POC) POC Cartridge - 7.11? ?pCO2 (POC) POC Cartridge - >130.0 mm Hg? ?pO2 (POC) POC Cartridge - 151 mm Hg???Specimen Type - Blood Gas - ARTERIAL BASE EXCESS POC CARTRIDGE (05/12/2022) ???Base Excess (POC) POC Cartridge - 17 Basic Metabolic Panel (05/14/2022) ???Sodium - 145 mmol/L???Potassium - 3.4 mmol/L???Chloride - 98 mmol/L???Bicarbonate Level - 40 mmol/L???Anion Gap - 7???Glucose Level - 104 mg/dL???BUN - 14 mg/dL???Creatinine-Blood - 1.5 mg/dL???Estimated GFR Creatinine - 53 ML/MIN/1.73 M2???Calcium - 8.5 mg/dL BUN (05/23/2022) ???BUN - 25 mg/dL CALCIUM IONIZED POC CART (05/12/2022) ???Ionized Calcium (POC) POC Cartridge - 1.21 mmol/L Calcium Level (05/23/2022) ???Calcium - 9.3 mg/dL CBC (05/23/2022) ???WBC - 8.7 k/mm3???RBC - 4.16 m/mm3???Hgb - 12.3 Gm/dL???Hct - 40.8 %???MCV - 98.1 femtoliters???MCH - 29.6 pg???MCHC - 30.1 g/dL???Platelet Count - 307 k/mm3???RDW-SD - 45.7 femtoliters???MPV - 10.3femtoliters???Nucleated RBC (Automated) - 0.0 #/100 WBC'S???Abs. NRBC - 0.0 k/mm3 CBC w/ Differential (05/12/2022) ???WBC - 13.5 k/mm3???RBC - 3.32 m/mm3???Hgb - 10.2 Gm/dL???Hct - 35.6 %???MCV - 107.2 femtoliters???MCH - 30.7 pg???MCHC - 28.7 g/dL???Platelet Count - 324 k/mm3???RDW-SD - 50.3 femtoliters???MPV - 10.5 femtoliters???Nucleated RBC (Automated) - 0.0 #/100 WBC'S???Abs. NRBC - 0.0 k/mm3???Abs. Neut - 11.4 k/mm3???Abs. Lymph - 0.9 k/mm3???Abs. [place] - 0.5 k/mm3???Abs. Eo - 0.6 k/mm3???Abs. Baso - 0.0 k/mm3???Neut % - 83.9 %???Lymph % - 6.9 %???[place] % - 4.0 %???Eos % - 4.1 %???Baso % - 0.2 %???Imm Gran -0.9 %???Abs. Imm Gran - 0.1 k/mm3 Comprehensive Metabolic Panel (05/12/2022) ???Sodium - 144 mmol/L???Potassium - 4.0 mmol/L???Chloride - 97 mmol/L???Bicarbonate Level - 44 mmol/L???Anion Gap - 3???Glucose Level - 204 mg/dL???BUN - 16 mg/dL???Creatinine-Blood - 1.4 mg/dL???Estimated GFR Creatinine - 56 ML/MIN/1.73 M2???Calcium - 8.4 mg/dL???Protein, Total - 6.6 Gm/dL???Albumin - 4.0 Gm/dL???AG Ratio - 1.5???Alkaline Phosphatase - 125 units/L???AST (SGOT) - 41 units/L???ALT (SGPT) - 34 units/L???Bilirubin, Total - 0.4 mg/dL COVID-19 (NOVEL CORONAVIRUS), PCR (05/16/2022) ???COVID-19 by RT-PCR - NEGATIVE COVID-19, RSV, and Flu A/B, Rapid PCR (05/12/2022) ???Influenza A PCR - NEGATIVE???Influenza B PCR - NEGATIVE???RSV PCR - NEGATIVE???COVID-19 PCR Specimen Source - NASAL???COVID-19 PCR Result - NEGATIVE Creatinine (05/23/2022) ???Creatinine-Blood - 1.5 mg/dL???Estimated GFR Creatinine - 51 ML/MIN/1.73 M2 Electrolytes (05/23/2022) ???Sodium - 142 mmol/L???Potassium - 4.3 mmol/L???Chloride - 102 mmol/L???Bicarbonate Level - 33 mmol/L???Anion Gap - 7 Glucose Level (05/23/2022) ???Glucose Level - 99 mg/dL GLUCOSE POC (05/13/2022) ???Glucose, POC - 139 mg/dL GLUCOSE POC CARTRIDGE (05/12/2022) ???Glucose (POC) POC Cartridge - 204 HEMATOCRIT POC CARTRIDGE (05/12/2022) ???Hematocrit (POC) POC Cartridge - 34 % HEMOGLOBIN POC CARTRIDGE (05/12/2022) ???Hemoglobin (POC) POC Cartridge - 11.6 Gm/dL High??Sensitivity??Troponin T (05/12/2022) ???High Sensitivity Troponin (HSTnT) - 11 ng/L HOLD BLUE TUBE (05/12/2022) ???Hold Blue Top - SPECIMEN DISCARDED AFTER 4 HOURS. HOLD GEL TUBE (05/13/2022) ???Hold Gel Top - SPECIMEN DISCARDED AFTER 1 WEEK HOLD GREEN TUBE (05/12/2022) ???Hold Green Top - SPECIMEN DISCARDED AFTER 1 WEEK HOLD LAVENDER TUBE (05/18/2022) ???Hold Lavender Top - SPECIMEN DISCARDED AFTER 24 HOURS. Lactate Level (05/13/2022) ???Lactate - 1.2 mmol/L Lipase (05/12/2022) ???Lipase - 30 units/L Lytes (05/18/2022) ???Sodium - 140 mmol/L???Potassium - 3.5 mmol/L???Chloride - 95 mmol/L???Bicarbonate Level - 35 mmol/L???Anion Gap - 10 Magnesium Level (05/15/2022) ???Magnesium - 2.4 mg/dL O2 PERCENT (POINT OF CARE) (05/12/2022) ???FIO2 (POC) POC Cartridge - 100 % Phosphorus Level (05/15/2022) ???Phosphorus - 2.6 mg/dL POTASSIUM POC CARTRIDGE (05/12/2022) ???Potassium (POC) POC Cartridge - 3.6 mmol/L ProBNP (05/15/2022) ???Nt-Probnp - 2655 pg/mL SODIUM POC CARTRIDGE (05/12/2022) ???Sodium (POC) POC Cartridge - 142 mmol/L TSH with T4 Reflex (Adults Only) (05/12/2022) ???TSH - 0.91 uIU/mL Urinalysis w/hold for Urine Culture (05/12/2022) ???Appear/Color, Urine - COLORLESS???Specific Flora, Urine - 1.009???pH, Urine - 5.5???Albumin, Urine - 1+???Glucose, Urine - NEGATIVE???Ketones, Urine - NEGATIVE???Bilirubin, Urine - NEGATIVE???Hemoglobin, Urine - NEGATIVE???Nitrite, Urine - NEGATIVE???Leukocyte, Urine - NEGATIVE???Urobilinogen - NORMAL? ?WBC's, Urine - 1 /HPF? ?RBC's, Urine - NONE SEEN? ?Squamous Epith - <1 /HPF? ?Mucus - SLIGHT???Hold Urine Culture - Testing available 48 hours from time of collection. VBG (05/13/2022) ???Specimen Type - Blood Gas - VENOUS???pH, Venous - 7.56???pCO2, Venous - 41 mm Hg???pO2, Venous - 47 mm Hg???Bicarbonate, Estimated(Venous) - 37 mmol/L VBG POC CARTRIDGE (05/12/2022) ???pH Venous (POC) POC Cartridge - 7.16???pCO2 Venous (POC) POC Cartridge - 129.3 mm Hg???pO2 Venous(POC) POC Cartridge - 71 mm Hg???Est Bicarbonate (POC) POC Cartridge - 45.8 mmol/L???% O2 Sat Venous(POC) POC Cartridge - 86???Specimen Type - Blood Gas - VENOUS VITAMIN B12 (05/13/2022) ???Vitamin B12 Level - 413 pg/mL Allergies (NKA means No Known Allergies) NKA Problems Active Problems??(8) Aortic dissection?? Heart failure with preserved ejection fraction?? HLD (hyperlipidemia)?? HTN (hypertension)?? Obese class II?? CESAR treated with BiPAP?? Renal cell carcinoma of left kidney?? TBI (traumatic brain injury)?? Education Materials Below is the list of Educational Leaflet Providered with your Discharge Instructions. Heart Failure: Being Active?? Heart Failure: Dealing with Sleep Problems?? Coping with Heart Failure?? What Are Snoring and Obstructive Sleep Apnea??? Obstructive??Sleep Apnea?? Valuables and Belongings I fully understand and agree that [facility] accepts no responsibility for all my personal property including clothing, toilet articles, radios, jewelry, dentures, hearing aids, rings, money, or any other property that is in my possession or is brought to me after admission. I understand certain valuables may be placed in a hospital safe for a short period of time. I understand that the hospital is not liable for loss or damage due to accident, fire, or other natural occurrence while said property is in the safe. I accept full responsibility for any personal property that I keep with me, and will not hold the hospital responsible in case of loss or disappearance. I acknowledge that i have been encouraged to send valuables and belongings home. ?? No Valuables/Belongings: No valuables/belongings present Review of Valuable and Belonging List: With patient, With family Date for Pt to Sign Valuables/Belongings: 05/23/22 10:28:00 ?? Other Discharge Information ?? Wound Assessment?? Wound Assessment?? Wound Location I: Hand, left Wound Location II: Other: left groin incision Surgical Incision Type I: Surgical Surgical Incision I, Surrounding Skin: Intact Surgical Incision Type II: Surgical Surgical Incision Location II: Abdomen, left lower ? Pulmonary Rehab Status?? Pulmonary Rehab Discharge Status?? CPAP/BiPAP Mask Type: Pillows CPAP/BiPAP Mask Size: Medium Respiratory Rate: 19 br/min PEEP: 5 ? Common Emergency Awareness Tips IS IT A STROKE? Act FAST and Check for these signs: FACE Does the face look uneven? ARM Does one arm drift down? SPEECH Does their speech sound strange? TIME Call at any sign of stroke ?? Heart Attack Signs Chest discomfort: Most heart attacks involve discomfort in the center of the chest and lasts more than a few minutes, or goes away and comes back. It can feel like uncomfortable pressure, squeezing, fullness or pain. Discomfort in upper body: Symptoms can include pain or discomfort in one or both arms, back, neck, jaw or stomach. Shortness of breath: With or without discomfort. Other signs: Breaking out in a cold sweat, nausea, or lightheaded. Remember, MINUTES DO MATTER. If you experience any of these heart attack warning signs, call to get immediate medical attention! ?? Smoking can increase your chances of developing chronic health problems and can cause harmful effects to other family members in your house. If you smoke, you are strongly encouraged to quit. Please call [facility] at [phone] or [phone] Reviewer ([phone]) or log in to [email or web address] for referrals to smoking cessation programs. ?? The National Suicide Prevention Hotline is available 25/12 if you or someone you know needs to find areason to keep living. By calling 9-512-396-Creative Citizen (5962) you'll be connected to a skilled, trained counselor at a crisis center in your area. INPATIENT DISCHARGE INSTRUCTIONS SIGNATURE PAGE TAMI SAL DUMONT Location:[facility] Registration Date and Time:05/12/2022 21:39 EST Primary Care Physician: Jax Adorno, I SAL WATTS, have received the above patient education materials/instructions and have verbalized understanding. If ambulance or transport services are being used I further acknowledge being given a choice of service. ?? If you need to contact me, please call me at this number: . Patient/Snath Handle Assembler Name: Patient/Snath Handle Assembler Signature: Relationship to Patient: Witness Name/Signature: Date: Curtis Barbosa MD, Zoltan Parry: PERFORM Event Display: Patient Education Leaflets Authored Date: [id number] Heart Failure: Being Active ?? [id number] Heart Failure: Being Active You have a condition called heart failure. Being active doesn???t mean that you have to wear yourself out. Even a little movement each day helps to strengthen your heart. If you can???t get out to exercise, you can do simple stretching and strengthening exercises at home. The tips below are good, easy ways to keep you well-conditioned. And they can prevent you and your heart from getting too weak. Ideas to get you started ??? Add a little movement to things you do now. Walk to mail letters. Parkyour car at the far end of the parking lot and walk to the store. Walk up a flight of stairs insteadof taking the elevator. ??? Choose activities you enjoy. You might walk, swim, or ride an exercise bike. Things like gardening and washing the car count, too. Other possibilities include: washing dishes, walking the dog, walking around the mall, and doing aerobic activities with friends. ??? Join a group exercise program. Try the [facility] or [facility], a senior center, or a community center. Or look into a hospital cardiac rehab program. Before you start a program, ask your healthcare provider if you qualify. ?? Tips to keep you going ??? Get up and get dressed each day. Go to a coffee shop and read a newspaper. Or go someplace where you'll be around other active people. You???ll feel more like being active. ??? Make a plan. Choose 1 or more activities that you enjoy and that you can easily do. Then plan to do at least 1 each day. You might write your plan on a calendar. ??? Go with a friend or a group if you like company. This can help you feel supported and stay motivated, too. ??? Plan social events that you enjoy. This will keep you mentally engaged and physically motivated to do things you like. ?? For your safety ??? Talk with your healthcare provider before starting an exercise program. Your provider will give you specific instructions on what to do if you get overtired. ??? Exercise indoors when it???s too hot or too cold outside, or when the air quality is poor. Try walking at a shopping mall. ??? Wear socks and sturdy shoes to keep your balance and prevent falls. ??? Start slowly. Do a few minutes several times a day at first. Increase your time and speed little by little. Steady, slow, consistent exercise is both safe and healthy. ??? Stop and rest when you feel tired or get short of breath. ??? Don???t push yourself on days when you don???t feel well. ?? Last Reviewed Date: 2021 ?? 9985-5522 [employer]. All rights reserved. This information is not intended as a substitute for professional medical care. Always follow your healthcare professional's instructions. ??Curtis Barbosa MD, Zoltan Parry: PERFORM Event Display: Patient Education Leaflets Authored Date: [id number] Heart Failure: Dealing with Sleep Problems ?? 37088 Heart Failure: Dealing with Sleep Problems If you have heart failure and you???re not sleeping well, there are many possible reasons. Many people with heart failure also have sleep apnea. This is a condition that causes snoring and brief periods of not breathing. Age, certain medicines, and not getting enough exercise can also affect sleep. Be sure to tell your healthcare provider if you???re having sleep problems. Tips for sleeping better If shortness of breath keeps you awake, your healthcare team needs to know. Tell them if you can???t lie flat or need to sleep propped up on pillows. Or tell them if you can only sleep sitting up in achair or recliner. If nighttime shortness of breath gets worse, tell your healthcare provider. You may have a buildup of fluid and need more diuretic medicine. If you have other sleep problems not related to shortness of breath, these tips may help: ??? Do deep breathing in bed. This will relax you and help you fall asleep. ??? Don???t drink caffeine any later than noon. ??? Try to go to sleep and wake up around the same time every day. This helps your body set a sleep cycle. ??? Don't nap. This canaffect your sleep cycle. ??? Pull window shades down. If the room isn???t dark enough, get blackout shades. ??? Keep pets out of the bedroom if they bother you at night. ??? Wear comfortable, loose pajamas. Pajamas that fit tightly may make you feel like it's harder to breathe. ??? If you take medicines at bedtime, talk with your healthcare provider about changing this. Certain medicines may be keeping you awake. Or they may cause you to wake up often to use the bathroom. Beta-blockers and diureticsare common medicines taken for heart failure that can affect your sleep. ??? Talk with your healthcare provider about taking txra-tvx-iojotuh sleep aids. Some OTC medicines can interact with your prescribed medicines. Or they may have salts in them that cause you to retain fluids. ?? Do you have sleep apnea? You may not know??you have sleep apnea unless someone notices that you have irregular breathing, gasping, or snoring while you sleep. You should get checked for this condition. If you have it, treatment can improve your health. Treatment can also ease the stress on your heart and body. Your healthcare provider may prescribe a CPAP???(continuous positive airway pressure) or BiPap???(bilevel positive airway pressure) device. The machine sends a gentle flow of air through a nasal mask while you sleep. This air goes through your nose and into your lungs, keeping airways open. An airflow device may be needed if you have sleep apnea. ?? Tips for using CPAP and BiPap ??? If your mask doesn???t fit or feel right, talk with your healthcare provider or the vendor about adjusting it or trying a new one. There are many different styles andtypes that may fit your face better than others. ??? If you have allergies or other problems that block your nose, get those treated. These devices work best if your nose is clear. ??? If the device doesn???t feel good or work well at first, don???t stop using it. Ask your provider or someone from your medical equipment company for ways to help make it work for you. ??? Newer devices are small, lightweight, quiet, and portable. Take your machine with you when you travel or are not sleeping at home. Some devices have chargeable batteries. They can be taken camping or when sleeping outdoors. ??? Don't use tap water to fill the water chamber for humidity. Deposits in tap water can build up and affectthe machine and your breathing. The product makers usually recommend that you use sterile water or di stilled water. ??? Ask your healthcare provider if you need oxygen along with your CPAP or BiPAP machine. Some people with heart failure need both. ??? The equipment wears out with time. Make sure yourequipment is tested. Get new equipment as often as your healthcare provider recommends. ?? Last Reviewed Date: 2021 ?? [id number] [employer]. All rights reserved. This information is not intended as a substitute for professional medical care. Always follow your healthcare professional's instructions. ??Curtis Barbosa MD, Zoltan Parry: PERFORM Event Display: Patient Education Leaflets Authored Date: [id number] Coping with Heart Failure ?? 18399 Coping with Heart Failure It???s normal to feel sad or down at times when you???re living with heart failure. Some medicines can also affect your mood. Following your treatment plan may seem difficult at times. If you feel overwhelmed, just focus on one day at a time. Don???t be afraid to ask others for help when you need it. Ways to feel better Try not to withdraw from family and friends, even if you're finding it hard to talk to them. They can still be a good source of support. To feel better, you can also: ??? Spend time doing things you enjoy. This may include taking part in a favorite hobby, meditating, praying, or spending time with people you care about. Find activities that make you happy. And make those a priority. ??? Share what you learn about heart failure with the people in your life. Invite family members along when you visityour healthcare provider. This will help you feel supported. And it will help you discuss the care plan you've agreed upon with your provider. ??? Think about joining a support group for people with heart failure. It may be easier to talk to people who know firsthand what you???re going through. They can offer advice and share stories. You may want to ask loved ones to join you for a meeting. ?? Asking for help Having heart failure doesn???t mean that you have to feel bad all the time. Think about talking to your healthcare provider or a therapist if: ??? You feel worthless or helpless, or are thinking aboutsuicide. These are warning signs of depression. Treatment can help you feel better. When depression is under control, your overall health may also improve. ??? You feel anxious about what will happen to your loved ones if your health gets worse. Taking care of legal arrangements, such as a living willand durable power of mobile heavy equipment operator, can help you feel more secure about the future. ??? You feel stressedor alone. Social support helps reduce stress and helps you stick with your healthy lifestyle changes. Without social support, you may end up back in the hospital. ?? Last Reviewed Date: 2021 ?? [id number] [employer]. All rights reserved. This information is not intended as a substitute for professional medical care. Always follow your healthcare professional's instructions. ?? Event Display: Cardiac Rhythm Strips Authored Date: Event Display: Cardiac Rhythm Strips Authored Date: Hospital Progress note Elizabeth Sage: SIGN, PERFORM, VERIFY Event Display: Progress Note Hospital Authored Date: Patient: SAL WATTS Age: 62 years Sex: Male : 1960 Associated Diagnoses: None Author: Elizabeth Sage Findings Problem Related to Alteration in Respiratory Function (new) : Alteration in Respiratory Function/new 05/23/2022 10:00 EST Alteration in Resp Status Related to Other: Acute respiratory failure Goals & Outcomes, Respiratory Pt will maintain/resume baseline physical assessment, Pt will notdevelop complications r/t mechanical ventilation, Pt will maintain adequate nutritional intake, Pt will maintain/resume normal fluid/electrolyte balance, Pt will not develop complications r/t immobility, Pt will demonstrate proper technique w/self care procedures Interventions, Respiratory Assess for and report S&S of respiratory distress, Position for comfort & optimal oxygenation, Teach purse lip breathing as needed for breathing retraining BH Goals/Interventions, Respiratory Yes Respiratory, Problem Start 05/12/2022 17:00 Reviewed Plan with, Respiratory Patient Patient Progression, Respiratory Patient progressing according to plan . Evaluation Patient A&O x 3. On room air. C/o 4/10 abdominal pain. administered scheduled Tylenol with good effect. Ambulating independently with walker. Bed locked in lowest position. Call coleman and belongingsin reach. Frequent rounding maintained. Report given to S3 nurse for discharge.. Discharge Information Pulmonary Rehab Discharge : Pulmonary Rehab Discharge Status 05/21/2022 23:23 EST CPAP/BiPAP Mask Type Pillows CPAP/BiPAP Mask Size Medium 05/18/2022 22:30 EST CPAP/BiPAP Mask Type Pillows CPAP/BiPAP Mask Size Medium 05/18/2022 4:54 EST CPAP/BiPAP Mask Type Pillows CPAP/BiPAP Mask Size Medium 05/18/2022 2:22 EST CPAP/BiPAP Mask Type Pillows CPAP/BiPAP Mask Size MediumKendall Lee RN: VERIFY, PERFORM, SIGN Event Display: Progress Note Hospital Authored Date: Patient: SAL WATTS Age: 62 years Sex: Male : 1960 Associated Diagnoses: None Author: Kendall Lee RN Findings Problem Related to Alteration in Respiratory Function (new) : Alteration in Respiratory Function/new 05/22/2022 23:57 EST Alteration in Resp Status Related to Other: Acute respiratory failure Goals & Outcomes, Respiratory Pt will maintain/resume baseline physical assessment, Pt will notdevelop complications r/t mechanical ventilation, Pt will maintain adequate nutritional intake, Pt will maintain/resume normal fluid/electrolyte balance, Pt will not develop complications r/t immobility, Pt will demonstrate proper technique w/self care procedures Interventions, Respiratory Assess/monitor tolerance to IV infusions; verify rate/dose, Assess for and report S&S of respiratory distress, Position for comfort & optimal oxygenation, Monitor sputum color & consistency. Report changes to MD, Teach/encourage use of incentive spirometer Goals/Interventions, Respiratory Yes Respiratory, Problem Start 05/12/2022 17:00 Reviewed Plan with, Respiratory Patient Patient Progression, Respiratory Patient progressing according to plan . Evaluation Patient is alert and oriented times 3. On room air. Denies any pain. Denies shortness of breath. Denies lightheadedness or dizziness. Ambulates with steady gait and standby assist with a walker.Plan [facility]discharge [facility] to [facility]. Safety precautions maintained. Bed in low position. Call coleman within reach. Yellow nonskid socks maintained. Hourly rounding maintained. . Discharge Information Pulmonary Rehab Discharge : Pulmonary Rehab Discharge Status 05/21/2022 23:23 EST CPAP/BiPAP Mask Type Pillows CPAP/BiPAP Mask Size Medium 05/18/2022 22:30 EST CPAP/BiPAP Mask Type Pillows CPAP/BiPAP Mask Size Medium 05/18/2022 4:54 EST CPAP/BiPAP Mask Type Pillows CPAP/BiPAP Mask Size Medium 05/18/2022 2:22 EST CPAP/BiPAP Mask Type Pillows CPAP/BiPAP Mask Size MediumElizabeth Sage: PERFORM, SIGN, VERIFY Event Display: Progress Note Hospital Authored Date: [id number] Patient: SAL WATTS Age: 62 years Sex: Male : 1960 Associated Diagnoses: None Author: Elizabeth Sage Findings Problem Related to Alteration in Respiratory Function (new) : Alteration in Respiratory Function/new 05/22/2022 17:00 EST Alteration in Resp Status Related to Other: Acute respiratory failure Goals & Outcomes, Respiratory Pt will maintain/resume baseline physical assessment, Pt will notdevelop complications r/t mechanical ventilation, Pt will maintain adequate nutritional intake, Pt will maintain/resume normal fluid/electrolyte balance, Pt will not develop complications r/t immobility, Pt will demonstrate proper technique w/self care procedures Interventions, Respiratory Assess for and report S&S of respiratory distress, Position for comfort & optimal oxygenation, Monitor sputum color & consistency. Report changes to MD, Teach/encourage use of incentive spirometer, Teach the proper use of inhalers Goals/Interventions, Respiratory Yes Respiratory, Problem Start 05/12/2022 17:00 Reviewed Plan with, Respiratory Patient Patient Progression, Respiratory Patient progressing according to plan . Evaluation 'Pt A&O x 4. No s/s of respiratory distress. Reporting no pain at beginning of shift. At approx 1300 pt complaining of 10/10 right sided abdominal pain, scheduled Tylenol administered bringing painlevel down to a 5/10. Pt is having no other s/s of pain or distress. Bed locked in lowest position. Bed alarm on. Call coleman and belongings in reach. Frequent rounding maintained. . Discharge Information Pulmonary Rehab Discharge : Pulmonary Rehab Discharge Status 05/21/2022 23:23 EST CPAP/BiPAP Mask Type Pillows CPAP/BiPAP Mask Size Medium 05/18/2022 22:30 EST CPAP/BiPAP Mask Type Pillows CPAP/BiPAP Mask Size Medium 05/18/2022 4:54 EST CPAP/BiPAP Mask Type Pillows CPAP/BiPAP Mask Size Medium 05/18/2022 2:22 EST CPAP/BiPAP Mask Type Pillows CPAP/BiPAP Mask Size Medium 05/17/2022 22:10 EST CPAP/BiPAP Mask Type Pillows CPAP/BiPAP Mask Size Medium Portable XR Chest Views [facility] , CIS S: TRANSCRIElizabeth Richardson MD: VERIFY Event Display: Result: Authored Date: AP portable chest, INDICATION: Reason: Tube Placement; Ng tube; Clinical Question(s): Follow-Up Abnormal Exam COMPARISON: yesterday CXR FINDINGS: LINES AND TUBES: NG tube ends in the stomach. LUNGS AND PLEURA AND MEDIASTINUM: There is no pneumothorax. There is trace left pleural effusion. Heart size is enlarged. Prominent mediastinum is unchanged. There is mild left basilar atelectasis. IMPRESSION: Stable exam. WSN: [id number] Ordering Physician: Audra Solano Dictated By: Elizabeth Sandoval MD Dictated Date/Time: 05/13/22 4:22 pm Reviewed By: Elizabeth Sandoval MD Signed By: Elizabeth Sandoval MD Signed Date/Time: 05/13/22 4:22 pm Transcribed By: ANTOLIN Transcribed Date/Time: 05/13/22 4:20 pmBHSPowerscribe , CIS S: TRANSCRISergio Montes De Oca MD W: VERIFY Event Display: Result: Authored Date: [id number] Chest Portable Hx of Present Illness: LLQ pain, Nausea, Vomiting; Reason: Shortness of Breath; Clinical Question(s): CHF COMPARISON: 04/26/2022 FINDINGS: LINES AND TUBES: Number LUNGS AND PLEURA: Low lung volumes. Increased pulmonary vascularity. Moderate bilateral pulmonary edema. Dense left basilar opacification likely due to rotation, pleural effusion, and atelectasis. Likely small posteriorlayering right effusion HEART, MEDIASTINUM AND BEV: Moderate prominence of the cardiac silhouette, unchanged. Normal mediastinal and hilar contour. BONES AND SOFT TISSUES: No acute abnormality. Status post median sternotomy. IMPRESSION: Moderate pulmonary edema. Bilateral pleural effusions left greater than right. Dense left basilar opacification likely combination of pleural effusion, atelectasis and artifact from leftward rotation WSN: [id number] Ordering Physician: Kelli Bartlett Dictated By: Sergio Hermosillo MD Dictated Date/Time: 05/12/22 5:11 pm Reviewed By: Sergio Hermosillo MD Signed By: Sergio Hermosillo MD Signed Date/Time: 05/12/22 5:11 pm Transcribed By: ANTOLIN Transcribed Date/Time: 05/12/22 5:09 pmBHSPowerscribe , CIS S: TRANSCRISergio Montes De Oca MD: VERIFY Event Display: Result: Authored Date: [id number] Chest Portable Reason: Shortness of Breath; Clinical Question(s): Tube Placement COMPARISON: 05/12/2022 at 4:47 PM FINDINGS: Endotracheal tube midthoracic trachea, otherwise no significant change in appearance of the chest. Pulmonary edema and left greater than right pleural effusions are again noted. IMPRESSION: Endotracheal tube midthoracic trachea, otherwise no significant change. WSN: [id number] Ordering Physician: Jimbo Tejeda Dictated By: Sergio Hermosillo MD Dictated Date/Time: 05/12/22 5:54 pm Reviewed By: Sergio Hermosillo MD Signed By: Sergio Hermosillo MD Signed Date/Time: 05/12/22 5:54 pm Transcribed By: CSB Transcribed Date/Time: 05/12/22 5:53 pmBHSPowerscribe , CIS S: TRANSCRIBE Amalia MD, Christopher J: VERIFY Event Display: Result: Authored Date: Chest Portable Reason: Line Placement; Clinical Question(s): Tube Placement COMPARISON: X-ray from earlier the same day at 5:21 PM FINDINGS: LINES AND TUBES: Endotracheal tube is slightly low lying with the tip 1.5 cm above the mela. Enterogastric tube courses to the left of midline below left hemidiaphragm off the [id number]-slox. LUNGS AND PLEURA: Low lung volumes and bibasilar atelectasis not significantly changed. No definite pleural effusion, assessment limited by semiupright positioning. No pneumothorax. HEART, MEDIASTINUM AND BEV: Status post median sternotomy. Moderate prominence of the cardiac silhouette. Normal mediastinal and hilar contour. BONES AND SOFT TISSUES: No acute abnormality. IMPRESSION: End of enterogastric tube is off the field of view. Recommend a follow-up AP view of the abdomen to confirm positioning of enterogastric tube in stomach. Endotracheal tube is slightly low lying 1.5 cm above the mela. WSN: [id number] Ordering Physician: Dago Varghese Dictated By: Oj Holland MD Dictated Date/Time: 05/12/22 11:55 p Reviewed By: Oj Holland MD Signed By: Oj Holland MD Signed Date/Time: 05/12/22 11:55 pm Transcribed By: ANTOLIN Transcribed Date/Time: 05/12/22 11:[address] Abdomen and Pelvis [facility] , CIS S: TRANSCRIBE Aris Abarca MD: VERIFY [place] Jer GRAY: SIGN Event Display: Result: Authored Date: CT Abd/Pelvis W/ Oral Contrast Only INDICATION: Left lower quadrant pain with nausea and vomiting. TECHNIQUE: Spiral CT through the abdomen and pelvis without IV contrast formatted in 3 planes. This study was performed with oral contrast. Weight-based protocol using automatic tube modulation was used to optimize exposure parameters. CTDIvol Body: 19.95 mGy, DLP Body: 1098 mGy*cm. COMPARISON: Chest CT and CT angiogram 05/06/2022. FINDINGS: Purchasing Associate View Findings, Lines and Tubes: None. Visualized Chest: Small left pleural effusion. Mild thickening of the major fissure, which may indicate a small loculated effusion. Severe left basilar atelectasis and mild right basilar atelectasis. Stable cardiomegaly. No pericardial effusion. Diaphragm: Normal. Liver: A few small calcifications throughout the liver, likely small granulomas, present on prior. Diffuse low-attenuation throughout the liver parenchyma consistent with hepatic steatosis. No evidenceof mass. Gallbladder: Cholelithiasis with no evidence of acute cholecystitis, similar to prior. Bile ducts: No biliary ductal dilation. Spleen: Normal. Pancreas: Normal. Adrenal glands: Normal. Kidneys and ureters: Surgically absent left kidney. Moderate stranding and small amount of fluid seen in the surgical bed, similar to prior. Mildly atrophic appearing right kidney. No hydronephrosis, stones, or noncontrast evidence of suspicious masses. Bladder: Normal. Reproductive organs: Mildly enlarged prostate with coarse calcifications, similar to prior. Stomach, small bowel, and large bowel: Stomach is normal. Small bowel is normal in course and caliber. Large bowel appears normal. Appendix: No CT evidence of appendicitis. Peritoneum and retroperitoneum: No ascites or pneumoperitoneum. No omental or mesenteric lesions. Lymph nodes: No enlarged lymph nodes. Blood vessels: Mild vascular calcifications. Partially visualized type A thoracic aortic dissection status post graft repair of the ascending aorta and residual dissection better seen on CT angiogram of chest 05/06/2022, with descending aorta measuring up to 5 cm (image 81 series 601). Infrarenal abdomi nal aortic aneurysm measuring up to 4.8 cm (image 78 series 602) with known dissection, also better assessed on CT angiogram. Abdominal and pelvic wall: Slightly improved left abdominal wall edema. Bones: No acute abnormality. IMPRESSION: No identifiable source of patient's symptoms. Small left pleural effusion with associated atelectasis. Mild thickening of the left major fissure which may indicate an additional small loculated effusion. Unchanged small foci of hematomas in the left nephrectomy surgical bed with no evidence of local active extravasation. Cholelithiasis with no evidence of acute cholecystitis. 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 I have personally reviewed the images and I agree with this report. WSN: [id number] Ordering Physician: Kelli Bartlett Dictated By: Jer Freeman MD Dictated Date/Time: 05/12/22 5:16 pm Reviewed By: Aris Abarca MD Signed By: Aris Abarca MD Signed Date/Time: 05/12/22 5:21 pm Transcribed By: ANTOLIN Transcribed Date/Time: 05/12/22 4:[address] Head WO contrast [facility] , CIS S: TRANSCRIBE Aris Abarca MD: VERIFY Jer Freeman MD: SIGN Event Display: Result: Authored Date: [id number] CT Head/Brain W/O Contrast INDICATION: Headache. TECHNIQUE: Noncontrast head CT using axial technique and reconstructed in axial and coronal planes. Iterative reconstruction techniques are used to optimize dose and image quality. CTDIvol Head: 45.64 mGy, DLP Head: 1643 mGy*cm. COMPARISON: 10/08/2021. FINDINGS: Mild motion artifact. Purchasing Associate view findings, lines and tubes: Endotracheal tube and enteric tube in place. BRAIN AND EXTRA-AXIAL SPACES: No parenchymal hemorrhage, midline shift, or mass effect. Pitt-white matter differentiation is well preserved. Mild encephalomalacia in the right frontal lobe, seen on prior. No acute infarct. Negativeinsular ribbon sign. Atherosclerotic vascular calcification of the carotid arteries but negative hype rdense vessel sign. Mild prominence of the ventricles and sulci consistent with parenchymal volume loss. Mild low-density white matter changes. No subarachnoid hemorrhage. No subdural or epidural collection. CALVARIUM, SKULL BASE, AND SOFT TISSUES: No fractures or suspicious bony lesions. The paranasal sinuses and mastoid air cells are clear. Visualized orbits and globes are intact. The extracranial soft tissues are unremarkable. IMPRESSION: No acute intracranial pathology. I have personally reviewed the images and I agree with this report. WSN: [id number] Ordering Physician: Kelli Bartlett Dictated By: Jer Freeman MD Dictated Date/Time: 05/12/22 7:56 pm Reviewed By: Aris Abarca MD Signed By: Aris Abarca MD Signed Date/Time: 05/12/22 8:01 pm Transcribed By: ANTOLIN Transcribed Date/Time: 05/12/22 7:53 pm Patient Care team information Care Team PersonnelName: Desirae Perez RN Position: S RN Member Role: Primary Care Nurse Name: Berenice Swift RN Position: [facility] RN Member Role: Primary Care Nurse Name: Sonya Patel RN Position: [facility] RN Member Role: Primary Care Nurse Name: Jesika Arechiga Position: [facility] RN Member Role: Primary Care Nurse Name: Mariposa Holland Position: [facility] RN Member Role: Primary Care Nurse Name: Beverly Hernandez RN Position: [facility] RN Member Role: Primary Care Nurse Name: Cierra Aburto RN Position: [facility] RN Member Role: Primary Care Nurse Name: Jax Adorno Position: [facility] Outreach Member Role: PCP Address: Address: [address] [place] [address]- [place] Name: Rolf Archer RN Position: [facility] RN Member Role: Primary Care Nurse Name: Yany Thomas RN Position: [facility] SN RN Member Role: Primary Care Nurse Name: Jax Patrick MD Position: [facility] Renal MD Member Role: Lifetime Consulting Physician Address: Address: [address] [place] [address] [facility] [place] [address]- Name: Sherri Luevano RN Position: [facility] RN Member Role: Primary Care Nurse Name: Audra Samson RN Position: [facility] Onco RN Member Role: Primary Care Nurse Name: Darrion Coleman RN Position: [facility] RN Member Role: Primary Care Nurse Name: Jimbo Tejeda DO Position: [facility] ED Medicine MD Member Role: ED Attending Physician Address: Address: [address] [place] [address]- Name: Lindsey Reid Position: [facility] ED OA Charge Member Role: ED Associate Name: Abraham Hanley Position: [facility] ED TA [facility] Member Role: Hemstitching Machine Operator Name: Misti Dotson Position: [facility] ED RN W/OE and Tasks Member Role: Patient Care Provider Name: Kelli Bartlett MD Position: [facility] Resident Member Role: Chart Review Address: Address: [address] [place] [address] [place] [address]- Name: Liyah Negrete Position: [facility] ED TA [facility] Member Role: Hemstitching Machine Operator Care Team Related PersonsName: TIM, CECI Address: home [address] [place] [address] Name: JAQUELIN SHI Address: home [address] [place] [address] Name: DORA SPARKS Address: home [employer]IST[employer] [facility] Name: CECI ROMANO Address: home [address] [place] [address]
--- OUTSIDE RECORDS SUMMARY | 2022-07-20 05:27 | XMS_ITS | Continuity of Care Document ---
:1960 Author Organization [facility] Address [address] [place] [address]- Care Team Providers Name Role Phone Renata ABRAHAM, September Sharon Primary Care Physician [phone] [place] [facility] [place]): 05/08/22 - 07/07/22 [facility] [address] [place] [address]- Attending Physician: Jax Adorno Admitting Physician: Jax Adorno Referring Physician: Ivon James MD Allergies, Adverse Reactions, Alerts No Known [...] 05/23/22 14:43:00 EST, Route to Pharmacy Electronically, [facility], Partial fill upon patient request if the prescription is for a schedul... Start Date: 05/23/22 Status: OrderedBetadine 10% solution See Instructions, Apply to left hand hematoma 3 times daily for 5-7 days until improvement, # 2 each, 0 Refills, Maintenance, 10/13/21 8:56:00 EDT, [facility]-[id number], Partial fill uponpatient request if the prescription is for a sche... Start Date: 10/13/21 Status: Orderedcarvedilol 25 mg oral tablet 25 mg, 1, tablet, By Mouth, 2 times a day, AT 8AM AND 8PM. HOLD IF SBP<100 AND HR<60, # 60 tablet, Refills 0, Tot. Refills 0, Maintenance, 05/23/22 14:43:00 EST, Route to Pharmacy Electronically,[facility]-[id number], 167, cm, 05/06/22 1... Start Date: 05/23/22 [...] 05/23/22 14:41:00 EST, Route to Pharmacy Electronically, [facility]-[id number], Partial fill upon patient request if the [...] 05/23/22 14:41:00 EST, Route to Pharmacy Electronically, [facility], Partial fill upon patient request if the prescription is fo... Start Date: 05/23/22 Status: OrderedNorvasc 5 mg oral tablet 10 mg, 2, tablet, By Mouth, Daily, # 60 tablet, Refills 0, Tot. Refills 0, Maintenance, 05/23/22 14:42:00 EST, Route to Pharmacy Electronically, [facility], Partial fill upon patient request if the [...] tablet, 0 Refills, Maintenance, 05/23/22 14:43:00EST, Tablet, [facility]-[id number], Partial fill upon patient request if the prescription is for a schedule II opioid drug., 167, cm, /... Start Date: 05/23/22 Status: OrderedRobitussin 100 mg/5 [...] 0 Refills, Maintenance, 05/23/22 14:43:00 EST, Tablet, [facility]-26482, Partial fill upon patient request if the [...] Active CESAR treated with Confirmed Active BiPAP Severe obesity (BMI Confirmed Active 35.0-39.9) with comorbidity TBI (traumatic Confirmed Active brain injury) Social History Social History Type Response Smoking Status Never (less than 100 in life time) entered on: 10/09/21 Sex Patient Care team information Care Team PersonnelName: Desirae Perez RN Position: [facility] RN Member Role: Primary Care Nurse Name: Sonya Patel RN Position: [facility] RN Member Role: Primary Care Nurse Name: Jesika Arechiga Position: S RN Member Role: Primary Care Nurse Name: Mariposa Holland Position: S RN Member Role: Primary Care Nurse Name: Cierra Aburto RN Position: S RN Member Role: Primary Care Nurse Name: Rolf Archer RN Position: S RN Member Role: Primary Care Nurse Name: Yany Thomas RN Position: S RN Member Role: Primary Care Nurse Name: Jax Patrick MD Position: [facility] Renal MD Member Role: Lifetime Consulting Physician Address: Address: [address] [place] [address] [facility] [place] [address]- Name: Renata RN, September Sharon Position: Reference Physician Member Role: PCP Address: Address: [address] [place] [address]- Name: Sherri Luevano RN Position: [facility] RN Member Role: Primary Care Nurse Name: Audra Samson RN Position: [facility] Onco RN Member Role: Primary Care Nurse Name: Darrion Coleman RN Position: S RN Member Role: Primary Care Nurse Care Team Related PersonsName: CECI DUMONT Address: home [address] [place] [address] Name: JAQUELIN SHI Address: home [address] Name: DORA SPARKS Address: home [employer] [place] Name: CECI ROMANO Address: home [address] [place], [place]
--- OUTSIDE RECORDS SUMMARY | 2022-07-20 05:27 | XMS_ITS | Continuity of Care Document ---
:1960 Author Organization [facility] Address [address] [place] [address]- Care Team Providers Name Role Phone Jax Adorno Primary Care Physician Encounter [id number] Date(s): 05/06/22 - 05/06/[address] [address]- Discharge Disposition: A-Error Chart/Home (ED Only) Attending Physician: Not on Staff, Attending MD [...] each, 0 Refills, Maintenance, 10/13/21 8:56:00 EDT, [facility]-[id number], Partial fill uponpatient request if the prescription [...] II opioid drug. Start Date: 10/09/21 Status: OrderedCozaar 100 mg oral tablet 1 tablet = 100 mg, By Mouth, Daily, 0 Refills, Maintenance, 01/02/22 8:13:00 EDT, Partial fill upon patient request if the prescription is for a schedule II opioid drug. Start Date: 01/02/22 Status: OrderedhydrALAZINE 25 mg oral tablet 25 mg, 1, tablet, By Mouth, 2 times a day, # 60 tablet, Refills 0, Maintenance, 04/24/22 9:48:00 EST, Partial fill upon patient request if the prescription is for a schedule II opioid drug. Start Date: 04/24/22 Status: OrderedHytrin Capsule 6 mg, By Mouth, [...] II opioid drug. Start Date: 10/09/21 Status: OrderedNorvasc 5 mg oral tablet 5 mg, 1, tablet, By Mouth, Daily, # 30 tablet, Refills 0, Maintenance, 01/02/22 8:15:00 EDT, Partialfill upon patient request if the prescription is for a schedule II opioid drug. Start Date: 01/02/22 Status: OrderedOxygen 2 liter, nasal cannula continuos, 0 Refills, Maintenance, [...] Date: 10/09/21 Status: Ordered Problem List Condition Confirmation Course [...] Care Team PersonnelName: Desirae Perez RN Position: [facility] RN Member Role: Primary Care Nurse Name: Berenice Swift RN Position: [facility] RN Member Role: Primary Care Nurse Name: Sonya Patel RN Position: [facility] RN Member Role: Primary Care Nurse Name: Jesika Arechiga Position: S RN Member Role: Primary Care Nurse Name: Cierra Aburto RN Position: [facility] RN Member Role: Primary Care Nurse Name: Jax Adorno Position: S Outreach Member Role: PCP Address: Address: [address] [place] [id number] Name: Rolf Archer RN Position: [facility] RN Member Role: Primary Care Nurse Name: Jax Patrick MD Position: [facility] Renal MD Member Role: Lifetime Consulting Physician Address: Address: [address] [place] [address] [facility] [place] [address]- Name: Sherri Luevano RN Position: S RN Member Role: Primary Care Nurse Name: Audra Samson RN Position: [facility] Onco RN Member Role: Primary Care Nurse Name: Darrion Coleman RN Position: S RN Member Role: Primary Care Nurse Care Team Related PersonsName: CECI DUMONT Address: home [address] [place] [address] Name: JAQUELIN SHI Address: home [address] [place], [place] Name: CECI ROMANO Address: home [address] [place] [address]
--- OUTSIDE RECORDS SUMMARY | 2022-07-20 05:27 | XMS_ITS | Continuity of Care Document ---
:1960 Author Organization [facility] Address [address] [place] [address]- Care Team Providers Name Role Phone Jax Adorno Primary Care Physician [place] [facility] [place] - 08/08/[address] [address]- [facility] Encounter Diagnosis Hypertension (Final) - 08/08/19 Discharge Disposition: A-D/C Home Attending Physician: Sudarshan Mcbride MD Admitting Physician: Sudarshan Mcbride MD Referring Physician: Not on Staff, Referring MD Allergies, Adverse Reactions, Alerts Substance Reaction Severity Status No known allergies Active Immunizations Given and Recorded Vaccine Date Status Refusal Reason pneumococcal 23-valent vaccine 08/05/11 Given influenza virus vaccine, inactivated 05/22/11 Given Medications Aspir 81 Oral Enteric Coated Tablet 1 tablet = 81 mg, By Mouth, Daily, # 30 tablet, 0 Refills, Maintenance, EC Tablet Start Date: 05/21/11 Status: Orderedcarvedilol 25 mg oral tablet 1 tablet = 25 mg, By Mouth, 2 times a day, AT 8AM AND 8PM. HOLD IF SBP<100 AND HR<60, # 60 tablet, 0 Refills, Maintenance, 10/01/14 11:24:09, Tablet, 1 tablet By Mouth 2 times a day,x30 days Start Date: 10/01/14 Stop Date: 10/31/14 Status: Orderedcholecalciferol 1000 intl units oral tablet 1 tablet = 1,000 International_Units, By Mouth, Daily, # 30 tablet, 3 Refills, Maintenance, 09/22/1511:49:32, Tablet, 1 tablet By Mouth Daily,x30 days Start Date: 09/21/14 Stop Date: 01/19/15 Status: Orderedclonidine 0.2 mg oral tablet 2 tablet = 0.4 mg, By Mouth, 4 times a day, AT 9AM, 1PM, 5PM AND 9PM. HOLD IF SBP<100, # 240 tablet, 0 Refills, Maintenance, 10/01/14 11:20:38, Tablet, 2 tablet By Mouth 4 times a day,x30 days Start Date: 10/01/14 Stop Date: 10/31/14 Status: Orderedgabapentin 800 mg oral tablet = 800 mg, By Mouth, 3 times a day, AT 8AM, 2PM AND 8PM, 0 Refills, Maintenance, 10/01/14 11:22:58, Tablet Start Date: 10/01/14 Status: Orderedmelatonin 3 mg oral tablet 1 tablet = 3 mg, By Mouth, Daily at bedtime, PRN for insomnia, # 60 tablet, 0 Refills, Maintenance, 09/26/14 2:56:13, Tablet Start Date: 09/26/14 Status: Orderednifedipine 90 mg oral tablet, extended release = 90 mg, By Mouth, Daily, hold if SBP<100, 0 Refills, Maintenance, 10/06/14 11:57:37, ER Tablet Start Date: 10/06/14 Status: Orderedsimvastatin 10 mg oral tablet 1 tablet = 10 mg, By Mouth, Daily at bedtime, AT 8PM, # 30 tablet, 3 Refills, Maintenance, 09/21/14 12:48:44, Tablet, 1 tablet By Mouth Daily at bedtime,x30 days Start Date: 09/21/14 Stop Date: 01/19/15 Status: Orderedtamsulosin 0.4 mg oral capsule = 0.4 mg, By Mouth, Daily, 0 Refills, Maintenance, 10/06/14 11:58:24, Capsule Start Date: 10/06/14 Status: OrderedTylenol 325 mg oral tablet 2 tablet = 650 mg, By Mouth, Every 4 hours, PRN for pain, # 120 tablet, 0 Refills, Maintenance, Tablet Start Date: 08/07/11 Status: Ordered Problem List Condition Effective Dates Status Health Status Informant Aortic dissection(Confirmed) Active Vital Signs Most recent to oldest [Reference Range]: 1 2 Weight 99.1 kg 99.1 kg (08/08/19 7:32 PM) (08/08/19 6:40 PM) Oxygen Saturation [94-100 %] 98 % (08/08/19 6:40 PM) Pulse Rate [55-90 bpm] 78 bpm (08/08/19 6:40 PM) Blood Pressure [90-138/55-84 mm Hg] 136/74 mm Hg 133/ 70 mm Hg (08/08/19 7:32 PM) (08/08/19 6:40 PM) Respiratory Rate [16-30 br/min] 20 br/min (08/08/19 6:40 PM) Temperature [96.8-100.4 DegF] 98.2 DegF (08/08/19 6:40 PM) Mode of Delivery (Oxygen) Room air (08/08/19 6:40 PM) Blood pressure sites Arm, right Arm, right (08/08/19 7:32 PM) (08/08/19 6:40 PM) Temperature Route Oral (08/08/19 6:40 PM) Dry Weight 99.1 kg 99.1 kg (08/08/19 7:32 PM) (08/08/19 6:40 PM) Weight Obtained Via Standing scale (08/08/19 6:40 PM) Dry Weight Obtained Via Standing scale (08/08/19 6:40 PM) Social History Social History Type Response Smoking Status Never smoker entered on: 09/17/14 Sex
--- OUTSIDE RECORDS SUMMARY | 2022-07-20 05:28 | XMS_ITS | Continuity of Care Document ---
:1960 Author Organization [facility] Address [address] [place] [address]- Care Team Providers Name Role Phone Jax Adorno Primary Care Physician [place] [facility] [place]25[place]22 - 05/01/[address] [address] Discharge Disposition: A-D/C Home Attending Physician: Kendall Richards MD Admitting Physician: Kendall Richards MD Referring Physician: Kendall Richards MD Allergies, Adverse Reactions, Alerts No Known Allergies Immunizations Given and Recorded Vaccine Date Status Refusal Reason SARS-CoV-2 (COVID-19) mRNA BNT-162b2 vac 06/01/21 Recorde d SARS-CoV-2 (COVID-19) mRNA BNT-162b2 vac 07/17/20 Recorde d SARS-CoV-2 (COVID-19) mRNA BNT-162b2 vac 06/26/20 Recorde d influenza virus vaccine, inactivated 05/25/21 Recorded influenza virus vaccine, inactivated 05/22/11 Given pneumococcal 23-valent vaccine 08/05/11 Given Medications amLODIPine 10 mg oral tablet 10 mg, Tablet, By Mouth, 05/01/22 9:00:00 EST Start Date: 05/01/22 Stop Date: 05/01/22 Status: CompletedAmmonium Lactate 12% Topical 1 application, Topically, Daily [...] each, 0 Refills, Maintenance, 10/13/21 8:56:00 EDT, [facility]-[id number], Partial fill uponpatient request if the prescription [...] oral tablet 25 mg, Tablet, By Mouth, 05/01/22 9:00:00 EST Start Date: 05/01/22 Stop Date: 05/01/22 Status: Completedcholecalciferol 1000 intl units oral capsule [...] Exam Date Time Procedure Performing Provider Status 04/26/22 5:11 PM Chest Portable Eduardo Choe; Auth (Verified) Notes:(Chest Portable) Reason For Exam: CHFRESULT: Chest Portable PROCEDURE: Chest Portable CLINICAL INDICATION: 62 years old Male with Reason: CHF; Clinical Question(s): CHF. COMPARISON: Chest radiographs 23/05 through 10/12/2021. FINDINGS: Portable AP erect view of the chest performed at 4:18 PM. Lines and tubes: None. Lungs and pleura: Apical lordotic angulation noted. Lungs clear as visualized.. No pleural effusions.No evidence of pneumothorax. Heart, mediastinum and citlalli: Moderate to severe chronic tortuosity of the thoracic aorta noted. Impossible to exclude aneurysmal dilatation. CTA of 2011 showed evidence of repair of the ascending aortaand evidence of chronic dissection. Mild to moderate cardiomegaly unchanged without pulmonary venous hypertension. Bones and soft tissues: Sternotomy wires again seen. IMPRESSION: 1. Mild to moderate chronic cardiomegaly without pulmonary venous hypertension, edema pleural effusions. 2. Status post sternotomy. 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 Thank you for allowing me to participate in the care of this patient. WSN: [id number] Ordering Physician: Margie Cheney Dictated By: Bladimir Moss MD Dictated Date/Time: 04/26/22 6:07 pm Reviewed By: Bladimir Moss MD Signed By: Bladimir Moss MD Signed Date/Time: 04/26/22 6:07 pm Transcribed By: ANTOLIN Transcribed Date/Time: 04/26/22 6:03 pm Vital Signs Most recent to 1 2 3 4 oldest [Reference Range]: Height 168 cm 168 cm 168 cm (05/01/22 2:37 PM) (04/30/22 7:10 AM) (04/26/22 3:17 P M) Weight 99.8 kg 99.8 kg 99.8 kg (04/26/22 3:00 AM) (04/25/22 11:00 PM) (04/25/22 7:00 PM) Oxygen Saturation 92 % 94 % 96 % [94-100 %] *L* (05/01/22 11:00 AM) (05/01/22 7:43 AM) (05/01/22 2:37 PM) Pulse Rate [55-90 64 bpm 58 bpm 60 bpm bpm] (05/01/22 2:37 PM) (05/01/22 11:00 AM) (05/01/22 8:45 AM) Body Mass Index 35.36 kg/m2 34.97 kg/m2 35.43 kg/m2 [18.5-24.99 kg/m2] *>HHI* *>HHI* *>HHI* (04/25/22 2:01 PM) (04/25/22 7:16 AM) (04/24/22 10:17 AM) Blood Pressure 137/69 mm Hg 106/57 mm Hg 133/70 mm Hg 133/70 mm Hg [90-138/55-84 mm (05/01/22 2:37 PM) (05/01/22 11:00 AM) (05/01/22 8 :45 AM) (05/01/22 8:45 AM) Hg] Respiratory Rate 18 br/min 18 br/min 18 br/min [16-30 br/min] (05/01/22 2:37 PM) (05/01/22 11:00 AM) (05/01/22 7:4 3 AM) Temperature 98.0 DegF 98.4 DegF 98.3 DegF [96.8-100.4 DegF] (05/01/22 2:37 PM) (05/01/22 11:00 AM) (05/01/22 7:43 AM) Liters per Minute 2 L/min 2 L/min 2 L/min (05/01/22 2:37 PM) (05/01/22 11:00 AM) (05/01/22 7:43 AM) Mode of Delivery Nasal cannula Humidification Humidification (Oxygen) (05/01/22 2:37 PM) (05/01/22 11:00 AM) (05/01/22 7:43 AM) Blood pressure Arm, right Arm, left Arm, left sites (05/01/22 2:37 PM) (05/01/22 11:00 AM) (05/01/22 7:43 AM) Temperature Route Oral Oral Oral (05/01/22 2:37 PM) (05/01/22 11:00 AM) (05/01/22 7:43 AM) Dry Weight 99.8 kg 98 kg 100 kg (04/25/22 2:01 PM) (04/25/22 7:16 AM) (04/24/22 10:17 AM) Weight Obtained Via Standing scale (04/25/22 7:16 AM) Dry Weight Obtained Standing scale cardiology office Via (04/25/22 7:16 AM) (04/24/22 10:17 AM) Social History Social History Type Response Smoking Status Never (less than 100 in life time) entered on: 10/09/21 Sex Surgical pathology study Event Display: Surgical Pathology Authored Date: [id number] Patient Name: TAMI DUMONT BLADIMIR Lab Patient : 1960 (Age: 62) Collection Date: 04/25/2022 Accession Date: 04/25/2022 Sign Out Date: 05/01/2022 Tissue Source: 1:LEFT RADICAL NEPHRECTOMRY Final Diagnosis: Part(s)/Specimen(s): Left kidney, nephrectomy - Papillary renal cell carcinoma Pathologic Stage pT1b: Tumor greater than 4 cm but less than or equal to 7 cm in greatest dimension limited to the kidney pN not assigned (no nodes submitted or found) Procedure: Total nephrectomy Specimen Laterality: Left Tumor Tumor Focality: Unifocal Tumor Size: 4.4 Centimeters (cm) Histologic Type: Papillary renal cell carcinoma Histologic Grade (WHO / ISUP): G2 (nucleoli conspicuous and eosinophilic at 400x magnification, visible but not prominent at 100x magnification) Tumor Extent: Limited to kidney Sarcomatoid Features: Not identified Rhabdoid Features: Not identified Tumor Necrosis: Not identified Margins Margin Status: All margins negative for invasive carcinoma Regional Lymph Nodes Regional Lymph Node Status: Not applicable (no regional lymph nodes submitted or found) Additional Findings Additional Findings in Nonneoplastic Kidney: Tubulointerstitial disease - Patchy chronic interstitial fibrosis and tubular atrophy Vascular disease - Moderate fibrointimal thickening of interstitial arteries Renal cortical papillary adenoma, 0.2 cm. Several simple cortical cysts Best Tumor Block: block 6 Pathologic Stage Classification (pTNM, AJCC 8th Edition) Primary Tumor (pT): pT1b Regional Lymph Nodes (pN): pN not assigned (no nodes submitted or found) Primary Pathologist:Jax Shepherd M.D. electronically signed out by: Jax Shepherd M.D. / CLEO Clinical History: Malignant neoplasm left kidney Gross Description: Labeled left radical nephrectomy . Received in formalin is a 290.9 g nephrectomy specimen consisting of kidney (13.2 x 6.8 x 8.5 cm), and ureter (8.2 cm in length by 0.4 cm in diameter). A small amount of patchy, irregular perinephric adipose is attached; the capsule is broadly exposed, pink-red granu lar. There is a 4.5 x 4.4 cm bulging area arising from the mid, posterior capsule (inked black) which is partially surfaced by perinephric adipose. Sectioning this area reveals a 4.4 x 4.2 x 4.2 cm ovoid, well-defined mass. The mass grossly abuts, but does not appear to invade the renal sinus and renal capsule, 2 cm from the vascular margins, 10 cm from the ureter margin. Sectioning the remainder of the kidney reveals multiple (approximately 4) unilocular, thin, clear fluid-filled parenchymal and subcortical cysts that range from 0.4 cm up to 1.5 cm in greatest dimension. No excrescences or solid areas are grossly identified. The remaining, uninvolved cut surfaces are pink-brown. The cortex averages 0.8 cm in thickness. The cortex and medulla averages 2.4 cm in thickness. The adrenal gland is not grossly present. Resident Engineer sections are submitted as follows: 1-3 pieces, vascular and ureteral margins, en face 2 and 3-1 piece each, mass abutting renal sinus 4 and 5-1 piece each, mass abutting capsule including inked perinephric adipose. 6 and 7-1 piece each, mass to uninvolved parenchyma 8-1 piece, uninvolved parenchyma 9 and 10-2 pieces each, parenchymal cysts. (KM)* Phone #: [phone], On-Call Pathologist: [id number] History and physical note Event Display: History and Physical Hospital Authored Date: Event Display: History and Physical Hospital Authored Date: Note Sherri Luevano RN: PERFORM Event Display: Discharge/Transfer Note Hospital Authored Date: Nursing Discharge Note Entered On: 05/01/2022 13:44 EST Performed On: 05/01/2022 13:44 EST by Sherri Luevano RN Nursing Discharge Note 2 Discharge Time : 05/01/2022 15:24 EST Sherri Luevano RN - 05/01/2022 15:31 EST Discharge Level of Care at Discharge : Home/Correction/Foster Care Patient Left Unit Via : Ambulance Patient Accompanied Off Unit with : Ambulance/Chair Van Personnel Handover Given to Transport Personnel : Yes DC Instructions Provided & Signed by Pt : No Patient Understands D/C Instructions : Yes Patient Instructions Discharge Signed : No Did Pt have Specialty Bed or Wound Vac : No Sherri Luevano RN - 05/01/2022 13:44 Savage Hanna MD P: SIGN Chin PA, Elvia: PERFORM, SIGN Chin PA, Elvia: SIGN, VERIFY Chin PA, Elvia: VERIFY Event Display: Discharge/Transfer Note Hospital Authored Date: Patient: BLADIMIR WATTS Age: 62 years Sex: Male : 1960 Associated Diagnoses: None Author: Elvia Mcfadden Discharge Information Principal Discharge Diagnosis Renal cell carcinoma of left kidney: Present on admission - yes. Patient is aware of diagnosis Procedures Urology: Nephrectomy. Discharge condition: excellent Functional Status: ambulatory with assistance Discharge Disposition Home: halfway. Discharge Date 05/01/2022 Admission Date 04/25/2022 Draft of Summary Completed by: Elvia Mcfadden. Hospital Course The patient is a 89year-old male s/p robot assisted laparoscopic left nephrectomy. No post-operative complications. He is tolerating regular diet. Ambulating at baseline ability. Evaluated by PT during his admission. Patient voiding without any issues after shore removal. Patient denying any pain. Inc ision c/d/i. He will follow up with his surgeon as planned. Discharge Plan Diet/Activity/Patient Education/Follow Up Follow Up with: Jax GARG; Kendall Richards 05/15/2002 9:45 AM Post- operative follow up . Discharge Disposition Discharge: correction. Discharge Diet Regular diet. Activity No heavy lifting. No driving. Encourage deep breathing & coughing.Bassem ABRAHAM, Sherri: PERFORM Event Display: Patient Education/Instruction Authored Date: [id number] Inpatient Adult Discharge Instructions [address] [address] Name: BLADIMIR DUMONT : 1960 Visit: 04/25/2022 04:23:00 Current Date: 05/01/2022 13:45 Account: [id number] Inpatient Adult Discharge Instructions We would like [...] and their families. Surveys are administered by [employer] ?? If further treatment with your primary care physician or another doctor is recommended, it is important for you to keep the appointment. Call your primary care physician or return to the Emergency Department immediately if your condition worsens, fails to improve, or new symptoms develop. If you need to find a doctor, you can call [facility] for a referral at [phone] or toll free at [phone]) or log in to [email or web address].. ?? You can view and manage your care through the patient portal or by using a health care marybeth of your choosing. [employer] is a website that allows you to securely view your medical information including your hospital discharge summary, office visit summaries, medications and follow-up visits. You can also request appointments, renew medications, and request access to your medical information using a health care marybeth of your choosing, or just ask a question. You can enroll at [email or web address] or register during your next office visit. You have been discharged from [facility], Patient Care Unit: SW6. If you have any questions regarding these instructions after you leave, please call us and we will be happy to assist you. [facility] Your Care Team Attending Physician Maurice GRAY, Kendall Ruiz Consulting Providers Avila GRAY, Chilo Hunter MD, Shan Paula; Neal GRAY, Evan; Maurice GRAY, Kendall Ruiz; Jacky GRAY, Abraham Jacques Discharging Providers Elvia Mcfadden Reason for Admission MALIGNANT NEOPLASM LEFT KIDNEY NEPHRECTOMY JUJU Your Diagnosis Renal cell carcinoma of left kidney Tests Performed Below is a partial list of the tests performed during your hospitalization. You may have had other tests and procedures not included in this list. Please discuss all test results with your provider. [id number] BASE EXCESS POC CARTRIDGE Basic Metabolic Panel BUN CALCIUM IONIZED POC CART CBC Citrated Platelet Count COVID-19 (2019 Novel Coronavirus) PCR Creatinine Electrolytes Glucose Level GLUCOSE POC CARTRIDGE HEMATOCRIT POC CARTRIDGE HEMOGLOBIN POC CARTRIDGE HOLD LAVENDER TUBE Lytes Magnesium Level POTASSIUM POC CARTRIDGE SODIUM POC CARTRIDGE VBG POC CARTRIDGE CXR Portable Primary Care Provider Jax Adorno Advance Directive Health Care Proxy on File Yes - Health Care Proxy No qualifying data available. Discharge Vitals Temperature: 98.4 DegF Height: 168 cm Pulse Rate: 58 bpm Weight: 99.8 kg Respiratory Rate: 18 br/min Body Mass Index:??35.36 kg/m2??Critical Systolic Blood Pressure: 106 mm Hg Body surface area: 2.16 Diastolic Blood Pressure: 57 mm Hg ?? Oxygen Saturation: 94 % ?? Studies Pending All tests and labs ordered during this hospital stay have been completed unless listed below. Pleasediscuss all pending results with your provider listed above in these instructions. ?? Add On Lab Order (Lab Add On Order) COVID-19 (2019 Novel Coronavirus) PCR Complete Urinalysis (UA) Creatinine Urine (Urine Creatinine) RBCs for Surgery Sodium Urine (Urine Sodium) Urea Nitrogen Urine (Urine Urea Nitrogen) What to do next Instructions From Your Doctor Discharge Orders You Need to Schedule the Following Appointments Follow Up with??Kendall Richards When??05/15/2002 09:45 AM EST Why: Post-operative follow up Where: [address] [facility], [place] [address]- Business (1) Follow Up with??Jax GARG When?? Where: [address] [place] [address]- Business (1) Discharge Medications TAMI BLADIMIR DUMONT :1960 Visit Date:04/25/2022 Medications: Please continue your medications until treatment is completed or stopped by your provider. Medications not listed below should be discontinued. Discuss any questions related to medications with your provider. What How Much When Instructions Next Dose Unchanged Acetaminophen (Tylenol 325 mg oral tablet) 2 tab(s) Oral Every 6 hours as needed for as needed for fever/pain as needed Unchanged Amlodipine (Norvasc 5 mg oral tablet) 1 tab(s) Oral Daily 05/02 Unchanged Ammonium Lactate 12% (Ammonium Lactate 12% Topical) 1 marybeth Topically Daily in the morning 05/02 Unchanged Amoxicillin 2,000 Milligram Oral Admin 1hr prior to dental appointment ?? XXXXXXX Unchanged Aspirin (aspirin 81 mg oral delayed release tablet) 1 tab(s) Oral Daily 05/02 Unchanged Carvedilol (carvedilol 25 mg oral tablet) 1 tab(s) Oral Twice a day Duration: 30 Days AT 8AM AND 8PM. HOLD IF SBP<100 AND HR<60 ?? 9pm 05/01 Unchanged Cholecalciferol (cholecalciferol 1000 intl units oral capsule) 1 capsule Oral Daily in the morning 05/02 Unchanged Clonidine (cloNIDine 0.2 mg oral tablet) 1 tab(s) Oral 3 times a day Unchanged Durable Medical Equipment (Please check basic metabolic panel for bicarbonate and potassium) See instructions Please check basic metabolic panel for bicarbonate and potassium ?? see instructions Unchanged Durable Medical Equipment (Please repeat basic metabolic panel with your PCP in 5-7 days)See instructions Please repeat basic metabolic panel with your PCP in 5-7 days ?? see instructions Unchanged Furosemide (Lasix 80 mg oral tablet) 1 tab(s) Oral Daily in the morning 05/02 Unchanged Gabapentin (Neurontin 400 mg oral capsule) 1 capsule Oral 3 times a day 05/01 Unchanged Guaifenesin (Robitussin 100 mg/ 5 mL syrup) 200 Milligram Oral Every 4 hours as needed for Cough as needed Unchanged hydrALAZINE (hydrALAZINE 25 mg oral tablet) 1 tab(s) Oral Twice a day 05/01 Unchanged Isosorbide Mononitrate (isosorbide mononitrate 30 mg oral tablet, extended release) 1 tab(s) Oral Daily in the morning 05/02 Unchanged Loperamide (Imodium A-D 2 mg oral tablet) 1 tab(s) Oral 4 times a day as needed for for loose stool as needed Unchanged Losartan (Cozaar 100 mg oral tablet) 1 tab(s) Oral Daily 05/02 Unchanged Melatonin (Melatonin 5 mg oral tablet) 1 tab(s) Oral Daily at Bedtime 05/01 Unchanged Metronidazole Topical (Metrogel) See instructions 0.75 % Topically apply a thin film twice daily to affected area after washing ?? see??instructions Unchanged Mirtazapine (Remeron 30 mg oral tablet) 1 tab(s) Oral Daily at Bedtime 05/01 Unchanged Oxygen 2 liter nasal cannula continuos ?? resume Unchanged Potassium Chloride (potassium chloride 8 mEq (600 mg) oral capsule, extended release) 1 capsule Oral Daily 05/02 Unchanged Povidone Iodine Topical (Betadine 10% solution) See instructions Apply to left hand hematoma 3 times daily for 5-7 days until improvement ?? see instructions Unchanged Sertraline (Zoloft 25 mg oral tablet) 1 tab(s) Oral Daily every morning ?? 9am 05/02 Unchanged Simvastatin (simvastatin 10 mg oral tablet) 1 tab(s) Oral Daily at Bedtime Duration: 30 Days AT 8PM ?? 9pm 05/01 Unchanged Terazosin (Hytrin Capsule) 6 Milligram Oral Daily at Bedtime 9pm 05/01 Test Results Below is a partial list of the most recent Laboratory test results done prior to this discharge. You may have had other tests and procedures not included in this list. Please discuss all test results with your provider. RBC Available - RE (04/25/2022) RBC Unit ID - [id number]-* (04/25/2022) (04/25/2022) ???Surgical Pathology - Patient Name: BLADIMIR WATTS Lab Patient : 1960 (Age: 62) Collection Date: 04/25/2022 Accession Date: 04/25/2022 Sign Out Date: 05/01/2022 Tissue Source: 1:LEFT RADICAL NEPHRECTOMRY Final Diagnosis: Part(s)/Specimen(s): Left kidney, nephrectomy - Papillary renal cell carcinoma Pathologic Stage pT1b: Tumor greater than 4 cm but less than or equal to 7 cm in greatest dimension limited to the kidney pN not assigned (no nodes submitted orfound) Procedure: Total nephrectomy Specimen Laterality: Left Tumor Tumor Focality: Unifocal Tumor Size: 4.4 Centimeters (cm) Histologic Type: Papillary renal cell carcinoma Histologic Grade (WHO / ISUP): G2 (nucleoli conspicuous and eosinophilic at 400x magnification, visible but not prominent at 100x magnification) Tumor Extent: Limited to kidney Sarcomatoid Features: Not identified Rhabdoid Features: Not identified Tumor Necrosis: Not identified Margins Margin Status: All margins negative for invasive carcinoma Regional Lymph Nodes Regional Lymph Node Status: Not applicable (no regional lymph nodes submitted or found) Additional Findings Additional Findings in Nonneoplastic Kidney: Tubulointerstitial disease - Patchy chronic interstitial fibrosis and tubular atrophy Vascular disease - Moderatefibrointimal thickening of interstitial arteries Renal cortical papillary adenoma, 0.2 cm. Several si mple cortical cysts Best Tumor Block: block 6 Pathologic Stage Classification (pTNM, AJCC 8th Edition) Primary Tumor (pT): pT1b Regional Lymph Nodes (pN): pN not assigned (no nodes submitted or found) Primary Pathologist:Jax Shepherd M.D. electronically signed out by: Jax Shepherd M.D. / KYMBERLYlinical History: Malignant neoplasm left kidney Gross Description: Labeled left radical nephrectomy . Received in formalin is a 290.9 g nephrectomy specimen consisting of kidney (13.2 x 6.8 x 8.5 cm), and ureter (8.2 cm in length by 0.4 cm in diameter). A small amount of patchy, irregular perinephric adipose is attached; the capsule is broadly exposed, pink-red granular. There is a 4.5 x 4.4 cm bulg ing area arising from the mid, posterior capsule (inked black) which is partially surfaced by perinephric adipose. Sectioning this area reveals a 4.4 x 4.2 x 4.2 cm ovoid, well-defined mass. The mass grossly abuts, but does not appear to invade the renal sinus and renal capsule, 2 cm from the vascular margins, 10 cm from the ureter margin. Sectioning the remainder of the kidney reveals multiple (approximately 4) unilocular, thin, clear fluid-filled parenchymal and subcortical cysts that range from 0.4 cm up to 1.5 cm in greatest dimension. No excrescences or solid areas are grossly identified. The r emaining, uninvolved cut surfaces are pink-brown. The cortex averages 0.8 cm in thickness. The cortex and medulla averages 2.4 cm in thickness. The adrenal gland is not grossly present. Resident Engineer sections are submitted as follows: 1-3 pieces, vascular and ureteral margins, en face 2 and 3-1 pieceeach, mass abutting renal sinus 4 and 5-1 piece each, mass abutting capsule including inked perinephric adipose. 6 and 7-1 piece each, mass to uninvolved parenchyma 8-1 piece, uninvolved parenchyma 9 and 10-2 pieces each, parenchymal cysts. (KM)* Phone #: [phone], On-Call Pathologist: [id number] BASE EXCESS POC CARTRIDGE (04/25/2022) ???Base Excess (POC) POC Cartridge - 20 Basic Metabolic Panel (04/28/2022) ???Sodium - 146 mmol/L???Potassium - 3.6 mmol/L???Chloride - 100 mmol/L???Bicarbonate Level - 42 mmol/L???Anion Gap - 4???Glucose Level - 165 mg/dL???BUN - 18 mg/dL???Creatinine-Blood - 1.7 mg/dL???Estimated GFR Creatinine - 45 ML/MIN/1.73 M2???Calcium - 8.1 mg/dL BUN (04/30/2022) ???BUN - 21 mg/dL CALCIUM IONIZED POC CART (04/25/2022) ???Ionized Calcium (POC) POC Cartridge - 1.26 mmol/L CBC (04/28/2022) ???WBC - 5.6 k/mm3???RBC - 3.11 m/mm3???Hgb - 9.3 Gm/dL???Hct - 31.2 %???MCV - 100.3 femtoliters???MCH - 29.9 pg???MCHC - 29.8 g/dL???Platelet Count - 132 k/mm3???RDW-SD - 43.1 femtoliters???MPV - 10.7femtoliters???Nucleated RBC (Automated) - 0.0 #/100 WBC'S???Abs. NRBC - 0.0 k/mm3 Citrated Platelet Count (04/28/2022) ???Citrated Platelet Count - 102 k/mm3 COVID-19 (2019 Novel Coronavirus) PCR (04/27/2022) ???COVID-19 PCR Specimen Source - NASAL???COVID-19 PCR Result - NEGATIVE Creatinine (04/30/2022) ???Creatinine-Blood - 1.4 mg/dL???Estimated GFR Creatinine - 56 ML/MIN/1.73 M2 Electrolytes (04/26/2022) ???Sodium - 147 mmol/L???Potassium - 3.6 mmol/L???Chloride - 101 mmol/L???Bicarbonate Level - 41 mmol/L???Anion Gap - 5 Glucose Level (04/26/2022) ???Glucose Level - 111 mg/dL GLUCOSE POC CARTRIDGE (04/25/2022) ???Glucose (POC) POC Cartridge - 121 HEMATOCRIT POC CARTRIDGE (04/25/2022) ???Hematocrit (POC) POC Cartridge - 37 % HEMOGLOBIN POC CARTRIDGE (04/25/2022) ???Hemoglobin (POC) POC Cartridge - 12.6 Gm/dL HOLD LAVENDER TUBE (04/30/2022) ???Hold Lavender Top - SPECIMEN DISCARDED AFTER 24 HOURS. Lytes (04/30/2022) ???Sodium - 141 mmol/L???Potassium - 4.4 mmol/L???Chloride - 98 mmol/L???Bicarbonate Level - 40 mmol/L???Anion Gap - 3 Magnesium Level (04/27/2022) ???Magnesium - 2.2 mg/dL POTASSIUM POC CARTRIDGE (04/25/2022) ???Potassium (POC) POC Cartridge - 3.6 mmol/L SODIUM POC CARTRIDGE (04/25/2022) ???Sodium (POC) POC Cartridge - 147 mmol/L VBG POC CARTRIDGE (04/25/2022) ???pH Venous (POC) POC Cartridge - 7.34???pCO2 Venous (POC) POC Cartridge - 85.9 mm Hg???pO2 Venous (POC) POC Cartridge - 50 mm Hg???Est Bicarbonate (POC) POC Cartridge - 45.8 mmol/L???% O2 Sat Venous (POC) POC Cartridge - 79???Specimen Type - Blood Gas - VENOUS Allergies (NKA means No Known Allergies) NKA Problems Active Problems??(8) Aortic dissection?? Heart failure with preserved ejection fraction?? HLD (hyperlipidemia)?? HTN (hypertension)?? Obese class II?? CESAR treated with BiPAP?? Renal cell carcinoma of left kidney?? TBI (traumatic brain injury)?? Education Materials Below is the list of Educational Leaflet Providered with your Discharge Instructions. Discharge Instructions for Nephrectomy?? Valuables and Belongings I fully understand and agree that [facility] accepts no responsibility for all my personal [...] home. ?? No Valuables/Belongings: No valuables/belongings present Disposition of Belongings: Sent home with patient/family Possessions released to: . Date for Pt to Sign Valuables/Belongings: 04/25/22 15:37:00 ?? Other Discharge Information ? Case Management Discharge Plan?? Discharge Plan?? Discharge Level of Care at Discharge: Home/Correction/Foster Care ?? Pulmonary Rehab Status?? Pulmonary Rehab Discharge Status?? CPAP/BiPAP Mask Type: Full CPAP/BiPAP Mask Size: Medium Respiratory Rate: 18 br/min ? Common Emergency Awareness Tips IS IT [...] are strongly encouraged to quit. Please call [facility] at [phone] or [phone]) or log in to [email or web address] for referrals to smoking cessation programs. ?? The National Suicide Prevention Hotline is available 25/12 if you or someone you know needs to find areason to keep living. By calling 3-095-039-[employer] (4041) you'll be connected to a skilled, trained counselor at a crisis center in your area. INPATIENT DISCHARGE INSTRUCTIONS SIGNATURE PAGE BLADIMIR WATTS Location:[facility] Registration Date and Time:04/25/2022 04:23 EST Primary Care Physician: Jax Adorno, BLADIMIR SANFORD, have received the above patient education materials/instructions and have verbalized understanding. If ambulance or transport services are being used I further acknowledge being given a choice of service. ?? If you need to contact me, please call me at this number: . Patient/Resident Engineer Name: Patient/Resident Engineer Signature: Relationship to Patient: Witness Name/Signature: Date: Elvia Mcfadden: PERFORM, SIGN, VERIFY Event Display: Patient Education Handout Authored Date: Elvia Mcfadden: PERFORM Event Display: Patient Education Leaflets Authored Date: Discharge Instructions for Nephrectomy ?? [id number] Discharge Instructions for Nephrectomy You had a procedure to remove a kidney. This is called a nephrectomy. This procedure was done because one of your kidneys was not working correctly or because there was a tumor or cancer. Nephrectomy is also done to remove a healthy kidney from a donor for transplantation. You can live a normal, healthy life with one kidney. Home care ??? Shower as needed ??? Don???t swim or use a bathtub or hot tub until after your follow-up appointment and your healthcare provider says it's OK. ??? Keep your cut (incision) clean and dry. Don't scrub the incision. Wash it gently with mild soap and warm water and pat it dry. ??? Eat a healthy, well- balanced diet. ??? Drink 6 to 8 glasses of water a day, unless your healthcare provider tells you to limit your fluids. ??? Try not to get constipated. o Use laxatives, stool softeners, or enemas as directed by your healthcare provider. o Eat more high-fiber foods. ??? Don???t drive until you are off your pain medicine and pain-free. This may take 2 to 4 weeks. ??? Don???t worry if you feel more tired than normal. Extreme tiredness (fatigue) and weakness are common for a few weeks after this surgery. Don't push yourself. Rest as needed. ??? Limit your activity to short walks. Slowly increase your pace and distance as you feel able. ??? Don't do any strenuous activities, such as mowing the lawn, vacuuming, or playing sports. ??? Don???t lift anything heavier than 10 pounds for 4 weeks. ??? Listen to your body. If an activity causes pain, stop. ??? If you were asked to stop any medicines before the surgery, ask your healthcare provider when you may start taking them again. This is especially important in the case of blood thinners (anticoagulants or antiplatelet agents). ?? Follow-up care Follow up with your healthcare provider, or as advised. ?? When to call your healthcare provider Call your healthcare provider right away if you have any of the following: ??? Fever of 100.4??F ( 38??C ) or higher, or as directed by your healthcare provider ??? Redness, swelling, warmth, or pain at your incision site ??? Drainage or pus from your incision ??? Nausea or vomiting ??? Increased pain ??? Noticeable decrease in urine output ??? Blood in your urine ??? New or worsening symptoms ?? Last Reviewed Date: 2022 ?? [id number] [employer]. All rights reserved. This information is not intended as a substitute for professional medical care. Always follow your healthcare professional's instructions.This information has been modified by your health care provider with permission from the publisher. ?? Event Display: Adult Preadmission Health Questionnaire Authored Date: Hospital Progress note Shan Hunter MD: SIGN, VERIFY, PERFORM Event Display: Progress Note Hospital Authored Date: Patient: BLADIMIR WATTS Age: 62 years Sex: Male : 1960 Associated Diagnoses: None Author: Shan Hunter MD [facility] Inpatient Nephrology Progress Note Interval History Events noted Chart reviewed Review of Systems Review of Systems Constitutional: no fever. Respiratory: no shortness of breath. Physical Examination Vital Signs Vitals : VITALS 05/01/2022 8:45 EST Systolic Blood Pressure 133 mm Hg Diastolic Blood Pressure 70 mm Hg . Weight : Weight lb/oz 04/26/2022 3:00 EST Weight lb/oz 220 lb 0 oz 04/25/2022 23:00 EST Weight lb/oz 220 lb 0 oz 04/25/2022 19:00 EST Weight lb/oz 220 lb 0 oz . BMI : Body Mass Index 04/25/2022 14:01 EST Body Mass Index 35.36 kg/m2 >HHI 04/25/2022 7:16 EST Body Mass Index 34.97 kg/m2 >HHI . HEENT Dry mucous membranes. Respiratory Decreased breath sounds: at bases. Cardiac Cardiac: no pericardial rub. Abdomen/GI Abdomen: soft. Results Review General results Reviewed Results: Today's results Impression and Plan COMPREHENSIVE PLAN 62-year-old hypertensive patient is status post left nephrectomy for renal cell CA with acute kidneyinjury with creatinine going from 0.8 to 1.6. Non-Oliguric CICI: GFR decrease by 50% post Nephrectomy is not unexpected and will hope that with time SCr decr as remaining kidney has compensatory increase GFR ( usu to 80% of what pre Nephrecomy func) HTN: controlled off KOLE/ARB Incr HCO3: appears to be chronic; h/o CESAR and ques chronic CO2 retaainer will arrange f/u for hyponatremia as outpt after d/c Savage Hernandez MD P: SIGN Elvia Mcfadden: PERFORM, SIGN Elvia Mcfadden: SIGN, VERIFY Elvia Mcfadden: VERIFY Event Display: Progress Note Hospital Authored Date: Patient: BLADIMIR WATTS Age: 62 years Sex: Male : 1960 Associated Diagnoses: None Author: Elvia Mcfadden Patient feeling well today. He denies any pain. He is ready to go back to halfway. Review of Systems Review of systems is Constitutional: no chills, no fever. Genitourinary: voided. Gastrointestinal: no abdominal pain, no nausea, no vomiting. Physical Examination Vital Signs Temperature 98.3 (07:44) Systolic Blood Pressure 133 (08:47) Diastolic Blood Pressure 70 (08:47) Pulse 60 (08:47) SpO2 96 (07:44) Respiratory Rate 18 (07:44) Physical exam Patient is: NAD, awake, alert. Respiratory: non-labored breathing. Flank: no flank pain. Abdomen/GI: Abdomen is (soft, not distended, not tender), Incision(s): is clean, dry, intact. . Results Review CHEM GENERAL Sodium 141 mmol/L () 04/30/2022 10:21 Potassium 4.4 mmol/L () 04/30/2022 10:21 Chloride 98 mmol/L () 04/30/2022 10:21 Bicarbonate Level 40 mmol/L (High) 04/30/2022 10:21 Anion Gap 3 (Low) 04/30/2022 10:21 BUN 21 mg/dL () 04/30/2022 10:21 Creatinine-Blood 1.4 mg/dL (High) 04/30/2022 10:21 Estimated GFR Creatinine 56 ML/MIN/1.73 M2 () 04/30/2022 10:21 HEME OTHER Hold Lavender Top SPECIMEN DISCARDED AFTER 24 HOURS. () 04/30/2022 10:21 Medication List MEDICATION LIST (Selected) Inpatient Medications Ordered Acetaminophen Tablet: 650 mg, Tablet, By Mouth, Every 4 hours, PRN for Temperature, greater than 101.5, Routine, 04/25/22 11:53:00 EST Ammonium Lactate 12% Topical: 1 application, Cream, Topically, Apply to Other : legs, Daily in AM, Routine, 04/27/22 9:00:00 EST Ancef Inj: 2 Gm, Injection, IV Push Slowly, body recall instructor to OR for 1 doses/times, Indicated for: SurgicalProphylaxis, Routine, 04/25/22 6:00:00 EST Dilaudid Inj: 1 mg, Injection, IV Push Slowly, Every 4 hours, PRN for Pain , Severe, Routine, 04/25/22 11:55:00 EST Heparin Inj: 5,000 units, Injection, Subcutaneous Injection, 3 times a day, (DVT Prophylaxis), Routine, 04/25/22 14:00:00 EST Hytrin Capsule: 6 mg, Capsule, By Mouth, Daily at bedtime, Routine, 04/25/22 21:00:00 EST Lasix 80 mg oral tablet: 80 mg, Tablet, By Mouth, Daily, Routine, 04/27/22 10:00:00 EST Melatonin Tablet: 6 mg, Tablet, By Mouth, Daily at bedtime, Routine, 04/26/22 21:00:00 EST MiraLax Powder: 17 Gm, Powder, By Mouth, Daily for 14 days, Dissolve in 8 ounces of water., Routine,04/28/22 9:32:00 EST, Stop date 05/12/22 9:31:00 EST MorPHINE Inj: 4 mg, Injection, IV Push, Every 2 hours, PRN for Pain , Severe, May give less according to pain assessment, Routine, 04/25/22 11:53:00 EST Neurontin 400 mg oral capsule: 400 mg, Capsule, By Mouth, Daily at bedtime, Routine, 04/25/22 15:00:00 EST Ondansetron Inj: 8 mg, Injection, IV Push, Every 6 hours, May give 4 mg according to assessment, PRNfor Nausea & Vomiting, Routine, 04/25/22 11:53:00 EST PROCHLORperazine Inj: 10 mg, Injection, IV Push, Every 6 hours, May give 5 mg according to assessment, PRN for Nausea & Vomiting, Routine, 04/25/22 11:53:00 EST Remeron 15 mg oral tablet: 30 mg, Tablet, By Mouth, Daily at bedtime, Routine, 04/25/22 21:00:00 EST Zoloft 25 mg oral tablet: 25 mg, Tablet, By Mouth, Daily, Routine, 04/25/22 11:59:00 EST amLODIPine 10 mg oral tablet: 10 mg, Tablet, By Mouth, Daily, Routine, 04/27/22 9:00:00 EST aspirin 81 mg oral delayed release tablet: 81 mg, EC Tablet, By Mouth, Daily, Routine, 04/27/22 9:00:00 EST carvedilol 25 mg oral tablet: 25 mg, Tablet, By Mouth, 2 times a day, Routine, 04/25/22 11:57:00 EST cholecalciferol 1000 intl units oral tablet: 25 mcg, Tablet, By Mouth, Daily in AM, Routine, 04/26/22 9:00:00 EST cloNIDine 0.1 mg oral tablet: 0.2 mg, Tablet, By Mouth, 3 times a day, Hold for: SBP<100, Routine, 04/25/22 15:00:00 EST hydrALAZINE 25 mg oral tablet: 25 mg, Tablet, By Mouth, 2 times a day, PRN for Other, SBP > 130, Routine, 04/25/22 11:58:00 EST isosorbide mononitrate 30 mg oral tablet, extended release: 30 mg, ER Tablet, By Mouth, Daily in AM,Routine, 04/27/22 9:00:00 EST simvastatin 10 mg oral tablet: 10 mg, Tablet, By Mouth, Daily at bedtime, Routine, 04/25/22 21:00:00EST Prescriptions Prescribed Betadine 10% solution: See Instructions, Apply to left hand hematoma 3 times daily for 5-7 days until improvement, # 2 each, 0 Refills, Maintenance, 10/13/21 8:56:00 EDT, [id number], Partial fill upon patient request if the prescription is for a sche... Please check basic metabolic panel for bicarbonate and potassium: Please check basic metabolic panelfor bicarbonate and potassium, See Instructions, # 1 each, Refills 0, Tot. Refills 0, Maintenance, Please check basic metabolic panel for bicarbonate and potassium, 10/13/21 16:10:00 EDT, Supply Please repeat basic metabolic panel with your PCP in 5-7 days: Please repeat basic metabolic panel with your PCP in 5-7 days, See Instructions, # 1 each, Refills 0, Tot. Refills 0, Maintenance, Please repeat basic metabolic panel with your PCP in 5-7 days, 10/13/21 9:34:00 EDT, Supply Documented Medications Documented Ammonium Lactate 12% Topical: 1 application, Topically, Daily in AM, 0 Refills, Maintenance, Cream Amoxicillin: 2,000 mg, By Mouth, Maintenance, Admin 1hr prior to dental appointment, 10/09/21 5:26:00 EDT Cozaar 100 mg oral tablet: 1 tablet = 100 mg, By Mouth, Daily, 0 Refills, Maintenance, 01/02/22 8:13:00 EDT, Partial fill upon patient request if the prescription is for a schedule II opioid drug. Hytrin Capsule: 6 mg, By Mouth, Daily at bedtime, Refills 0, Maintenance, 10/09/21 6:32:00 EDT, Partial fill upon patient request if the prescription is for a schedule II opioid drug. Imodium A-D 2 mg oral tablet: 2 mg, 1, tablet, By Mouth, 4 times a day, PRN, Refills 0, Maintenance,for loose stool, 10/09/21 5:31:00 EDT, Partial fill upon patient request if the prescription is for a schedule II opioid drug. Lasix 80 mg oral tablet: 80 mg, 1, tablet, By Mouth, Daily in AM, Refills 0, Maintenance, 10/09/21 6:34:00 EDT, Partial fill upon patient request if the prescription is for a schedule II opioid drug. Melatonin 5 mg oral tablet: 1 tablet = 5 mg, By Mouth, Daily at bedtime, 0 Refills, Maintenance, 10/09/21 5:32:00 EDT, Tablet, Partial fill upon patient request if the prescription is for a schedule IIopioid drug. Metrogel: See Instructions, 0.75 % Topically apply a thin film twice daily to affected area after washing, 0 Refills, Maintenance, 10/09/21 5:33:00 EDT, Partial fill upon patient request if the prescription is for a schedule II opioid drug. Neurontin 400 mg oral capsule: 400 mg, 1, capsule, By Mouth, 3 times a day, Refills 0, Maintenance, 10/09/21 5:34:00 EDT, Partial fill upon patient request if the prescription is for a schedule II opioid drug. Norvasc 5 mg oral tablet: 5 mg, 1, tablet, By Mouth, Daily, # 30 tablet, Refills 0, Maintenance, 01/02/22 8:15:00 EDT, Partial fill upon patient request if the prescription is for a schedule II opioid drug. Oxygen: 2 liter, nasal cannula continuos, 0 Refills, Maintenance, 04/24/22 9:54:00 EST, Partial fillupon patient request if the prescription is for a schedule II opioid drug. Remeron 30 mg oral tablet: 1 tablet = 30 mg, By Mouth, Daily at bedtime, 0 Refills, Maintenance, 10/09/21 5:23:00 EDT, Partial fill upon patient request if the prescription is for a schedule II opioid drug. Robitussin 100 mg/5 mL syrup: = 200 mg, By Mouth, Every 4 hours, PRN Cough, 0 Refills, Maintenance, 10/09/21 5:30:00 EDT, Partial fill upon patient request if the prescription is for a schedule II opioid drug. Tylenol 325 mg oral tablet: 2 tablet = 650 mg, By Mouth, Every 6 hours, PRN as needed for fever/pain, 0 Refills, Maintenance, 08/07/11 16:39:03 EST, Tablet Zoloft 25 mg oral tablet: 1 tablet = 25 mg, By Mouth, Daily, every morning, 0 Refills, Maintenance, 10/09/21 5:24:00 EDT, Partial fill upon patient request if the prescription is for a schedule II opioid drug. aspirin 81 mg oral delayed release tablet: 81 mg, 1, tablet, By Mouth, Daily, Maintenance, 10/09/21 9:43:00 EDT, Partial fill upon patient request if the prescription is for a schedule II opioid drug. cholecalciferol 1000 intl units oral capsule: 1 capsule = 25 mcg, By Mouth, Daily in AM, Maintenance, 10/09/21 9:48:00 EDT, Capsule, Partial fill upon patient request if the prescription is for a schedule II opioid drug. cloNIDine 0.2 mg oral tablet: 0.2 mg, 1, tablet, By Mouth, 3 times a day, Refills 0, Maintenance, 10/09/21 6:30:00 EDT, Partial fill upon patient request if the prescription is for a schedule II opioiddrug. hydrALAZINE 25 mg oral tablet: 25 mg, 1, tablet, By Mouth, 2 times a day, # 60 tablet, Refills 0, Maintenance, 04/24/22 9:48:00 EST, Partial fill upon patient request if the prescription is for a schedule II opioid drug. isosorbide mononitrate 30 mg oral tablet, extended release: 30 mg, 1, tablet, By Mouth, Daily in AM,Refills 0, Maintenance, 10/09/21 6:33:00 EDT, Partial fill upon patient request if the prescription is for a schedule II opioid drug. potassium chloride 8 mEq (600 mg) oral capsule, extended release: 1 capsule = 8 mEq, By Mouth, Daily, 0 Refills, Maintenance, 04/24/22 9:56:00 EST, Partial fill upon patient request if the prescriptionis for a schedule II opioid drug. Impression and Plan 62-year-old male is POD 6 s/p robot assisted laparoscopic left nephrectomy. He denies any pain. Abdomen is soft and not distended. He passed gas. Ambulating at baseline. Discharge today. . Resident/PA/BLAST SETTER Attestation Case discussed with attending physician: Savage Moreno MD Patient seen with attending physician: Josh GRAY, Sarah Mesa RN: PERFORM, SIGN, VERIFY Event Display: Progress Note Hospital Authored Date: [id number] Patient: BLADIMIR WATTS Age: 62 years Sex: Male : 1960 Associated Diagnoses: None Author: Sarah Delarosa RN Findings Problem Related to Alteration in Genitourinary : Alteration in Genitourinary Function/new 05/01/2022 7:29 EST Alteration in Status Related to Nephrectomy Goals & Outcomes, Genitourinary Pt will achieve normal/improved fluid balance, Pt will maintainadequate GI function appropriate for pt, Pt will maintain adequate function appropriate for pt, Pt will maintain normal fluid balance, Pt will resume normal pattern of elimination, Pt/caregiver willstate understanding of self-care skills Interventions, Assess/monitor/maintain Genitourinary status, Assist & encourage pt with meticulous werner care, Encourage PO fluid intake as allowed by diet Goals/Interventions, Genitourinary Yes Genitourinary, Problem Start 04/25/2022 23:56 Reviewed Plan with, Genitourinary Patient Patient Progression, Genitourinary Patient progressing according to plan Genitourinary, Problem Ongoing Yes . Nursing Data Vital Signs : VITAL SIGNS SECTION 05/01/2022 7:43 EST Temperature 98.3 DegF Temperature Route Oral Pulse Rate 60 bpm Respiratory Rate 18 br/min Systolic Blood Pressure 133 mm Hg Diastolic Blood Pressure 70 mm Hg Blood pressure sites Arm, left Pulse Pressure 63 mm Hg Oxygen Saturation 96 % Liters per Minute 2 L/min Mode of Delivery (Oxygen) Humidification . Narrative/Incidental Patient is alert and oreintedx2-3. Follow direction , some cognitve delay. Ambuates with 1 assist and walker steady, shuffling gait. Lungs are dim, no cough or wheezing present on 2L nasal canula at baseline. Abdomen is distended, firm, bowel spunds present passing gas frequent trip to bathroom for BM. Deneis nausea tolerates regular diet. 6 laps sites with steris present no drainage present. Voids concentrated yellow urine. Deneis pain. CAll coleman within reach, will continue to monitor. Portable XR Chest Views BHSPowerscribe , CIS S: TRANSCRIBE Isa GRAY, Bladimir Jorge: VERIFY Event Display: Result: Authored Date: PROCEDURE: Chest Portable CLINICAL INDICATION: 62 years old Male with Reason: CHF; Clinical Question(s): CHF. COMPARISON: Chest radiographs 23/05 through 10/12/2021. FINDINGS: Portable AP erect view of the chest performed at 4:18 PM. Lines and tubes: None. Lungs and pleura: Apical lordotic angulation noted. Lungs clear as visualized.. No pleural effusions.No evidence of pneumothorax. Heart, mediastinum and citlalli: Moderate to severe chronic tortuosity of the thoracic aorta noted. Impossible to exclude aneurysmal dilatation. CTA of 2011 showed evidence of repair of the ascending aortaand evidence of chronic dissection. Mild to moderate cardiomegaly unchanged without pulmonary venous hypertension. Bones and soft tissues: Sternotomy wires again seen. IMPRESSION: 1. Mild to moderate chronic cardiomegaly without pulmonary venous hypertension, edema pleural effusions. 2. Status post sternotomy. 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 Thank you for allowing me to participate in the care of this patient. WSN: [id number] Ordering Physician: Margie Cheney Dictated By: Bladimir Moss MD Dictated Date/Time: 04/26/22 6:07 pm Reviewed By: Bladimir Moss MD Signed By: Bladimir Moss MD Signed Date/Time: 04/26/22 6:07 pm Transcribed By: ANTOLIN Transcribed Date/Time: 04/26/22 6:03 pm Patient Care team information Care Team PersonnelName: Desirae Perez RN Position: S RN Member Role: Primary Care Nurse Name: Berenice Swift RN Position: S RN Member Role: Primary Care Nurse Name: Sonya Patel RN Position: S RN Member Role: Primary Care Nurse Name: Jesika Arechiga Position: S RN Member Role: Primary Care Nurse Name: Cierra Aburto RN Position: S RN Member Role: Primary Care Nurse Name: Jax Adorno Position: S Outreach Member Role: PCP Address: Address: [address] [place] [id number]- Name: Rolf Archer RN Position: S RN Member Role: Primary Care Nurse Name: Jax Patrick MD Position: [facility] Renal MD Member Role: Lifetime Consulting Physician Address: Address: [address] [place] [address] [facility] [place] [address]- Name: Sherri Luevano RN Position: S RN Member Role: Primary Care Nurse Name: Audra Samson RN Position: [facility] Onco RN Member Role: Primary Care Nurse Name: Darrion Coleman RN Position: S RN Member Role: Primary Care Nurse Care Team Related PersonsName: CECI DUMONT Address: home [address], [place] Name: JAQUELIN SHI Address: home [address] Name: CECI ROMANO Address: [address], [place]
--- OUTSIDE RECORDS SUMMARY | 2022-07-20 05:28 | XMS_ITS | Continuity of Care Document ---
:1960 Author Organization [facility] Address [address] [place] [id number]- Care Team Providers Name Role Phone Jax Adorno Primary Care Physician Encounter [facility] [place] Date(s): 05/06/22 - 05/07/[address] [address]- Encounter Diagnosis Chronic thoracic aortic dissection (Final) - 05/06/22 Discharge Disposition: A-D/C Home Attending Physician: Jimbo Tejeda DO Admitting Physician: Jimbo Tejeda DO Referring Physician: Not on Staff, Referring MD [...] each, 0 Refills, Maintenance, 10/13/21 8:56:00 EDT, [id number], Partial fill uponpatient request if the prescription [...] oral tablet 25 mg, Tablet, By Mouth, Once, STAT, 05/06/22 22:24:00 EST, Stop date 05/06/22 22:24:00 EST Start Date: 05/06/22 Stop Date: 05/06/22 Status: Completedcholecalciferol 1000 intl units oral capsule [...] OrderedhydrALAZINE 25 mg oral tablet 25 mg, Tablet, By Mouth, Once, STAT, 05/06/22 22:24:00 EST, Stop date 05/06/22 22:24:00 EST Start Date: 05/06/22 Stop Date: 05/06/22 Status: CompletedhydrALAZINE 25 mg oral tablet 25 mg, 1, [...] Exam Date Time Procedure Performing Provider Status 05/06/22 4:[address] Angio Abdomen Ivon Solomon; Auth (Verified) Notes:(CT Angio Abdomen) Reason For Exam: Renal artery dissection suspected;Other:RESULT: CT Angio Abdomen EXAMINATION: CT Angio Chest, CT Angio Abdomen INDICATION: Hx of Present Illness: increasing SOB, inability to urinate,; Reason: Other:; Aortic disease, nontraumatic; Clinical Question(s): Other:; Aortic Dissection TECHNIQUE: An initial noncontrast CT of the chest was performed. Spiral CTA of the chest and abdomenwas performed after rapid IV contrast administration without cardiac gating triggered by an CARLOS on the aorta. Images are formatted in multiple planes using 2-D multiplanar and 3-D maximum intensity projection. Gated axial images through the aortic root were also acquired during a separate 2nd injection of IV contrast with separate reconstructions of this data set formatted in multiple planes using 2-D multiplanar and 3-D maximum intensity projection. 150 cc of Omnipaque 300 was administered intravenously. Weight-based protocol using automatic tube modulation was used to optimize exposure parameters. CTDIvol Body: 23.52 mGy, DLP Body: 2648 mGy*cm. COMPARISONS: CT abdomen/pelvis performed earlier today and CTA chest dated 06/20/2011. ANGIOGRAPHIC FINDINGS: Typed A aortic dissection extending from the aortic arch into the visualized portions of the common iliac arteries. The extent of the dissection is similar to prior CTA from 2011. There are postsurgical changes from prior ascending aortic repair with a 4.2 x 2.4 x 2.2 cm focal outpouching possibly originating from the common origins of the right brachiocephalic and left common carotid arteries. No evidence of extension into the left subclavian artery. The false lumen extending from the aortic arch into the lower descending aorta does not opacify; however, there is opacification with sharp demarcation at the level of the diaphragmatic hiatus (image 81, series 5 series 3), suggesting retrograde filling. The celiac artery and DELFINA originate from the false lumen. The SMA and renal arteries originate from the true lumen. The large branches originating from the aorta are patent. Patient is status post left nephrectomy but the left renal artery is patent. No definite active extravasation is seen. Aneurysmal thoracic aorta measuring 4.9 cm in the distal arch, 4.3 x 3.8 cm in mid descending aorta,5.1 x 4.8 cm in the lower descending aorta, 4.5 x 4.8 cm in the upper abdominal aorta, and 4.3 x 4.6cm in the infrarenal abdominal aorta. Measurements include the true and false lumen. NON-ANGIOGRAPHIC FINDINGS: Pneumatic Press Hand View Findings, Lines and Tubes: None. Trachea and Airways: Patent without evidence of tracheal or endobronchial lesion. Lungs and Pleura: Ill-defined groundglass opacities throughout both lungs predominantly in central distribution. There are scattered foci of subsegmental atelectasis, most significant in left lower lobe. No evidence of confluent pneumonia. There are a few scattered nodules measuring up to 4 mm. No effusion or pneumothorax. Mediastinum and citlalli: There is small amount of simple fluid density fluid surrounding the thoracic aorta without peripheral enhancement. No mediastinal or hilar lymphadenopathy. No esophageal abnormality. Heart: Mild cardiomegaly. No pericardial effusion. Moderate coronary artery calcification. Chest Wall Soft Tissues: Normal. Diaphragm: No significant abnormality. Liver: Normal. Gallbladder: Cholelithiasis without evidence of acute cholecystitis.. Bile ducts: No biliary ductal dilation. Spleen: Normal. Pancreas: Normal. Adrenal glands: Normal. Kidneys and ureters: Status post left nephrectomy with ill-defined foci of hyperdensities measuring up to 3 cm and surrounding fat necrosis, likely representing hematoma or fat necrosis. No organized or peripherally enhancing fluid collection. Mild fullness in the right renal collecting system without overt hydronephrosis. There is are small foci of cortical scarring in the interpolar region. Stomach, small bowel, and large bowel: Visualized stomach and bowel are normal. Peritoneum and retroperitoneum: No ascites or pneumoperitoneum. No omental or mesenteric lesions. Lymph nodes: No enlarged lymph nodes. Abdominal wall: Unremarkable. Bones: No acute abnormality. Status post median sternotomy without evidence of dehiscence. IMPRESSION: 1. 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 Surgical consultation is recommended 2. Majority of the thoracic false lumen does not opacify; however, there is opacification of the lower descending aorta at the level of the diaphragmatic hiatus with sharp demarcation, suggestive of retrograde filling. 3. Small amount of fluid surrounding the thoracic aorta is nonspecific and could be reactive. 4. Status post left nephrectomy with patent left renal artery and small foci of hematomas in the surgical bed. No evidence of active extravasation from the renal artery. 5. Centrally distributed ill-defined groundglass opacities are most likely due to pulmonary edema. 6. Lung nodules measuring up to 4 mm. If low risk for malignancy, no routine follow-up. If high risk, optional CT at 12 months. If unchanged, no further follow-up needed per Guidelines for Management of Incidental Pulmonary Nodules Detected on CT Images: From the Fleischner Society 2017. Findings impression 1 and 2 were communicated to Orlando Mancilla DO via secure messaging system [facility] [facility] 5:00 PM. Message receipt was confirmed. WSN: [id number] Ordering Physician: Orlando Mancilla Dictated By: Thelma Patel MD Dictated Date/Time: 05/06/22 5:20 pm Reviewed By: Thelma Patel MD Signed By: Thelma Patel MD Signed Date/Time: 05/06/22 5:20 pm Transcribed By: ANTOLIN Transcribed Date/Time: 05/06/22 4:49 pm Exam Date Time Procedure Performing Provider Status 05/06/22 4:[address] Angio Chest Neha Ivon; Auth (Verified) Notes:(CT Angio Chest) Reason For Exam: Aortic disease, nontraumatic;Other: RESULT: CT Angio Chest EXAMINATION: CT Angio Chest, CT Angio Abdomen INDICATION: Hx of Present Illness: increasing SOB, inability to urinate,; Reason: Other:; Aortic disease, nontraumatic; Clinical Question(s): Other:; Aortic Dissection TECHNIQUE: An initial noncontrast CT of the chest was performed. Spiral CTA of the chest and abdomenwas performed after rapid IV contrast administration without cardiac gating triggered by an CARLOS on the aorta. Images are formatted in multiple planes using 2-D multiplanar and 3-D maximum intensity projection. Gated axial images through the aortic root were also acquired during a separate 2nd injection of IV contrast with separate reconstructions of this data set formatted in multiple planes using 2-D multiplanar and 3-D maximum intensity projection. 150 cc of Omnipaque 300 was administered intravenously. Weight-based protocol using automatic tube modulation was used to optimize exposure parameters. CTDIvol Body: 23.52 mGy, DLP Body: 2648 mGy*cm. COMPARISONS: CT abdomen/pelvis performed earlier today and CTA chest dated 06/20/2011. ANGIOGRAPHIC FINDINGS: Typed A aortic dissection extending from the aortic arch into the visualized portions of the common iliac arteries. The extent of the dissection is similar to prior CTA from 2011. There are postsurgical changes from prior ascending aortic repair with a 4.2 x 2.4 x 2.2 cm focal outpouching possibly originating from the common origins of the right brachiocephalic and left common carotid arteries. No evidence of extension into the left subclavian artery. The false lumen extending from the aortic arch into the lower descending aorta does not opacify; however, there is opacification with sharp demarcation at the level of the diaphragmatic hiatus (image 81, series 5 series 3), suggesting retrograde filling. The celiac artery and DELFINA originate from the false lumen. The SMA and renal arteries originate from the true lumen. The large branches originating from the aorta are patent. Patient is status post left nephrectomy but the left renal artery is patent. No definite active extravasation is seen. Aneurysmal thoracic aorta measuring 4.9 cm in the distal arch, 4.3 x 3.8 cm in mid descending aorta,5.1 x 4.8 cm in the lower descending aorta, 4.5 x 4.8 cm in the upper abdominal aorta, and 4.3 x 4.6cm in the infrarenal abdominal aorta. Measurements include the true and false lumen. NON-ANGIOGRAPHIC FINDINGS: Pneumatic Press Hand View Findings, Lines and Tubes: None. Trachea and Airways: Patent without evidence of tracheal or endobronchial lesion. Lungs and Pleura: Ill-defined groundglass opacities throughout both lungs predominantly in central distribution. There are scattered foci of subsegmental atelectasis, most significant in left lower lobe. No evidence of confluent pneumonia. There are a few scattered nodules measuring up to 4 mm. No effusion or pneumothorax. Mediastinum and citlalli: There is small amount of simple fluid density fluid surrounding the thoracic aorta without peripheral enhancement. No mediastinal or hilar lymphadenopathy. No esophageal abnormality. Heart: Mild cardiomegaly. No pericardial effusion. Moderate coronary artery calcification. Chest Wall Soft Tissues: Normal. Diaphragm: No significant abnormality. Liver: Normal. Gallbladder: Cholelithiasis without evidence of acute cholecystitis.. Bile ducts: No biliary ductal dilation. Spleen: Normal. Pancreas: Normal. Adrenal glands: Normal. Kidneys and ureters: Status post left nephrectomy with ill-defined foci of hyperdensities measuring up to 3 cm and surrounding fat necrosis, likely representing hematoma or fat necrosis. No organized or peripherally enhancing fluid collection. Mild fullness in the right renal collecting system without overt hydronephrosis. There is are small foci of cortical scarring in the interpolar region. Stomach, small bowel, and large bowel: Visualized stomach and bowel are normal. Peritoneum and retroperitoneum: No ascites or pneumoperitoneum. No omental or mesenteric lesions. Lymph nodes: No enlarged lymph nodes. Abdominal wall: Unremarkable. Bones: No acute abnormality. Status post median sternotomy without evidence of dehiscence. IMPRESSION: 1. 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 Surgical consultation is recommended 2. Majority of the thoracic false lumen does not opacify; however, there is opacification of the lower descending aorta at the level of the diaphragmatic hiatus with sharp demarcation, suggestive of retrograde filling. 3. Small amount of fluid surrounding the thoracic aorta is nonspecific and could be reactive. 4. Status post left nephrectomy with patent left renal artery and small foci of hematomas in the surgical bed. No evidence of active extravasation from the renal artery. 5. Centrally distributed ill-defined groundglass opacities are most likely due to pulmonary edema. 6. Lung nodules measuring up to 4 mm. If low risk for malignancy, no routine follow-up. If high risk, optional CT at 12 months. If unchanged, no further follow-up needed per Guidelines for Management of Incidental Pulmonary Nodules Detected on CT Images: From the Fleischner Society 2017. Findings impression 1 and 2 were communicated to Orlando Mancilla DO via secure messaging system [facility] 5:00 PM. Message receipt was confirmed. WSN: [id number] Ordering Physician: Orlando Mancilla Dictated By: Thelma Patel MD Dictated Date/Time: 05/06/22 5:20 pm Reviewed By: Thelma Patel MD Signed By: Thelma Patel MD Signed Date/Time: 05/06/22 5:20 pm Transcribed By: ANTOLIN Transcribed Date/Time: 05/06/22 4:49 pm Exam Date Time Procedure Performing Provider Status 05/06/22 2:[address] Abd/Pelvis W/ Oral Contrast Justin Colmenares ; Auth (Verified) Only Notes:(CT Abd/Pelvis W/ Oral Contrast Only) Reason For Exam: Abd pain, distention, renal ca s/p L nephrectomy 04/25;Other:RESULT: CT Abd/Pelvis W/ Oral Contrast Only CT Abd/Pelvis W/ Oral Contrast Only Hx of Present Illness: increasing SOB, inability to urinate,; Reason: Abd pain, distention, renal fariba p L nephrectomy 04 25; Clinical Question(s): Obstruction; Special Instructions: IV contrast contraindicated TECHNIQUE: Spiral CT through the abdomen and pelvis without IV contrast formatted in 3 planes. This study was performed with oral contrast. Weight-based protocol using automatic tube modulation was used to optimize exposure parameters. CTDIvol Body: 20.50 mGy, DLP Body: 1121 mGy*cm. COMPARISON: Multiple priors most recently 06/20/2011 FINDINGS: Pneumatic Press Hand View Findings, Lines and Tubes: None. Visualized Chest: Trace bilateral pleural fluid with adjacent mild atelectasis. The heart is upper limits of normal. No pericardial effusion. Diaphragm: Normal. Liver: Diffuse low-attenuation throughout the liver parenchyma consistent with hepatic steatosis. Noevidence of mass. Gallbladder: Cholelithiasis without evidence of acute cholecystitis. Bile ducts: No biliary ductal dilation. Spleen: Normal. Pancreas: Normal. Adrenal glands: Normal. Kidneys and ureters: Left kidney is surgically absent. There is moderate amount of stranding and a small amount of fluid seen in the surgical bed. Right extrarenal pelvis versus pelviectasis. No hydronephrosis, stones, or noncontrast evidence of suspicious masses. Bladder: Normal. Reproductive organs: Coarse calcifications within the prostate, which is mildly enlarged. Stomach, small bowel, and large bowel: No evidence of obstruction or inflammation. Contrast reaches the rectum. Appendix: No evidence of appendicitis. Peritoneum and retroperitoneum: No ascites or pneumoperitoneum. No omental or mesenteric lesions. Lymph nodes: No enlarged lymph nodes. Blood vessels: Mild vascular calcifications. Bilobed aneurysm of the lower descending aorta at the level of the hiatus the diameter measuring up to 5.2 cm. There is subtle crescentic hyperdensity alongthe left lateral wall of the lower descending aorta measuring approximately 1.6 cm in thickness, highly concerning for aortic dissection. Infrarenal aortic aneurysm measuring up to 4.5 cm. Abdominal and pelvic wall: Edema seen in the left abdominal wall, likely postsurgical. Bones: No acute abnormality. IMPRESSION: No evidence of bowel obstruction. 1. Small amount of stranding and fluid pockets seen within the left nephrectomy surgical bed measuring up to 2.2 cm. 2. Aneurysm of the lower descending aorta with findings highly suspicious for dissection. Further evaluation with CTA chest and abdomen is recommended. 3. Right extrarenal pelvis versus pelviectasis. 4. Infrarenal abdominal aortic aneurysm measuring up to 4.5 cm. Recommend followup ultrasound or CTAin 12 months AND surgical consultation per simplified ACR and SVS guidelines. Reference: Chaikof EL et al. J Vasc Surg 2018; 67:2-77. Society for Vascular Surgery 2018 practice guidelines on the care of patients with an abdominal aortic aneurysm. Findings in impression 2 were communicated to Justa Barfield DO via secure messaging system [facility] [facility] 3:55 PM. Message receipt was confirmed. I have personally reviewed the images and I agree with this report. WSN: [id number] Ordering Physician: Justa Barfield Dictated By: Dago Garrett DO Dictated Date/Time: 05/06/22 3:56 pm Reviewed By: Thelma Patel MD Signed By: Thelma Patel MD Signed Date/Time: 05/06/22 4:01 pm Transcribed By: ANTOLIN Transcribed Date/Time: 05/06/22 3:53 pm Vital Signs Most recent to oldest 1 2 3 [Reference Range]: Height 167 cm 167 cm 167 cm (05/06/22 3:21 PM) (05/06/22 12:02 PM) (05/06/22 10 :50 AM) Weight 102 kg 102 kg 102 kg (05/06/22 3:21 PM) (05/06/22 12:02 PM) (05/06/22 10 :50 AM) Oxygen Saturation [94-100 %] 97 % 98 % 97 % (05/06/22 11:29 PM) (05/06/22 11:19 PM) (05/06/22 6 :20 PM) Pulse Rate [55-90 bpm] 67 bpm 67 bpm 68 bpm (05/06/22 11:29 PM) (05/06/22 11:28 PM) (05/06/22 1 1:19 PM) Body Mass Index [18.5-24.99 36.57 kg/m2 36.57 kg/m2 kg/m2] *>HHI* *>HHI* (05/06/22 3:21 PM) (05/06/22 12:02 PM) Blood Pressure [90-138/55-84 140/83 mm Hg 140/83 mm Hg 140 /83 mm Hg mm Hg] *H* *H* *H* (05/06/22 11:29 PM) (05/06/22 11:28 PM) (05/06/22 1 1:19 PM) Respiratory Rate [16-30 21 br/min 22 br/min 18 br/mi n br/min] (05/06/22 11:29 PM) (05/06/22 11:19 PM) (05/06/22 6 :20 PM) Temperature [96.8-100.4 98.8 DegF 98.1 DegF 97.3 Deg F DegF] (05/06/22 11:19 PM) (05/06/22 6:20 PM) (05/06/22 4: 33 PM) Liters per Minute 2 L/min 3 L/min 5 L/min (05/06/22 11:29 PM) (05/06/22 11:19 PM) (05/06/22 6 :20 PM) Mode of Delivery (Oxygen) Nasal cannula Nasal cannula Nasal cannula (05/06/22 11:29 PM) (05/06/22 11:19 PM) (05/06/22 6 :20 PM) Blood pressure sites Arm, left Arm, left Arm, left (05/06/22 11:29 PM) (05/06/22 11:19 PM) (05/06/22 6 :20 PM) Temperature Route Oral Oral Oral (05/06/22 3:38 PM) (05/06/22 1:50 PM) (05/06/22 12: 02 PM) Dry Weight 102 kg 102 kg 102 kg (05/06/22 3:21 PM) (05/06/22 12:02 PM) (05/06/22 10 :50 AM) Social History Social History Type Response Smoking Status Never (less than 100 in life time) entered on: 10/09/[address] Abdomen and Pelvis [facility] , CIS S: TRANSCRIBE Jorge GRAY, Devrim: VERIFY Dago Garrett DO: SIGN Event Display: Result: Authored Date: [id number] CT Abd/Pelvis W/ Oral Contrast Only Hx of Present Illness: increasing SOB, inability to urinate,; Reason: Abd pain, distention, renal fariba p L nephrectomy 04 25; Clinical Question(s): Obstruction; Special Instructions: IV contrast contraindicated TECHNIQUE: Spiral CT through the abdomen and pelvis without IV contrast formatted in 3 planes. This study was performed with oral contrast. Weight-based protocol using automatic tube modulation was used to optimize exposure parameters. CTDIvol Body: 20.50 mGy, DLP Body: 1121 mGy*cm. COMPARISON: Multiple priors most recently 06/20/2011 FINDINGS: Pneumatic Press Hand View Findings, Lines and Tubes: None. Visualized Chest: Trace bilateral pleural fluid with adjacent mild atelectasis. The heart is upper limits of normal. No pericardial effusion. Diaphragm: Normal. Liver: Diffuse low-attenuation throughout the liver parenchyma consistent with hepatic steatosis. Noevidence of mass. Gallbladder: Cholelithiasis without evidence of acute cholecystitis. Bile ducts: No biliary ductal dilation. Spleen: Normal. Pancreas: Normal. Adrenal glands: Normal. Kidneys and ureters: Left kidney is surgically absent. There is moderate amount of stranding and a small amount of fluid seen in the surgical bed. Right extrarenal pelvis versus pelviectasis. No hydronephrosis, stones, or noncontrast evidence of suspicious masses. Bladder: Normal. Reproductive organs: Coarse calcifications within the prostate, which is mildly enlarged. Stomach, small bowel, and large bowel: No evidence of obstruction or inflammation. Contrast reaches the rectum. Appendix: No evidence of appendicitis. Peritoneum and retroperitoneum: No ascites or pneumoperitoneum. No omental or mesenteric lesions. Lymph nodes: No enlarged lymph nodes. Blood vessels: Mild vascular calcifications. Bilobed aneurysm of the lower descending aorta at the level of the hiatus the diameter measuring up to 5.2 cm. There is subtle crescentic hyperdensity alongthe left lateral wall of the lower descending aorta measuring approximately 1.6 cm in thickness, highly concerning for aortic dissection. Infrarenal aortic aneurysm measuring up to 4.5 cm. Abdominal and pelvic wall: Edema seen in the left abdominal wall, likely postsurgical. Bones: No acute abnormality. IMPRESSION: No evidence of bowel obstruction. 1. Small amount of stranding and fluid pockets seen within the left nephrectomy surgical bed measuring up to 2.2 cm. 2. Aneurysm of the lower descending aorta with findings highly suspicious for dissection. Further evaluation with CTA chest and abdomen is recommended. 3. Right extrarenal pelvis versus pelviectasis. 4. Infrarenal abdominal aortic aneurysm measuring up to 4.5 cm. Recommend followup ultrasound or CTAin 12 months AND surgical consultation per simplified ACR and SVS guidelines. Reference: Chaikof EL et al. J Vasc Surg 2018; 67:2-77. Society for Vascular Surgery 2018 practice guidelines on the care of patients with an abdominal aortic aneurysm. Findings in impression 2 were communicated to Justa Barfield DO via secure messaging system [facility] [facility] 3:55 PM. Message receipt was confirmed. I have personally reviewed the images and I agree with this report. WSN: [id number] Ordering Physician: Justa Barfield Dictated By: Taryn Garrett DOma Dictated Date/Time: 05/06/22 3:56 pm Reviewed By: Thelma Patel MD Signed By: Thelma Patel MD Signed Date/Time: 05/06/22 4:01 pm Transcribed By: ANTOLIN Transcribed Date/Time: 05/06/22 3:53 pm CTA Abdominal vessels W contrast IV [facility] , CIS S: TRANSCRIBE Thelma Patel MD: VERIFY Event Display: Result: Authored Date: EXAMINATION: CT Angio Chest, CT Angio Abdomen INDICATION: Hx of Present Illness: increasing SOB, inability to urinate,; Reason: Other:; Aortic disease, nontraumatic; Clinical Question(s): Other:; Aortic Dissection TECHNIQUE: An initial noncontrast CT of the chest was performed. Spiral CTA of the chest and abdomenwas performed after rapid IV contrast administration without cardiac gating triggered by an CARLOS on the aorta. Images are formatted in multiple planes using 2-D multiplanar and 3-D maximum intensity projection. Gated axial images through the aortic root were also acquired during a separate 2nd injection of IV contrast with separate reconstructions of this data set formatted in multiple planes using 2-D multiplanar and 3-D maximum intensity projection. 150 cc of Omnipaque 300 was administered intravenously. Weight-based protocol using automatic tube modulation was used to optimize exposure parameters. CTDIvol Body: 23.52 mGy, DLP Body: 2648 mGy*cm. COMPARISONS: CT abdomen/pelvis performed earlier today and CTA chest dated 06/20/2011. ANGIOGRAPHIC FINDINGS: Typed A aortic dissection extending from the aortic arch into the visualized portions of the common iliac arteries. The extent of the dissection is similar to prior CTA from 2011. There are postsurgical changes from prior ascending aortic repair with a 4.2 x 2.4 x 2.2 cm focal outpouching possibly originating from the common origins of the right brachiocephalic and left common carotid arteries. No evidence of extension into the left subclavian artery. The false lumen extending from the aortic arch into the lower descending aorta does not opacify; however, there is opacification with sharp demarcation at the level of the diaphragmatic hiatus (image 81, series 5 series 3), suggesting retrograde filling. The celiac artery and DELFINA originate from the false lumen. The SMA and renal arteries originate from the true lumen. The large branches originating from the aorta are patent. Patient is status post left nephrectomy but the left renal artery is patent. No definite active extravasation is seen. Aneurysmal thoracic aorta measuring 4.9 cm in the distal arch, 4.3 x 3.8 cm in mid descending aorta,5.1 x 4.8 cm in the lower descending aorta, 4.5 x 4.8 cm in the upper abdominal aorta, and 4.3 x 4.6cm in the infrarenal abdominal aorta. Measurements include the true and false lumen. NON-ANGIOGRAPHIC FINDINGS: Pneumatic Press Hand View Findings, Lines and Tubes: None. Trachea and Airways: Patent without evidence of tracheal or endobronchial lesion. Lungs and Pleura: Ill-defined groundglass opacities throughout both lungs predominantly in central distribution. There are scattered foci of subsegmental atelectasis, most significant in left lower lobe. No evidence of confluent pneumonia. There are a few scattered nodules measuring up to 4 mm. No effusion or pneumothorax. Mediastinum and citlalli: There is small amount of simple fluid density fluid surrounding the thoracic aorta without peripheral enhancement. No mediastinal or hilar lymphadenopathy. No esophageal abnormality. Heart: Mild cardiomegaly. No pericardial effusion. Moderate coronary artery calcification. Chest Wall Soft Tissues: Normal. Diaphragm: No significant abnormality. Liver: Normal. Gallbladder: Cholelithiasis without evidence of acute cholecystitis.. Bile ducts: No biliary ductal dilation. Spleen: Normal. Pancreas: Normal. Adrenal glands: Normal. Kidneys and ureters: Status post left nephrectomy with ill-defined foci of hyperdensities measuring up to 3 cm and surrounding fat necrosis, likely representing hematoma or fat necrosis. No organized or peripherally enhancing fluid collection. Mild fullness in the right renal collecting system without overt hydronephrosis. There is are small foci of cortical scarring in the interpolar region. Stomach, small bowel, and large bowel: Visualized stomach and bowel are normal. Peritoneum and retroperitoneum: No ascites or pneumoperitoneum. No omental or mesenteric lesions. Lymph nodes: No enlarged lymph nodes. Abdominal wall: Unremarkable. Bones: No acute abnormality. Status post median sternotomy without evidence of dehiscence. IMPRESSION: 1. 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 Surgical consultation is recommended 2. Majority of the thoracic false lumen does not opacify; however, there is opacification of the lower descending aorta at the level of the diaphragmatic hiatus with sharp demarcation, suggestive of retrograde filling. 3. Small amount of fluid surrounding the thoracic aorta is nonspecific and could be reactive. 4. Status post left nephrectomy with patent left renal artery and small foci of hematomas in the surgical bed. No evidence of active extravasation from the renal artery. 5. Centrally distributed ill-defined groundglass opacities are most likely due to pulmonary edema. 6. Lung nodules measuring up to 4 mm. If low risk for malignancy, no routine follow-up. If high risk, optional CT at 12 months. If unchanged, no further follow-up needed per Guidelines for Management of Incidental Pulmonary Nodules Detected on CT Images: From the Fleischner Society 2017. Findings impression 1 and 2 were communicated to Orlando Mancilla DO via secure messaging system [employer] 5:00 PM. Message receipt was confirmed. WSN: [id number] Ordering Physician: Orlando Mancilla Dictated By: Thelma Patel MD Dictated Date/Time: 05/06/22 5:20 pm Reviewed By: Thelma Patel MD Signed By: Thelma Patel MD Signed Date/Time: 05/06/22 5:20 pm Transcribed By: ANTOLIN Transcribed Date/Time: 05/06/22 4:49 pm CTA Chest vessels W contrast IV BHSPowerscribe , CIS S: TRANSCRIBE Thelma Patel MD: VERIFY Event Display: Result: Authored Date: EXAMINATION: CT Angio Chest, CT Angio Abdomen INDICATION: Hx of Present Illness: increasing SOB, inability to urinate,; Reason: Other:; Aortic disease, nontraumatic; Clinical Question(s): Other:; Aortic Dissection TECHNIQUE: An initial noncontrast CT of the chest was performed. Spiral CTA of the chest and abdomenwas performed after rapid IV contrast administration without cardiac gating triggered by an CARLOS on the aorta. Images are formatted in multiple planes using 2-D multiplanar and 3-D maximum intensity projection. Gated axial images through the aortic root were also acquired during a separate 2nd injection of IV contrast with separate reconstructions of this data set formatted in multiple planes using 2-D multiplanar and 3-D maximum intensity projection. 150 cc of Omnipaque 300 was administered intravenously. Weight-based protocol using automatic tube modulation was used to optimize exposure parameters. CTDIvol Body: 23.52 mGy, DLP Body: 2648 mGy*cm. COMPARISONS: CT abdomen/pelvis performed earlier today and CTA chest dated 06/20/2011. ANGIOGRAPHIC FINDINGS: Typed A aortic dissection extending from the aortic arch into the visualized portions of the common iliac arteries. The extent of the dissection is similar to prior CTA from 2012. There are postsurgical changes from prior ascending aortic repair with a 4.2 x 2.4 x 2.2 cm focal outpouching possibly originating from the common origins of the right brachiocephalic and left common carotid arteries. No evidence of extension into the left subclavian artery. The false lumen extending from the aortic arch into the lower descending aorta does not opacify; however, there is opacification with sharp demarcation at the level of the diaphragmatic hiatus (image 81, series 5 series 3), suggesting retrograde filling. The celiac artery and DELFINA originate from the false lumen. The SMA and renal arteries originate from the true lumen. The large branches originating from the aorta are patent. Patient is status post left nephrectomy but the left renal artery is patent. No definite active extravasation is seen. Aneurysmal thoracic aorta measuring 4.9 cm in the distal arch, 4.3 x 3.8 cm in mid descending aorta,5.1 x 4.8 cm in the lower descending aorta, 4.5 x 4.8 cm in the upper abdominal aorta, and 4.3 x 4.6cm in the infrarenal abdominal aorta. Measurements include the true and false lumen. NON-ANGIOGRAPHIC FINDINGS: Pneumatic Press Hand View Findings, Lines and Tubes: None. Trachea and Airways: Patent without evidence of tracheal or endobronchial lesion. Lungs and Pleura: Ill-defined groundglass opacities throughout both lungs predominantly in central distribution. There are scattered foci of subsegmental atelectasis, most significant in left lower lobe. No evidence of confluent pneumonia. There are a few scattered nodules measuring up to 4 mm. No effusion or pneumothorax. Mediastinum and citlalli: There is small amount of simple fluid density fluid surrounding the thoracic aorta without peripheral enhancement. No mediastinal or hilar lymphadenopathy. No esophageal abnormality. Heart: Mild cardiomegaly. No pericardial effusion. Moderate coronary artery calcification. Chest Wall Soft Tissues: Normal. Diaphragm: No significant abnormality. Liver: Normal. Gallbladder: Cholelithiasis without evidence of acute cholecystitis.. Bile ducts: No biliary ductal dilation. Spleen: Normal. Pancreas: Normal. Adrenal glands: Normal. Kidneys and ureters: Status post left nephrectomy with ill-defined foci of hyperdensities measuring up to 3 cm and surrounding fat necrosis, likely representing hematoma or fat necrosis. No organized or peripherally enhancing fluid collection. Mild fullness in the right renal collecting system without overt hydronephrosis. There is are small foci of cortical scarring in the interpolar region. Stomach, small bowel, and large bowel: Visualized stomach and bowel are normal. Peritoneum and retroperitoneum: No ascites or pneumoperitoneum. No omental or mesenteric lesions. Lymph nodes: No enlarged lymph nodes. Abdominal wall: Unremarkable. Bones: No acute abnormality. Status post median sternotomy without evidence of dehiscence. IMPRESSION: 1. 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 Surgical consultation is recommended 2. Majority of the thoracic false lumen does not opacify; however, there is opacification of the lower descending aorta at the level of the diaphragmatic hiatus with sharp demarcation, suggestive of retrograde filling. 3. Small amount of fluid surrounding the thoracic aorta is nonspecific and could be reactive. 4. Status post left nephrectomy with patent left renal artery and small foci of hematomas in the surgical bed. No evidence of active extravasation from the renal artery. 5. Centrally distributed ill-defined groundglass opacities are most likely due to pulmonary edema. 6. Lung nodules measuring up to 4 mm. If low risk for malignancy, no routine follow-up. If high risk, optional CT at 12 months. If unchanged, no further follow-up needed per Guidelines for Management of Incidental Pulmonary Nodules Detected on CT Images: From the Fleischner Society 2017. Findings impression 1 and 2 were communicated to Orlando Mancilla DO via secure messaging system [employer] 5:00 PM. Message receipt was confirmed. WSN: [id number] Ordering Physician: Orlando Mancilla Dictated By: Thelma Patel MD Dictated Date/Time: 05/06/22 5:20 pm Reviewed By: Thelma Patel MD Signed By: Thelma Patel MD Signed Date/Time: 05/06/22 5:20 pm Transcribed By: ANTOLIN Transcribed Date/Time: 05/06/22 4:49 pm Patient Care team information Care Team PersonnelName: Desirae Perez RN Position: [facility] RN Member Role: Primary Care Nurse Name: Berenice Swift RN Position: [facility] RN Member Role: Primary Care Nurse Name: Sonya Patel RN Position: [facility] RN Member Role: Primary Care Nurse Name: Jesika Arechiga Position: S RN Member Role: Primary Care Nurse Name: Cierra Aburto RN Position: [facility] RN Member Role: Primary Care Nurse Name: Jax Adorno Position: [facility] Outreach Member Role: PCP Address: Address: [address] [place] [id number]- [place] Name: Rolf Archer RN Position: [facility] RN Member Role: Primary Care Nurse Name: Jax Patrick MD Position: [facility] Renal MD Member Role: [employer] Consulting Physician Address: Address: [address] [place] [address] [facility] [place] [place] [address]- [place] Name: Sherri Luevano RN Position: [facility] RN Member Role: Primary Care Nurse Name: Audra Samson RN Position: [facility] Onco RN Member Role: Primary Care Nurse Name: Darrion Coleman RN Position: [facility] RN Member Role: Primary Care Nurse Name: Jimbo Tejeda DO Position: [facility] ED Medicine MD Member Role: ED Attending Physician Address: Address: [address] [place] [address]- Name: Jessica Pk Position: [facility] ED TA [facility] Name: Orlando Mancilla DO Position: [facility] Resident Member Role: ED Resident Address: Address: [address] [place] [address]- [place] Name: Loan Gomez RN Position: [facility] ED RN W/OE and Tasks Member Role: Patient Care Provider Care Team Related PersonsName: CECI DUMONT Address: home [address] [place] [address] Name: JAQUELIN SHI Address: home [address] Name: CECI ROMANO Address: home [address] [place], [place]
--- OUTSIDE RECORDS SUMMARY | 2022-07-20 05:28 | XMS_ITS | Continuity of Care Document ---
:1960 Author Organization [facility] Address [address] [place] [address]- Care Team Providers Name Role Phone Jax Adorno [id number] Date[facility]s): 05/31/22 - 06/07/22 [facility] [address] [place] [address]- Attending Physician: Jax Adorno Admitting Physician: Jax Adorno Referring Physician: Erika GRAY, vIon Sheets Allergies, Adverse Reactions, Alerts No Known Allergies [...] 05/23/22 14:43:00 EST, [facility], Partial fill upon patient request if the prescription is for a schedul... Start Date: 05/23/22 Status: OrderedBetadine 10% solution See Instructions, Apply to left hand hematoma 3 times daily for 5-7 days until improvement, # 2 each, 0 Refills, Maintenance, 10/13/21 8:56:00 EDT, [id number], Partial fill uponpatient request if the prescription is for a sche... Start Date: 10/13/21 Status: Orderedcarvedilol 25 mg oral tablet 25 mg, 1, tablet, By Mouth, 2 times a day, AT 8AM AND 8PM. HOLD IF SBP<100 AND HR<60, # 60 tablet, Refills 0, Tot. Refills 0, Maintenance, 05/23/22 14:43:00 EST, Route to Pharmacy Electronically,[id number], 167, cm, 05/06/22 1... Start Date: 05/23/22 [...] 05/23/22 14:41:00 EST, Route to Pharmacy Electronically, [facility]-[id number], Partial fill upon patient request if the [...] 05/23/22 14:41:00 EST, Route to Pharmacy Electronically, [facility], Partial fill upon patient request if the prescription is fo... Start Date: 05/23/22 Status: OrderedNorvasc 5 mg oral tablet 10 mg, 2, tablet, By Mouth, Daily, # 60 tablet, Refills 0, Tot. Refills 0, Maintenance, 05/23/22 14:42:00 EST, [email or web address], Partial fill upon patient request if the [...] tablet, 0 Refills, Maintenance, 05/23/22 14:43:00EST, Tablet, [facility]-[id number], Partial fill upon patient request if the [...] 0 Refills, Maintenance, 05/23/22 14:43:00 EST, Tablet, [facility]-[id number], Partial fill upon patient request if the [...] BiPAP TBI (traumatic Confirmed Active brain injury) Vital Signs Most recent to oldest [Reference Range]: 1 Height 167 cm (05/31/22 1:22 PM) Weight 92.07 kg (05/31/22 1:22 PM) Oxygen Saturation [94-100 %] 93 % *L* (05/31/22 1:22 PM) Pulse Rate [55-90 bpm] 61 bpm (05/31/22 1:22 PM) Body Mass Index [18.5-24.99 kg/m2] 33.01 kg/m2 *>HHI* (05/31/22 1:22 PM) Blood Pressure [90-138/55-84 mm Hg] 122/60 mm Hg (05/31/22 1:22 PM) Liters per Minute 1 L/min (05/31/22 1:22 PM) Mode of Delivery (Oxygen) Nasal cannula (05/31/22 1:22 PM) Blood pressure sites Arm, right (05/31/22 1:22 PM) Dry Weight 92.07 kg (05/31/22 1:22 PM) Weight Obtained Via Patient/family stated (05/31/22 1: PM) Dry Weight Obtained Via Patient/family stated (05/31/22 1: PM) Social History Social History Type Response Smoking Status Never (less than 100 in life time) entered on: 10/09/21 Sex Note Nitesh Franks: PERFORM, SIGN, VERIFY Event Display: Patient Education/Instruction Authored Date: [id number] [facility] *[facility] [address] Clinical Summary Name SAL WATTS Age 62 Years 1960 PCP Jax Adorno PCP Visit Date 05/31/2022 13:00:00 Additional Instructions: Scheduled Appointments?? Future Appointments ?*[facility] ?[address]??[place],??[place],??[address] ?Phone:??--?Fax:??-- ?Appt. Date:??06/08/2022?2:40 PM ?Scheduled Provider:??Musa GRAY, Lucita Gallagher Follow-Up Instructions ?? Diagnosis Medications: Please continue your medications until treatment is completed or stopped by your provider. Discuss any questions related to medications with your provider. Medications to Continue with No Changes These medications were not printed or sent to your pharmacy Acetaminophen (Tylenol 325 mg oral tablet) 2 tab(s) Oral every 6 hours as needed as needed for fever/pain. Next Dose: Amlodipine (Norvasc 5 mg oral tablet) 2 tab(s) Oral Daily. Refills: 0. Next Dose: Ammonium Lactate 12% (Ammonium Lactate 12% Topical) 1 marybeth Topically Daily in the morning. Next Dose: Amoxicillin 2,000 Milligram Oral. Admin 1hr prior to dental appointment. Next Dose: Aspirin (aspirin 81 mg oral delayed release tablet) 1 tab(s) Oral Daily. Refills: 0. Next Dose: Carvedilol (carvedilol 25 mg oral tablet) 1 tab(s) Oral twice a day for 30 Days. AT 8AM AND 8PM. HOLD IF SBP<100 AND HR<60. Refills: 0. Next Dose: Cholecalciferol (cholecalciferol 1000 intl units oral capsule) 1 capsule Oral Daily in the morning. Next Dose: Clonidine (cloNIDine 0.2 mg oral tablet) 1 tab(s) Oral 3 times a day. Refills: 0. Next Dose: Durable Medical Equipment (Please check basic metabolic panel for bicarbonate and potassium) Please check basic metabolic panel for bicarbonate and potassium. Refills: 0. Next Dose: Durable Medical Equipment (Please repeat basic metabolic panel with your PCP in 5-7 days) Please repeat basic metabolic panel with your PCP in 5-7 days. Refills: 0. Next Dose: Gabapentin (Neurontin 400 mg oral capsule) 1 capsule Oral 3 times a day. Refills: 0. Next Dose: Guaifenesin (Robitussin 100 mg/5 mL syrup) 200 Milligram Oral every 4 hours as needed Cough. Next Dose: Loperamide (Imodium A-D 2 mg oral tablet) 1 tab(s) Oral 4 times a day as needed for loose stool. Next Dose: Melatonin (Melatonin 5 mg oral tablet) 1 tab(s) Oral Daily at Bedtime. Next Dose: Metronidazole Topical (Metrogel) 0.75 % Topically apply a thin film twice daily to affected area after washing. Next Dose: Mirtazapine (Remeron 30 mg oral tablet) 1 tab(s) Oral Daily at Bedtime. Refills: 0. Next Dose: Oxygen 1 liter. nasal cannula continuos. Next Dose: Povidone Iodine Topical (Betadine 10% solution) Apply to left hand hematoma 3 times daily for 5-7 days until improvement. Refills: 0. Next Dose: Sertraline (Zoloft 25 mg oral tablet) 1 tab(s) Oral Daily. every morning. Refills: 0. Next Dose: Terazosin (Hytrin Capsule) 6 Milligram Oral Daily at Bedtime. Next Dose: No Longer Take the Following Medications Furosemide (Lasix 40 mg oral tablet) 1 tab(s) Oral Daily in the morning. Refills: 0. hydrALAZINE (hydrALAZINE 25 mg oral tablet) 1 tab(s) Oral twice a day. Refills: 0. Isosorbide Mononitrate (isosorbide mononitrate 30 mg oral tablet, extended release) 1 tab(s) Oral Daily in the morning. Refills: 0. Losartan (Cozaar 100 mg oral tablet) 1 tab(s) Oral Daily. Refills: 0. Potassium Chloride (potassium chloride 8 mEq (600 mg) oral capsule, extended release) 1 capsule OralDaily. Allergy Info:?? NKA Medications Given This Visit Future Orders ?No future orders Vital Signs Height 167 cm Weight 92.07 kg BMI 33.01 kg/m2 Blood Pressure 122 mm Hg/60 mm Hg Temperature Pulse Rate 61 bpm Respiratory Rate 02 Sat Mode of Delivery 93 %/Nasal cannula You can now view a summary of your hospital visit from the comfort of your home through a free online portal called [employer]. [employer] is a website that allows you to securely view yourmedical information including discharge summary, medications and follow-up visits. ??You can also send a secure electronic message to your doctor???s office to request appointments, renew medications or just ask a question. You can enroll at [email or web address] or register during your next office visit. Disclaimer:?? The information provided is of a general nature and is intended to be used in conjunction with the recommendations and advice of your health care practitioner. ??Every effort has been made to ensure that the information provided is accurate and complete at the time it is provided to you however, as your needs change, or, as new ??information becomes available, different or additional instructions may be required. If you have questions, please consult with your primary care provider or pharmacist, as appropriate.??This information is not intended to serve as substitution for assessment and evaluation by a qualified health care provider. If you do not have a primary care provider, you may find a [facility] provider by calling [facility] at [phone]. For information about the plan of care including goals and instructions for your diagnosis, please see the patient education orders section of this document. Patient Education Materials?? The content of this educational material or handout may have been modified, supplemented, or adaptedfrom its original content and format to support your individualized medical care. Patient Care team information Care Team PersonnelName: Desirae Perez RN Position: [facility] RN Member Role: Primary Care Nurse Name: Sonya Patel RN Position: S RN Member Role: Primary Care Nurse Name: Jesika Arechiga Position: S RN Member Role: Primary Care Nurse Name: Mariposa Holland Position: S RN Member Role: Primary Care Nurse Name: Beverly Hernandez RN Position: S RN Member Role: Primary Care Nurse Name: Cierra Aburto RN Position: S RN Member Role: Primary Care Nurse Name: Jax Adorno Position: [facility] Outreach Member Role: PCP Address: Address: [address] [place] [id number] Name: Rolf Archer RN Position: [facility] RN Member Role: Primary Care Nurse Name: Yany Thomas RN Position: [facility] SN RN Member Role: Primary Care Nurse Name: Jax Patrick MD Position: [facility] Renal MD Member Role: Lifetime Consulting Physician Address: Address: [address] [place] [address] [facility] [address] Name: Sherri Luevano RN Position: S RN Member Role: Primary Care Nurse Name: Audra Samson RN Position: [facility] Onco RN Member Role: Primary Care Nurse Name: Darrion Coleman RN Position: S RN Member Role: Primary Care Nurse Care Team Related PersonsName: CECI DUMONT Address: home [address] [place], [place] Name: JAQUELIN SHI Address: home [address] Name: DORA SPARKS Address: home [employer] [place] Name: CECI ROMANO Address: home [address] [place], [place]
--- OUTSIDE RECORDS SUMMARY | 2022-07-20 05:28 | XMS_ITS | Continuity of Care Document ---
:1960 Author Organization [facility] Address [address] [address]- Care Team Providers Name Role Phone Renata ABRAHAM, September Sharon Primary Care Physician [phone] Encounter [facility] Date(s): 06/08/22 - 07/08/22 [facility] [address] [place] [id number] Attending Physician: AdmYoung goss Admitting Physician: Admtr, Ar8 Referring Physician: Admtr, Ar8 Allergies, Adverse Reactions, Alerts No Known Allergies [...] 05/23/22 14:43:00 EST, Route to Pharmacy Electronically, [id number], Partial fill upon patient request if the prescription is for a schedul... Start Date: 05/23/22 Status: OrderedBetadine 10% solution See Instructions, Apply to left hand hematoma 3 times daily for 5-7 days until improvement, # 2 each, 0 Refills, Maintenance, 10/13/21 8:56:00 EDT, [facility]-[id number], Partial fill uponpatient request if the prescription is for a sche... Start Date: 10/13/21 Status: Orderedcarvedilol 25 mg oral tablet 25 mg, 1, tablet, By Mouth, 2 times a day, AT 8AM AND 8PM. HOLD IF SBP<100 AND HR<60, # 60 tablet, Refills 0, Tot. Refills 0, Maintenance, 05/23/22 14:43:00 EST, Route to Pharmacy Electronically,[facility]-[id number], 167, cm, 05/06/22 1... Start Date: 05/23/22 [...] 05/23/22 14:41:00 EST, Route to Pharmacy Electronically, [facility]-[id number], Partial fill upon patient request if the [...] 05/23/22 14:41:00 EST, Route to Pharmacy Electronically, [facility], Partial fill upon patient request if the prescription is fo... Start Date: 05/23/22 Status: OrderedNorvasc 5 mg oral tablet 10 mg, 2, tablet, By Mouth, Daily, # 60 tablet, Refills 0, Tot. Refills 0, Maintenance, 05/23/22 14:42:00 EST, [facility], Partial fill upon patient request if the [...] tablet, 0 Refills, Maintenance, 05/23/22 14:43:00EST, Tablet, [facility]-[id number], Partial fill upon patient request if the [...] 0 Refills, Maintenance, 05/23/22 14:43:00 EST, Tablet, [facility]-[id number], Partial fill upon patient request if the [...] Member Role: Primary Care Nurse Name: Cierra Abruto RN Position: S RN Member Role: Primary Care Nurse Name: Rlof Archer RN Position: S RN Member Role: Primary Care Nurse Name: Yany Thomas RN Position: S RN Member Role: Primary Care Nurse Name: Jax Patrick MD Position: [facility] Renal MD Member Role: Lifetime Consulting Physician Address: Address: [address] [place] [address] [facility] [place] [address]- Name: Renata RN, September Sharon Position: Reference Physician Member Role: PCP Address: Address: [address] [place] [id number]- Name: Sherri Luevano RN Position: [facility] RN Member Role: Primary Care Nurse Name: Audra Samson RN Position: [facility] Onco RN Member Role: Primary Care Nurse Name: Darrion Coleman RN Position: S RN Member Role: Primary Care Nurse Care Team Related PersonsName: CECI DUMONT Address: home [address], [place] Name: JAQUELIN SHI Address: home [address] Name: DORA SPARKS Address: [place] [employer] [place] Name: CECI ROMANO Address: home [address], [place]
--- OUTSIDE RECORDS SUMMARY | 2022-07-20 05:28 | XMS_ITS | Continuity of Care Document ---
:1960 Author Organization [facility] Address [address] [place] [id number]- Care Team Providers Name Role Phone Jax Adorno Primary Care Physician Encounter [facility] Date(s): 01/02/22 - 01/02/[address] [id number] Discharge Disposition: A-D/C Home Attending Physician: [...] each, 0 Refills, Maintenance, 10/13/21 8:56:00 EDT, [id number], Partial fill uponpatient request if the prescription [...] II opioid drug. Start Date: 01/02/22 Status: OrderedHytrin Capsule 6 mg, By Mouth, [...] II opioid drug. Start Date: 01/02/22 Status: OrderedPlease check basic metabolic panel for [...] Aortic dissection(Confirmed) Active Obese class II(Confirmed) Active Vital Signs Most recent to oldest [Reference Range]: 1 Height 167 cm (01/02/22 8:18 AM) Weight 102.2 kg (01/02/22 8:18 AM) Oxygen Saturation [94-100 %] 94 % (01/02/22 8:03 AM) Pulse Rate [55-90 bpm] 71 bpm (01/02/22 8:03 AM) Blood Pressure [90-138/55-84 mm Hg] 130/74 mm Hg (01/02/22 8:03 AM) Respiratory Rate [16-30 br/min] 18 br/min (01/02/22 8:03 AM) Temperature [96.8-100.4 DegF] 97.5 DegF (01/02/22 8:03 AM) Liters per Minute 2 L/min (01/02/22 8:03 AM) Mode of Delivery (Oxygen) Nasal cannula (01/02/22 8:03 AM) Blood pressure sites Arm, right (01/02/22 8:03 AM) Temperature Route Temporal (01/02/22 8:03 AM) Dry Weight 102.2 kg (01/02/22 8:18 AM) Social History Social History Type Response Smoking Status Never (less than 100 in life time) entered on: 10/09/21 Sex
[2022-07-20] MEDS: methylPREDNISolone Sod Succ 40 MG/ML VIAL IVPUSH ×2 (06:14→17:30)
[2022-07-20] MEDS: Enoxaparin Sodium 40 MG/0.4 ML SYRINGE SUBCUT (06:15)
[2022-07-20] MEDS: Bumetanide 1 MG/4 ML VIAL IVPUSH (06:20)
--- NOTE | 2022-07-20 06:21 | PC.NURSE ---
Pt medicated per AUG. This RN confirming with MD the order for Bumex due to elevated BUN/CR despite hx of CKD. Per MD to continue with Bumex administration. Pt medicated per AUG. VSS. Pt remains on bipap @ 16/7 and 30%. Continue to monitor.
--- NOTE | 2022-07-20 06:54 | PC.RT ---
Pt placed on 17/12 30% RR 14; aware
[2022-07-20 08:16] LABS: Procalcitonin 0.06 ng/mL
--- NOTE | 2022-07-20 08:30 | PHA.MEDREC ---
Pharmacy Consult ? Medication Reconciliation Pharmacy has reviewed the medication reconciliation done by the RN. I added lasix and amlodipine using the list from assisted
--- NOTE | 2022-07-20 10:35 | P.EN_ITS ---
Event Note Date of Service: 07/20/22 Event Note: S awake/alert, denies dyspnea or cough O Temp Pulse Resp BP Pulse Ox O2 Del Method O2 Flow Rate 97.0 F 76 20 178/87 H 92 1 07/20/22 10:10 07/20/22 10:10 07/20/22 10:10 07/20/22 10:10 07/20/22 10:10 07/20/22 10:10 07/20/22 10:10 Gen: in no acute distress HEENT: sclera anicteric, moist mucus membranes Neck: supple Lungs: diminished, exp wheezes Heart: regular rate and rhythm, no murmurs Abd: soft, non-tender, non-distended Ext: no edema Skin: warm/well-perfused Neuro: alert, impaired insight A/P hospital d#1 62yo M [place] [facility] resident with TBI, chronic hypoxic/hypercapneic resp failure due to COPD/CESAR/OHS [baseline 1L suppl O2], HFpEF, CKD3, HTN sent in for hypoxia # acute/chronic hypoxic/hypercapneic resp failure - suppl O2, wean as tolerated - BiPAP at bedtime # COPD exacerbation - steroids, nebs, azithromycin # chronic HFpEF # HTN - continue diuretics, carvedilol, empagliflozin, amlodipine, hydralazine # CKD3 - SCr at baseline # mood disorder - continue mirtazapine, sertraline # VTE ppx: LMWH # dispo: plan eventual return to In my clinical judgment, the patient requires continued inpatient hospitalization for the following reasons: BiPAP Time Spent With Patient Time: Total time managing care of this patient today __35__ minutes.
[2022-07-20] MEDS: carvediloL 25 MG TABLET PO ×2 (10:45→20:09)
[2022-07-20] MEDS: Empagliflozin 10 MG TABLET PO (10:45)
[2022-07-20] MEDS: hydrALAZINE HCl 25 MG TABLET PO ×2 (10:45→20:09)
[2022-07-20] MEDS: Sertraline HCL 25 MG TABLET PO (10:45)
[2022-07-20] MEDS: Bumetanide 1 MG TABLET PO (10:46)
[2022-07-20] MEDS: Cholecalciferol (Vitamin D3) 25 MCG TABLET PO (10:46)
[2022-07-20] MEDS: Gabapentin 400 MG CAPSULE PO ×3 (10:46→20:09)
[2022-07-20] MEDS: Aspirin Enteric Coated 81 MG TABLET.DR PO (10:46)
[2022-07-20] MEDS: cloNIDine HCL 0.2 MG TABLET PO ×3 (10:46→20:09)
[2022-07-20] MEDS: amLODIPine Besylate 10 MG TABLET PO (10:46)
--- NOTE | 2022-07-20 15:48 | MHC.CM.PN ---
Male 62 DX Dyspnea He lives in a Detention. He uses a walker. Assistance for ADLs. A copy of his HCP has been requested. He has been vaxxed for covid. DP return to via S
[2022-07-20] MEDS: 0.9 % Sodium Chloride Flush 3 ML SYRINGE IVFLUSH (17:30)
[2022-07-20] MEDS: Atorvastatin Calcium 10 MG TABLET PO (20:09)
[2022-07-20] MEDS: Doxazosin Mesylate 2 MG TABLET 6 MG PO (20:09)
[2022-07-20] MEDS: Mirtazapine 30 MG TABLET PO (20:09)
[2022-07-20] MEDS: Melatonin 3 MG TABLET 6 MG PO (20:10)
[2022-07-21] VITALS (12 sets, daily range): BP systolic 127–167; BP diastolic 77–90; PULSE 57–84; RESP 18–21; TEMP 36.3–37.1; O2SAT 89–100
[2022-07-21] MEDS: 0.9 % Sodium Chloride Flush 3 ML SYRINGE IVFLUSH ×3 (00:30→15:36)
[2022-07-21] MEDS: methylPREDNISolone Sod Succ 40 MG/ML VIAL IVPUSH ×2 (05:17→15:41)
[2022-07-21] MEDS: Azithromycin 500 MG in 0.9 % Sodium Chloride 250 ML 125 MG IV (05:17)
[2022-07-21] MEDS: Enoxaparin Sodium 40 MG/0.4 ML SYRINGE SUBCUT (05:17)
[2022-07-21] MEDS: Acetaminophen 325 MG TABLET 650 MG PO (06:25)
[2022-07-21 06:47] LABS: MANUAL DIFF FLAG NO
[2022-07-21 06:51] LABS: Venous Blood Gas Refer to POC result
[2022-07-21 06:53] LABS: VBG Base Excess 13.9 mmol/L; VBG HCO3 42 mmol/L (22-26); VBG pCO2 69 mmHg; VBG pH 7.39 (7.32-7.43); VBG pO2 85 mmHg
[2022-07-21 06:53] LABS: Basophils Percent Auto 0.1 % (0-2); Hematocrit 38.4 % (42.0-52.0); Hemoglobin 11.9 g/dl (14.0-18.0); Imm Gran Abs Auto 0.05 X10*3/uL (0.00-0.03); Imm Gran Pct Auto 0.5 % (0.0-0.4); Lymphocytes Absolute Auto 0.6 X10*3/uL (1.2-4.9); Lymphocytes Percent Auto 5.6 % (20-40); Mean Corpuscular Hemoglobin 28.6 pg (27.0-33.0); Mean Corpuscular Volume 92.3 fL (80.0-98.0); Mean Platelet Volume 10.3 fL (9.4-12.4); Monocytes Absolute Auto 0.5 X10*3/uL (0.1-1.2); Monocytes Percent Auto 4.9 % (2-11); Neutrophils Absolute Auto 9.5 x10*3/uL (2.0-8.3); Neutrophils Percent Auto 88.9 % (45-73); Platelet Count 228 X10*3/uL (160-400); Red Blood Count 4.16 X10*6/uL (4.60-5.80); Red Cell Distribution Width 12.7 % (11.0-16.0); White Blood Count 10.7 X10*3/uL (4.8-10.8)
[2022-07-21 07:07] LABS: Anion Gap 13 (12-20); Blood Urea Nitrogen 29 mg/dL (9-16); Calcium 8.9 mg/dL (8.4-10.2); Carbon Dioxide 32 mmol/L (22-29); Chloride 100 mmol/L (96-108); Estimated Glomerular Filt Rate 53; Glucose Random 122 mg/dL (60-115); Potassium 4.6 mmol/L (3.3-5.1); Sodium 140 mmol/L (135-145)
[2022-07-21 07:11] LABS: B Type Natriuretic Peptide 403 pg/mL (<100)
[2022-07-21] MEDS: cloNIDine HCL 0.2 MG TABLET PO ×3 (08:01→20:24)
[2022-07-21] MEDS: Empagliflozin 10 MG TABLET PO (08:01)
[2022-07-21] MEDS: Gabapentin 400 MG CAPSULE PO ×3 (08:01→20:25)
[2022-07-21] MEDS: Bumetanide 1 MG TABLET PO (08:02)
[2022-07-21] MEDS: Furosemide 20 MG TABLET PO (08:02)
[2022-07-21] MEDS: hydrALAZINE HCl 25 MG TABLET PO ×2 (08:02→20:27)
[2022-07-21] MEDS: carvediloL 25 MG TABLET PO ×2 (08:02→20:25)
[2022-07-21] MEDS: Aspirin Enteric Coated 81 MG TABLET.DR PO (08:02)
[2022-07-21] MEDS: amLODIPine Besylate 10 MG TABLET PO (08:02)
[2022-07-21] MEDS: Sertraline HCL 25 MG TABLET PO (08:02)
[2022-07-21] MEDS: Cholecalciferol (Vitamin D3) 25 MCG TABLET PO (08:03)
--- NOTE | 2022-07-21 09:32 | HO.PM.IMPN ---
Subjective Subjective Date of Service: 07/21/22 Interval History: breathing improved, used BiPAP last night Review of Systems Review of Systems: Yes all other systems are reviewed and are negative Physical Exam Vital Signs: Vital Signs: Last Vital Signs Temp 97.4 F 07/21/22 07:50 Pulse 64 07/21/22 07:50 Resp 20 07/21/22 07:50 BP 162/88 H 07/21/22 07:50 Pulse Ox 94 07/21/22 07:50 O2 Del Method 07/21/22 07:50 O2 Flow Rate 7 07/21/22 07:50 FiO2 30 07/21/22 00:00 Oxygen Flow Rate 1 07/20/22 00:22 BMI result Body Mass Index 35.5 Gen: in no acute distress HEENT: sclera anicteric, moist mucus membranes Neck: supple Lungs: diminished, exp wheezes Heart: regular rate and rhythm, no murmurs Abd: soft, non-tender, non-distended Ext: no edema Skin: warm/well-perfused Neuro: alert, impaired insight Objective Data Active Medications Acetaminophen (Acetaminophen 325 Mg Tablet) 650 mg PO Q6H PRN PRN Reason: Pain, Mild (Pain Scale 1-3) Last Admin: 07/21/22 06:25 Dose: 650 mg Documented By: FLORIN Amlodipine Besylate (Amlodipine Besylate 10 Mg Tablet) [address] [facility]; Protocol Last Admin: 07/21/22 08:02 Dose: 10 mg Documented By: JALEEL Aspirin (Aspirin Enteric Coated 81 Mg Tablet.) [address] [facility] Last Admin: 07/21/22 08:02 Dose: 81 mg Documented By: JALEEL Atorvastatin Calcium (Atorvastatin Calcium 10 Mg Tablet) [address] [facility] Last Admin: 07/20/22 20:09 Dose: 10 mg Documented By: TUMASY Bumetanide (Bumetanide 1 Mg Tablet) [address] [facility]; Protocol Last Admin: 07/21/22 08:02 Dose: 1 mg Documented By: JALEEL Carvedilol (Carvedilol 25 Mg Tablet) [address] [facility]; Protocol Last Admin: 07/21/22 08:02 Dose: 25 mg Documented By: JALEEL Clonidine HCl (Clonidine Hcl 0.2 Mg Tablet) 0.[address] [facility]; Protocol Last Admin: 07/21/22 08:01 Dose: 0.2 mg Documented By: JALEEL Albuterol Sulfate 2.5 mg/ (Ipratropium Freeburn 0.5 mg) 0 mg INHALE RQ4H WHILE AWAKE [facility] Last Admin: 07/21/22 07:25 Dose: 1 each Documented By: BLASCL Albuterol Sulfate 2.5 mg/ (Ipratropium [place] 0.5 mg) 0 mg INHALE Q4H PRN PRN Reason: Wheezing Doxazosin Mesylate (Doxazosin Mesylate 2 Mg Tablet) [address] [facility] Last Admin: 07/20/22 20:09 Dose: 6 mg Documented By: TONO Empagliflozin (Empagliflozin 10 Mg Tablet) [address] [facility] Last Admin: 07/21/22 08:01 Dose: 10 mg Documented By: JALEEL Enoxaparin Sodium (Enoxaparin Sodium 40 Mg/0.4 Ml Syringe) [address] [facility] Last Admin: 07/21/22 05:17 Dose: 40 mg Documented By: COTEMA Furosemide (Furosemide 20 Mg Tablet) [address] [facility]; Protocol Last Admin: 07/21/22 08:02 Dose: 20 mg Documented By: JALEEL Gabapentin (Gabapentin 400 Mg Capsule) [address] [facility] Last Admin: 07/21/22 08:01 Dose: 400 mg Documented By: JALEEL Hydralazine HCl (Hydralazine Hcl 25 Mg Tablet) [address] [facility]; Protocol Last Admin: 07/21/22 08:02 Dose: 25 mg Documented By: JALEEL Azithromycin 500 mg/ Sodium (Chloride) 250 mls @ 125 mls/hr IV Q24H [facility] Last Infusion: 07/21/22 07:37 Dose: 0 mls/hr Documented By: JALEEL Loperamide HCl (Loperamide Hcl 2 Mg Capsule) 2 mg PO Q6H PRN PRN Reason: Diarrhea Melatonin (Melatonin 3 Mg Tablet) 6 mg PO BEDTIME PRN PRN Reason: Insomnia Melatonin (Melatonin 3 Mg Tablet) [address] [facility] Last Admin: 07/20/22 20:10 Dose: 6 mg Documented By: TONO Methylprednisolone Sodium Succinate (Methylprednisolone Sod Succ 40 Mg/Ml Vial) [address] [facility] Last Admin: 07/21/22 05:17 Dose: 40 mg Documented By: COTEMA Mirtazapine (Mirtazapine 30 Mg Tablet) [address] [facility] Last Admin: 07/20/22 20:09 Dose: 30 mg Documented By: TONO Ondansetron HCl (Ondansetron Hcl 4 Mg/2 Ml Vial) 4 mg IVPUSH Q8H PRN PRN Reason: Nausea and Vomiting Pharmacy Consult (Consult Rx Perform Med Rec) 1 each MISCELLANE ONCE PRN PRN Reason: Consult order Sertraline HCl (Sertraline Hcl 25 Mg Tablet) [address] [facility] Last Admin: 07/21/22 08:02 Dose: 25 mg Documented By: JALEEL Sodium Chloride (0.9 % Sodium Chloride Flush 3 Ml Syringe) [address] [facility] Last Admin: 07/21/22 08:02 Dose: 3 ml Documented By: JALEEL Vitamin D (Cholecalciferol (Vitamin D3) 25 Mcg Tablet) [address] [facility] Last Admin: 07/21/22 08:03 Dose: 25 mcg Documented By: JALEEL Labs 07/21/22 06:41 07/21/22 06:41 Labs: Laboratory Results - last 24 hr 07/21/22 07/21/22 07/21/22 06:41 06:41 06:41 MCV 92.3 MCH 28.6 MCHC 31.0 RDW 12.7 Plt Count 228 MPV 10.3 Immature Gran % (Auto) 0.5 H Neut % (Auto) 88.9 H Lymph % (Auto) 5.6 L [place] % (Auto) 4.9 Eos % (Auto) 0.0 Baso % (Auto) 0.1 Lymph # (Auto) 0.6 L [place] # (Auto) 0.5 Eos # (Auto) 0.0 Baso # (Auto) 0.0 Abs Immat Gran (auto) 0.05 H Absolute Neuts (auto) 9.5 H Absolute Nucleated RBC 0.000 Nucleated RBC % (auto) 0.0 VBG pH VBG pCO2 VBG pO2 VBG HCO3 VBG O2 Saturation VBG Base Excess Anion Gap 13 Estim Creat Clear Calc 63.0 Estimated GFR 53 Random Glucose 122 H Calcium 8.9 B-Natriuretic Peptide 403 H 07/21/22 06:46 MCV MCH MCHC RDW Plt Count MPV Immature Gran % (Auto) Neut % (Auto) Lymph % (Auto) [place] % (Auto) Eos % (Auto) Baso % (Auto) Lymph # (Auto) [place] # (Auto) Eos # (Auto) Baso # (Auto) Abs Immat Gran (auto) Absolute Neuts (auto) Absolute Nucleated RBC Nucleated RBC % (auto) VBG pH 7.39 VBG pCO2 69 VBG pO2 85 VBG HCO3 42 H VBG O2 Saturation 97.0 VBG Base Excess 13.9 Anion Gap Estim Creat Clear Calc Estimated GFR Random Glucose Calcium B-Natriuretic Peptide Microbiology Microbiology Results: Microbiology 07/20/22 01:15 Blood Culture - Preliminary Blood - Arterial No growth after 24 hours. 07/20/22 01:15 Blood Culture - Preliminary Blood - Arterial No growth after 24 hours. Assessment and Plan (1) Acute exacerbation of chronic obstructive pulmonary disease: Status: Acute Plan hospital d#2 62yo M long-term resident with TBI, chronic hypoxic/hypercapneic resp failure due to COPD/CESAR/OHS [baseline 1L suppl O2], HFpEF, CKD3, HTN sent in for hypoxia after recent admission for CHF exacerbation requiring BiPAP # acute/chronic hypoxic/hypercapneic resp failure - suppl O2, wean as tolerated - BiPAP at bedtime # COPD exacerbation - d#2 steroids, nebs, azithromycin # chronic HFpEF # HTN - continue diuretics, carvedilol, empagliflozin, amlodipine, hydralazine # CKD3 - SCr at baseline # mood disorder - continue mirtazapine, sertraline # VTE ppx: LMWH # dispo: plan eventual return to Time Spent With Patient Time: Total time managing care of this patient today __30__ minutes. Quality Stroke Does the patient have a stroke diagnosis?: No VTE Prior VTE?: No VTE Risk Level:: Medical - moderate - high VTE Device Contraindication: Treatment Not Indicated VTE Drug Contraindication: N/A - Med Ordered
--- NOTE | 2022-07-21 13:50 | MHC.CM.PN ---
Male 62 DX Dyspnea. Patient with severe short term memory loss lives in a fpc. He is not able to tolerate his CPAP. Patient has been educated on importance of CPAP. He appears to understand. His sister states that he is agreeable to wear the CPAP; but he forgets why he needs it. T/W reached out to Resp. for possible change in face mask; but that is not an option.
[2022-07-21 14:39] LABS: Adenovirus PCR Not Detected (Not Detect.); Bordetella parapertussis PCR Not Detected (Not Detect.); Bordetella pertussis PCR Not Detected (Not Detect.); Chlamydia pneumoniae PCR Not Detected (Not Detect.); Coronavirus 229E PCR Not Detected (Not Detect.); Coronavirus HKU1 PCR Not Detected (Not Detect.); Coronavirus NL63 PCR Not Detected (Not Detect.); Coronavirus OC43 PCR Not Detected (Not Detect.); Human metapneumovirus PCR Not Detected (Not Detect.); Influenza A PCR Not Detected (Not Detect.); Influenza B PCR Not Detected (Not Detect.); Mycoplasma pneumoniae PCR Not Detected (Not Detect.); Parainfluenza 1 PCR Not Detected (Not Detect.); Parainfluenza 2 PCR Not Detected (Not Detect.); Parainfluenza 3 PCR Not Detected (Not Detect.); Parainfluenza 4 PCR Not Detected (Not Detect.); RSV PCR Not Detected (Not Detect.); Rhino/Enterovirus PCR Not Detected (Not Detect.); SARS-CoV-2 PCR Not Detected (Not Detect.)
[2022-07-21] MEDS: Doxazosin Mesylate 2 MG TABLET 6 MG PO (20:25)
[2022-07-21] MEDS: Melatonin 3 MG TABLET 6 MG PO (20:26)
[2022-07-21] MEDS: Loperamide HCl 2 MG CAPSULE PO (20:27)
[2022-07-21] MEDS: Atorvastatin Calcium 10 MG TABLET PO (20:27)
[2022-07-21] MEDS: Mirtazapine 30 MG TABLET PO (20:27)
[2022-07-22] VITALS (14 sets, daily range): BP systolic 140–189; BP diastolic 82–96; PULSE 60–100; RESP 15–21; TEMP 36.4–37.1; O2SAT 90–97
[2022-07-22] MEDS: 0.9 % Sodium Chloride Flush 3 ML SYRINGE IVFLUSH ×2 (02:11→09:15)
--- NOTE | 2022-07-22 02:12 | PC.NURSE ---
0200 Patient removed CPAP and is refusing to wear it.
[2022-07-22] MEDS: Azithromycin 500 MG in 0.9 % Sodium Chloride 250 ML 125 MG IV (04:10)
[2022-07-22] MEDS: Enoxaparin Sodium 40 MG/0.4 ML SYRINGE SUBCUT (05:12)
[2022-07-22] MEDS: methylPREDNISolone Sod Succ 40 MG/ML VIAL IVPUSH (05:16)
[2022-07-22 06:31] LABS: Venous Blood Gas Refer to POC result
[2022-07-22 06:33] LABS: VBG Base Excess 7.3 mmol/L; VBG HCO3 32 mmol/L (22-26); VBG pCO2 49 mmHg; VBG pH 7.42 (7.32-7.43); VBG pO2 199 mmHg
[2022-07-22 06:52] LABS: Anion Gap 14 (12-20); Blood Urea Nitrogen 34 mg/dL (9-16); Calcium 8.6 mg/dL (8.4-10.2); Carbon Dioxide 31 mmol/L (22-29); Chloride 99 mmol/L (96-108); Estimated Glomerular Filt Rate 53; Glucose Random 261 mg/dL (60-115); Potassium 4.5 mmol/L (3.3-5.1); Sodium 139 mmol/L (135-145)
[2022-07-22 06:55] LABS: B Type Natriuretic Peptide 587 pg/mL (<100)
[2022-07-22] MEDS: amLODIPine Besylate 10 MG TABLET PO (09:15)
[2022-07-22] MEDS: Empagliflozin 10 MG TABLET PO (09:15)
[2022-07-22] MEDS: Bumetanide 1 MG TABLET PO (09:15)
[2022-07-22] MEDS: cloNIDine HCL 0.2 MG TABLET PO ×3 (09:15→19:45)
[2022-07-22] MEDS: hydrALAZINE HCl 25 MG TABLET PO ×2 (09:15→19:44)
[2022-07-22] MEDS: Cholecalciferol (Vitamin D3) 25 MCG TABLET PO (09:15)
[2022-07-22] MEDS: Furosemide 20 MG TABLET PO (09:15)
[2022-07-22] MEDS: Aspirin Enteric Coated 81 MG TABLET.DR PO (09:16)
[2022-07-22] MEDS: Gabapentin 400 MG CAPSULE PO ×3 (09:16→19:44)
[2022-07-22] MEDS: Sertraline HCL 25 MG TABLET PO (09:16)
[2022-07-22] MEDS: carvediloL 25 MG TABLET PO ×2 (09:16→19:45)
--- NOTE | 2022-07-22 09:42 | PM.DS ---
DS: Providers Provider Date of Service: 07/22/22 <Osmin Duran MD - Last Filed: 07/31/22 07:30> 07/27/22 <[facility] - Last Filed: 07/28/22 17:34> Date of admission: 07/20/22 05:04 <Osmin Duran MD - Last Filed: 07/31/22 07:30> Date of discharge: 07/22/22 <Osmin Duran MD - Last Filed: 07/31/22 07:30> 07/27/22 <[facility] - Last Filed: 07/28/22 17:34> Primary care physician: Maddison Vazquez NP <Osmin Duran MD - Last Filed: 07/31/22 07:30> Attending physician on discharge: Juan Hastings <[facility] - Last Filed: 07/28/22 17:34> Discharging clinician: Tania Underwood <[facility] - Last Filed: 07/28/22 17:34> DS: Diagnosis Discharge Diagnosis (1) Acute exacerbation of chronic obstructive pulmonary disease: Status: Resolved <Osmin Duran MD - Last Filed: 07/31/22 07:30> (2) CESAR on CPAP: Status: Inactive <Osmin Duran MD - Last Filed: 07/31/22 07:30> (3) Hypoxia: Status: Resolved <Osmin Duran MD - Last Filed: 07/31/22 07:30> (4) Acute on chronic respiratory failure with hypoxia and hypercapnia: Status: Acute <Osmin Duran MD - Last Filed: 07/31/22 07:30> DS: Summary Hospital Course Hospital Course: from admission H+P by hospitalist Desean Liriano MD, 07/20/22: This is a 62-year-old male with pertinent history of chronic hypoxemic hypercapnic respiratory failure due to COPD/CESAR/OHS, baseline 1 L supplemental oxygen, congestive heart failure with preserved ejection fraction, chronic kidney disease, essential hypertension, mood disorder, TBI who was sent from long-term for evaluation of hypoxemia.? Patient was recently admitted and discharged 3 days ago with COPD and CHF exacerbation.? Patient has been noncompliant with bedtime NIV as per long-term staff.? Patient was hypoxemic as per long-term staff on his baseline 1 L supplemental oxygen.? He was also drowsy.? History obtained from chart review and ER provider.? Unable to obtain history from the patient at this time.? Unable to obtain review of systems. In the emergency department, initially patient was placed on 4 L supplemental oxygen and then switched to NIV This 62yo M long-term resident with TBI, chronic hypoxic/hypercapneic resp failure due to COPD/CESAR/OHS [baseline 1L suppl O2], HFpEF, CKD3, and HTN was sent in for hypoxia after recent admission for CHF exacerbation requiring BiPAP. He improved quickly with treatment of COPD with steroids, azithromycin, and albuterol, along with consistent use of CPAP at night. He has completed course of steroids and azithromycin. Recommend to comply with CPAP. longterm didn't feel comfortable taking patient back initially, after discussion with HCP, patient will have hospice informational session at the long-term and further discussion around code status. <Osmin Duran MD - Last Filed: 07/31/22 07:30> Time Spent with Patient Time attestation: Total time managing care of this patient today __35__ minutes. <Osmin Duran MD - Last Filed: 07/31/22 07:30> Discharge coordination time: Greater than 30 minutes <Osmin Duran MD - Last Filed: 07/31/22 07:30> Quality: Safe Use of Opioids Does Pt have an Active Cancer Diagnosis on the Problem List?: No <Osmin Duran MD - Last Filed: 07/31/22 07:30> Quality: Stroke Does the patient have a stroke diagnosis?: No <Osmin Duran MD - Last Filed: 07/31/22 07:30> Physical Exam Vital Signs: Vital Signs: Last Vital Signs Temp 97.8 F 07/22/22 08:00 Pulse 93 07/22/22 08:14 Resp 18 07/22/22 08:17 BP 184/96 H 07/22/22 08:00 Pulse Ox 94 07/22/22 08:00 O2 Del Method 07/21/22 23:37 O2 Flow Rate 2 07/21/22 19:41 FiO2 30 02/17/23 00:00 Oxygen Flow Rate 1 07/20/22 00:22 BMI result Body Mass Index 35.5 <Osmin Duran MD - Last Filed: 07/31/22 07:30> Const: Other: Gen: in no acute distress HEENT: sclera anicteric, moist mucus membranes Neck: supple Lungs: clear bilaterally Heart: regular rate and rhythm, no murmurs Abd: soft, non-tender, non-distended Ext: no edema Skin: warm/well-perfused Neuro: alert, impaired insight ? <Osmin Duran MD - Last Filed: 07/31/22 07:30> DS: Data Data Completed and Pending Completed studies during hospitalization [Text1]: Laboratory Results WBC 10.7 X10*3/uL (4.8-10.8) 07/21/22 06:41 RBC 4.16 X10*6/uL (4.60-5.80) L 07/21/22 06:41 Hgb 11.9 g/dl (14.0-18.0) L 07/21/22 06:41 Hct 38.4 % (42.0-52.0) L 07/21/22 06:41 MCV 92.3 fL (80.0-98.0) 07/21/22 06:41 MCH 28.6 pg (27.0-33.0) 07/21/22 06:41 MCHC 31.0 g/dl (31.0-36.0) 07/21/22 06:41 RDW 12.7 % (11.0-16.0) 07/21/22 06:41 Plt Count 228 X10*3/uL (160-400) 07/21/22 06:41 MPV 10.3 fL (9.4-12.4) 07/21/22 06:41 Immature Gran % (Auto) 0.5 % (0.0-0.4) H 07/21/22 06:41 Neut % (Auto) 88.9 % (45-73) H 07/21/22 06:41 Lymph % (Auto) 5.6 % (20-40) L 07/21/22 06:41 Major % (Auto) 4.9 % (2-11) 07/21/22 06:41 Eos % (Auto) 0.0 % (0-4) 07/21/22 06:41 Baso % (Auto) 0.1 % (0-2) 07/21/22 06:41 Lymph # (Auto) 0.6 X10*3/uL (1.2-4.9) L 07/21/22 06:41 Major # (Auto) 0.5 X10*3/uL (0.1-1.2) 07/21/22 06:41 Eos # (Auto) 0.0 X10*3/uL (0.0-0.4) 07/21/22 06:41 Baso # (Auto) 0.0 X10*3/uL (0.0-0.2) 07/21/22 06:41 Abs Immat Gran (auto) 0.05 X10*3/uL (0.00-0.03) H 07/21/22 06:41 Absolute Neuts (auto) 9.5 x10*3/uL (2.0-8.3) H 07/21/22 06:41 Absolute Nucleated RBC 0.000 X10*3/uL (0.0-0.012) 07/21/22 06:41 Nucleated RBC % (auto) 0.0 /100WBC (0.0-0.2) 07/21/22 06:41 PT 15.3 SEC (10.0-13.1) H 07/20/22 01:15 INR 1.3 (0.9-1.1) H 07/20/22 01:15 O2 Saturation 95.0 % 07/20/22 04:03 ABG pH at Pt Temp 7.33 (7.35-7.45) L 07/20/22 04:03 ABG pCO2 at Pt Temp 79 mmHg (32-45) H* 07/20/22 04:03 ABG pO2 at Pt Temp 79 mmHg (83-108) L 07/20/22 04:03 ABG HCO3 42 mmol/L (22-26) H 07/20/22 04:03 ABG Base Excess (Actual) 13.2 mmol/L 07/20/22 04:03 VBG pH 7.42 (7.32-7.43) 07/22/22 06:27 VBG pCO2 49 mmHg 07/22/22 06:27 VBG pO2 199 mmHg 07/22/22 06:27 VBG HCO3 32 mmol/L (22-26) H 07/22/22 06:27 VBG O2 Saturation 99.0 % 07/22/22 06:27 VBG Base Excess 7.3 mmol/L 07/22/22 06:27 Sodium 139 mmol/L (135-145) 07/22/22 06:23 Potassium 4.5 mmol/L (3.3-5.1) 07/22/22 06:23 Chloride 99 mmol/L (96-108) 07/22/22 06:23 Carbon Dioxide 31 mmol/L (22-29) H 07/22/22 06:23 Anion Gap 14 (12-20) 07/22/22 06:23 BUN 34 mg/dL (9-16) H 07/22/22 06:23 Creatinine 1.36 mg/dL (0.5-1.4) 07/22/22 06:23 Estim Creat Clear Calc 63.0 07/22/22 06:23 Estimated GFR 53 07/22/22 06:23 Random Glucose 261 mg/dL (60-115) H 07/22/22 06:23 Lactic Acid 0.5 mmol/L (0.5-2.0) 07/20/22 01:13 Calcium 8.6 mg/dL (8.4-10.2) 07/22/22 06:23 Total Bilirubin 0.4 mg/dL (0.0-1.0) 07/20/22 01:15 Direct Bilirubin < 0.2 mg/dL (0.0-0.5) 07/20/22 01:15 AST 15 U/L (5-37) 07/20/22 01:15 ALT 17 U/L (0-40) 07/20/22 01:15 Alkaline Phosphatase 99 U/L (39-117) 07/20/22 01:15 Troponin I High Sens 17.5 ng/L (<3.5-35.0) 07/20/22 01:15 B-Natriuretic Peptide 587 pg/mL (<100) H 07/22/22 06:23 Total Protein 5.7 g/dL (6.5-8.0) L 07/20/22 01:15 Albumin 3.1 g/dL (3.5-5.0) L 07/20/22 01:15 Procalcitonin 0.06 ng/mL 07/20/22 01:15 Urine Color Yellow 07/20/22 02:15 Urine Appearance Clear 07/20/22 02:15 Urine pH 5.5 (5.0-9.0) 07/20/22 02:15 Ur Specific [place] 1.020 (1.005-1.025) 07/20/22 02:15 Urine Protein 300 (3+) mg/dL (Neg-Trace) H 07/20/22 02:15 Urine Glucose (UA) 500 mg/dL (Negative) H 07/20/22 02:15 Urine Ketones Negative mg/dL (Negative) 07/20/22 02:15 Urine Blood Negative (Negative) 07/20/22 02:15 Urine Nitrite Negative (Negative) 07/20/22 02:15 Ur Leukocyte Esterase Trace (Negative) H 07/20/22 02:15 Urine RBC 0-2 /HPF (0-2) 07/20/22 02:15 Urine WBC 6-10 /HPF (0-5) 07/20/22 02:15 Ur Squamous Epith Cells 3-5 /HPF (0-2) 07/20/22 02:15 Urine Bacteria None Seen (None Seen) 07/20/22 02:15 Hyaline Casts 0-2 /LPF (0-2) 07/20/22 02:15 Urine Opiates Screen Not Detected (Not Detect) 07/20/22 02:15 Urine Fentanyl Screen Not Detected (Not Detect) 07/20/22 02:15 Ur Barbiturates Screen Not Detected (Not Detect) 07/20/22 02:15 Ur Phencyclidine Scrn Not Detected (Not Detect) 07/20/22 02:15 Ur Amphetamines Screen Not Detected (Not Detect) 07/20/22 02:15 U Benzodiazepines Scrn Not Detected (Not Detect) 07/20/22 02:15 Urine Cocaine Screen Not Detected (Not Detect) 07/20/22 02:15 U Marijuana (THC) Screen Not Detected (Not Detect) 07/20/22 02:15 Respiratory Panel Snyder See Note 07/21/22 08:00 Adenovirus (Rapid PCR) Not Detected (Not Detect.) 07/21/22 08:00 B.pert (TEM-PCR) Not Detected (Not Detect.) 07/21/22 08:00 B.parapertussis DNA PCR Not Detected (Not Detect.) 07/21/22 08:00 C. pneumoniae DNA (PCR) Not Detected (Not Detect.) 07/21/22 08:00 Coronavirus OC43 (PCR) Not Detected (Not Detect.) 07/21/22 08:00 Coronavirus HKU1 (PCR) Not Detected (Not Detect.) 07/21/22 08:00 Coronavirus 229E (PCR) Not Detected (Not Detect.) 07/21/22 08:00 COVID-19 (JACQUELINE) Negative (Negative) 07/20/22 01:00 COVID-19 Clin Com See Note 07/20/22 01:00 Coronavirus NL63 (PCR) Not Detected (Not Detect.) 07/21/22 08:00 Human Metapneumovir PCR Not Detected (Not Detect.) 07/21/22 08:00 Influenza A (RT-PCR) Not Detected (Not Detect.) 07/21/22 08:00 Influenza B (RT-PCR) Not Detected (Not Detect.) 07/21/22 08:00 M. pneumoniae (PCR) Not Detected (Not Detect.) 07/21/22 08:00 Parainfluenza 1 (PCR) Not Detected (Not Detect.) 07/21/22 08:00 Parainfluenza 2 (PCR) Not Detected (Not Detect.) 07/21/22 08:00 Parainfluenza 3 (PCR) Not Detected (Not Detect.) 07/21/22 08:00 Parainfluenza 4 (PCR) Not Detected (Not Detect.) 07/21/22 08:00 RSV (PCR) Not Detected (Not Detect.) 07/21/22 08:00 Entero/Rhino (PCR) Not Detected (Not Detect.) 07/21/22 08:00 SARS-CoV-2 RNA (RT-PCR) Not Detected (Not Detect.) 07/21/22 08:00 Impressions Chest X-Ray 07/20/22 01:23 IMPRESSION: Bronchial wall thickening can be seen with a small airways process such as asthma or atypical/viral infection. Hazy retrocardiac opacity may represent superimposed atelectasis or pneumonia. 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 [Primary Care Provider] - 1 Week <Osmin Duran MD - Last Filed: 07/31/22 07:30> Discharge Medications: New albuterol sulfate 90 mcg/actuation HFA aerosol inhaler 2 puff inhalation Q4-6H PRN (Reason: shortness of breath or wheezing) Qty: 8.5 0RF Rx Instructions: use with spacer device albuterol sulfate 90 mcg/actuation HFA aerosol inhaler 2 puff inhalation Q6H PRN (Reason: shortness of breath or wheezing) Qty: 6.7 1RF Continued mirtazapine [Remeron] 30 mg Tablet 30 mg PO BEDTIME sertraline [Zoloft] 25 mg Tablet 25 mg PO DAILY ammonium lactate 12 % Cream 1 appl TOPICAL DAILY aspirin 81 mg Tablet,Delayed Release (Dr/Ec) 81 mg PO DAILY loperamide 2 mg Tablet 2 mg PO Q6H PRN (Reason: Diarrhea) melatonin 5 mg Tablet 5 mg PO BEDTIME metronidazole 0.75 % Gel 1 appl TOPICAL BID Rx Instructions: APPLY TO RED FLAKY AREAS ON FACE guaifenesin [Mucus-Chest Congestion] 100 mg/5 mL Liquid 200 mg PO Q4H PRN (Reason: Cough) gabapentin [Neurontin] 400 mg Capsule 400 mg PO TID Selsun Blue 1 % Shampoo 10 ml TOPICAL SA@2100 Rx Instructions: lather into wet hair; leave in place for approximately 3 mins ; rinse acetaminophen 650 mg Tablet Extended Release 650 mg PO Q6H PRN (Reason: HEADACHE/FEVER > 101/BODY ACHE) cholecalciferol (vitamin D3) [Vitamin D3] 25 mcg (1,000 unit) Capsule 25 mcg PO DAILY simvastatin [Zocor] 10 mg Tablet 10 mg PO BEDTIME clonidine HCl 0.2 mg Tablet 0.2 mg PO TID carvedilol 25 mg Tablet 25 mg PO BID Rx Instructions: must administer with a meal/food hydralazine 25 mg Tablet 25 mg PO BID terazosin 2 mg Capsule 6 mg PO BEDTIME bumetanide 1 mg Tablet 1 mg PO DAILY Qty: 30 0RF Protocol: Hold for SBP< HOLD for SBP < : 90 Jardiance 10 mg Tablet 10 mg PO DAILY Qty: 30 0RF amlodipine 10 mg Tablet 10 mg PO DAILY Discontinued furosemide 20 mg Tablet 20 mg PO QAM <Osmin Duran MD - Last Filed: 07/31/22 07:30> Discharge Orders: Discharge Order (Routine); Ordered 07/27/22 Ordered By: Tania Underwood <Osmin Duran MD - Last Filed: 07/31/22 07:30> Diet: Advance to usual diet <Osmin Duran MD - Last Filed: 07/31/22 07:30> Advance to usual diet <[facility] - Last Filed: 07/28/22 17:34> Activity on Discharge: As tolerated <Osmin Duran MD - Last Filed: 07/31/22 07:30> As tolerated <[facility] - Last Filed: 07/28/22 17:34> Stand Alone Forms: Patient Portal Discharge page <Osmin Duran MD - Last Filed: 07/31/22 07:30> Care Plan Goals: respiratory health <Osmin Duran MD - Last Filed: 07/31/22 07:30> Health Concerns: Acute respiratory failure due to COPD exacerbation, CPAP noncompliance <Osmin Duran MD - Last Filed: 07/31/22 07:30> Plan of Treatment: stop taking lasix Use albuterol inhaler for rescue Above all, use CPAP at night and for all naps! 1Lpm oxygen via nasal cannula at all times Please follow up with your primary care doctor within 1 week. Return to the hospital if you experience recurrent or worsening symptoms. <Osmin Duran MD - Last Filed: 07/31/22 07:30> Assessment: See Discharge Summary. <Osmin Duran MD - Last Filed: 07/31/22 07:30> Discharge Date/Time: 07/27/22 15:42 <Osmin Duran MD - Last Filed: 07/31/22 07:30>
[2022-07-22 10:11] LABS: COVID-19 Test Negative (Negative); IDNOW Serial# BCCEAD1C
--- NOTE | 2022-07-22 10:55 | MHC.CM.PN ---
Clarified with discharging physician D/C order is for return to long term. Will initiate D/C process.
--- NOTE | 2022-07-22 11:00 | MHC.CM.PN ---
Called first two listed numbers on file for D/C initiation. Neither were answered; no options for confidential voice message. Third number listed is [employer] Mechanic, Rolf. He adamantly declares this snf absolutely does not perform patient returns over weekends due to the overseeing nurse being not available/not working weekends. He states there is a huge intake process and a lot of readmission paperwork that their nurse needs to do and she is not available to do it on the weekends. This RNCM indicated this is not a reason for a person to remain in hospital level of care and requested to speak to a higher up recreational facilities motel manager. Rolf reminded this RNCM that he is the Go Cart Mechanic and this process and communication are handled between himself and the M-F nurse. Verified with Rolf that the nurse will be available on Sunday07/24/22 to which Rolf agreed. This RNCM also requested a direct number (not just a main house number) for Rolf, his cell phone is: [phone]. Reported back to MD. DURAN to follow.
--- NOTE | 2022-07-22 11:10 | P.PNIM_ITS ---
Subjective Subjective Date of Service: 07/22/22 Interval History: breathing much improved with use of BiPAP/CPAP overnight was prepared for d/c back to [facility] but [facility] refuses to take pt back, citing the fact that it is the weekend Review of Systems Review of Systems: Yes all other systems are reviewed and are negative Physical Exam Vital Signs: Vital Signs: Last Vital Signs Temp 97.8 F 07/22/22 08:00 Pulse 93 07/22/22 08:14 Resp 18 07/22/22 08:17 BP 184/96 H 07/22/22 08:00 Pulse Ox 94 07/22/22 08:00 O2 Del Method 07/21/22 23:37 O2 Flow Rate 2 07/21/22 19:41 FiO2 30 07/21/22 00:00 Oxygen Flow Rate 1 07/20/22 00:22 BMI result Body Mass Index 35.5 Const: Other: Gen: in no acute distress HEENT: sclera anicteric, moist mucus membranes Neck: supple Lungs: clear bilaterally Heart: regular rate and rhythm, no murmurs Abd: soft, non-tender, non-distended Ext: no edema Skin: warm/well-perfused Neuro: alert, impaired insight Objective Data Active Medications Acetaminophen (Acetaminophen 325 Mg Tablet) 650 mg PO Q6H PRN PRN Reason: Pain, Mild (Pain Scale 1-3) Last Admin: 07/21/22 06:25 Dose: 650 mg Documented By: FLORIN Amlodipine Besylate (Amlodipine Besylate 10 Mg Tablet) 10 mg PO DAILY [facility]; Protocol Last Admin: 07/22/22 09:15 Dose: 10 mg Documented By: ALLIE Aspirin (Aspirin Enteric Coated 81 Mg Tablet.Dr) 81 mg PO DAILY [facility] Last Admin: 07/22/22 09:16 Dose: 81 mg Documented By: ALLIE Atorvastatin Calcium (Atorvastatin Calcium 10 Mg Tablet) 10 mg PO BEDTIME [facility] Last Admin: 07/21/22 20:27 Dose: 10 mg Documented By: DENNY Bumetanide (Bumetanide 1 Mg Tablet) 1 mg PO DAILY [facility]; Protocol Last Admin: 07/22/22 09:15 Dose: 1 mg Documented By: ALLIE Carvedilol (Carvedilol 25 Mg Tablet) 25 mg PO BID [facility]; Protocol Last Admin: 07/22/22 09:16 Dose: 25 mg Documented By: ALLIE Clonidine HCl (Clonidine Hcl 0.2 Mg Tablet) 0.2 mg PO TID [facility]; Protocol Last Admin: 07/22/22 09:15 Dose: 0.2 mg Documented By: ALLIE Albuterol Sulfate 2.5 mg/ (Ipratropium [place] 0.5 mg) 0 mg INHALE RQ4H WHILE AWAKE [facility] Last Admin: 07/22/22 08:13 Dose: 1 each Documented By: YANELIS Albuterol Sulfate 2.5 mg/ (Ipratropium [place] 0.5 mg) 0 mg INHALE Q4H PRN PRN Reason: Wheezing Doxazosin Mesylate (Doxazosin Mesylate 2 Mg Tablet) 6 mg PO BEDTIME [facility] Last Admin: 07/21/22 20:25 Dose: 6 mg Documented By: DENNY Empagliflozin (Empagliflozin 10 Mg Tablet) 10 mg PO DAILY [facility] Last Admin: 07/22/22 09:15 Dose: 10 mg Documented By: ALLIE Enoxaparin Sodium (Enoxaparin Sodium 40 Mg/0.4 Ml Syringe) 40 mg SUBCUT Q24H [facility] Last Admin: 07/22/22 05:12 Dose: 40 mg Documented By: DENNY Furosemide (Furosemide 20 Mg Tablet) 20 mg PO DAILY [facility]; Protocol Last Admin: 07/22/22 09:15 Dose: 20 mg Documented By: ALLIE Gabapentin (Gabapentin 400 Mg Capsule) 400 mg PO TID [facility] Last Admin: 07/22/22 09:16 Dose: 400 mg Documented By: ALLIE Hydralazine HCl (Hydralazine Hcl 25 Mg Tablet) 25 mg PO BID [facility]; Protocol Last Admin: 07/22/22 09:15 Dose: 25 mg Documented By: ALLIE Azithromycin 500 mg/ Sodium (Chloride) 250 mls @ 125 mls/hr IV Q24H [facility] Last Infusion: 07/22/22 06:11 Dose: 0 mls/hr Documented By: DENNY Loperamide HCl (Loperamide Hcl 2 Mg Capsule) 2 mg PO Q6H PRN PRN Reason: Diarrhea Last Admin: 07/21/22 20:27 Dose: 2 mg Documented By: DENNY Melatonin (Melatonin 3 Mg Tablet) 6 mg PO BEDTIME PRN PRN Reason: Insomnia Melatonin (Melatonin 3 Mg Tablet) 6 mg PO BEDTIME [facility] Last Admin: 07/21/22 20:26 Dose: 6 mg Documented By: DENNY Methylprednisolone Sodium Succinate (Methylprednisolone Sod Succ 40 Mg/Ml Vial) 40 mg IVPUSH Q12H [facility] Last Admin: 07/22/22 05:16 Dose: 40 mg Documented By: DENNY Mirtazapine (Mirtazapine 30 Mg Tablet) 30 mg PO BEDTIME [facility] Last Admin: 07/21/22 20:27 Dose: 30 mg Documented By: DENNY Ondansetron HCl (Ondansetron Hcl 4 Mg/2 Ml Vial) 4 mg IVPUSH Q8H PRN PRN Reason: Nausea and Vomiting Pharmacy Consult (Consult Rx Perform Med Rec) 1 each MISCELLANE ONCE PRN PRN Reason: Consult order Sertraline HCl (Sertraline Hcl 25 Mg Tablet) 25 mg PO DAILY [facility] Last Admin: 07/22/22 09:16 Dose: 25 mg Documented By: ALLIE Sodium Chloride (0.9 % Sodium Chloride Flush 3 Ml Syringe) 3 ml IVFLUSH QSHIFT [facility] Last Admin: 07/22/22 09:15 Dose: 3 ml Documented By: ALLIE Vitamin D (Cholecalciferol (Vitamin D3) 25 Mcg Tablet) 25 mcg PO DAILY [facility] Last Admin: 07/22/22 09:15 Dose: 25 mcg Documented By: ALLIE Labs 07/21/22 06:41 07/22/22 06:23 Labs: Laboratory Results - last 24 hr 07/21/22 07/22/22 07/22/22 08:00 06:23 06:23 VBG pH VBG pCO2 VBG pO2 VBG HCO3 VBG O2 Saturation VBG Base Excess Anion Gap 14 Estim Creat Clear Calc 63.0 Estimated GFR 53 Random Glucose 261 H Calcium 8.6 B-Natriuretic Peptide 587 H Respiratory Panel Snyder See Note Adenovirus (Rapid PCR) Not Detected B.pert (TEM-PCR) Not Detected B.parapertussis DNA PCR Not Detected C. pneumoniae DNA (PCR) Not Detected Coronavirus OC43 (PCR) Not Detected Coronavirus HKU1 (PCR) Not Detected Coronavirus 229E (PCR) Not Detected COVID-19 (JACQUELINE) COVID-19 Clin Com Coronavirus NL63 (PCR) Not Detected Human Metapneumovir PCR Not Detected Influenza A (RT-PCR) Not Detected Influenza B (RT-PCR) Not Detected M. pneumoniae (PCR) Not Detected Parainfluenza 1 (PCR) Not Detected Parainfluenza 2 (PCR) Not Detected Parainfluenza 3 (PCR) Not Detected Parainfluenza 4 (PCR) Not Detected RSV (PCR) Not Detected Entero/Rhino (PCR) Not Detected SARS-CoV-2 RNA (RT-PCR) Not Detected 07/22/22 07/22/22 06:27 09:30 VBG pH 7.42 VBG pCO2 49 VBG pO2 199 VBG HCO3 32 H VBG O2 Saturation 99.0 VBG Base Excess 7.3 Anion Gap Estim Creat Clear Calc Estimated GFR Random Glucose Calcium B-Natriuretic Peptide Respiratory Panel Snyder Adenovirus (Rapid PCR) B.pert (TEM-PCR) B.parapertussis DNA PCR C. pneumoniae DNA (PCR) Coronavirus OC43 (PCR) Coronavirus HKU1 (PCR) Coronavirus 229E (PCR) COVID-19 (JACQUELINE) Negative COVID-19 Clin Com See Note Coronavirus NL63 (PCR) Human Metapneumovir PCR Influenza A (RT-PCR) Influenza B (RT-PCR) M. pneumoniae (PCR) Parainfluenza 1 (PCR) Parainfluenza 2 (PCR) Parainfluenza 3 (PCR) Parainfluenza 4 (PCR) RSV (PCR) Entero/Rhino (PCR) SARS-CoV-2 RNA (RT-PCR) Microbiology Microbiology Results: Microbiology 07/20/22 01:15 Blood Culture - Preliminary Blood - Arterial No growth after 48 hours. 07/20/22 01:15 Blood Culture - Preliminary Blood - Arterial No growth after 48 hours. 07/20/22 00:00 Urine Culture - Preliminary Urine Catheterized - Straight Catheter No growth to date. Assessment and Plan (1) Acute exacerbation of chronic obstructive pulmonary disease: Status: Acute Plan hospital d#3 62[facility] M [facility] resident with TBI, chronic hypoxic/hypercapneic resp failure due to COPD/CESAR/OHS [baseline 1L suppl O2], HFpEF, CKD3, HTN sent in for hypoxia after recent admission for CHF exacerbation requiring BiPAP # acute/chronic hypoxic/hypercapneic resp failure - suppl O2, wean as tolerated - CPAP at night # COPD exacerbation - d#3 steroids, nebs, azithromycin # chronic HFpEF # HTN - continue diuretics, carvedilol, empagliflozin, amlodipine, hydralazine # CKD3 - SCr at baseline # mood disorder - continue mirtazapine, sertraline # VTE ppx: LMWH # dispo: ready to d[facility]c back to [facility] but [facility]; per CM the nurse who is required to complete 'an entire intake process and a huge stack of paperwork,' is not available on the weekends and they never have patient returns on weekends In my clinical judgment, the patient requires continued inpatient hospitalization for the following reasons: safe disposition, discharge refused by [facility] Time Spent With Patient Time: Total time managing care of this patient today ___35_ minutes. Quality Stroke Does the patient have a stroke diagnosis?: No VTE Prior VTE?: No VTE Risk Level:: Medical - moderate - high VTE Device Contraindication: Treatment Not Indicated VTE Drug Contraindication: N/A - Med Ordered
[2022-07-22] MEDS: Melatonin 3 MG TABLET 6 MG PO (19:43)
[2022-07-22] MEDS: Doxazosin Mesylate 2 MG TABLET 6 MG PO (19:44)
[2022-07-22] MEDS: Atorvastatin Calcium 10 MG TABLET PO (19:46)
[2022-07-22] MEDS: Mirtazapine 30 MG TABLET PO (19:46)
[2022-07-22] MEDS: Loperamide HCl 2 MG CAPSULE PO (19:47)
[2022-07-23] VITALS (10 sets, daily range): BP systolic 139–161; BP diastolic 76–98; PULSE 67–87; RESP 15–20; TEMP 36.2–36.8; O2SAT 92–96
[2022-07-23] MEDS: 0.9 % Sodium Chloride Flush 3 ML SYRINGE IVFLUSH ×4 (04:48→23:42)
[2022-07-23] MEDS: Azithromycin 500 MG in 0.9 % Sodium Chloride 250 ML 125 MG IV (04:49)
[2022-07-23] MEDS: methylPREDNISolone Sod Succ 40 MG/ML VIAL IVPUSH (04:52)
[2022-07-23] MEDS: Enoxaparin Sodium 40 MG/0.4 ML SYRINGE SUBCUT (04:52)
[2022-07-23] MEDS: cloNIDine HCL 0.2 MG TABLET PO ×3 (11:01→20:26)
[2022-07-23] MEDS: Sertraline HCL 25 MG TABLET PO (11:01)
[2022-07-23] MEDS: Aspirin Enteric Coated 81 MG TABLET.DR PO (11:01)
[2022-07-23] MEDS: hydrALAZINE HCl 25 MG TABLET PO ×2 (11:01→20:26)
[2022-07-23] MEDS: Bumetanide 1 MG TABLET PO (11:01)
[2022-07-23] MEDS: Furosemide 20 MG TABLET PO (11:02)
[2022-07-23] MEDS: carvediloL 25 MG TABLET PO ×2 (11:02→20:26)
[2022-07-23] MEDS: Gabapentin 400 MG CAPSULE PO ×3 (11:02→20:25)
[2022-07-23] MEDS: amLODIPine Besylate 10 MG TABLET PO (11:02)
[2022-07-23] MEDS: Cholecalciferol (Vitamin D3) 25 MCG TABLET PO (11:02)
[2022-07-23] MEDS: Empagliflozin 10 MG TABLET PO (11:02)
--- NOTE | 2022-07-23 11:13 | HO.PM.IMPN ---
Subjective Subjective Date of Service: 07/23/22 Interval History: Offers no acute complaints, resting comfortably stable oxygenation tolerating diet, no overnight events. Review of Systems Review of Systems: Yes all other systems are reviewed and are negative Physical Exam Vital Signs: Vital Signs: Last Vital Signs Temp 98.2 F 07/23/22 08:00 Pulse 87 07/23/22 08:31 Resp 18 07/23/22 08:33 BP 160/98 H 07/23/22 08:00 Pulse Ox 95 07/23/22 08:00 O2 Del Method 07/23/22 08:00 O2 Flow Rate 2 07/22/22 23:31 FiO2 30 07/21/22 00:00 Oxygen Flow Rate 1 07/20/22 00:22 BMI result Body Mass Index 35.5 Const: Other: Gen: in no acute distress HEENT: sclera anicteric, moist mucus membranes Neck: supple Lungs: clear bilaterally, no wheeze, no crackles Heart: regular rate and rhythm, no murmurs Abd: soft, non-tender, non-distended Ext: no edema Skin: warm/well-perfused Neuro: alert, impaired insight Objective Data Active Medications Acetaminophen (Acetaminophen 325 Mg Tablet) 650 mg PO Q6H PRN PRN Reason: Pain, Mild (Pain Scale 1-3) Last Admin: 07/21/22 06:25 Dose: 650 mg Documented By: FLORIN Amlodipine Besylate (Amlodipine Besylate 10 Mg Tablet) 10 mg PO DAILY [facility]; Protocol Last Admin: 07/23/22 11:02 Dose: 10 mg Documented By: SAMANTHA Aspirin (Aspirin Enteric Coated 81 Mg Tablet.) 81 mg PO DAILY [facility] Last Admin: 07/23/22 11:01 Dose: 81 mg Documented By: SAMANTHA Atorvastatin Calcium (Atorvastatin Calcium 10 Mg Tablet) 10 mg PO BEDTIME [facility] Last Admin: 07/22/22 19:46 Dose: 10 mg Documented By: DENNY Bumetanide (Bumetanide 1 Mg Tablet) 1 mg PO DAILY [facility]; Protocol Last Admin: 07/23/22 11:01 Dose: 1 mg Documented By: SAMANTHA Carvedilol (Carvedilol 25 Mg Tablet) 25 mg PO BID [facility]; Protocol Last Admin: 07/23/22 11:02 Dose: 25 mg Documented By: SAMANTHA Clonidine HCl (Clonidine Hcl 0.2 Mg Tablet) 0.2 mg PO TID [facility]; Protocol Last Admin: 07/23/22 11:01 Dose: 0.2 mg Documented By: SAMANTHA Albuterol Sulfate 2.5 mg/ (Ipratropium [place] 0.5 mg) 0 mg INHALE RQ4H WHILE AWAKE [facility] Last Admin: 07/23/22 08:30 Dose: 1 each Documented By: YANELIS Albuterol Sulfate 2.5 mg/ (Ipratropium [place] 0.5 mg) 0 mg INHALE Q4H PRN PRN Reason: Wheezing Doxazosin Mesylate (Doxazosin Mesylate 2 Mg Tablet) 6 mg PO BEDTIME [facility] Last Admin: 07/22/22 19:44 Dose: 6 mg Documented By: DENNY Comments: Empagliflozin (Empagliflozin 10 Mg Tablet) 10 mg PO DAILY [facility] Last Admin: 07/23/22 11:02 Dose: 10 mg Documented By: SAMANTHA Enoxaparin Sodium (Enoxaparin Sodium 40 Mg/0.4 Ml Syringe) 40 mg SUBCUT Q24H [facility] Last Admin: 07/23/22 04:52 Dose: 40 mg Documented By: DENNY Furosemide (Furosemide 20 Mg Tablet) 20 mg PO DAILY [facility]; Protocol Last Admin: 07/23/22 11:02 Dose: 20 mg Documented By: SAMANTHA Gabapentin (Gabapentin 400 Mg Capsule) 400 mg PO TID [facility] Last Admin: 07/23/22 11:02 Dose: 400 mg Documented By: SAMANTHA Hydralazine HCl (Hydralazine Hcl 25 Mg Tablet) 25 mg PO BID [facility]; Protocol Last Admin: 07/23/22 11:01 Dose: 25 mg Documented By: SAMANTHA Azithromycin 500 mg/ Sodium (Chloride) 250 mls @ 125 mls/hr IV Q24H [facility] Last Infusion: 07/23/22 07:00 Dose: 0 mls/hr Documented By: SAMANTHA Loperamide HCl (Loperamide Hcl 2 Mg Capsule) 2 mg PO Q6H PRN PRN Reason: Diarrhea Last Admin: 07/22/22 19:47 Dose: 2 mg Documented By: DENNY Melatonin (Melatonin 3 Mg Tablet) 6 mg PO BEDTIME PRN PRN Reason: Insomnia Melatonin (Melatonin 3 Mg Tablet) 6 mg PO BEDTIME [facility] Last Admin: 07/22/22 19:43 Dose: 6 mg Documented By: DENNY Methylprednisolone Sodium Succinate (Methylprednisolone Sod Succ 40 Mg/Ml Vial) 40 mg IVPUSH Q12H [facility] Last Admin: 07/23/22 04:52 Dose: 40 mg Documented By: DENNY Mirtazapine (Mirtazapine 30 Mg Tablet) 30 mg PO BEDTIME [facility] Last Admin: 07/22/22 19:46 Dose: 30 mg Documented By: DENNY Ondansetron HCl (Ondansetron Hcl 4 Mg/2 Ml Vial) 4 mg IVPUSH Q8H PRN PRN Reason: Nausea and Vomiting Pharmacy Consult (Consult Rx Perform Med Rec) 1 each MISCELLANE ONCE PRN PRN Reason: Consult order Sertraline HCl (Sertraline Hcl 25 Mg Tablet) 25 mg PO DAILY [facility] Last Admin: 07/23/22 11:01 Dose: 25 mg Documented By: SAMANTHA Sodium Chloride (0.9 % Sodium Chloride Flush 3 Ml Syringe) 3 ml IVFLUSH QSHIFT [facility] Last Admin: 07/23/22 11:00 Dose: 3 ml Documented By: SMAANTHA Vitamin D (Cholecalciferol (Vitamin D3) 25 Mcg Tablet) 25 mcg PO DAILY [facility] Last Admin: 07/23/22 11:02 Dose: 25 mcg Documented By: SAMANTHA Labs 07/21/22 06:41 07/22/22 06:23 Microbiology Microbiology Results: Microbiology 07/20/22 00:00 Urine Culture - Final Urine Catheterized - Straight Catheter No growth. Assessment and Plan (1) Acute exacerbation of chronic obstructive pulmonary disease: Status: Acute Plan hospital d#3 62yo M [facility] resident with TBI, chronic hypoxic/hypercapneic resp failure due to COPD/CESAR/OHS [baseline 1L suppl O2], HFpEF, CKD3, HTN sent in for hypoxia after recent admission for CHF exacerbation requiring BiPAP # acute/chronic hypoxic/hypercapneic resp failure - on chronic oxygen 1 L by nasal cannula, CPAP at night # COPD exacerbation - d#4 iv steroids, will change to by mouth steroids, continue nebs, on iv azithromycin day 3, will transition to by mouth azithromycin. # chronic HFpEF/ HTN - continue diuretics, carvedilol, empagliflozin, amlodipine, hydralazine, few high blood pressure readings will follow. # CKD3 - SCr at baseline # mood disorder - continue mirtazapine, sertraline # VTE ppx: LMWH # dispo: ready to [facility] but [facility] refuses [facility]; per CM the nurse who is required to complete 'an entire intake process and a huge stack of paperwork,' is not available on the weekends and they never have patient returns on weekends In my clinical judgment, the patient requires continued inpatient hospitalization for the following reasons: safe disposition, discharge refused by [facility] Time Spent With Patient Time: Total time managing care of this patient today ____ minutes. Quality Stroke Does the patient have a stroke diagnosis?: No VTE Prior VTE?: No VTE Risk Level:: Medical - moderate - high VTE Device Contraindication: Treatment Not Indicated VTE Drug Contraindication: N/A - Med Ordered
[2022-07-23] MEDS: Mirtazapine 30 MG TABLET PO (20:26)
[2022-07-23] MEDS: Atorvastatin Calcium 10 MG TABLET PO (20:26)
[2022-07-23] MEDS: Doxazosin Mesylate 2 MG TABLET 6 MG PO (20:26)
[2022-07-23] MEDS: Melatonin 3 MG TABLET 6 MG PO (20:26)
--- NOTE | 2022-07-23 23:43 | PC.RT ---
Pt refused CPAP for NOC support
[2022-07-24] VITALS (7 sets, daily range): BP systolic 145–164; BP diastolic 74–94; PULSE 67–81; RESP 15–18; TEMP 36.1–36.9; O2SAT 91–94
[2022-07-24] MEDS: Enoxaparin Sodium 40 MG/0.4 ML SYRINGE SUBCUT (05:04)
[2022-07-24] MEDS: Azithromycin 250 MG TABLET PO (05:04)
[2022-07-24] MEDS: Bumetanide 1 MG TABLET PO (07:41)
[2022-07-24] MEDS: Empagliflozin 10 MG TABLET PO (07:41)
[2022-07-24] MEDS: hydrALAZINE HCl 25 MG TABLET PO ×2 (07:41→20:00)
[2022-07-24] MEDS: cloNIDine HCL 0.2 MG TABLET PO ×3 (07:41→20:00)
[2022-07-24] MEDS: Gabapentin 400 MG CAPSULE PO ×3 (07:41→19:59)
[2022-07-24] MEDS: Sertraline HCL 25 MG TABLET PO (07:41)
[2022-07-24] MEDS: Furosemide 20 MG TABLET PO (07:42)
[2022-07-24] MEDS: amLODIPine Besylate 10 MG TABLET PO (07:42)
[2022-07-24] MEDS: predniSONE 20 MG TABLET 40 MG PO (07:42)
[2022-07-24] MEDS: Cholecalciferol (Vitamin D3) 25 MCG TABLET PO (07:42)
[2022-07-24] MEDS: carvediloL 25 MG TABLET PO ×2 (07:42→20:00)
[2022-07-24] MEDS: 0.9 % Sodium Chloride Flush 3 ML SYRINGE IVFLUSH ×3 (07:43→20:00)
[2022-07-24] MEDS: Aspirin Enteric Coated 81 MG TABLET.DR PO (07:43)
--- NOTE | 2022-07-24 12:09 | HO.PM.IMPN ---
Subjective Subjective Date of Service: 07/24/22 Interval History: Resting comfortably offers no acute complaints, no events overnight, tolerating CPAP at night on 1 L of oxygen. Review of Systems Review of Systems: Yes all other systems are reviewed and are negative Physical Exam Vital Signs: Vital Signs: Last Vital Signs Temp 98.2 F 07/24/22 07:27 Pulse 74 07/24/22 11:42 Resp 18 07/24/22 11:42 BP 164/84 H 07/24/22 11:42 Pulse Ox 93 07/24/22 11:42 O2 Del Method 07/24/22 07:27 O2 Flow Rate 2 07/24/22 03:06 FiO2 30 07/21/22 00:00 Oxygen Flow Rate 1 07/20/22 00:22 BMI result Body Mass Index 35.5 Const: Other: Gen: in no acute distress HEENT: sclera anicteric, moist mucus membranes Neck: supple Lungs: clear bilaterally, no wheeze, no crackles Heart: regular rate and rhythm, no murmurs Abd: soft, non-tender, non-distended Ext: no edema Skin: warm/well-perfused Neuro: alert, impaired insight Objective Data Active Medications Acetaminophen (Acetaminophen 325 Mg Tablet) 650 mg PO Q6H PRN PRN Reason: Pain, Mild (Pain Scale 1-3) Last Admin: 07/21/22 06:25 Dose: 650 mg Documented By: FLORIN Amlodipine Besylate (Amlodipine Besylate 10 Mg Tablet) 10 mg PO DAILY [facility]; Protocol Last Admin: 07/24/22 07:42 Dose: 10 mg Documented By: ISABEL Aspirin (Aspirin Enteric Coated 81 Mg Tablet.) 81 mg PO DAILY [facility] Last Admin: 07/24/22 07:43 Dose: 81 mg Documented By: ISABEL Atorvastatin Calcium (Atorvastatin Calcium 10 Mg Tablet) 10 mg PO BEDTIME [facility] Last Admin: 07/23/22 20:26 Dose: 10 mg Documented By: TONO Azithromycin (Azithromycin 250 Mg Tablet) 250 mg PO Q24H [facility] Last Admin: 07/24/22 05:04 Dose: 250 mg Documented By: ALLAN Bumetanide (Bumetanide 1 Mg Tablet) 1 mg PO DAILY [facility]; Protocol Last Admin: 07/24/22 07:41 Dose: 1 mg Documented By: ISABEL Carvedilol (Carvedilol 25 Mg Tablet) 25 mg PO BID [facility]; Protocol Last Admin: 07/24/22 07:42 Dose: 25 mg Documented By: ISABEL Clonidine HCl (Clonidine Hcl 0.2 Mg Tablet) 0.2 mg PO TID [facility]; Protocol Last Admin: 07/24/22 07:41 Dose: 0.2 mg Documented By: ISABEL Albuterol Sulfate 2.5 mg/ (Ipratropium [place] 0.5 mg) 0 mg INHALE RQ4H WHILE AWAKE [facility] Last Admin: 07/24/22 11:16 Dose: Not Given Documented By: MANUEL Non-Admin Reason: Patient Refused Albuterol Sulfate 2.5 mg/ (Ipratropium [place] 0.5 mg) 0 mg INHALE Q4H PRN PRN Reason: Wheezing Doxazosin Mesylate (Doxazosin Mesylate 2 Mg Tablet) 6 mg PO BEDTIME [facility] Last Admin: 07/23/22 20:26 Dose: 6 mg Documented By: TONO Empagliflozin (Empagliflozin 10 Mg Tablet) 10 mg PO DAILY [facility] Last Admin: 07/24/22 07:41 Dose: 10 mg Documented By: ISABEL Enoxaparin Sodium (Enoxaparin Sodium 40 Mg/0.4 Ml Syringe) 40 mg SUBCUT Q24H [facility] Last Admin: 07/24/22 05:04 Dose: 40 mg Documented By: ALLAN Furosemide (Furosemide 20 Mg Tablet) 20 mg PO DAILY [facility]; Protocol Last Admin: 07/24/22 07:42 Dose: 20 mg Documented By: ISABEL Gabapentin (Gabapentin 400 Mg Capsule) 400 mg PO TID [facility] Last Admin: 07/24/22 07:41 Dose: 400 mg Documented By: ISABEL Hydralazine HCl (Hydralazine Hcl 25 Mg Tablet) 25 mg PO BID [facility]; Protocol Last Admin: 07/24/22 07:41 Dose: 25 mg Documented By: ISABEL Loperamide HCl (Loperamide Hcl 2 Mg Capsule) 2 mg PO Q6H PRN PRN Reason: Diarrhea Last Admin: 07/22/22 19:47 Dose: 2 mg Documented By: DENNY Melatonin (Melatonin 3 Mg Tablet) 6 mg PO BEDTIME PRN PRN Reason: Insomnia Melatonin (Melatonin 3 Mg Tablet) 6 mg PO BEDTIME [facility] Last Admin: 07/23/22 20:26 Dose: 6 mg Documented By: TONO Mirtazapine (Mirtazapine 30 Mg Tablet) 30 mg PO BEDTIME [facility] Last Admin: 07/23/22 20:26 Dose: 30 mg Documented By: TONO Ondansetron HCl (Ondansetron Hcl 4 Mg/2 Ml Vial) 4 mg IVPUSH Q8H PRN PRN Reason: Nausea and Vomiting Pharmacy Consult (Consult Rx Perform Med Rec) 1 each MISCELLANE ONCE PRN PRN Reason: Consult order Prednisone (Prednisone 20 Mg Tablet) 40 mg PO DAILY [facility] Last Admin: 07/24/22 07:42 Dose: 40 mg Documented By: ISAEBL Sertraline HCl (Sertraline Hcl 25 Mg Tablet) 25 mg PO DAILY [facility] Last Admin: 07/24/22 07:41 Dose: 25 mg Documented By: ISABEL Sodium Chloride (0.9 % Sodium Chloride Flush 3 Ml Syringe) 3 ml IVFLUSH QSHIFT [facility] Last Admin: 07/24/22 07:43 Dose: 3 ml Documented By: ISABEL Vitamin D (Cholecalciferol (Vitamin D3) 25 Mcg Tablet) 25 mcg PO DAILY [facility] Last Admin: 07/24/22 07:42 Dose: 25 mcg Documented By: ISABEL Labs 07/21/22 06:41 07/22/22 06:23 Assessment and Plan (1) Acute exacerbation of chronic obstructive pulmonary disease: Status: Acute Plan hospital d#3 62yo M [facility] resident with TBI, chronic hypoxic/hypercapneic resp failure due to COPD/CESAR/OHS [baseline 1L suppl O2], HFpEF, CKD3, HTN sent in for hypoxia after recent admission for CHF exacerbation requiring BiPAP # acute/chronic hypoxic/hypercapneic resp failure Remains stable clinically - on chronic oxygen 1 L by nasal cannula, CPAP at night # COPD exacerbation - d#5 po steroids, continue nebs, on iv azithromycin day 4/5, will transition to by mouth azithromycin. # chronic HFpEF/ HTN - continue diuretics, carvedilol, empagliflozin, amlodipine, hydralazine, few high blood pressure readings will follow. # CKD3 - SCr at baseline # mood disorder - continue mirtazapine, sertraline # VTE ppx: LMWH # dispo: ready to [facility] but [facility]; they are requesting for competency eval, therefore will obtain psychiatric consultation. In my clinical judgment, the patient requires continued inpatient hospitalization for the following reasons: safe disposition, discharge refused by [facility] Time Spent With Patient Time: Total time managing care of this patient today ____ minutes. Quality Stroke Does the patient have a stroke diagnosis?: No VTE Prior VTE?: No VTE Risk Level:: Medical - moderate - high VTE Device Contraindication: Treatment Not Indicated VTE Drug Contraindication: N/A - Med Ordered
--- NOTE | 2022-07-24 13:55 | MHC.CM.PN ---
per request of bernardo alf rn pt will have a comptencey eval to determine wherther hcp should be invoked ..bernardo expects that pt will need rehab..,alf will accept pt back if its is dtermined that pt will come back on hospice
[2022-07-24] MEDS: Melatonin 3 MG TABLET 6 MG PO (19:59)
[2022-07-24] MEDS: Atorvastatin Calcium 10 MG TABLET PO (20:00)
[2022-07-24] MEDS: Doxazosin Mesylate 2 MG TABLET 6 MG PO (20:00)
[2022-07-24] MEDS: Mirtazapine 30 MG TABLET PO (20:00)
--- NOTE | 2022-07-24 23:15 | PC.RT ---
Pt refused his bedtime CPAP, no resp distress
[2022-07-25] VITALS (10 sets, daily range): BP systolic 111–162; BP diastolic 69–84; PULSE 63–82; RESP 12–18; TEMP 36.4–36.9; O2SAT 92–98
[2022-07-25] MEDS: Azithromycin 250 MG TABLET PO (06:23)
[2022-07-25] MEDS: Enoxaparin Sodium 40 MG/0.4 ML SYRINGE SUBCUT (06:23)
--- NOTE | 2022-07-25 08:29 | MHC.CM.PN ---
MESSAGE LEFT AT NURSING HOME REQUESTING A CALL BACK FROM RN No DURAN SPOKE TO RN YESTERDAY WHO STATED THEY WANT THE PT TO GO ON HOSPICE THEY FEAR HE WILL PASS DUE TO NON-COMPLIANCE SHE ALSO REQUESTED A COMPETENCY EVAL SO THAT THE HCP COULD BE INVOKED PSYCH EVAL ORDERED THERE IS ALSO A NOTE THAT THEY THINK HE MAY NEED STR CM WILL DISCUSS WITH MD TO DETERMINE IF THERE ARE ANY REHAB NEEDS
[2022-07-25] MEDS: 0.9 % Sodium Chloride Flush 3 ML SYRINGE IVFLUSH ×2 (08:46→14:21)
[2022-07-25] MEDS: amLODIPine Besylate 10 MG TABLET PO (08:46)
[2022-07-25] MEDS: predniSONE 20 MG TABLET 40 MG PO (08:46)
[2022-07-25] MEDS: hydrALAZINE HCl 25 MG TABLET PO ×2 (08:47→20:39)
[2022-07-25] MEDS: carvediloL 25 MG TABLET PO ×2 (08:47→20:39)
[2022-07-25] MEDS: cloNIDine HCL 0.2 MG TABLET PO ×3 (08:47→20:39)
[2022-07-25] MEDS: Gabapentin 400 MG CAPSULE PO ×3 (08:47→20:39)
[2022-07-25] MEDS: Sertraline HCL 25 MG TABLET PO (08:48)
[2022-07-25] MEDS: Bumetanide 1 MG TABLET PO (08:48)
[2022-07-25] MEDS: Aspirin Enteric Coated 81 MG TABLET.DR PO (08:48)
[2022-07-25] MEDS: Cholecalciferol (Vitamin D3) 25 MCG TABLET PO (08:48)
[2022-07-25] MEDS: Furosemide 20 MG TABLET PO (08:48)
[2022-07-25] MEDS: Empagliflozin 10 MG TABLET PO (08:48)
--- NOTE | 2022-07-25 12:21 | P.PNIM_ITS ---
Subjective Subjective Date of Service: 07/25/22 Interval History: No events overnight, patient offers no acute complaints, awake alert, no nausea, no vomiting, no abdominal pain tolerating diet, on 1 L of oxygen. Review of Systems Review of Systems: Yes all other systems are reviewed and are negative Physical Exam Vital Signs: Vital Signs: Last Vital Signs Temp 97.6 F 07/25/22 11:20 Pulse 68 07/25/22 12:02 Resp 17 07/25/22 12:02 BP 111/69 07/25/22 11:20 Pulse Ox 95 07/25/22 11:20 O2 Del Method 07/25/22 11:20 O2 Flow Rate 2 07/25/22 07:52 FiO2 30 07/21/22 00:00 Oxygen Flow Rate 1 07/20/22 00:22 BMI result Body Mass Index 35.5 Const: Other: Gen: in no acute distress HEENT: sclera anicteric, moist mucus membranes Neck: supple Lungs: clear bilaterally, no wheeze, no crackles Heart: regular rate and rhythm, no murmurs Abd: soft, non-tender, non-distended Ext: no edema Skin: warm/well-perfused Neuro: alert, impaired insight Objective Data Active Medications Acetaminophen (Acetaminophen 325 Mg Tablet) 650 mg PO Q6H PRN PRN Reason: Pain, Mild (Pain Scale 1-3) Last Admin: 07/21/22 06:25 Dose: 650 mg Documented By: FLORIN Amlodipine Besylate (Amlodipine Besylate 10 Mg Tablet) 10 mg PO DAILY [facility]; Protocol Last Admin: 07/25/22 08:46 Dose: 10 mg Documented By: BETO Aspirin (Aspirin Enteric Coated 81 Mg Tablet.Dr) 81 mg PO DAILY [facility] Last Admin: 07/25/22 08:48 Dose: 81 mg Documented By: BETO Atorvastatin Calcium (Atorvastatin Calcium 10 Mg Tablet) 10 mg PO BEDTIME [facility] Last Admin: 07/24/22 20:00 Dose: 10 mg Documented By: ZOIE Azithromycin (Azithromycin 250 Mg Tablet) 250 mg PO Q24H [facility] Last Admin: 07/25/22 06:23 Dose: 250 mg Documented By: ALYCE Bumetanide (Bumetanide 1 Mg Tablet) 1 mg PO DAILY [facility]; Protocol Last Admin: 07/25/22 08:48 Dose: 1 mg Documented By: BETO Carvedilol (Carvedilol 25 Mg Tablet) 25 mg PO BID [facility]; Protocol Last Admin: 07/25/22 08:47 Dose: 25 mg Documented By: BETO Clonidine HCl (Clonidine Hcl 0.2 Mg Tablet) 0.2 mg PO TID [facility]; Protocol Last Admin: 07/25/22 08:47 Dose: 0.2 mg Documented By: BETO Albuterol Sulfate 2.5 mg/ (Ipratropium [place] 0.5 mg) 0 mg INHALE RQ4H WHILE AWAKE [facility] Last Admin: 07/25/22 12:02 Dose: 1 each Documented By: YANELIS Albuterol Sulfate 2.5 mg/ (Ipratropium [place] 0.5 mg) 0 mg INHALE Q4H PRN PRN Reason: Wheezing Doxazosin Mesylate (Doxazosin Mesylate 2 Mg Tablet) 6 mg PO BEDTIME [facility] Last Admin: 07/24/22 20:00 Dose: 6 mg Documented By: ZOIE Empagliflozin (Empagliflozin 10 Mg Tablet) 10 mg PO DAILY [facility] Last Admin: 07/25/22 08:48 Dose: 10 mg Documented By: BETO Enoxaparin Sodium (Enoxaparin Sodium 40 Mg/0.4 Ml Syringe) 40 mg SUBCUT Q24H [facility] Last Admin: 07/25/22 06:23 Dose: 40 mg Documented By: ALYCE Furosemide (Furosemide 20 Mg Tablet) 20 mg PO DAILY [facility]; Protocol Last Admin: 07/25/22 08:48 Dose: 20 mg Documented By: BETO Gabapentin (Gabapentin 400 Mg Capsule) 400 mg PO TID [facility] Last Admin: 07/25/22 08:47 Dose: 400 mg Documented By: BETO Hydralazine HCl (Hydralazine Hcl 25 Mg Tablet) 25 mg PO BID [facility]; Protocol Last Admin: 07/25/22 08:47 Dose: 25 mg Documented By: BETO Loperamide HCl (Loperamide Hcl 2 Mg Capsule) 2 mg PO Q6H PRN PRN Reason: Diarrhea Last Admin: 07/22/22 19:47 Dose: 2 mg Documented By: DENNY Melatonin (Melatonin 3 Mg Tablet) 6 mg PO BEDTIME PRN PRN Reason: Insomnia Melatonin (Melatonin 3 Mg Tablet) 6 mg PO BEDTIME [facility] Last Admin: 07/24/22 19:59 Dose: 6 mg Documented By: ZOIE Mirtazapine (Mirtazapine 30 Mg Tablet) 30 mg PO BEDTIME [facility] Last Admin: 07/24/22 20:00 Dose: 30 mg Documented By: ZOIE Ondansetron HCl (Ondansetron Hcl 4 Mg/2 Ml Vial) 4 mg IVPUSH Q8H PRN PRN Reason: Nausea and Vomiting Pharmacy Consult (Consult Rx Perform Med Rec) 1 each MISCELLANE ONCE PRN PRN Reason: Consult order Prednisone (Prednisone 20 Mg Tablet) 40 mg PO DAILY [facility] Last Admin: 07/25/22 08:46 Dose: 40 mg Documented By: BETO Sertraline HCl (Sertraline Hcl 25 Mg Tablet) 25 mg PO DAILY [facility] Last Admin: 07/25/22 08:48 Dose: 25 mg Documented By: BETO Sodium Chloride (0.9 % Sodium Chloride Flush 3 Ml Syringe) 3 ml IVFLUSH QSHIFT [facility] Last Admin: 07/25/22 08:46 Dose: 3 ml Documented By: BETO Vitamin D (Cholecalciferol (Vitamin D3) 25 Mcg Tablet) 25 mcg PO DAILY [facility] Last Admin: 07/25/22 08:48 Dose: 25 mcg Documented By: BETO Labs 07/21/22 06:41 07/22/22 06:23 Microbiology Microbiology Results: Microbiology 07/20/22 01:15 Blood Culture - Final Blood - Arterial No growth after 5 days. 07/20/22 01:15 Blood Culture - Final Blood - Arterial No growth after 5 days. Assessment and Plan (1) Acute exacerbation of chronic obstructive pulmonary disease: Status: Acute Plan 62[facility] with [facility], chronic hypoxic/hypercapneic resp failure due to COPD/CESAR/OHS [baseline 1L suppl O2], HFpEF, CKD3, HTN sent in for hypoxia after recent admission for CHF exacerbation requiring BiPAP # acute/chronic hypoxic/hypercapneic resp failure Remains stable clinically - on chronic oxygen 1 L by nasal cannula, CPAP at night # COPD exacerbation - on po steroids, continue nebs, on iv azithromycin day 5, will DC antibiotic and steroids, after today's dose # chronic HFpEF/ HTN - continue diuretics, carvedilol, empagliflozin, amlodipine, hydralazine, few high blood pressure readings will follow. # CKD3 - SCr at baseline # mood disorder - continue mirtazapine, sertraline # VTE ppx: LMWH # dispo: [facility]; they are requesting for competency eval, psychiatric consultation requested.. In my clinical judgment, the patient requires continued inpatient hospitalization for the following reasons: safe disposition, [facility] by [facility] Time Spent With Patient Time: Total time managing care of this patient today ____ minutes. Quality Stroke Does the patient have a stroke diagnosis?: No VTE Prior VTE?: No VTE Risk Level:: Medical - moderate - high VTE Device Contraindication: Treatment Not Indicated VTE Drug Contraindication: N/A - Med Ordered
--- NOTE | 2022-07-25 12:48 | MHC.CM.PN ---
Addendum entered by Kristi Paul 07/26/22 12:05: CORRECTION- Phone number oJy @ - [phone] Addendum entered by Kristi Desouza 07/25/22 16:00: CM WAS ABLE TO REACH [facility] JOY ([phone]) WHO IS STATING THEY ARE UNABLE TO TAKE PT BACK DUE TO MEDICAL REASONS. SHE IS REQUESTING A MTG BETWEEN //?PSYCH BE ARRANGED FOR 07/26. PER JOY, SHE WILL EMAIL A TIME WHEN COORDINATED. Original Note: ANOTHER MESSAGE LEFT FOR TO RETURN CALL [facility]. CM CONTINUES TO FOLLOW.
--- NOTE | 2022-07-25 13:34 | P.CNPS_ITS ---
History of Present Illness Date of Service: 07/25/2022 Chief Complaint: Dyspnea Reason for Consult: capacity Requesting physician: Iona Banuelos Discussed with referring provider: Yes Sources of Information: patient interviewed, chart reviewed and crisis/core team assessment reviewed HPI Narrative: Mr. Qureshi is a 62 year-old male with hx of TBI, mood disorder, COPD who is currently admitted for acute on chronic hypoxic and hypercapneic respiratory failure. It appears he does not keep CPAP and oxygen at where he resides and keeps representing to the ED. Psychiatry ask to assess his capacity to make medical decisions. Pt seen in bed. He is in no acute distress. He is pleasant and smiling. Interview conducted in Monegasque as he is primarily Monegasque-speaking. Pt reports he is feeling like superman and that he was informed he will be discharged today. Pt reports he is here in hospital due to renal cancer. When asked about respiratory condition, pt states yes, I have oxygen. When asked to elaborate what else he knows about his lung condition he does not show further understanding. He is not able to tell this investment underwriter about his current medications or rational for this. He does say that he is given medications at his half-way. When trying to explain reason for him being in the hospital- acute on chronic respiratory failure, pt not able to verbalize understanding. He does report that he has appointed his sister, Nieves, to help him make medical de cisions. [facility] Medical History (Updated 07/25/22 @ 14:05 by Jaqueline Delvalle) CHF (congestive heart failure) COPD (chronic obstructive pulmonary disease) Dementia Ejection fraction < 50% High cholesterol Hypertension Neuropathy CESAR on CPAP TBI (traumatic brain injury) Surgical History H/O left nephrectomy Diagnostics Vital Signs (24Hr): Vital Signs - 24 hr 07/24/22 15:52 07/24/22 19:52 07/24/22 20:28 Temperature 97.8 F 98.5 F Pulse Rate 76 81 81 Respiratory Rate 15 18 18 Blood Pressure 145/74 H 163/86 H Pulse Oximetry 91 L 94 Oxygen Delivery Method Nasal Cannula Nasal Cannula Oxygen Flow Rate 2 2 07/25/22 00:00 07/25/22 02:55 07/25/22 07:52 Temperature 98.4 F 97.5 F 97.6 F Pulse Rate 73 67 69 Respiratory Rate 17 15 14 Blood Pressure 156/84 H 149/79 H Pulse Oximetry 94 93 95 Oxygen Delivery Method Nasal Cannula Nasal Cannula Nasal Cannula Oxygen Flow Rate 2 2 2 07/25/22 08:07 07/25/22 08:07 07/25/22 11:20 Temperature 97.6 F Pulse Rate 71 63 Respiratory Rate 14 17 12 Blood Pressure 111/69 Pulse Oximetry 95 Oxygen Delivery Method Room Air Oxygen Flow Rate 07/25/22 12:02 Temperature Pulse Rate 68 Respiratory Rate 17 Blood Pressure Pulse Oximetry Oxygen Delivery Method Oxygen Flow Rate BMI result Body Mass Index 35.5 Labs 07/21/22 06:41 07/22/22 06:23 Imaging Radiology Impressions: ITS Impressions Chest X-Ray 07/20/22 01:23 IMPRESSION: Bronchial wall thickening can be seen with a small airways process such as asthma or atypical/viral infection. Hazy retrocardiac opacity may represent superimposed atelectasis or pneumonia. Mental Status Exam Mental Status Exam Narrative: Appearance: wearing hospital gown, good hygiene, in NAD Behavior: very friendly and cooperative Psychomotor: no agitation or retardation noted Speech: clear, normal rate/rhythm/volume, spontaneous TP: linear TC: no signs of psychosis, looking forward to return to Mood: feel like superman Affect: bright, non labile Si: none HI: none AH/VH: no signs Delusions: no signs Insight/judgment: impaired x 2. Memory/cog: alert, oriented to place, month, date, year but not situation as he reports he thinks he is here due to kidney cancer. Medications Medications Current Medications Acetaminophen (Acetaminophen 325 Mg Tablet) 650 mg PO Q6H PRN PRN Reason: Pain, Mild (Pain Scale 1-3) Last Admin: 07/21/22 06:25 Dose: 650 mg Amlodipine Besylate (Amlodipine Besylate 10 Mg Tablet) 10 mg PO DAILY [facility]; Protocol Last Admin: 07/25/22 08:46 Dose: 10 mg Aspirin (Aspirin Enteric Coated 81 Mg Tablet.) 81 mg PO DAILY [facility] Last Admin: 07/25/22 08:48 Dose: 81 mg Atorvastatin Calcium (Atorvastatin Calcium 10 Mg Tablet) 10 mg PO BEDTIME [facility] Last Admin: 07/24/22 20:00 Dose: 10 mg Bumetanide (Bumetanide 1 Mg Tablet) 1 mg PO DAILY [facility]; Protocol Last Admin: 07/25/22 08:48 Dose: 1 mg Carvedilol (Carvedilol 25 Mg Tablet) 25 mg PO BID [facility]; Protocol Last Admin: 07/25/22 08:47 Dose: 25 mg Clonidine HCl (Clonidine Hcl 0.2 Mg Tablet) 0.2 mg PO TID [facility]; Protocol Last Admin: 07/25/22 08:47 Dose: 0.2 mg Albuterol Sulfate 2.5 mg/ (Ipratropium [place] 0.5 mg) 0 mg INHALE RQ4H WHILE AWAKE [facility] Last Admin: 07/25/22 12:02 Dose: 1 each Albuterol Sulfate 2.5 mg/ (Ipratropium [place] 0.5 mg) 0 mg INHALE Q4H PRN PRN Reason: Wheezing Doxazosin Mesylate (Doxazosin Mesylate 2 Mg Tablet) 6 mg PO BEDTIME [facility] Last Admin: 07/24/22 20:00 Dose: 6 mg Empagliflozin (Empagliflozin 10 Mg Tablet) 10 mg PO DAILY [facility] Last Admin: 07/25/22 08:48 Dose: 10 mg Enoxaparin Sodium (Enoxaparin Sodium 40 Mg/0.4 Ml Syringe) 40 mg SUBCUT Q24H [facility] Last Admin: 07/25/22 06:23 Dose: 40 mg Furosemide (Furosemide 20 Mg Tablet) 20 mg PO DAILY [facility]; Protocol Last Admin: 07/25/22 08:48 Dose: 20 mg Gabapentin (Gabapentin 400 Mg Capsule) 400 mg PO TID [facility] Last Admin: 07/25/22 08:47 Dose: 400 mg Hydralazine HCl (Hydralazine Hcl 25 Mg Tablet) 25 mg PO BID [facility]; Protocol Last Admin: 07/25/22 08:47 Dose: 25 mg Loperamide HCl (Loperamide Hcl 2 Mg Capsule) 2 mg PO Q6H PRN PRN Reason: Diarrhea Last Admin: 07/22/22 19:47 Dose: 2 mg Melatonin (Melatonin 3 Mg Tablet) 6 mg PO BEDTIME PRN PRN Reason: Insomnia Melatonin (Melatonin 3 Mg Tablet) 6 mg PO BEDTIME [facility] Last Admin: 07/24/22 19:59 Dose: 6 mg Mirtazapine (Mirtazapine 30 Mg Tablet) 30 mg PO BEDTIME [facility] Last Admin: 07/24/22 20:00 Dose: 30 mg Ondansetron HCl (Ondansetron Hcl 4 Mg/2 Ml Vial) 4 mg IVPUSH Q8H PRN PRN Reason: Nausea and Vomiting Pharmacy Consult (Consult Rx Perform Med Rec) 1 each MISCELLANE ONCE PRN PRN Reason: Consult order Sertraline HCl (Sertraline Hcl 25 Mg Tablet) 25 mg PO DAILY [facility] Last Admin: 07/25/22 08:48 Dose: 25 mg Sodium Chloride (0.9 % Sodium Chloride Flush 3 Ml Syringe) 3 ml IVFLUSH QSHIFT [facility] Last Admin: 07/25/22 08:46 Dose: 3 ml Vitamin D (Cholecalciferol (Vitamin D3) 25 Mcg Tablet) 25 mcg PO DAILY [facility] Last Admin: 07/25/22 08:48 Dose: 25 mcg Allergies Allergies Allergy/AdvReac Type Severity Reaction Status Date / Time No Known Allergies Allergy Unknown Verified 07/20/22 00:27 Assessment & Plan Assessment & Plan (1) TBI (traumatic brain injury): Status: Acute Code(s): S06.9XAA - Unspecified intracranial injury with loss of consciousness status unknown, initial encounter Plan Mr. Qureshi is a 62 year-old male with hx of TBI, COPD, acute on chronic hypoxic and hypercapneic respiratory failure secondary to COPD. Psychiatry asked to do capacity assessment. Pt does not show understanding of current medical conditions, appreciation of risk versus benefits or accepting or receiving treatment therefore, not having capacity to make medical decisions. Pt, despite explanation as to why he is here in the hospital, he reports he thinks he is here due to kidney cancer. He is not able to verbalize understanding to respiratory condition, COPD and need of oxygen or consequences if not using it correctly and as scheduled. PLAN 1. Mr. Qureshi DOES NOT HAVE capacity to make medical decisions 2. This information has been provided to his current attending Dr. Banuelos. Recommend MD to invoke HCP. Total time managing care of this patient today ____ minutes.
[2022-07-25] MEDS: Mirtazapine 30 MG TABLET PO (20:39)
[2022-07-25] MEDS: Doxazosin Mesylate 2 MG TABLET 6 MG PO (20:39)
[2022-07-25] MEDS: Melatonin 3 MG TABLET 6 MG PO (20:40)
[2022-07-25] MEDS: Atorvastatin Calcium 10 MG TABLET PO (20:42)
--- NOTE | 2022-07-25 23:00 | PC.RT ---
Pt refused CPAP for NOC support overnight
[2022-07-26] VITALS (9 sets, daily range): BP systolic 140–175; BP diastolic 76–96; PULSE 65–79; RESP 14–18; TEMP 36.1–37; O2SAT 85–94
[2022-07-26] MEDS: Enoxaparin Sodium 40 MG/0.4 ML SYRINGE SUBCUT (06:38)
[2022-07-26] MEDS: amLODIPine Besylate 10 MG TABLET PO (09:01)
[2022-07-26] MEDS: Sertraline HCL 25 MG TABLET PO (09:01)
[2022-07-26] MEDS: Empagliflozin 10 MG TABLET PO (09:02)
[2022-07-26] MEDS: Cholecalciferol (Vitamin D3) 25 MCG TABLET PO (09:02)
[2022-07-26] MEDS: carvediloL 25 MG TABLET PO ×2 (09:02→20:08)
[2022-07-26] MEDS: Furosemide 20 MG TABLET PO (09:02)
[2022-07-26] MEDS: cloNIDine HCL 0.2 MG TABLET PO ×3 (09:02→20:07)
[2022-07-26] MEDS: Gabapentin 400 MG CAPSULE PO ×3 (09:02→20:09)
[2022-07-26] MEDS: Bumetanide 1 MG TABLET PO (09:02)
[2022-07-26] MEDS: Aspirin Enteric Coated 81 MG TABLET.DR PO (09:02)
[2022-07-26] MEDS: hydrALAZINE HCl 25 MG TABLET PO ×2 (09:02→20:09)
[2022-07-26] MEDS: 0.9 % Sodium Chloride Flush 3 ML SYRINGE IVFLUSH ×3 (09:03→20:10)
--- NOTE | 2022-07-26 14:19 | P.PNIM_ITS ---
Subjective Subjective Date of Service: 07/26/22 Interval History: Sitting comfortably eating breakfast no acute issues overnight patient offers no acute complaints of headache dizziness, no nausea, no vomiting, no abdominal pain, on 1 L of oxygen per nasal cannula 94% Review of Systems Review of Systems: Yes all other systems are reviewed and are negative Physical Exam Vital Signs: Vital Signs: Last Vital Signs Temp 97.3 F 07/26/22 11:48 Pulse 75 07/26/22 12:53 Resp 14 07/26/22 11:48 BP 146/76 H 07/26/22 11:48 Pulse Ox 94 07/26/22 11:48 O2 Del Method 07/26/22 11:48 O2 Flow Rate 2 07/26/22 11:48 FiO2 30 07/21/22 00:00 Oxygen Flow Rate 1 07/20/22 00:22 BMI result Body Mass Index 35.5 Const: Other: Gen: in no acute distress HEENT: sclera anicteric, moist mucus membranes Neck: supple Lungs: clear bilaterally, no wheeze, no crackles Heart: regular rate and rhythm, no murmurs Abd: soft, non-tender, non-distended Ext: no edema Skin: warm/well-perfused Neuro: alert, impaired insight Objective Data Active Medications Acetaminophen (Acetaminophen 325 Mg Tablet) 650 mg PO Q6H PRN PRN Reason: Pain, Mild (Pain Scale 1-3) Last Admin: 07/21/22 06:25 Dose: 650 mg Documented By: FLORIN Amlodipine Besylate (Amlodipine Besylate 10 Mg Tablet) 10 mg PO DAILY [facility]; Protocol Last Admin: 07/26/22 09:01 Dose: 10 mg Documented By: FRANKLIN Aspirin (Aspirin Enteric Coated 81 Mg Tablet.) 81 mg PO DAILY [facility] Last Admin: 07/26/22 09:02 Dose: 81 mg Documented By: FRANKLIN Atorvastatin Calcium (Atorvastatin Calcium 10 Mg Tablet) 10 mg PO BEDTIME [facility] Last Admin: 07/25/22 20:42 Dose: 10 mg Documented By: KAE Bumetanide (Bumetanide 1 Mg Tablet) 1 mg PO DAILY [facility]; Protocol Last Admin: 07/26/22 09:02 Dose: 1 mg Documented By: FRANKLIN Carvedilol (Carvedilol 25 Mg Tablet) 25 mg PO BID [facility]; Protocol Last Admin: 07/26/22 09:02 Dose: 25 mg Documented By: FRANKLIN Clonidine HCl (Clonidine Hcl 0.2 Mg Tablet) 0.2 mg PO TID [facility]; Protocol Last Admin: 07/26/22 09:02 Dose: 0.2 mg Documented By: FRANKLIN Albuterol Sulfate 2.5 mg/ (Ipratropium [place] 0.5 mg) 0 mg INHALE RQ4H WHILE AWAKE [facility] Last Admin: 07/26/22 12:52 Dose: 2.5 each Documented By: ROB Albuterol Sulfate 2.5 mg/ (Ipratropium [place] 0.5 mg) 0 mg INHALE Q4H PRN PRN Reason: Wheezing Doxazosin Mesylate (Doxazosin Mesylate 2 Mg Tablet) 6 mg PO BEDTIME [facility] Last Admin: 07/25/22 20:39 Dose: 6 mg Documented By: KAE Empagliflozin (Empagliflozin 10 Mg Tablet) 10 mg PO DAILY [facility] Last Admin: 07/26/22 09:02 Dose: 10 mg Documented By: FRANKLIN Enoxaparin Sodium (Enoxaparin Sodium 40 Mg/0.4 Ml Syringe) 40 mg SUBCUT Q24H [facility] Last Admin: 07/26/22 06:38 Dose: 40 mg Documented By: KAUR Furosemide (Furosemide 20 Mg Tablet) 20 mg PO DAILY [facility]; Protocol Last Admin: 07/26/22 09:02 Dose: 20 mg Documented By: FRANKLIN Gabapentin (Gabapentin 400 Mg Capsule) 400 mg PO TID [facility] Last Admin: 07/26/22 09:02 Dose: 400 mg Documented By: FRANKLIN Hydralazine HCl (Hydralazine Hcl 25 Mg Tablet) 25 mg PO BID [facility]; Protocol Last Admin: 07/26/22 09:02 Dose: 25 mg Documented By: FRANKLIN Loperamide HCl (Loperamide Hcl 2 Mg Capsule) 2 mg PO Q6H PRN PRN Reason: Diarrhea Last Admin: 07/22/22 19:47 Dose: 2 mg Documented By: DENNY Melatonin (Melatonin 3 Mg Tablet) 6 mg PO BEDTIME PRN PRN Reason: Insomnia Melatonin (Melatonin 3 Mg Tablet) 6 mg PO BEDTIME [facility] Last Admin: 02/21/23 20:40 Dose: 6 mg Documented By: KAE Mirtazapine (Mirtazapine 30 Mg Tablet) 30 mg PO BEDTIME [facility] Last Admin: 07/25/22 20:39 Dose: 30 mg Documented By: KAE Ondansetron HCl (Ondansetron Hcl 4 Mg/2 Ml Vial) 4 mg IVPUSH Q8H PRN PRN Reason: Nausea and Vomiting Pharmacy Consult (Consult Rx Perform Med Rec) 1 each MISCELLANE ONCE PRN PRN Reason: Consult order Sertraline HCl (Sertraline Hcl 25 Mg Tablet) 25 mg PO DAILY [facility] Last Admin: 07/26/22 09:01 Dose: 25 mg Documented By: FRANKLIN Sodium Chloride (0.9 % Sodium Chloride Flush 3 Ml Syringe) 3 ml IVFLUSH QSHIFT [facility] Last Admin: 07/26/22 09:03 Dose: 3 ml Documented By: FRANKLIN Vitamin D (Cholecalciferol (Vitamin D3) 25 Mcg Tablet) 25 mcg PO DAILY [facility] Last Admin: 07/26/22 09:02 Dose: 25 mcg Documented By: FRANKLIN Labs 07/21/22 06:41 07/22/22 06:23 Assessment and Plan (1) Acute exacerbation of chronic obstructive pulmonary disease: Status: Resolved Plan 62yo M long-term resident with TBI, chronic hypoxic/hypercapneic resp failure due to COPD/CESAR/OHS [baseline 1L suppl O2], HFpEF, CKD3, HTN sent in for hypoxia after recent admission for CHF exacerbation requiring BiPAP # acute/chronic hypoxic/hypercapneic resp failure/obstructive sleep apnea on CPAP Remains stable clinically - on chronic oxygen 1 L by nasal cannula, CPAP at night # COPD exacerbation - finished course steroids and azithromycin , continue nebs and supportive care # acute on chronic HFpEF/ HTN Echo 07/11 showed EF 60-65% and grade 2 moderate diastolic dysfunction - continue diuretics, carvedilol, empagliflozin, amlodipine, hydralazine, few high blood pressure readings will follow. # CKD3 - SCr at baseline # mood disorder - continue mirtazapine, sertraline # VTE ppx: LMWH # dispo: ready to d/c back to long-term , social service had a meeting with long-term today, they will only take patient back on palliative care, patient is full code, healthcare proxy patient's sister wishes him to be a full code, no hospice, patient is deemed incompetent and healthcare proxy has been invoked. In my clinical judgment, the patient requires continued inpatient hospitalization for the following reasons: safe disposition, discharge refused by long-term Time Spent With Patient Time: Total time managing care of this patient today ____ minutes. Quality Stroke Does the patient have a stroke diagnosis?: No VTE Prior VTE?: No VTE Risk Level:: Medical - moderate - high VTE Device Contraindication: Treatment Not Indicated VTE Drug Contraindication: N/A - Med Ordered
--- NOTE | 2022-07-26 16:16 | MHC.CM.PN ---
MEETING WITH CM DIRECTOR, PT SISTER JAQUELIN (HCP) AND MEMBERS VIA CONFERENCE CALL. WOULD LIKE TO SEE PT ON PALLIATIVE CARE TO RETURN, SISTER IS AGREEABLE TO PALLI NOT HOSPICE AT THIS POINT. REFERRALS SENT OUT FOR VNA'S THAT PROVIDE PALLI CARE, AWAITING RESPONSES. [facility] UNABLE TO ACCEPT. AWAITING PPW FOR MD TO SIGN VIA FAX FROM , NOT RECEIVED OF THIS WRITING.
[2022-07-26] MEDS: Atorvastatin Calcium 10 MG TABLET PO (20:07)
[2022-07-26] MEDS: Mirtazapine 30 MG TABLET PO (20:08)
[2022-07-26] MEDS: Doxazosin Mesylate 2 MG TABLET 6 MG PO (20:08)
[2022-07-26] MEDS: Melatonin 3 MG TABLET 6 MG PO (20:09)
[2022-07-27 00:39] VITALS: BP 151/79; PULSE 70; RESP 16; TEMP 36.9; O2SAT 94
[2022-07-27 04:00] VITALS: BP 141/78; PULSE 80; RESP 16; TEMP 37.1; O2SAT 96
[2022-07-27] MEDS: Enoxaparin Sodium 40 MG/0.4 ML SYRINGE SUBCUT (05:10)
[2022-07-27 07:28] VITALS: BP 148/74; PULSE 77; RESP 14; TEMP 36.6; O2SAT 95
[2022-07-27] MEDS: Empagliflozin 10 MG TABLET PO (08:40)
[2022-07-27] MEDS: Bumetanide 1 MG TABLET PO (08:40)
[2022-07-27] MEDS: hydrALAZINE HCl 25 MG TABLET PO (08:40)
[2022-07-27] MEDS: cloNIDine HCL 0.2 MG TABLET PO (08:40)
[2022-07-27] MEDS: Sertraline HCL 25 MG TABLET PO (08:40)
[2022-07-27] MEDS: amLODIPine Besylate 10 MG TABLET PO (08:40)
[2022-07-27] MEDS: Cholecalciferol (Vitamin D3) 25 MCG TABLET PO (08:42)
[2022-07-27] MEDS: Aspirin Enteric Coated 81 MG TABLET.DR PO (08:42)
[2022-07-27] MEDS: Furosemide 20 MG TABLET PO (08:43)
[2022-07-27] MEDS: carvediloL 25 MG TABLET PO (08:43)
[2022-07-27] MEDS: Gabapentin 400 MG CAPSULE PO (08:43)
[2022-07-27] MEDS: 0.9 % Sodium Chloride Flush 3 ML SYRINGE IVFLUSH (08:44)
[2022-07-27 11:22] VITALS: BP 99/69; PULSE 84; RESP 16; TEMP 36.4; O2SAT 97
--- NOTE | 2022-07-27 12:27 | MHC.CM.PN ---
DP: PT HAS BEEN MEDICALLY CLEARED FOR DC BACK TO [facility]. IILSA NURSE UPDATED ON REFERRAL FOR HOSPICE INFORMATIONAL TO BE DONE BY BY [facility]. SISTER/HCP JAQUELIN IS AGREEABLE AND AWARE OF DC BACK TO . RN AWARE. HAS COMPLETED MED REC FORM. S TRANSPORT ARRANGED FOR 3 PM VIA [facility].
== END 2022-07-27 15:42 | disposition other institution (70) | DRG 140 ==
LOC: HO.ED 03:13 → HO.EDOVER 05:26 → HO.IMC 06:58
PROVIDERS: Family Medicine; Admitting Provider Student in an Organized Health Care Education/Training Program; Emergency Provider Emergency Medicine; PCP Nurse Practitioner Family; Visit Provider Physician Assistant Medical
DX: J44.1 Chronic obstructive pulmonary disease with (acute) exacerbation (principal); J96.21 Acute and chronic respiratory failure with hypoxia; I13.0 Hypertensive heart and chronic kidney disease with heart failure and stage 1 through stage 4 chronic kidney disease, or unspecified chronic kidney disease; I50.32 Chronic diastolic (congestive) heart failure; Z99.81 Dependence on supplemental oxygen; J96.22 Acute and chronic respiratory failure with hypercapnia; F39 Unspecified mood [affective] disorder; E66.2 Morbid (severe) obesity with alveolar hypoventilation; Z68.35 Body mass index [BMI] 35.0-35.9, adult; Z20.822 Contact with and (suspected) exposure to COVID-19; N18.30 Chronic kidney disease, stage 3 unspecified; Z90.5 Acquired absence of kidney; Z87.820 Personal history of traumatic brain injury; Z79.82 Long term (current) use of aspirin; Z79.899 Other long term (current) drug therapy
CPT/HCPCS: 36415; 71045; 80048; 80076; 80307; 81001; 82803; 83605; 83880; 84145; 84484; 85025; 85610; 87040; 87086; 87633; 87635; 93005; 94640; 94660; 99285; J0456; J0696; J1650; J2920; J2930; J3475